=== PATIENT | male | born 1965 | race Caucasian/White ===

== ENCOUNTER 2020-06-29 12:19 | Outpatient (REF) | payer BC, SELFPAY ==
[2020-06-29 13:32] LABS: Alanine Aminotransferase 40 U/L (0-40); Albumin Level 4.5 g/dL (3.5-5.0); Alkaline Phosphatase 49 U/L (39-117); Aspartate Amino Transferase 23 U/L (5-37); Bilirubin Direct 0.2 mg/dL (0.0-0.5); Bilirubin Total 0.5 mg/dL (0.0-1.0); Cholesterol 148 mg/dL; Glucose Fasting 160 mg/dL (60-99); HDL Cholesterol 35 mg/dL; LDL Cholesterol Calculated 84 mg/dl; Total Protein 6.9 g/dL (6.5-8.0); Triglycerides 145 mg/dL
[2020-06-29 13:51] LABS: Estimated Average Glucose 180 mg/dL; Hemoglobin A1c % 7.9 %
== END 2020-06-29 12:20 | disposition home or self-care (01) ==
LOC: HO.LNP 12:19
PROVIDERS: PCP Internal Medicine; Visit Provider Internal Medicine
DX: E11.9 Type 2 diabetes mellitus without complications (principal); E78.00 Pure hypercholesterolemia, unspecified
CPT/HCPCS: 80061; 80076; 82947; 83036

== ENCOUNTER 2020-12-26 10:17 | Outpatient (REF) | payer BC, SELFPAY ==
[2020-12-26 10:20] LABS: MANUAL DIFF FLAG NO
[2020-12-26 11:13] LABS: Basophils Percent Auto 0.5 % (0-2); Eosinophils Absolute Auto 0.2 X10*3/uL (0.0-0.4); Hematocrit 42.3 % (42-52); Hemoglobin 14.1 g/dl (14.0-18.0); Imm Gran Abs Auto 0.03 X10*3/uL (0.00-0.03); Imm Gran Pct Auto 0.4 % (0.0-0.4); Lymphocytes Percent Auto 26.8 % (20-40); Mean Corpuscular HGB Conc 33.3 g/dl (31.0-36.0); Mean Corpuscular Hemoglobin 29.8 pg (27.0-33.0); Mean Corpuscular Volume 89.4 fL (80-98); Mean Platelet Volume 10.8 fL (9.4-12.4); Monocytes Absolute Auto 0.7 X10*3/uL (0.1-1.2); Monocytes Percent Auto 9.1 % (2-11); Neutrophils Absolute Auto 4.6 X10*3/uL (2.0-8.3); Neutrophils Percent Auto 61.2 % (45-73); Platelet Count 268 X10*3/uL (160-400); Red Blood Count 4.73 X10*6/uL (4.60-5.80); Red Cell Distribution Width 12.1 % (11.0-16.0); White Blood Count 7.6 X10*3/uL (4.8-10.8)
[2020-12-26 11:22] LABS: Estimated Average Glucose 160 mg/dL; Hemoglobin A1c % 7.2 %
[2020-12-26 11:26] LABS: Alanine Aminotransferase 35 U/L (0-40); Albumin Level 4.2 g/dL (3.5-5.0); Alkaline Phosphatase 44 U/L (39-117); Anion Gap 11 (12-20); Aspartate Amino Transferase 20 U/L (5-37); Bilirubin Total 0.6 mg/dL (0.0-1.0); Blood Urea Nitrogen 12 mg/dL (9-16); Calcium 9.4 mg/dL (8.4-10.2); Carbon Dioxide 27 mmol/L (22-29); Chloride 103 mmol/L (96-108); Cholesterol 135 mg/dL; Estimated Glomerular Filt Rate > 60; Glucose Fasting 184 mg/dL (60-99); HDL Cholesterol 34 mg/dL; LDL Cholesterol Calculated 75 mg/dl; Potassium 4.4 mmol/L (3.3-5.1); Sodium 137 mmol/L (135-145); Total Protein 6.8 g/dL (6.5-8.0); Triglycerides 130 mg/dL; Uric Acid 6.2 mg/dL (3.4-7.0)
[2020-12-26 11:48] LABS: Reflex LDLD? No
[2020-12-26 11:50] LABS: Creatinine Urine 274.17 mg/dL; Microalbum/Creatinine Ratio Ur 6.2 ug/mg cr; PSA,Total (Free>4and<10) 0.55 ng/mL (0.00-4.00)
[2020-12-26 11:51] LABS: Glucose Urine UA NEG (NEG); Leukocyte Esterase Urine NEG (NEG); Nitrite Urine NEG (NEG); Specific Gravity - Urine >= 1.030 (1.005-1.025); Urine Blood NEG (NEG); Urine Ketones NEG (NEG); Urine Protein NEG (NEG-TRACE)
[2020-12-26 11:55] LABS: Appearance Urine CLEAR; Color Urine YELLOW
== END 2020-12-26 10:18 | disposition home or self-care (01) ==
LOC: HO.LNP 10:17
PROVIDERS: Visit Provider Internal Medicine
DX: Z00.00 Encounter for general adult medical examination without abnormal findings (principal); M10.9 Gout, unspecified; E11.9 Type 2 diabetes mellitus without complications; E78.00 Pure hypercholesterolemia, unspecified; I10 Essential (primary) hypertension; Z12.5 Encounter for screening for malignant neoplasm of prostate
CPT/HCPCS: 80053; 80061; 81003; 82043; 83036; 84153; 84550; 85025

== ENCOUNTER 2021-06-28 07:00 | Outpatient (REF) | payer OTHER, SELFPAY ==
[2021-06-28 11:36] LABS: Estimated Average Glucose 197 mg/dL; Hemoglobin A1c % 8.5 %
[2021-06-28 11:38] LABS: Alanine Aminotransferase 57 U/L (0-40); Albumin Level 4.3 g/dL (3.5-5.0); Alkaline Phosphatase 52 U/L (39-117); Aspartate Amino Transferase 29 U/L (5-37); Bilirubin Direct 0.2 mg/dL (0.0-0.5); Bilirubin Total 0.5 mg/dL (0.0-1.0); Cholesterol 141 mg/dL; Glucose Fasting 192 mg/dL (60-99); HDL Cholesterol 35 mg/dL; LDL Cholesterol Calculated 69 mg/dl; Triglycerides 187 mg/dL
[2021-06-28 13:44] LABS: Reflex LDLD? No
== END 2021-06-28 07:01 | disposition home or self-care (01) ==
LOC: HO.LNP 07:00
PROVIDERS: Visit Provider Internal Medicine
DX: E11.9 Type 2 diabetes mellitus without complications (principal); E78.00 Pure hypercholesterolemia, unspecified
CPT/HCPCS: 80061; 80076; 82947; 83036

== ENCOUNTER 2021-10-11 09:38 | Emergency (ER) | payer BC, SELFPAY ==
--- NOTE | ~2021-10-11 | CT_ITS ---
EXAMINATION: CT ABDOMEN AND PELVIS WITHOUT CONTRAST CLINICAL INFORMATION: Left flank pain COMPARISON: None TECHNIQUE: Multidetector volumetric imaging was performed from the superior aspect of the liver through the pubic symphysis. Sagittal and coronal reformatted images were obtained on the technologist's workstation. This CT examination was performed using dose optimization techniques as appropriate, variously including the following: *Automated exposure control *Adjustment of mA and/or kV according to patient size (this includes techniques or standardized protocols for targeted exams where dose is matched to indication/reason for exam; i.e. extremities or head) *Use of iterative reconstruction technique DLP: 712 mGy-cm FINDINGS: LUNG BASES: The visualized lung bases are unremarkable. LIVER, GALLBLADDER, AND BILIARY TREE: The liver is normal in size, shape, and attenuation. No focal hepatic lesion or biliary ductal dilatation is present. The gallbladder is unremarkable with no evidence of radiopaque gallstones, gallbladder wall thickening, or obvious pericholecystic inflammatory changes. PANCREAS: Unremarkable. SPLEEN: Unremarkable. ADRENAL GLANDS: Unremarkable. KIDNEYS AND URETERS: The kidneys are normal in size, shape, and attenuation. There is no hydronephrosis. Left lower pole 0.4 cm calculus is 10 cm from the posterior axillary line. There are 2 calcifications seen along the course of the left ureter, seen on series 3 image 79 and image 81. It is difficult to determine if these are within the ureter or represent phleboliths. There are no additional phleboliths, these are suspicious for nonobstructing calculi measuring up to 0.3 cm. BLADDER: Unremarkable. GASTROINTESTINAL TRACT: The stomach is unremarkable. Normal caliber small bowel. No obstruction. Normal appendix. Scattered colonic diverticulosis without diverticulitis. No colonic wall thickening. No free air or free fluid. ABDOMINAL WALL: No significant hernia is appreciated. LYMPH NODES: Normal. VASCULAR: Normal caliber aorta with mild atherosclerotic calcification. PELVIC VISCERA: The prostate and seminal vesicles are unremarkable. OSSEOUS STRUCTURES: No acute or suspicious osseous abnormality. Degenerative changes throughout the spine. Moderate degenerative change of both hips with narrowing, subchondral cyst formation, and osteophyte formation. CT/CT abdomen pelvis wo con IMPRESSION: No hydronephrosis. Nonobstructing left lower pole renal calculus. Additional calcifications along the course of the distal left ureter suspicious for nonobstructing distal ureteral calculi. Fleischner guidelines were followed.
[2021-10-11 09:43] VITALS: BP 149/87; PULSE 98; RESP 18; TEMP 36.8; O2SAT 100; BMI 29.5
[2021-10-11 10:06] LABS: Hematocrit 40.6 % (42.0-52.0); Hemoglobin 13.7 g/dl (14.0-18.0); Mean Corpuscular HGB Conc 33.7 g/dl (31.0-36.0); Mean Corpuscular Hemoglobin 29.7 pg (27.0-33.0); Mean Corpuscular Volume 88.1 fL (80.0-98.0); Mean Platelet Volume 9.5 fL (9.4-12.4); Platelet Count 343 X10*3/uL (160-400); Red Blood Count 4.61 X10*6/uL (4.60-5.80); Red Cell Distribution Width 11.9 % (11.0-16.0); White Blood Count 8.4 X10*3/uL (4.8-10.8)
[2021-10-11 10:21] LABS: Anion Gap 18 (12-20); Blood Urea Nitrogen 9 mg/dL (9-16); Calcium 9.8 mg/dL (8.4-10.2); Carbon Dioxide 25 mmol/L (22-29); Chloride 101 mmol/L (96-108); Creatinine Clr Calc Pharmacy 87.4; Estimated Glomerular Filt Rate > 60; Glucose Random 275 mg/dL (60-115); Lipase 20 U/L (8-78); Potassium 4.8 mmol/L (3.3-5.1); Sodium 139 mmol/L (135-145)
--- NOTE | 2021-10-11 10:46 | ED_ITS ---
HPI - Abdominal Pain General Chief Complaint: Abdominal Pain Stated Complaint: quest kidney stone back pain Time Seen by Provider: 10/11/21 10:28 Source: patient Mode of arrival: ambulatory Limitations: no limitations History of Present Illness MD elicited complaint: flank pain Pertinent past history: none Onset (ago): day(s) (around 9am) Pain Consistency: constant Location: L flank Severity: severe Quality: stabbing Radiation: none Migration to: no migration Exacerbating factors: nothing Relieving factors: nothing Context: other (did notice a bout of hematuria yesterday ) Associated symptoms: nausea and hematuria Related Data Previous Rx's Medication Instructions Recorded ondansetron 4 mg disintegrating 4 mg PO Q8H PRN #20 tab 10/11/21 tablet oxycodone 10 mg tablet 10 mg PO Q6H PRN #18 tab 10/11/21 tamsulosin 0.4 mg capsule 0.4 mg PO DAILY 7 Days #7 cap 10/11/21 Allergies Allergy/AdvReac Type Severity Reaction Status Date / Time No Known Allergies Allergy Unverified 01/27/20 15:12 Review of Systems Review of Systems Constitutional : No Fever, No Chills ENT/Mouth : No sore throat Eyes: No Eye Pain, No Swelling, No Redness Cardiovascular : No Chest Pain, No SOB Respiratory : No Cough, No Sputum, No Wheezing Gastrointestinal : positive Nausea, no Vomiting, No Diarrhea, positive abdominal pain Genitourinary : no Dysuria, positive urinary frequency, positive Hematuria, positive Flank Pain, positive hesitancy Musculoskeletal : No joint pain, No Myalgias Skin : No Skin Lesions, No rash Neuro : No Weakness, No Numbness, No Headache Psych : No Anxiety/Panic, No Depression Heme/Lymph: No Bruising, No Lymphadenopathy Endocrine : No Polyuria, No Polydipsia All other systems reviewed and are negative PMFSH Past Medical History Attestation statement: The following information was validated with the patient. Medical History Diabetes HTN (hypertension) Social History Social History (Updated 10/11/21 @ 11:14 by Alisha Todd DO) Patient Tobacco Use Status: Never used Tobacco Advance Directives: No Advance Directives Information Provided: No Physical Exam ED Vital Signs: Vital Signs - 24 hr 10/11/21 09:43 10/11/21 11:14 Temperature 98.3 F 98.0 F Pulse Rate 98 92 Respiratory Rate 18 18 Blood Pressure 149/87 H 139/90 H Pulse Oximetry 100 97 BMI result Body Mass Index 29.5 Appearance: Alert. Oriented X3. Mild acute distress. Anxious in pain Eyes: Pupils equal, round and reactive to light. ENT: Pharynx normal. Neck: Normal inspection. Neck supple. CVS: Normal heart rate and rhythm. Pulses normal. Respiratory: No respiratory distress. Breath sounds normal. Abdomen: Soft and nontender. L sided flank ttp Skin: Skin warm and dry. Normal skin color. Normal skin turgor. Extremities: No lower extremity edema. No calf ttp Neuro: Oriented X 3. No motor deficit. No sensory deficit. Course Course Course Narrative: pain well controlled, Cr stable, no vomiting, likely 3mm stones UA no UTI MDM - Abdominal Pain MDM Narrative Medical decision making narrative: 56 yo male with hx of HTN, DM, dx with COVID 09/26 comes in with abrupt onset L sided flank pain hematuria - at this time labs, UA, CT scan for renal colic, IV morphine and IV toradol for pain ordered. Lab Data Result diagrams: 10/11/21 09:54 10/11/21 09:54 Labs: Lab Results 10/11/21 10/11/21 10/11/21 Range/Units 09:54 09:54 10:55 WBC 8.4 (4.8-10.8) X10*3/uL RBC 4.61 (4.60-5.80) X10*6/uL Hgb 13.7 L (14.0-18.0) g/dl Hct 40.6 L (42.0-52.0) % MCV 88.1 (80.0-98.0) fL MCH 29.7 (27.0-33.0) pg MCHC 33.7 (31.0-36.0) g/dl RDW 11.9 (11.0-16.0) % Plt Count 343 (160-400) X10*3/uL MPV 9.5 (9.4-12.4) fL Absolute Nucleated RBC 0.000 (0.0-0.012) X10*3/uL Nucleated RBC % (auto) 0.0 (0.0-0.2) /100WBC Sodium 139 (135-145) mmol/L Potassium 4.8 (3.3-5.1) mmol/L Chloride 101 (96-108) mmol/L Carbon Dioxide 25 (22-29) mmol/L Anion Gap 18 (12-20) BUN 9 (9-16) mg/dL Creatinine 1.05 (0.5-1.4) mg/dL Estim Creat Clear Calc 87.4 Estimated GFR > 60 Random Glucose 275 H (60-115) mg/dL Calcium 9.8 (8.4-10.2) mg/dL Lipase 20 (8-78) U/L Urine Color YELLOW Urine Appearance CLEAR Urine pH 5.0 (5.0-8.0) Ur Specific [place] >= 1.030 H (1.005-1.025) Urine Protein NEG (NEG-TRACE) MG/DL Urine Glucose (UA) 250 H (NEG) MG/DL Urine Ketones NEG (NEG) MG/DL Urine Blood 3+ H (NEG) Urine Nitrite NEG (NEG) Ur Leukocyte Esterase NEG (NEG) Urine RBC 5-9 H (0) /HPF Urine WBC 0-2 (0-4) /HPF Ur Squamous Epith Cells NONE /LPF Calcium Oxalate Crystal TRACE /LPF Urine Bacteria NONE /LPF Urine Mucus 1+ /LPF Discharge Plan Discharge Clinical Impression: Ureterolithiasis Patient Disposition: Home, Self-Care Instructions: Ureteral Stones (ED) Additional Instructions: return to ED for any worsening symptoms or concerns if no improvement in symptoms over the weekend call the Urologist drink 60 ounces of water a day The kidneys are normal in size, shape, and attenuation. There is no hydronephrosis. Left lower pole 0.4 cm calculus is 10 cm from the posterior axillary line. There are 2 calcifications seen along the course of the left ureter, seen on series 3 image 79 and image 81. It is difficult to determine if these are within the ureter or represent phleboliths. There are no additional phleboliths, these are suspicious for nonobstructing calculi measuring up to 0.3 cm.? Prescriptions: New tamsulosin 0.4 mg capsule 0.4 mg PO DAILY 7 Days Qty: 7 0RF ondansetron 4 mg tablet,disintegrating 4 mg PO Q8H PRN (Reason: nausea and vomiting) Qty: 20 0RF oxycodone 10 mg tablet 10 mg PO Q6H PRN (Reason: pain, moderate) Qty: 18 0RF Rx Instructions: partial fill okay Referrals: Christopher Garrett MD [Physician] - 5 days Stand Alone Forms: Work/School Release
[2021-10-11] MEDS: 0.9 % Sodium Chloride 1,000 ML 999 ML IV (10:56)
[2021-10-11] MEDS: Morphine Sulfate 4 MG/ML CARTRIDGE IVPUSH (10:56)
[2021-10-11] MEDS: ondansetron HCL 4 MG/2 ML VIAL IVPUSH (10:56)
[2021-10-11] MEDS: Ketorolac Tromethamine 15 MG/ML VIAL 30 MG IVPUSH (10:56)
[2021-10-11 11:14] VITALS: BP 139/90; PULSE 92; RESP 18; TEMP 36.7; O2SAT 97
[2021-10-11 11:18] LABS: Appearance Urine CLEAR; Color Urine YELLOW; Glucose Urine UA 250 MG/DL (NEG); Leukocyte Esterase Urine NEG (NEG); Nitrite Urine NEG (NEG); Specific Gravity - Urine >= 1.030 (1.005-1.025); UACC Culture Trigger NO; Urine Blood 3+ (NEG); Urine Ketones NEG (NEG); Urine Protein NEG (NEG-TRACE)
[2021-10-11 12:14] LABS: Mucus Urine 1+ /LPF; WBC Urine 0-2 /HPF (0-4)
[2021-10-11 12:15] LABS: Calcium Oxalate Crystals Urine TRACE /LPF
[2021-10-11] MEDS: Tamsulosin HCL 0.4 MG CAPSULE PO (12:33)
== END 2021-10-11 12:52 | disposition home or self-care (01) ==
PROVIDERS: Emergency Provider Emergency Medicine; PCP Internal Medicine
DX: N20.1 Calculus of ureter (principal); E11.9 Type 2 diabetes mellitus without complications; I10 Essential (primary) hypertension
CPT/HCPCS: 36415; 74176; 80048; 81001; 83690; 85027; 96361; 96374; 96375; 99284; J1885; J2270; J2405

== ENCOUNTER 2021-11-13 10:34 | Outpatient (REF) | payer BC, SELFPAY ==
[2021-11-13 11:31] LABS: Appearance Urine CLEAR; Color Urine YELLOW; Glucose Urine UA NEG (NEG); Leukocyte Esterase Urine NEG (NEG); Nitrite Urine NEG (NEG); PH 5.5 (5.0-8.0); Specific Gravity - Urine >= 1.030 (1.005-1.025); Urine Blood NEG (NEG); Urine Ketones NEG (NEG); Urine Protein TRACE MG/DL (NEG-TRACE)
[2021-11-13 12:23] LABS: Mucus Urine TRACE /LPF; RBC Urine 0-2 /HPF (0); Squamous Epithelial Cell Urine TRACE /LPF; WBC Urine 0 /HPF (0-4)
== END 2021-11-13 10:35 | disposition home or self-care (01) ==
LOC: HO.LNP 10:34
PROVIDERS: PCP Internal Medicine; Visit Provider Internal Medicine
DX: N20.0 Calculus of kidney (principal)
CPT/HCPCS: 81001

== ENCOUNTER 2021-12-28 10:43 | Outpatient (REF) | payer BC, SELFPAY ==
[2021-12-28 10:49] LABS: MANUAL DIFF FLAG NO
[2021-12-28 11:20] LABS: Appearance Urine Hazy; Color Urine Yellow; Glucose Urine UA Negative (Negative); Leukocyte Esterase Urine Negative (Negative); Nitrite Urine Negative (Negative); PH 5.5 (5.0-8.0); Specific Gravity - Urine >= 1.030 (1.005-1.025); Urine Blood Negative (Negative); Urine Ketones Negative (Negative); Urine Protein Trace mg/dL (Neg-Trace)
[2021-12-28 11:21] LABS: Basophils Percent Auto 0.5 % (0-2); Eosinophils Absolute Auto 0.1 X10*3/uL (0.0-0.4); Eosinophils Percent Auto 1.4 % (0-4); Hematocrit 41.9 % (42.0-52.0); Hemoglobin 14.3 g/dl (14.0-18.0); Imm Gran Abs Auto 0.03 X10*3/uL (0.00-0.03); Imm Gran Pct Auto 0.4 % (0.0-0.4); Lymphocytes Absolute Auto 2.3 X10*3/uL (1.2-4.9); Lymphocytes Percent Auto 32.1 % (20-40); Mean Corpuscular HGB Conc 34.1 g/dl (31.0-36.0); Mean Corpuscular Hemoglobin 30.3 pg (27.0-33.0); Mean Corpuscular Volume 88.8 fL (80.0-98.0); Mean Platelet Volume 10.6 fL (9.4-12.4); Monocytes Absolute Auto 0.6 X10*3/uL (0.1-1.2); Monocytes Percent Auto 8.6 % (2-11); Neutrophils Absolute Auto 4.2 x10*3/uL (2.0-8.3); Platelet Count 260 X10*3/uL (160-400); Red Blood Count 4.72 X10*6/uL (4.60-5.80); Red Cell Distribution Width 12.7 % (11.0-16.0); White Blood Count 7.3 X10*3/uL (4.8-10.8)
[2021-12-28 11:32] LABS: Estimated Average Glucose 180 mg/dL; Hemoglobin A1c % 7.9 %
[2021-12-28 11:35] LABS: Alanine Aminotransferase 47 U/L (0-40); Albumin Level 4.2 g/dL (3.5-5.0); Alkaline Phosphatase 49 U/L (39-117); Anion Gap 16 (12-20); Aspartate Amino Transferase 31 U/L (5-37); Bilirubin Total 0.9 mg/dL (0.0-1.0); Blood Urea Nitrogen 12 mg/dL (9-16); Calcium 9.4 mg/dL (8.4-10.2); Carbon Dioxide 27 mmol/L (22-29); Chloride 100 mmol/L (96-108); Cholesterol 133 mg/dL; Estimated Glomerular Filt Rate > 60; Glucose Fasting 190 mg/dL (60-99); HDL Cholesterol 37 mg/dL; LDL Cholesterol Calculated 60 mg/dl; Potassium 4.3 mmol/L (3.3-5.1); Sodium 139 mmol/L (135-145); Total Protein 6.7 g/dL (6.5-8.0); Triglycerides 183 mg/dL
[2021-12-28 11:39] LABS: WBC Urine 0-5 /HPF (0-5)
[2021-12-28 11:40] LABS: Squamous Epithelial Cell Urine 0-2 /HPF (0-2)
[2021-12-28 11:41] LABS: Bacteria Urine Trace (None Seen); Hyaline Casts Urine 0-2 /LPF (0-2); RBC Urine 0-2 /HPF (0-2)
[2021-12-28 11:47] LABS: Other Crystals Urine Present
[2021-12-28 11:50] LABS: Creatinine Urine 355.71 mg/dL; Microalbum/Creatinine Ratio Ur 11.5 ug/mg cr
[2021-12-28 11:57] LABS: PSA,Total (Free>4and<10) 0.41 ng/mL (0.00-4.00)
== END 2021-12-28 10:44 | disposition home or self-care (01) ==
LOC: HO.LNP 10:43
PROVIDERS: Visit Provider Internal Medicine
DX: Z00.00 Encounter for general adult medical examination without abnormal findings (principal); Z12.5 Encounter for screening for malignant neoplasm of prostate; E78.00 Pure hypercholesterolemia, unspecified; E11.9 Type 2 diabetes mellitus without complications; I10 Essential (primary) hypertension
CPT/HCPCS: 80053; 80061; 81001; 82043; 83036; 84153; 85025

== ENCOUNTER 2022-01-15 07:57 | Outpatient (REF) | payer BC, SELFPAY ==
--- NOTE | ~2022-01-15 | US_ITS ---
EXAMINATION: US RETROPERITONEAL LIMITED (RENAL ONLY) CLINICAL INFORMATION: Calculus of kidney. COMPARISON: CT abdomen and pelvis 10/11/2021. TECHNIQUE: Real-time imaging of the kidneys. FINDINGS: RIGHT KIDNEY: 12.5 x 5.1 x 6.9 cm (SAG x AP x TRV). The kidney is normal in size, contour, and echogenicity. Renal cortical thickness is normal. No calculi or focal parenchymal lesions. No hydronephrosis. LEFT KIDNEY: 12.0 x 5.7 x 5.1 cm (SAG x AP x TRV). The kidney is normal in size, contour, and echogenicity. Renal cortical thickness is normal. There is a 3 x 4 mm stone in the lower pole. There is a 2.6 x 2.8 cm cyst in the midpole. Findings are similar to previous CT. No hydronephrosis. US/US renal BI IMPRESSION: Small left renal stone and left renal cyst. Normal right kidney.
== END 2022-01-15 07:58 | disposition home or self-care (01) ==
LOC: HO.US 07:57
DX: N20.0 Calculus of kidney (principal)
CPT/HCPCS: 76775

== ENCOUNTER 2022-02-01 20:06 | Emergency (ER) | payer BC, SELFPAY ==
--- NOTE | ~2022-02-01 | XR_ITS ---
EXAMINATION: XR CHEST CLINICAL INFORMATION: Chest pain COMPARISON: 06/13/2019 TECHNIQUE: 2 views of the chest were obtained. FINDINGS: The lungs are well expanded. There is no focal consolidation, edema, or effusion. No pneumothorax. The cardiomediastinal silhouette is within normal limits. No acute osseous abnormality. Cervical fusion hardware noted. XR/XR chest 2V IMPRESSION: Clear lungs.
[2022-02-01 20:13] VITALS: BP 145/78; PULSE 97; O2SAT 100
[2022-02-01 20:35] VITALS: BP 138/75; PULSE 87; RESP 18; TEMP 37.2; O2SAT 99; BMI 30.5
[2022-02-01 21:07] LABS: MANUAL DIFF FLAG NO
[2022-02-01 21:08] LABS: Basophils Percent Auto 0.3 % (0-2); Eosinophils Absolute Auto 0.1 X10*3/uL (0.0-0.4); Hemoglobin 14.2 g/dl (14.0-18.0); Imm Gran Abs Auto 0.03 X10*3/uL (0.00-0.03); Imm Gran Pct Auto 0.3 % (0.0-0.4); Lymphocytes Absolute Auto 1.6 X10*3/uL (1.2-4.9); Lymphocytes Percent Auto 13.5 % (20-40); Mean Corpuscular HGB Conc 34.6 g/dl (31.0-36.0); Mean Corpuscular Hemoglobin 30.3 pg (27.0-33.0); Mean Corpuscular Volume 87.6 fL (80.0-98.0); Mean Platelet Volume 9.8 fL (9.4-12.4); Monocytes Absolute Auto 1.1 X10*3/uL (0.1-1.2); Monocytes Percent Auto 9.4 % (2-11); Neutrophils Absolute Auto 8.7 x10*3/uL (2.0-8.3); Neutrophils Percent Auto 75.5 % (45-73); Platelet Count 241 X10*3/uL (160-400); Red Blood Count 4.68 X10*6/uL (4.60-5.80); Red Cell Distribution Width 12.4 % (11.0-16.0); White Blood Count 11.6 X10*3/uL (4.8-10.8)
[2022-02-01 21:25] LABS: Alanine Aminotransferase 51 U/L (0-40); Albumin Level 4.6 g/dL (3.5-5.0); Alkaline Phosphatase 53 U/L (39-117); Anion Gap 16 (12-20); Aspartate Amino Transferase 28 U/L (5-37); Bilirubin Direct 0.2 mg/dL (0.0-0.5); Bilirubin Total 0.5 mg/dL (0.0-1.0); Blood Urea Nitrogen 9 mg/dL (9-16); Calcium 9.7 mg/dL (8.4-10.2); Carbon Dioxide 28 mmol/L (22-29); Chloride 100 mmol/L (96-108); Creatinine Clr Calc Pharmacy 101.4; Estimated Glomerular Filt Rate > 60; Glucose Random 174 mg/dL (60-115); Lipase 15 U/L (8-78); Potassium 4.9 mmol/L (3.3-5.1); Sodium 139 mmol/L (135-145); Total Protein 7.3 g/dL (6.5-8.0)
[2022-02-01 21:28] LABS: Troponin-I High Sensitivity < 3.5 ng/L (<3.5-35.0)
[2022-02-02 01:48] VITALS: BP 142/73; PULSE 85; RESP 16; TEMP 36.4; O2SAT 99
[2022-02-02 02:19] LABS: Troponin-I High Sensitivity < 3.5 ng/L (<3.5-35.0)
--- NOTE | 2022-02-02 04:27 | ED_ITS ---
HPI - Chest Pain General Chief Complaint: Chest Pain Stated Complaint: chest pain Time Seen by Provider: 02/02/22 01:09 Source: patient Mode of arrival: ambulatory Limitations: no limitations History of Present Illness HPI narrative: Patient comes to the emergency room complaining of lung burning sensation with deep inhalations that started approximately 20 hours ago. Patient denies any chest pain, no shortness of breath. Patient states it is a little bit told, burning substernal discomfort. The patient denies the symptoms being related to exertion, only to deep inhalation. Patient denies any recent URI symptoms. At this time, patient states that he has no symptoms, only if he takes a deep breath, he can feel the discomfort. Related Data Home Medications Medication Instructions Recorded Confirmed atorvastatin 40 mg tablet 40 mg PO DAILY 11/09/21 codeine 10 mg-guaifenesin 100 mg/5 ml PO Q6H PRN 11/09/21 mL oral liquid lisinopril 10 1 tab PO DAILY 11/09/21 mg-hydrochlorothiazide 12.5 mg tablet metformin 500 mg tablet,extended 1,000 mg PO BID 11/09/21 release 24 hr sitagliptin 100 mg tablet (Januvia) 100 mg PO DAILY 11/09/21 Previous Rx's Medication Instructions Recorded ondansetron 4 mg disintegrating 4 mg PO Q8H PRN nausea and 10/11/21 tablet vomiting #20 tabs oxycodone 10 mg tablet 10 mg PO Q6H PRN pain, moderate 10/11/21 #18 tabs prednisone 20 mg tablet 20 mg PO DAILY 5 days #5 tabs 10/11/21 tamsulosin 0.4 mg capsule 0.4 mg PO DAILY 14 days #14 caps 10/11/21 pyridoxine (vitamin B6) 50 mg 50 mg PO DAILY #30 caps 11/09/21 capsule Allergies Allergy/AdvReac Type Severity Reaction Status Date / Time No Known Allergies Allergy Verified 11/09/21 09:14 Review of Systems Review of Systems: Constitutional : No Weight loss, No Fever, No Chills, No Night Sweats, No Fatigue, No Malaise ENT/Mouth : No Hearing loss, No Ear Pain, No Nasal Congestion, No Sinus Pain, No Hoarseness, No sore throat, No Rhinorrhea, No Swallowing Difficulty Eyes: No Eye Pain, No Swelling, No Redness, No Foreign Body, No Discharge, No Vision Changes Cardiovascular : No Chest Pain, No SOB, No Dyspnea on Exertion, No Orthopnea, No Edema, No Palpitations Respiratory : Complaining of burning sensation with deep inhalation, No Cough, No Sputum, No Wheezing, No Smoke Exposure, No Dyspnea Gastrointestinal : No Nausea, No Vomiting, No Diarrhea, No Constipation, No abdominal Pain, No Hematochezia, No Melena Genitourinary : no irregular bleeding, No Dysuria, No Urinary Frequency, No Hematuria, No Urinary Incontinence, No Urgency, No Flank Pain, No Urinary Flow Changes, No Hesitancy Musculoskeletal : No joint pain, No Myalgias, No Joint Swelling Skin : No Skin Lesions, No rash Neuro : No Weakness, No Numbness, No Paresthesias, No Loss of Consciousness, No Dizziness, No Headache Psych : No Anxiety/Panic, No Depression, No SI/HI/AH/VH, No Social Issues, Heme/Lymph: No Bruising, No Bleeding,No Lymphadenopathy Endocrine : No Polyuria, No Polydipsia, No Temperature Intolerance [facility] Past Medical History Medical History Diabetes HTN (hypertension) Renal calculi Social History Social History Patient Tobacco Use Status: Never used Tobacco Advance Directives: No Physical Exam Vital Signs: Vital Signs: Last Vital Signs Temp 97.5 F 02/02/22 01:48 Pulse 85 02/02/22 01:48 Resp 16 02/02/22 01:48 BP 142/73 H 02/02/22 01:48 Pulse Ox 99 02/02/22 01:48 O2 Del Method 02/02/22 01:48 BMI result Body Mass Index 30.5 Const: Other: Appearance: Alert. Oriented X3. No acute distress. Eyes: Pupils equal, round and reactive to light. ENT: Pharynx normal. Neck: Normal inspection. Neck supple. No lymph nodes noted. No crepitus CVS: Normal heart rate and rhythm. Pulses normal. Normal S1 and S2 Respiratory: No respiratory distress. Breath sounds normal. No Wheezing. No rales Abdomen: Soft and nontender. No rigidity. No distention. Skin: Skin warm and dry. Normal skin color. Normal skin turgor. Extremities: No lower extremity edema. No Lacerations. No Rash Neuro: Oriented X 3. No motor deficit. No sensory deficit. Moving all extremities. No slurred speech. CN 2 through 12 grossly intact Psych: calm, cooperative, normal affect Course Course Course Narrative: EKG was normal, troponin x2 was negative. Patient is diabetic and has hypertension. Patient states he had a stress test approximately 10 years ago which was normal. Discussed with the patient that he would benefit from talking to his primary care physician regarding a new stress test. Given the patient's history, troponins, EKG, it is unlikely that the patient's symptoms are from cardiac etiology. Chest x-ray negative EKG shows sinus rhythm, heart rate 92, no ST segment depressions or elevation, no T-wave inversions, QTC 425. Unclear why patient's EKG did not cross over to the 911 Pets system Wells criteria score for PE 0 COVID test negative MDM - Chest Pain Lab Data Result diagrams: 02/01/22 21:02 02/01/22 21:02 Labs: Lab Results 02/01/22 02/01/22 02/01/22 Range/Units 21:02 21:02 21:02 WBC 11.6 H (4.8-10.8) X10*3/uL RBC 4.68 (4.60-5.80) X10*6/uL Hgb 14.2 (14.0-18.0) g/dl Hct 41.0 L (42.0-52.0) % MCV 87.6 (80.0-98.0) fL MCH 30.3 (27.0-33.0) pg MCHC 34.6 (31.0-36.0) g/dl RDW 12.4 (11.0-16.0) % Plt Count 241 (160-400) X10*3/uL MPV 9.8 (9.4-12.4) fL Immature Gran % (Auto) 0.3 (0.0-0.4) % Neut % (Auto) 75.5 H (45-73) % Lymph % (Auto) 13.5 L (20-40) % [place] % (Auto) 9.4 (2-11) % Eos % (Auto) 1.0 (0-4) % Baso % (Auto) 0.3 (0-2) % Lymph # (Auto) 1.6 (1.2-4.9) X10*3/uL [place] # (Auto) 1.1 (0.1-1.2) X10*3/uL Eos # (Auto) 0.1 (0.0-0.4) X10*3/uL Baso # (Auto) 0.0 (0.0-0.2) X10*3/uL Abs Immat Gran (auto) 0.03 (0.00-0.03) X10*3/uL Absolute Neuts (auto) 8.7 H (2.0-8.3) x10*3/uL Absolute Nucleated RBC 0.000 (0.0-0.012) X10*3/uL Nucleated RBC % (auto) 0.0 (0.0-0.2) /100WBC Sodium 139 (135-145) mmol/L Potassium 4.9 (3.3-5.1) mmol/L Chloride 100 (96-108) mmol/L Carbon Dioxide 28 (22-29) mmol/L Anion Gap 16 (12-20) BUN 9 (9-16) mg/dL Creatinine 0.92 (0.5-1.4) mg/dL Estim Creat Clear Calc 101.4 Estimated GFR > 60 Random Glucose 174 H D (60-115) mg/dL Calcium 9.7 (8.4-10.2) mg/dL Total Bilirubin 0.5 (0.0-1.0) mg/dL Direct Bilirubin 0.2 (0.0-0.5) mg/dL AST 28 (5-37) U/L ALT 51 H (0-40) U/L Alkaline Phosphatase 53 (39-117) U/L Troponin I High Sens < 3.5 (<3.5-35.0) ng/L Total Protein 7.3 (6.5-8.0) g/dL Albumin 4.6 (3.5-5.0) g/dL Lipase 15 (8-78) U/L COVID-19 ([place]) (Negative) COVID-19 Clin Com 02/02/22 02/02/22 Range/Units 01:53 04:29 WBC (4.8-10.8) X10*3/uL RBC (4.60-5.80) X10*6/uL Hgb (14.0-18.0) g/dl Hct (42.0-52.0) % MCV (80.0-98.0) fL MCH (27.0-33.0) pg MCHC (31.0-36.0) g/dl RDW (11.0-16.0) % Plt Count (160-400) X10*3/uL MPV (9.4-12.4) fL Immature Gran % (Auto) (0.0-0.4) % Neut % (Auto) (45-73) % Lymph % (Auto) (20-40) % [place] % (Auto) (2-11) % Eos % (Auto) (0-4) % Baso % (Auto) (0-2) % Lymph # (Auto) (1.2-4.9) X10*3/uL [place] # (Auto) (0.1-1.2) X10*3/uL Eos # (Auto) (0.0-0.4) X10*3/uL Baso # (Auto) (0.0-0.2) X10*3/uL Abs Immat Gran (auto) (0.00-0.03) X10*3/uL Absolute Neuts (auto) (2.0-8.3) x10*3/uL Absolute Nucleated RBC (0.0-0.012) X10*3/uL Nucleated RBC % (auto) (0.0-0.2) /100WBC Sodium (135-145) mmol/L Potassium (3.3-5.1) mmol/L Chloride (96-108) mmol/L Carbon Dioxide (22-29) mmol/L Anion Gap (12-20) BUN (9-16) mg/dL Creatinine (0.5-1.4) mg/dL Estim Creat Clear Calc Estimated GFR Random Glucose (60-115) mg/dL Calcium (8.4-10.2) mg/dL Total Bilirubin (0.0-1.0) mg/dL Direct Bilirubin (0.0-0.5) mg/dL AST (5-37) U/L ALT (0-40) U/L Alkaline Phosphatase (39-117) U/L Troponin I High Sens < 3.5 (<3.5-35.0) ng/L Total Protein (6.5-8.0) g/dL Albumin (3.5-5.0) g/dL Lipase (8-78) U/L COVID-19 ([place]) Negative (Negative) COVID-19 Clin Com See Note Imaging Data Chest x-ray: Radiologist's impression: FINDINGS: The lungs are well expanded. There is no focal consolidation, edema, or effusion. No pneumothorax. The cardiomediastinal silhouette is within normal limits. No acute osseous abnormality. Cervical fusion hardware noted. XR/XR chest 2V IMPRESSION: Clear lungs. Scores Heart Score History: -0- slightly suspicious ECG: -0- normal Age: -1- >45 - <65 Risk factory: -2- 3 or more risk factors or treated atherosclerosis Troponin: -0- < or = normal limit Score: 3 Risk: 1.7% Discharge Plan Discharge Clinical Impression: Atypical chest pain Patient Disposition: Home, Self-Care Instructions: Chest Pain (ED) Additional Instructions: Please follow-up with your primary care physician tomorrow. If you have any worsening or new symptoms, please return to the emergency room or call 911 Prescriptions: No Action prednisone 20 mg tablet 20 mg PO DAILY 5 Days Qty: 5 0RF tamsulosin 0.4 mg capsule 0.4 mg PO DAILY 14 Days Qty: 14 0RF ondansetron 4 mg tablet,disintegrating 4 mg PO Q8H PRN (Reason: nausea and vomiting) Qty: 20 0RF oxycodone 10 mg tablet 10 mg PO Q6H PRN (Reason: pain, moderate) Qty: 18 0RF Rx Instructions: partial fill okay lisinopril-hydrochlorothiazide 10-12.5 mg tablet 1 tab PO DAILY metformin 500 mg tablet extended release 24 hr 1,000 mg PO BID Januvia 100 mg tablet 100 mg PO DAILY atorvastatin 40 mg tablet 40 mg PO DAILY codeine-guaifenesin 10-100 mg/5 mL liquid PO Q6H PRN pyridoxine (vitamin B6) 50 mg capsule 50 mg PO DAILY Qty: 30 3RF
[2022-02-02 04:55] LABS: COVID-19 Test Negative (Negative)
[2022-02-02 05:11] VITALS: BP 140/80; PULSE 86; RESP 20; O2SAT 100
== END 2022-02-02 05:14 | disposition home or self-care (01) ==
PROVIDERS: Student in an Organized Health Care Education/Training Program; Emergency Provider Emergency Medicine
DX: R07.89 Other chest pain (principal); E11.9 Type 2 diabetes mellitus without complications; I10 Essential (primary) hypertension; Z20.822 Contact with and (suspected) exposure to COVID-19; Z79.84 Long term (current) use of oral hypoglycemic drugs; Z79.899 Other long term (current) drug therapy
CPT/HCPCS: 36415; 71046; 80053; 82248; 83690; 84484; 85025; 87635; 99283; 99284

== ENCOUNTER 2022-06-28 10:35 | Outpatient (REF) | payer BC, SELFPAY ==
[2022-06-28 11:12] LABS: Estimated Average Glucose 212 mg/dL
[2022-06-28 11:29] LABS: Alanine Aminotransferase 54 U/L (0-40); Albumin Level 4.3 g/dL (3.5-5.0); Alkaline Phosphatase 54 U/L (39-117); Aspartate Amino Transferase 31 U/L (5-37); Bilirubin Direct 0.3 mg/dL (0.0-0.5); Bilirubin Total 0.9 mg/dL (0.0-1.0); Cholesterol 138 mg/dL; Glucose Fasting 214 mg/dL (60-99); HDL Cholesterol 38 mg/dL; LDL Cholesterol Calculated 66 mg/dl; Total Protein 6.9 g/dL (6.5-8.0); Triglycerides 170 mg/dL
[2022-06-28 13:51] LABS: Reflex LDLD? No
== END 2022-06-28 10:36 | disposition home or self-care (01) ==
LOC: HO.LNP 10:35
PROVIDERS: Visit Provider Internal Medicine
DX: E11.9 Type 2 diabetes mellitus without complications (principal); E78.00 Pure hypercholesterolemia, unspecified
CPT/HCPCS: 80061; 80076; 82947; 83036

== ENCOUNTER 2022-08-06 07:49 | Outpatient (REF) | payer BC, SELFPAY ==
--- NOTE | ~2022-08-06 | US_ITS ---
EXAMINATION: US RETROPERITONEAL LIMITED (RENAL ONLY) CLINICAL INFORMATION: Calculus of kidney. COMPARISON: Ultrasound retroperitoneal limited (renal only) 01/15/2022. CT abdomen and pelvis without contrast 10/11/2021. TECHNIQUE: Real-time imaging of the kidneys. FINDINGS: RIGHT KIDNEY: 12.3 x 5.0 x 6.0 cm (SAG x AP x TRV). The kidney is normal in size, contour, and echogenicity. Renal cortical thickness is normal. No calculi or focal parenchymal lesions. No hydronephrosis. LEFT KIDNEY: 12.1 x 6.0 x 5.5 cm (SAG x AP x TRV). The kidney is normal in size, contour, and echogenicity. Renal cortical thickness is normal. No renal calculi or hydronephrosis. 2.9 cm simple cyst in the mid kidney. No imaging follow-up is recommended. US/US renal BI IMPRESSION: No visible nephrolithiasis. No hydronephrosis.
== END 2022-08-06 07:50 | disposition home or self-care (01) ==
LOC: HO.US 07:49
PROVIDERS: Visit Provider Urology
DX: N20.0 Calculus of kidney (principal)
CPT/HCPCS: 76775

== ENCOUNTER → 2022-09-26 13:57 | Outpatient (BNVA) | payer BC, SELFPAY | PROVIDERS: PCP Internal Medicine; Visit Provider Dietitian, Registered | DX: E11.9 Type 2 diabetes mellitus without complications (principal); Z68.30 Body mass index [BMI] 30.0-30.9, adult; Z71.3 Dietary counseling and surveillance | CPT/HCPCS: 97802 ==

== ENCOUNTER → 2022-10-08 13:55 | Outpatient (BNVA) | payer BC, SELFPAY | PROVIDERS: PCP Internal Medicine; Visit Provider Urology ==

== ENCOUNTER 2022-11-26 13:59 | Outpatient (AMB) | payer BC, SELFPAY ==
--- NOTE | 2022-11-26 14:04 | A.OFFVIS_ITS ---
Intake VS Expanded 11/26/22 14:05 Height 5 ft 9 in Weight 203 lb 7.787 oz BMI 30.0 Intake Visit Reasons: DM2 Allergies No Known Allergies Allergy (Verified 11/09/21 09:14) HPI Nutrition Presentation Details Pt presents for MNT follow up for T2DM Pt reports doing better, having better understanding of relationship of food to BG. Pt reports he is unitizing stormy glucose sensor. Challenges: tends to skip meals/increased snacks Most Recent Diabetes Results: Microalb/Creat Ratio 11.5 ug/mg cr 12/28/21 Cholesterol 138 mg/dL 06/28/22 HDL Cholesterol 38 mg/dL 06/28/22 Triglycerides 170 mg/dL 06/28/22 Creatinine 0.92 mg/dL (0.5-1.4) 02/01/22 Blood Urea Nitrogen 9 mg/dL (9-16) 02/01/22 Sodium 139 mmol/L (135-145) 02/01/22 Potassium 4.9 mmol/L (3.3-5.1) 02/01/22 Chloride 100 mmol/L (96-108) 02/01/22 Carbon Dioxide 28 mmol/L (22-29) 02/01/22 Calcium 9.7 mg/dL (8.4-10.2) 02/01/22 AST 31 U/L (5-37) 06/28/22 ALT 54 U/L (0-40) H 06/28/22 Total Protein 6.9 g/dL (6.5-8.0) 06/28/22 Albumin 4.3 g/dL (3.5-5.0) 06/28/22 [facility] Medical History Diabetes HTN (hypertension) Renal calculi Social History Patient Tobacco Use Status: Never used Tobacco Assessment & Plan Assessment & Plan (1) Type 2 diabetes mellitus: Code(s): E11.9 - Type 2 diabetes mellitus without complications Plan: Est kcal needs as per MSJ: 2410 (40% carb, 30% protein/fat) Est fluid needs as per 25-30 ml/d: 0164-1246 Est prot per day as per 1 g/kg bw: 94 Recommend fiber intake : 8-10 g per day and gradually increase to 25-28 g per day for women Recommend sodium intake per day : less than 2000 mg Educated patient on: ( R = reviewed V = verbalizes understanding N/R = needs review N/A = not applicable * Food sources of carbohydrate, adequate serving sizes and its role in various health conditions: R ,V * Differences between complex carbohydrates a simple carbohydrates, role of fib er in diet: R ,V * Differences between types of fats and role in diet (mono on saturated fat fatty acids, saturated fatty acids, trans fats): R * Food sources of sodium in salt and healthy modifications for heart health in kidney health: R * Vitamins and minerals: R * Healthy plate method concept: R * Physical activity: Benefits a precaution: R V * Hypoglycemia protocol (rule of 15): R * Dietary prevention of Hyperglycemia: R Plan 60-75 g Patient Instructions: Work on having 3 balanced meals per day following healthy plate method, choose high fiber source of foods Keep hydrated by having water with meals/snacks Keep physically active consider taking a MVI Coding Level of Care Code Nutr Indiv Subseq (12330) Diagnoses Type 2 diabetes mellitus E11.9 Time Spent (min) 20
== END 2022-11-26 14:47 | disposition home or self-care (01) ==
PROVIDERS: PCP Internal Medicine; Visit Provider Dietitian, Registered
DX: E11.9 Type 2 diabetes mellitus without complications (principal)

== ENCOUNTER → 2022-11-26 13:59 | Outpatient (BNVA) | payer BC, SELFPAY | PROVIDERS: Visit Provider Dietitian, Registered | DX: E11.9 Type 2 diabetes mellitus without complications (principal); Z71.3 Dietary counseling and surveillance | CPT/HCPCS: 97803 ==

== ENCOUNTER 2023-01-03 12:10 | Outpatient (REF) | payer BC, SELFPAY ==
[2023-01-03 12:14] LABS: MANUAL DIFF FLAG NO
[2023-01-03 12:20] LABS: Basophils Percent Auto 0.4 % (0-2); Eosinophils Absolute Auto 0.1 X10*3/uL (0.0-0.4); Eosinophils Percent Auto 1.1 % (0-4); Hematocrit 41.8 % (42.0-52.0); Hemoglobin 13.9 g/dl (14.0-18.0); Imm Gran Abs Auto 0.02 X10*3/uL (0.00-0.03); Imm Gran Pct Auto 0.2 % (0.0-0.4); Lymphocytes Absolute Auto 2.3 X10*3/uL (1.2-4.9); Lymphocytes Percent Auto 27.6 % (20-40); Mean Corpuscular HGB Conc 33.3 g/dl (31.0-36.0); Mean Corpuscular Hemoglobin 30.3 pg (27.0-33.0); Mean Corpuscular Volume 91.1 fL (80.0-98.0); Mean Platelet Volume 11.3 fL (9.4-12.4); Monocytes Absolute Auto 0.6 X10*3/uL (0.1-1.2); Monocytes Percent Auto 7.4 % (2-11); Neutrophils Absolute Auto 5.2 x10*3/uL (2.0-8.3); Neutrophils Percent Auto 63.3 % (45-73); Platelet Count 267 X10*3/uL (160-400); Red Blood Count 4.59 X10*6/uL (4.60-5.80); Red Cell Distribution Width 12.3 % (11.0-16.0); White Blood Count 8.2 X10*3/uL (4.8-10.8)
[2023-01-03 12:27] LABS: Appearance Urine Cloudy; Color Urine Yellow; Glucose Urine UA Negative (Negative); Leukocyte Esterase Urine Negative (Negative); Nitrite Urine Negative (Negative); PH 5.5 (5.0-9.0); Specific Gravity - Urine 1.025 (1.005-1.025); Urine Blood Negative (Negative); Urine Ketones Trace mg/dL (Negative); Urine Protein Trace mg/dL (Neg-Trace)
[2023-01-03 12:38] LABS: Bacteria Urine None Seen (None Seen); Squamous Epithelial Cell Urine 0-2 /HPF (0-2); WBC Urine 0-5 /HPF (0-5)
[2023-01-03 12:46] LABS: Estimated Average Glucose 163 mg/dL; Hemoglobin A1c % 7.3 % (<6.0)
[2023-01-03 13:11] LABS: Microalbum/Creatinine Ratio Ur 5.9 ug/mg cr (<30)
[2023-01-03 13:27] LABS: Alanine Aminotransferase 25 U/L (0-40); Albumin Level 4.1 g/dL (3.5-5.0); Alkaline Phosphatase 44 U/L (39-117); Anion Gap 16 (12-20); Aspartate Amino Transferase 20 U/L (5-37); Bilirubin Total 0.5 mg/dL (0.0-1.0); Blood Urea Nitrogen 13 mg/dL (9-16); Calcium 9.5 mg/dL (8.4-10.2); Carbon Dioxide 25 mmol/L (22-29); Chloride 103 mmol/L (96-108); Cholesterol 115 mg/dL (<200); Estimated Glomerular Filt Rate > 60; Glucose Fasting 178 mg/dL (60-99); HDL Cholesterol 35 mg/dL (>40); LDL Cholesterol Calculated 54 mg/dL (<100); Potassium 4.2 mmol/L (3.3-5.1); Sodium 140 mmol/L (135-145); Total Protein 6.8 g/dL (6.5-8.0); Triglycerides 134 mg/dL (<150)
[2023-01-03 13:36] LABS: Prostate Specific Antigen 0.69 ng/mL (<0.05-4.0)
== END 2023-01-03 12:11 | disposition home or self-care (01) ==
LOC: HO.LNP 12:10
PROVIDERS: Visit Provider Internal Medicine
DX: E11.9 Type 2 diabetes mellitus without complications (principal); E78.00 Pure hypercholesterolemia, unspecified; I10 Essential (primary) hypertension; Z12.5 Encounter for screening for malignant neoplasm of prostate; Z00.00 Encounter for general adult medical examination without abnormal findings
CPT/HCPCS: 80053; 80061; 81001; 82043; 83036; 84153; 85025

== ENCOUNTER 2023-02-27 12:26 | Outpatient (AMB) | payer BC, SELFPAY ==
[2023-02-27 12:34] VITALS: BMI 29.9
--- NOTE | 2023-02-27 12:34 | A.OFFVIS_ITS ---
Intake VS Expanded 02/27/23 12:34 Height 5 ft 9 in Weight 202 lb 6.15 oz BMI 29.9 Intake Visit Reasons: T2DM Allergies No Known Allergies Allergy (Verified 11/09/21 09:14) HPI Nutrition Presentation Details Pt presents for MNT for T2DM Pt reports doing ok. Pt reports working on dietary modifications, choosing high fiber , lower carb food options and blood sugars are improving, except noticing elevated post breakfast bg > 180, regardless if consuming 30 g carb with protein and fiber as breakfast meals Pt on metformin ER 1000 mg twice/day, Januvia 100 mg/d A1c 7.3% on 12/2022 Pt reports taking a daily MVI Pt reports keeping hydrated > 64 oz fluids per day (water, low sugar beverages) Fish at least twice/wk fruits 2-3 /d non starchy ve serving/d dairy : 2-3 serving/d Pt reports wt at home is 197 lbs Most Recent Diabetes Results: Microalb/Creat Ratio 5.9 ug/mg cr (<30) 01/03/23 Cholesterol 115 mg/dL (<200) 01/03/23 HDL Cholesterol 35 mg/dL (>40) L 01/03/23 Triglycerides 134 mg/dL (<150) 01/03/23 Creatinine 0.95 mg/dL (0.5-1.4) 01/03/23 Blood Urea Nitrogen 13 mg/dL (9-16) 01/03/23 Sodium 140 mmol/L (135-145) 01/03/23 Potassium 4.2 mmol/L (3.3-5.1) 01/03/23 Chloride 103 mmol/L (96-108) 01/03/23 Carbon Dioxide 25 mmol/L (22-29) 01/03/23 Calcium 9.5 mg/dL (8.4-10.2) 01/03/23 AST 20 U/L (5-37) 01/03/23 ALT 25 U/L (0-40) 01/03/23 Total Protein 6.8 g/dL (6.5-8.0) 01/03/23 Albumin 4.1 g/dL (3.5-5.0) 01/03/23 [facility] Medical History Diabetes HTN (hypertension) Renal calculi Social History Patient Tobacco Use Status: Never used Tobacco Assessment & Plan Assessment & Plan (1) Type 2 diabetes mellitus: Code(s): E11.9 - Type 2 diabetes mellitus without complications Plan: REview DM meal planning. Pt is concerned about elevated post breakfast glucose level regardless of carb consumption , 30 g carb with prot/fiber can lead to bg > 180 Recommend monitoriing blood sugar at night time to assess whether brekfast blood sugars are related to somogyi effect May need to consider adding a hypoglycemia agent (repaglinide prior to breakfast ) if not having nocturnal hypoglycemia Est kcal needs as per MSJ: 2410 (40% carb, 30% protein/fat) Est fluid needs as per 25-30 ml/d: 5026-8630 Est prot per day as per 1 g/kg bw: 94 Recommend fiber intake : 8-10 g per day and gradually increase to 25-28 g per day for women Recommend sodium intake per day : less than 2000 mg Educated patient on: ( R = reviewed V = verbalizes understanding N/R = needs review N/A = not applicable * Food sources of carbohydrate, adequate serving sizes and its role in various health conditions: R ,V * Differences between complex carbohydrates a simple carbohydrates, role of fiber in diet: R ,V * Differences between types of fats and role in diet (mono on saturated fat fatty acids, saturated fatty acids, trans fats): R * Food sources of sodium in salt and healthy modifications for heart health in kidney health: R * Vitamins and minerals: R * Healthy plate method concept: R * Physical activity: Benefits a precaution: R V * Hypoglycemia protocol (rule of 15): R * Dietary prevention of Hyperglycemia: R Patient Instructions: Continue working on balancing meals following healthy plate method goal 45-60 g carb per meal including fiber rich foods and lean protein foods Keep hydrated , goal 10-11 cup of low sugar fluids per day Monitor blood sugar at night to assess low blood sugar level at night time which may lead to elevated blood sugar in the morning, treat low blood sugar (less than 70 ) following rule of 15 (15 g of carb = 1/2 cup of juice or 3-4 glucose tablets, rechec blood sugar 15 minutes later, repeat treatment if blood sugar continue below 70). Notify your doctor of any low blood sugar level, including low blood sugar overnight. Coding Level of Care Code Nutr Indiv Subseq (05807) Diagnoses Type 2 diabetes mellitus E11.9 Time Spent (min) 30
== END 2023-02-27 13:04 | disposition home or self-care (01) ==
PROVIDERS: PCP Internal Medicine; Visit Provider Dietitian, Registered
DX: E11.9 Type 2 diabetes mellitus without complications (principal)

== ENCOUNTER → 2023-02-27 12:26 | Outpatient (BNVA) | payer BC, SELFPAY | PROVIDERS: PCP Internal Medicine; Visit Provider Dietitian, Registered | DX: E11.9 Type 2 diabetes mellitus without complications (principal); Z71.3 Dietary counseling and surveillance | CPT/HCPCS: 97803 ==

== ENCOUNTER 2023-07-08 10:20 | Outpatient (REF) | payer BC, SELFPAY ==
[2023-07-08 12:20] LABS: Alanine Aminotransferase 23 U/L (0-40); Albumin Level 4.4 g/dL (3.5-5.0); Alkaline Phosphatase 48 U/L (39-117); Aspartate Amino Transferase 23 U/L (5-37); Bilirubin Direct 0.3 mg/dL (0.0-0.5); Bilirubin Total 0.7 mg/dL (0.0-1.0); Cholesterol 137 mg/dL (<200); Glucose Fasting 184 mg/dL (60-99); HDL Cholesterol 37 mg/dL (>40); LDL Cholesterol Calculated 67 mg/dL (<100); Total Protein 7.3 g/dL (6.5-8.0); Triglycerides 165 mg/dL (<150)
[2023-07-08 13:11] LABS: Reflex LDLD? No
[2023-07-08 16:19] LABS: Estimated Average Glucose 166 mg/dL; Hemoglobin A1c % 7.4 % (<6.0)
== END 2023-07-08 10:21 | disposition home or self-care (01) ==
LOC: HO.LNP 10:20
PROVIDERS: Visit Provider Internal Medicine
DX: E11.9 Type 2 diabetes mellitus without complications (principal); E78.00 Pure hypercholesterolemia, unspecified
CPT/HCPCS: 80061; 80076; 82947; 83036

== ENCOUNTER 2023-09-17 12:24 | Outpatient (AMB) | payer BC, SELFPAY ==
--- NOTE | 2023-09-17 12:33 | A.OFFVIS_ITS ---
VS Expanded 09/17/23 12:33 Height 5 ft 9 in Weight 203 lb 4.259 oz BMI 30.0 Intake Visit Reasons: T2DM/CONFIRMED Allergies No Known Allergies Allergy (Verified 11/09/21 09:14) Nutrition Presentation Details: Pt presents for MNT f/u for T2DM Pt reports doing well. Reports choosing low sugar foods, reading food label. is very involved in meal planning and variety of foods high in fiber/and monitoring portions of starches. Today will review physical activity and omega 3 fatty acicds in diet. BS Monitoring Most Recent Diabetes Results: Microalb/Creat Ratio 5.9 ug/mg cr (<30) 01/03/23 Cholesterol 137 mg/dL (<200) 07/08/23 HDL Cholesterol 37 mg/dL (>40) L 07/08/23 Triglycerides 165 mg/dL (<150) H 07/08/23 Creatinine 0.95 mg/dL (0.5-1.4) 01/03/23 Blood Urea Nitrogen 13 mg/dL (9-16) 01/03/23 Sodium 140 mmol/L (135-145) 01/03/23 Potassium 4.2 mmol/L (3.3-5.1) 01/03/23 Chloride 103 mmol/L (96-108) 01/03/23 Carbon Dioxide 25 mmol/L (22-29) 01/03/23 Calcium 9.5 mg/dL (8.4-10.2) 01/03/23 AST 23 U/L (5-37) 07/08/23 ALT 23 U/L (0-40) 07/08/23 Total Protein 7.3 g/dL (6.5-8.0) 07/08/23 Albumin 4.4 g/dL (3.5-5.0) 07/08/23 [facility] Medical History Diabetes HTN (hypertension) Renal calculi Social History Patient Tobacco Use Status: Never used Tobacco Assessment & Plan Assessment & Plan (1) Type 2 diabetes mellitus: Code(s): E11.9 - Type 2 diabetes mellitus without complications Category: Medical Plan: 92 kg Est kcal needs as per MSJ: 2410 (40% carb, 30% protein/fat) Est fluid needs as per 25-30 ml/d: 0797-5149 Est prot per day as per 1 g/kg bw: 94 Recommend fiber intake : 8-10 g per day and gradually increase to 25-28 g per day for women Recommend sodium intake per day : less than 2000 mg Educated patient on: ( R = reviewed V = verbalizes understanding N/R = needs review N/A = not applicable * Food sources of carbohydrate, adequate serving sizes and its role in various health conditions: R ,V * Differences between complex carbohydrates a simple carbohydrates, role of fiber in diet: R ,V * Differences between types of fats and role in diet (mono on saturated fat fatty acids, saturated fatty acids, trans fats): R * Food sources of sodium in salt and healthy modifications for heart health in kidney health: R * Vitamins and minerals: R * Healthy plate method concept: R * Physical activity: Benefits a precaution: R V * Hypoglycemia protocol (rule of 15): R * Dietary prevention of Hyperglycemia: R Patient Instructions: -Include fish at least twice a week and vary omega 3 food sources (nuts/seeds/algae) - start a 30 minutes walking routine even if it is 3 times a week Coding Level of Care Code Nutr Indiv Subseq (62391) Diagnoses Type 2 diabetes mellitus E11.9 Time Spent (min) 30
== END 2023-09-17 13:06 | disposition home or self-care (01) ==
PROVIDERS: PCP Internal Medicine; Visit Provider Dietitian, Registered
DX: E11.9 Type 2 diabetes mellitus without complications (principal)

== ENCOUNTER → 2023-09-17 12:24 | Outpatient (BNVA) | payer BC, SELFPAY | PROVIDERS: PCP Internal Medicine; Visit Provider Dietitian, Registered | DX: E11.9 Type 2 diabetes mellitus without complications (principal); Z71.3 Dietary counseling and surveillance | CPT/HCPCS: 97803 ==

== ENCOUNTER 2023-09-19 12:28 | Outpatient (REF) | payer BC, SELFPAY ==
--- NOTE | ~2023-09-19 | US_ITS ---
EXAMINATION: US RETROPERITONEAL LIMITED (RENAL ONLY) CLINICAL INFORMATION: Calculus of kidney. COMPARISON: Ultrasound renal 10/06/2022 and 01/15/2022. TECHNIQUE: Real-time imaging of the kidneys. FINDINGS: RIGHT KIDNEY: 11.7 x 5.1 x 5.9 cm (SAG x AP x TRV). The kidney is normal in size, contour, and echogenicity. Renal cortical thickness is normal. A few small nonobstructing calculi are noted, largest measuring 3 mm. No hydronephrosis. LEFT KIDNEY: 11.2 x 6.0 x 4.7 cm (SAG x AP x TRV). The kidney is normal in size, contour, and echogenicity. Renal cortical thickness is normal. No renal calculi or hydronephrosis. 3.1 cm simple appearing left renal cyst for which no follow-up imaging is usually warranted. US/US renal BI IMPRESSION: Tiny nonobstructing right renal calculi. No left-sided renal calculi. No hydronephrosis of either kidney.
== END 2023-09-19 12:29 | disposition home or self-care (01) ==
LOC: HO.US 12:28
PROVIDERS: Visit Provider Urology
DX: N20.0 Calculus of kidney (principal)
CPT/HCPCS: 76775

== ENCOUNTER 2023-10-09 12:14 | Outpatient (AMB) | payer BC, SELFPAY ==
--- NOTE | 2023-10-09 12:23 | MHC.OFFVIS ---
Intake Visit Reasons: 1y/US(set) Intake Note: Patient is present for Follow Up Kidney Stones Urology Med:Vitamin B6 Antibiotic Allergy:None Blood Thinner: None Basin Finish Operator Tig Welder Required: No Accompanied by: Self / Same As Patient Allergies No Known Allergies Allergy (Verified 10/09/23 18:32) Medication List - Last Reconciled 10/09/23 by LITO Naqvi apple cider vinegar mg PO atorvastatin 40 mg PO DAILY lisinopril-hydrochlorothiazide 10-12.5 mg 1 tab PO DAILY metformin ER 1,000 mg PO BID multivitamin 1 tab PO DAILY pyridoxine (vitamin B6) 50 mg PO DAILY 90 days HPI Comments Details: Jakob is a pleasant 58 year old male patient of Dr. Avila. He has a PMH of diabetes, hypertension, and nephrolithiasis. He presents to the office today for a follow up of his nephrolithasis. Recent renal ultrasound results reviewed with the patient. Right kidney with a few nonobstructing calculi, largest measuring 3 mm. No hydronephrosis. Left kidney with 3.1 cm simple appearing left renal cyst for which no imaging follow-up is warranted per radiology report. No left-sided hydronephrosis or renal calculi noted. In discussion with the patient today reports to be doing and feeling well. He reports compliance with vitamin B6 as prescribed. He discusses continuing to manage his diabetes for overall and well-being. In office urinalysis results reviewed with the patient today. PH 5.5. Discussed at length the importance of drinking plenty of water daily in relation to nephrolithiasis. He currently denies any bothersome urinary issues or concerns. He denies urinary urgency, urinary frequency, incontinence, nocturia, hematuria, dysuria, foul smelling urine, changes to urinary stream, flank pain, fever, and or chills. He is happy with his current voiding parameters. Nephrolithiasis Initial presentation 2021 with abdominal pain Imaging - 10/31 CT scan 4 mm left lower pole stone - 10/01 renal ultrasound normal No family history of stones Spontaneous passage PFSH Medical History Renal calculi Diabetes HTN (hypertension) Social History Patient Tobacco Use Status: Never used Tobacco Review of Systems Const All systems reviewed & are unremarkable except as noted in HPI and below Physical Exam Const General: cooperative, healthy appearing, comfortable, no acute distress, well developed, alert and awake Orientation/consciousness: patient oriented x3 Limitations: no limitations HEENT Head: Yes normal to inspection, Yes normocephalic and Yes atraumatic Ears: hearing grossly normal bilaterally Eyes General: appearance normal, both eyes and all related structures Neck Neck: Yes normal visual inspection and Yes trachea midline Chest Chest palpation & inspection: normal inspection of the chest Resp Effort & Inspection: normal respiratory effort and able to speak in complete sentences Cardio Rate: regular rate GI Inspection: Yes normal to inspection General: Yes no CVA tenderness Back/Spine/Pelvis Back: no CVA tenderness Skin General skin exam: no rashes or lesions noted Neuro General: patient oriented x3 Extrem General: Yes normal to inspection Psych Appearance: grossly normal and well kempt Mental Status: mental status grossly normal Speech and movement: Normal speech and movement present and Clear speech present Affect: normal affect Attitude: cooperative Thought process: Normal thought process present Thought content: Normal thought content present Insight: Fair insight present (Psych) Judgement: Fair judgement present (Psych) Results AMB Urinalysis, Automated UA Leukoctes 0 Steven/uL Last Edit by Constant Contact on 10/09/23 12:38 UA Nitrite Negative Last Edit by Constant Contact on 10/09/23 12:38 UA Urobilinogen 0.2 mg/dL Last Edit by Constant Contact on 10/09/23 12:38 UA Protein 0 mg/dL Last Edit by Constant Contact on 10/09/23 12:38 UA pH 5.5 Last Edit by Constant Contact on 10/09/23 12:38 UA Blood 0 Antione/uL Last Edit by Constant Contact on 10/09/23 12:38 UA Specific [place] 1.025 Last Edit by Constant Contact on 10/09/23 12:38 UA Ketone Negative Last Edit by Constant Contact on 10/09/23 12:38 UA Bilirubin 0 mg/dL Last Edit by Constant Contact on 10/09/23 12:38 UA Glucose 0 mg/dL Last Edit by Constant Contact on 10/09/23 12:38 Results Reviewed Results Reviewed: Laboratory Last Values Urine pH (Auto) 5.5 10/09/23 12:37 Specific [place] (Auto) 1.025 10/09/23 12:37 Urine Protein (Auto) 0 mg/dL 10/09/23 12:37 Glucose (UA)(Auto) 0 mg/dL 10/09/23 12:37 Urine Ketones (Auto) Negative 10/09/23 12:37 Urine Blood (Auto) 0 Antione/uL 10/09/23 12:37 Urine Nitrite (Auto) Negative 10/09/23 12:37 Urine Bilirubin (Auto) 0 mg/dL 10/09/23 12:37 Urine Urobilinogen (Auto) 0.2 mg/dL 10/09/23 12:37 Leukocyte Esterase (Auto) 0 Steven/uL 10/09/23 12:37 Ordering Physician: Christopher Garrett MD Date of Service: 09/19/23 EXAMINATION: US RETROPERITONEAL LIMITED (RENAL ONLY) FINDINGS: RIGHT KIDNEY: 11.7 x 5.1 x 5.9 cm (SAG x AP x TRV). The kidney is normal in size, contour, and echogenicity. Renal cortical thickness is normal. A few small nonobstructing calculi are noted, largest measuring 3 mm. No hydronephrosis. LEFT KIDNEY: 11.2 x 6.0 x 4.7 cm (SAG x AP x TRV). The kidney is normal in size, contour, and echogenicity. Renal cortical thickness is normal. No renal calculi or hydronephrosis. 3.1 cm simple appearing left renal cyst for which no follow-up imaging is usually warranted. IMPRESSION: Tiny nonobstructing right renal calculi. No left-sided renal calculi. No hydronephrosis of either kidney. Assessment & Plan Assessment & Plan (1) Renal calculi: Code(s): N20.0 - Calculus of kidney Category: Medical (2) Renal cyst: Code(s): N28.1 - Cyst of kidney, acquired Category: Medical Plan In office urinalysis results reviewed with the patient today; as noted above. Recent renal imaging results reviewed with the patient today; as noted above. Continue vitamin B6. Discussed, educated, and stressed the importance of drinking water in relation to nephrolithiasis as well as overall health and well-being. Patient currently denies any bothersome urinary issues or concerns. He reports be happy with current voiding parameters. Discussed, educated, and stressed the importance of managing diabetes for overall health and well-being. Continue adding 1 oz of lemon juice to water daily. Discussed further metabolic workup with 24 hour urine collection and labs Will obtain renal ultrasound in 6 months. Follow-up in 6 months with imaging to be completed prior; or sooner with any issues, concerns, and or questions. Orders: Orders US renal BI 6 Months N20.0 - Calculus of kidney AMB Urinalysis Automated Today Z13.9 - Encounter for screening, unspecified Patient Instructions: The patient had an opportunity to ask questions regarding the treatment plan. All questions were answered. Physical exam, labs, and imaging were discussed and reviewed in detail. As well as risks, benefits, and discussion of treatment choices. No major barriers to understanding were identified. The patient expressed understanding and agreement with the above treatment plan. The patient was made aware they should contact our office by phone for worsening of their current condition, the appearance of new symptoms, or with any questions or concerns. Compliance is encouraged with any medications and follow up testing that is ordered. It is a privilege to be allowed the opportunity to participate in? your urological care.? Again, if you have any questions or concerns If you have any questions or concerns please do not hesitate to contact me. The office is [phone]. This note is constructed using voice recognition software. While every effort has been made to ensure accuracy certified breastfeeding educator errors may have been included. Yours sincerely, LITO Naqvi Coding Level of Care Code Est Pt Level 3 (41187) Diagnoses Renal calculi N20.0 Renal cyst N28.1
== END 2023-10-09 12:55 | disposition home or self-care (01) ==
PROVIDERS: PCP Internal Medicine; Visit Provider Nurse Practitioner Family
DX: N20.0 Calculus of kidney (principal); N28.1 Cyst of kidney, acquired; Z13.9 Encounter for screening, unspecified
CPT/HCPCS: 99213

== ENCOUNTER → 2023-10-09 12:14 | Outpatient (BNVA) | payer BC, SELFPAY | PROVIDERS: Visit Provider Nurse Practitioner Family | DX: N20.0 Calculus of kidney (principal); N28.1 Cyst of kidney, acquired | CPT/HCPCS: 81003 ==

== ENCOUNTER 2024-01-01 10:33 | Outpatient (REF) | payer BC, SELFPAY ==
[2024-01-01 10:36] LABS: MANUAL DIFF FLAG NO
[2024-01-01 11:10] LABS: Appearance Urine Clear; Color Urine Yellow; Glucose Urine UA Negative (Negative); Leukocyte Esterase Urine Negative (Negative); Nitrite Urine Negative (Negative); PH 5.5 (5.0-9.0); Urine Blood Negative (Negative); Urine Ketones Trace mg/dL (Negative); Urine Protein Negative (Neg-Trace)
[2024-01-01 11:11] LABS: Basophils Absolute Auto 0.1 X10*3/uL (0.0-0.2); Basophils Percent Auto 0.8 % (0-2); Eosinophils Absolute Auto 0.1 X10*3/uL (0.0-0.4); Eosinophils Percent Auto 1.8 % (0-4); Hematocrit 42.6 % (42.0-52.0); Hemoglobin 14.9 g/dl (14.0-18.0); Imm Gran Abs Auto 0.02 X10*3/uL (0.00-0.03); Imm Gran Pct Auto 0.3 % (0.0-0.4); Lymphocytes Percent Auto 32.1 % (20-40); Mean Corpuscular Hemoglobin 31.2 pg (27.0-33.0); Mean Corpuscular Volume 89.1 fL (80.0-98.0); Mean Platelet Volume 10.4 fL (9.4-12.4); Monocytes Absolute Auto 0.5 X10*3/uL (0.1-1.2); Monocytes Percent Auto 7.5 % (2-11); Neutrophils Absolute Auto 3.6 x10*3/uL (2.0-8.3); Neutrophils Percent Auto 57.5 % (45-73); Platelet Count 255 X10*3/uL (160-400); Red Blood Count 4.78 X10*6/uL (4.60-5.80); Red Cell Distribution Width 12.5 % (11.0-16.0); White Blood Count 6.2 X10*3/uL (4.8-10.8)
[2024-01-01 11:15] LABS: Bacteria Urine None Seen (None Seen); Hyaline Casts Urine 0-2 /LPF (0-2); RBC Urine 0-2 /HPF (0-2); Squamous Epithelial Cell Urine 0-2 /HPF (0-2); WBC Urine 0-5 /HPF (0-5)
[2024-01-01 11:29] LABS: Alanine Aminotransferase 31 U/L (0-40); Albumin Level 4.5 g/dL (3.5-5.0); Alkaline Phosphatase 51 U/L (39-117); Anion Gap 13 (12-20); Aspartate Amino Transferase 24 U/L (5-37); Bilirubin Total 0.6 mg/dL (0.0-1.0); Blood Urea Nitrogen 11 mg/dL (9-16); Calcium 10.1 mg/dL (8.4-10.2); Carbon Dioxide 29 mmol/L (22-29); Chloride 102 mmol/L (96-108); Cholesterol 134 mg/dL (<200); Estimated Glomerular Filt Rate > 60; Glucose Fasting 177 mg/dL (60-99); HDL Cholesterol 38 mg/dL (>40); LDL Cholesterol Calculated 59 mg/dL (<100); Potassium 4.3 mmol/L (3.3-5.1); Sodium 140 mmol/L (135-145); Total Protein 7.3 g/dL (6.5-8.0); Triglycerides 186 mg/dL (<150)
[2024-01-01 11:37] LABS: Estimated Average Glucose 169 mg/dL; Hemoglobin A1c % 7.5 % (<6.0)
[2024-01-01 12:49] LABS: Creatinine Urine 262.68 mg/dL
== END 2024-01-01 10:34 | disposition home or self-care (01) ==
LOC: HO.LNP 10:33
PROVIDERS: Visit Provider Internal Medicine
DX: Z00.00 Encounter for general adult medical examination without abnormal findings (principal); E11.9 Type 2 diabetes mellitus without complications; E78.00 Pure hypercholesterolemia, unspecified; Z12.5 Encounter for screening for malignant neoplasm of prostate
CPT/HCPCS: 80053; 80061; 81001; 82043; 82570; 83036; 84153; 85025

== ENCOUNTER 2024-03-01 12:57 | Outpatient (REF) | payer BC, SELFPAY ==
--- NOTE | ~2024-03-01 | US_ITS ---
EXAMINATION: US RETROPERITONEAL LIMITED (RENAL ONLY) CLINICAL INFORMATION: Calculus of kidney. COMPARISON: Ultrasound renal 09/19/2023 and 08/06/2022. Correlated to CT abdomen and pelvis 10/11/2021. TECHNIQUE: Real-time imaging of the kidneys using grayscale and color Doppler interrogation. FINDINGS: RIGHT KIDNEY: 12 x 6 x 6 cm (SAG x AP x TRV). Volume is 196 cc. The kidney is normal in size, contour, and echogenicity. Renal cortical thickness is normal. No calculi or focal parenchymal lesions. No hydronephrosis. LEFT KIDNEY: 12 x 6 x 5 cm (SAG x AP x TRV). Volume is 195 cc. The kidney is normal in size, contour, and echogenicity. Renal cortical thickness is normal. No renal calculi or hydronephrosis. 3.5 cm anechoic lesion at the corticomedullary junction in the midportion. US/US renal BI IMPRESSION: No hydronephrosis. 3.5 cm cystic lesion, left kidney.. Electronically signed by: Luis Starr MD 03/18/2024 01:53 PM EST
== END 2024-03-01 12:58 | disposition home or self-care (01) ==
LOC: HO.US 12:57
PROVIDERS: PCP Internal Medicine; Visit Provider Nurse Practitioner Family
DX: N20.0 Calculus of kidney (principal)
CPT/HCPCS: 76775

== ENCOUNTER → 2024-03-01 12:59 | Outpatient (BNV) | payer BC, SELFPAY | PROVIDERS: PCP Internal Medicine; Visit Provider Radiology Diagnostic Radiology | DX: N20.0 Calculus of kidney (principal) | CPT/HCPCS: 76775 ==

== ENCOUNTER 2024-03-15 14:28 | Outpatient (AMB) | payer BC, SELFPAY ==
--- NOTE | 2024-03-15 14:41 | A.OFFVIS_ITS ---
Intake Visit Reasons: 6m/US(set) Intake Note: Patient presents today for follow up on: kidney stone, renal stone, and ultrasound results Imaging Completed: 03/01/24 Urology Med:Vitamin B6 Antibiotic Allergy:None Blood Thinner: None Facilities Operations Technician Required: No Accompanied by: Self / Same As Patient Allergies No Known Allergies Allergy (Verified 03/15/24 16:09) Medication List - Last Reconciled 03/15/24 by CHELSEY Naqvi-BRIEN apple cider vinegar mg PO atorvastatin 40 mg PO DAILY lisinopril-hydrochlorothiazide 10-12.5 mg 1 tab PO DAILY metformin ER 1,000 mg PO BID multivitamin 1 tab PO DAILY pyridoxine (vitamin B6) 50 mg PO DAILY 90 days HPI Comments Details: Jakob is a pleasant 58 year old male patient of Dr. Avila. He has a PMH of diabetes, hypertension, and nephrolithiasis. He presents to the office today for a follow up of his nephrolithasis. In discussion with the patient today reports to be doing and feeling well. He denies any bothersome urinary issues or concerns since his last office visit here approximately 6 months ago. Recent renal ultrasound results reviewed with the patient. Bilateral kidneys are normal in size, contour, and echogenicity. No renal calculi noted bilaterally. Left kidney with 3.5 cm anechoic cystic lesion. He reports compliance with vitamin B6 as prescribed. He discusses continuing to manage his diabetes for overall and well-being. In office urinalysis results reviewed with the patient today. PH 5.5. Discussed at length the importance of drinking plenty of water daily in relation to nephrolithiasis. He currently denies any bothersome urinary issues or concerns. He denies urinary urgency, urinary frequency, incontinence, nocturia, hematuria, dysuria, foul smelling urine, changes to urinary stream, flank pain, fever, and or chills. He is happy with his current voiding parameters. Nephrolithiasis Initial presentation 2021 with abdominal pain Imaging - 10/31 CT scan 4 mm left lower pole stone - 10/01 renal ultrasound normal No family history of stones Spontaneous passage PFSH Medical History Renal calculi Diabetes HTN (hypertension) Social History Patient Tobacco Use Status: Never used Tobacco Review of Systems Const All systems reviewed & are unremarkable except as noted in HPI and below Physical Exam Const General: cooperative, healthy appearing, comfortable, no acute distress, well developed, alert and awake Orientation/consciousness: patient oriented x3 Limitations: no limitations HEENT Head: Yes normal to inspection, Yes normocephalic and Yes atraumatic Ears: hearing grossly normal bilaterally Eyes General: appearance normal, both eyes and all related structures Neck Neck: Yes normal visual inspection and Yes trachea midline Chest Chest palpation & inspection: normal inspection of the chest Resp Effort & Inspection: normal respiratory effort and able to speak in complete sentences Cardio Rate: regular rate GI Inspection: Yes normal to inspection General: Yes no CVA tenderness Back/Spine/Pelvis Back: no CVA tenderness Skin General skin exam: no rashes or lesions noted Neuro General: patient oriented x3 Extrem General: Yes normal to inspection Psych Appearance: grossly normal and well kempt Mental Status: mental status grossly normal Speech and movement: Normal speech and movement present and Clear speech present Affect: normal affect Attitude: cooperative Thought process: Normal thought process present Thought content: Normal thought content present Insight: Fair insight present (Psych) Judgement: Fair judgement present (Psych) Results AMB Urinalysis, Automated UA Leukoctes 0 Steven/uL Last Edit by Mihir Angela on 03/15/24 16:10 UA Nitrite Last Edit by Mihir Angela on 03/15/24 16:10 UA Urobilinogen 0.2 mg/dL Last Edit by RedColibri IObrandan Angela on 03/15/24 16:10 UA Protein 0 mg/dL Last Edit by Mihir Angela on 03/15/24 16:10 UA pH 5.5 Last Edit by Mihir Angela on 03/15/24 16:10 UA Blood 0 Antione/uL Last Edit by Mihir Angela on 03/15/24 16:10 UA Specific [place] 1.025 Last Edit by Mihir Rodrigueznalini on 03/15/24 16:10 UA Ketone Last Edit by Mihir Jennifernalini on 03/15/24 16:10 UA Bilirubin 0 mg/dL Last Edit by Mihir Jennifernalini on 03/15/24 16:10 UA Glucose 0 mg/dL Last Edit by Mihir Jennifernalini on 03/15/24 16:10 Results Reviewed Results Reviewed: Laboratory Last Values Urine pH (Auto) 5.5 03/15/24 16:09 Specific [place] (Auto) 1.025 03/15/24 16:09 Urine Protein (Auto) 0 mg/dL 03/15/24 16:09 Glucose (UA)(Auto) 0 mg/dL 03/15/24 16:09 Urine Blood (Auto) 0 Antione/uL 03/15/24 16:09 Urine Bilirubin (Auto) 0 mg/dL 03/15/24 16:09 Urine Urobilinogen (Auto) 0.2 mg/dL 03/15/24 16:09 Leukocyte Esterase (Auto) 0 Steven/uL 03/15/24 16:09 Date of Service: 03/01/24 EXAMINATION: US RETROPERITONEAL LIMITED (RENAL ONLY) FINDINGS: RIGHT KIDNEY: 12 x 6 x 6 cm (SAG x AP x TRV). Volume is 196 cc. The kidney is normal in size, contour, and echogenicity. Renal cortical thickness is normal. No calculi or focal parenchymal lesions. No hydronephrosis. LEFT KIDNEY: 12 x 6 x 5 cm (SAG x AP x TRV). Volume is 195 cc. The kidney is normal in size, contour, and echogenicity. Renal cortical thickness is normal. No renal calculi or hydronephrosis. 3.5 cm anechoic lesion at the corticomedullary junction in the midportion. IMPRESSION: No hydronephrosis. 3.5 cm cystic lesion, left kidney. Assessment & Plan Assessment & Plan (1) Renal cyst: Code(s): N28.1 - Cyst of kidney, acquired Category: Medical (2) Renal calculi: Code(s): N20.0 - Calculus of kidney Category: Medical Plan In office urinalysis results reviewed with the patient today; as noted above. Recent renal imaging results reviewed with the patient today; as noted above. Patient currently denies any bothersome urinary issues or concerns. He reports be happy with current voiding parameters. Discussed, educated, and stressed the importance of adequate hydration relation to nephrolithiasis as well as overall health and well-being. Continue adding 1 oz of lemon juice to water daily. Continue vitamin B6 as discussed and prescribed. Will obtain renal ultrasound in 6 months Follow-up in 6 months with renal ultrasound; or sooner with any issues, concerns, and or questions. Orders: Orders US renal BI 6 Months N20.0 - Calculus of kidney AMB Urinalysis Automated 03/15/24 Z13.9 - Encounter for screening, unspecified Patient Instructions: The patient had an opportunity to ask questions regarding the treatment plan. All questions were answered. Physical exam, labs, and imaging were discussed and reviewed in detail. As well as risks, benefits, and discussion of treatment choices. No major barriers to understanding were identified. The patient expressed understanding and agreement with the above treatment plan. The patient was made aware they should contact our office by phone for worsening of their current condition, the appearance of new symptoms, or with any questions or concerns. Compliance is encouraged with any medications and follow up testing that is ordered. It is a privilege to be allowed the opportunity to participate in? your urological care.? Again, if you have any questions or concerns If you have any questions or concerns please do not hesitate to contact me. The office is [phone]. This note is constructed using voice recognition software. While every effort has been made to ensure accuracy social services director errors may have been included. Yours sincerely, LITO Naqvi Coding Level of Care Code Est Pt Level 3 (03560) Diagnoses Renal cyst N28.1 Renal calculi N20.0
== END 2024-03-15 15:18 | disposition home or self-care (01) ==
LOC: HO.HUSH 14:28
PROVIDERS: PCP Internal Medicine; Visit Provider Nurse Practitioner Family
DX: N28.1 Cyst of kidney, acquired (principal); N20.0 Calculus of kidney
CPT/HCPCS: 99213

== ENCOUNTER → 2024-03-15 14:28 | Outpatient (BNVA) | payer BC, SELFPAY | PROVIDERS: PCP Internal Medicine; Visit Provider Nurse Practitioner Family | DX: N20.0 Calculus of kidney (principal); N28.1 Cyst of kidney, acquired | CPT/HCPCS: 81003 ==

== ENCOUNTER 2024-03-18 12:25 | Outpatient (AMB) | payer BC, SELFPAY ==
--- NOTE | 2024-03-18 12:33 | A.OFFVIS_ITS ---
VS Expanded 03/18/24 13:07 Height 5 ft 9 in Weight 209 lb BMI 30.9 Intake Visit Reasons: T2DM/LVM Allergies No Known Allergies Allergy (Verified 03/15/24 16:09) Nutrition Presentation Details: Pt presents for MNT f/u fof T2DM Pt reports continuing to work on dietary modification as best as possible. Has days in which appetite is greater and thus higher blood glucose level. BS Monitoring Most Recent Diabetes Results: Microalb/Creat Ratio 6.0 ug/mg cr (<30) 01/01/24 Cholesterol 134 mg/dL (<200) 01/01/24 HDL Cholesterol 38 mg/dL (>40) L 01/01/24 Triglycerides 186 mg/dL (<150) H 01/01/24 Creatinine 0.89 mg/dL (0.5-1.4) 01/01/24 Blood Urea Nitrogen 11 mg/dL (9-16) 01/01/24 Sodium 140 mmol/L (135-145) 01/01/24 Potassium 4.3 mmol/L (3.3-5.1) 01/01/24 Chloride 102 mmol/L (96-108) 01/01/24 Carbon Dioxide 29 mmol/L (22-29) 01/01/24 Calcium 10.1 mg/dL (8.4-10.2) 01/01/24 AST 24 U/L (5-37) 01/01/24 ALT 31 U/L (0-40) 01/01/24 Total Protein 7.3 g/dL (6.5-8.0) 01/01/24 Albumin 4.5 g/dL (3.5-5.0) 01/01/24 [facility] Medical History Renal calculi Diabetes HTN (hypertension) Social History Patient Tobacco Use Status: Never used Tobacco Assessment & Plan Assessment & Plan (1) Type 2 diabetes mellitus: Code(s): E11.9 - Type 2 diabetes mellitus without complications Category: Medical Plan: 92 kg , 95 kg (04/04) Est kcal needs as per MSJ: 2410 (40% carb, 30% protein/fat) Est fluid needs as per 25-30 ml/d: 2125-1632 Est prot per day as per 1 g/kg bw: 94 Recommend fiber intake : 8-10 g per day and gradually increase to 25-28 g per day for women Recommend sodium intake per day : less than 2000 mg Educated patient on: ( R = reviewed V = verbalizes understanding N/R = needs review N/A = not applicable * Food sources of carbohydrate, adequate serving sizes and its role in various health conditions: R ,V * Differences between complex carbohydrates a simple carbohydrates, role of fiber in diet: R ,V * Differences between types of fats and role in diet (mono on saturated fat fatty acids, saturated fatty acids, trans fats): R * Food sources of sodium in salt and healthy modifications for heart health in kidney health: R * Vitamins and minerals: R * Healthy plate method concept: R * Physical activity: Benefits a precaution: R V * Hypoglycemia protocol (rule of 15): R * Dietary prevention of Hyperglycemia: R Patient Instructions: Continue working on following healthy plate method Keep hydrated by choosing (low sugar beverages Engage in physical activity (stationary bike, bike pedlar, ) aim at 30 minutes daily Coding Level of Care Code Nutr Indiv Subseq (04295) Diagnoses Type 2 diabetes mellitus E11.9 Time Spent (min) 25
[2024-03-18 13:07] VITALS: BMI 30.9
== END 2024-03-18 14:39 | disposition home or self-care (01) ==
LOC: HO.ENCR 12:25
PROVIDERS: PCP Internal Medicine; Visit Provider Dietitian, Registered
DX: E11.9 Type 2 diabetes mellitus without complications (principal)

== ENCOUNTER → 2024-03-18 12:25 | Outpatient (BNVA) | payer BC, SELFPAY | PROVIDERS: PCP Internal Medicine; Visit Provider Dietitian, Registered | DX: E11.9 Type 2 diabetes mellitus without complications (principal); Z71.3 Dietary counseling and surveillance | CPT/HCPCS: 97803 ==

== ENCOUNTER 2024-06-17 09:18 | Outpatient (REF) | payer BC, SELFPAY ==
--- NOTE | ~2024-06-17 | XR_ITS ---
EXAMINATION: XR CHEST 2 VIEWS HISTORY: ACUTE PNEUMONIA COMPARISON: Comparison is made with the prior examination dated 02/02/2022. FINDINGS: PA and lateral views of the chest are submitted. The lungs are expanded and clear. There is no pleural effusion, pneumothorax, or pulmonary vascular congestion. The heart is normal in size. There is mild degenerative disc disease of the spine. XR/XR chest 2V IMPRESSION: No acute cardiopulmonary abnormality. Electronically signed by: Checo Segal MD 06/17/2024 10:09 AM [facility]
[2024-06-17 10:34] LABS: Influenza A PCR POSITIVE (Negative); Influenza B PCR NEGATIVE (Negative); Resp Syncy Virus RNA Qual PCR NEGATIVE (Negative); SARS COV2 PCR INHOUSE NEGATIVE (Negative)
== END 2024-06-17 09:19 | disposition home or self-care (01) ==
LOC: HO.XRAY 09:18
PROVIDERS: PCP Internal Medicine; Visit Provider Internal Medicine
DX: J18.9 Pneumonia, unspecified organism (principal); Z13.83 Encounter for screening for respiratory disorder NEC
CPT/HCPCS: 0241U; 71046

== ENCOUNTER → 2024-06-17 09:36 | Outpatient (BNV) | payer BC, SELFPAY | PROVIDERS: PCP Internal Medicine; Visit Provider Radiology Diagnostic Radiology | DX: J18.9 Pneumonia, unspecified organism (principal) | CPT/HCPCS: 71046 ==

== ENCOUNTER 2024-06-21 09:38 | Emergency (ER) | payer BC, SELFPAY ==
--- NOTE | ~2024-06-21 | XR_ITS ---
CLINICAL HISTORY: cough, SOB 2 view chest x-ray Comparison: 06/17/2024, CR/SR - XR CHEST 2V - 02/02/22 01:14 EDT Findings: The lungs are clear. Normal size heart. No acute fracture. IMPRESSION: 1. No acute findings. This document has been electronically signed by: Adali Cheng MD on 06/21/2024 20:15:01
[2024-06-21 10:54] VITALS: BP 151/85; PULSE 100; RESP 20; TEMP 36.9; O2SAT 97; BMI 27.9
--- NOTE | 2024-06-21 10:55 | ED_ITS ---
HPI - General Adult General Chief complaint: General Medical Stated complaint: pneumonia cough headache sinus Time Seen by Provider: 06/21/24 18:13 Source: patient Limitations: no limitations History of Present Illness ED Provider: Kaylynn Blackwood PA-C HPI narrative: 59-year-old male with a history of diabetes, kidney stones, with ongoing cough and cold symptoms for 9 days, presents with refractory symptoms. Patient states he developed the flu last Friday. Associated headache, cough, fever, body aches. Patient was initially assessed, had a negative chest x-ray at the time he was diagnosed with influenza. Patient was again seen at urgent Care, was placed on antibiotics for suspect development of bacterial pneumonia, they did not repeat a chest x-ray. Patient is here due to persisting symptoms in the setting of being on antibiotics. No new symptoms. Related Data Home Medications ?Medication ?Instructions ?Recorded ?Confirmed atorvastatin 40 mg tablet 40 mg PO DAILY 11/09/21 03/15/24 lisinopril 10 1 tab PO DAILY 11/09/21 03/15/24 mg-hydrochlorothiazide 12.5 mg tablet metformin 500 mg tablet,extended 1,000 mg PO BID 11/09/21 03/15/24 release 24 hr apple cider vinegar 500 mg tablet mg PO 10/09/23 03/15/24 multivitamin 1 tab PO DAILY 10/09/23 03/15/24 Previous Rx's ?Medication ?Instructions ?Recorded pyridoxine (vitamin B6) 50 mg 50 mg PO DAILY 90 days #90 caps 01/06/24 capsule codeine 10 mg-guaifenesin 200 mg/5 10 ml PO .qhs PRN cough #473 mL 06/21/24 mL oral liquid (Coditussin AC) Allergies Allergy/AdvReac Type Severity Reaction Status Date / Time No Known Allergies Allergy Verified 06/21/24 10:58 Review of Systems 2 Review of Systems: Yes all other systems are reviewed and are negative Constitutional: Constitutional: Reports fatigue, Reports fever(s), Reports headache(s) and Reports malaise ENT: Reports headache(s) Cardiovascular: Cardiovascular: Denies chest pain Respiratory: Respiratory: Reports chest congestion, Reports cough and Denies wheezing Gastrointestinal: Gastrointestinal: Denies abdominal pain, Denies diarrhea, Denies nausea and Denies vomiting Neurologic: Reports headache(s) Endocrine: Endocrine: Reports fatigue Allergic/Immunologic: Allergic/Immunologic: Denies wheezing [facility] Past Medical History Attestation statement: The following information was validated with the patient. Medical History Renal calculi Diabetes HTN (hypertension) Social History Social History Patient Tobacco Use Status: Never used Tobacco Advance Directives: No Advance Directives Information Provided: No Do you have a plan to hurt others: No Plan Physical Exam ED Vital Signs: Vital Signs - 24 hr 06/21/24 10:54 Temperature 98.4 F Pulse Rate 100 Respiratory Rate 20 Blood Pressure 151/85 H Pulse Oximetry 97 Oxygen Delivery Method Room Air BMI result Body Mass Index 27.9 Const Other: Alert Orientation/consciousness: patient oriented x3 Resp Other: Nonlabored respirations, active cough, faint basilar crackles left base, no wheezing Cardio Other: Normal peripheral perfusion Skin Other: Warm dry no rash Neuro General: patient oriented x3, gait normal, no focal motor deficits and CN's II- XI intact bilaterally Psych Other: Cooperative Course Course Course Narrative: RME performed by Jaclyn Daily PA-C. Patient is a 59 year old assigned male at presenting to the emergency department with a recent diagnosis of influenza and pneumonia. Patient was prescribed an antibiotic. Patient continues to feel unwell, told to come to the ER. Detailed physical exam and review of systems are deferred to the crisis clinician. EKG, labs, imaging, and swabs ordered. Patient placed back in the waiting room pending room availability and results. Medical Decision Making Medical Decision Making [facility] Narrative: 59-year-old male with a history of diabetes, kidney stones, with ongoing cough and cold symptoms for 9 days, presents with refractory symptoms. Patient states he developed the flu last Friday. Associated headache, cough, fever, body aches. Patient was initially assessed, had a negative chest x-ray at the time he was diagnosed with influenza. Patient was again seen at urgent Care, was placed on antibiotics for suspect development of bacterial pneumonia, they did not repeat a chest x-ray. Patient is here due to persisting symptoms in the setting of being on antibiotics. No new symptoms. Problem: Known influenza a and diabetes History: Per patient I have considered the following differential diagnoses: Persisting viral syndrome, bronchitis, bacterial pneumonia, viral pneumonia Plan: Screening labs are in process, I am waiting on the chest x-ray. The patient was already influenza A positive, his symptoms are following the typical pattern that we have been observing in the community. It is likely that the antibiotics were not helpful given he has viral illness. We will wait for the chest x-ray to see if he has developed a bacterial pneumonia, I do hear unilateral crackles at the left base. The patient does not smoke, he will be treated for community-acquired with azithromycin and amoxicillin, if there was evidence on his chest x-ray. I have independently reviewed the following tests: Labs: No leukocytosis, not anemic, no electrolyte abnormality noted, still positive for influenza A., troponin less than 2.7 EKG: Normal sinus rhythm, rate of 93, no ischemic changes no ectopy Chest x-ray:Findings: The lungs are clear. Normal size heart. No acute fracture. IMPRESSION: 1. No acute findings. This document has been electronically signed by: Adali Cheng MD on 06/21/2024 20:15:01 Lab Data 06/21/24 16:52 06/21/24 16:52 Labs: Lab Results 06/21/24 Range/Units 16:52 WBC 9.7 (4.8-10.8) X10*3/uL RBC 4.70 (4.60-5.80) X10*6/uL Hgb 14.2 (14.0-18.0) g/dl Hct 40.4 L (42.0-52.0) % MCV 86.0 (80.0-98.0) fL MCH 30.2 (27.0-33.0) pg MCHC 35.1 (31.0-36.0) g/dl RDW 12.0 (11.0-16.0) % Plt Count 426 H D (160-400) X10*3/uL MPV 9.1 L (9.4-12.4) fL Immature Gran % (Auto) 0.9 H (0.0-0.4) % Neut % (Auto) 69.2 (45-73) % Lymph % (Auto) 20.8 (20-40) % [place] % (Auto) 8.5 (2-11) % Eos % (Auto) 0.4 (0-4) % Baso % (Auto) 0.2 (0-2) % Lymph # (Auto) 2.0 (1.2-4.9) X10*3/uL [place] # (Auto) 0.8 (0.1-1.2) X10*3/uL Eos # (Auto) 0.0 (0.0-0.4) X10*3/uL Baso # (Auto) 0.0 (0.0-0.2) X10*3/uL Abs Immat Gran (auto) 0.09 H (0.00-0.03) X10*3/uL Absolute Neuts (auto) 6.7 (2.0-8.3) x10*3/uL Absolute Nucleated RBC 0.000 (0.0-0.012) X10*3/uL Nucleated RBC % (auto) 0.0 (0.0-0.2) /100WBC Sodium 138 (135-145) mmol/L Potassium 4.1 (3.3-5.1) mmol/L Chloride 102 (96-108) mmol/L Carbon Dioxide 23 (22-29) mmol/L Anion Gap 17 (12-20) BUN 8 L (9-16) mg/dL Creatinine 0.77 (0.5-1.4) mg/dL Estim Creat Clear Calc 112.1 Estimated GFR > 60 Random Glucose 168 H (60-115) mg/dL Calcium 9.6 (8.4-10.2) mg/dL Magnesium 1.9 (1.6-2.6) mg/dL Total Bilirubin 0.4 (0.0-1.0) mg/dL AST 22 (5-37) U/L ALT 30 (0-40) U/L Alkaline Phosphatase 48 (39-117) U/L Troponin I High Sens < 2.7 (<3.5-35.0) ng/L Total Protein 8.2 H (6.5-8.0) g/dL Albumin 4.2 (3.5-5.0) g/dL Influenza Type A (PCR) POSITIVE A (Negative) Influenza Type B (PCR) NEGATIVE (Negative) RSV RNA Qual (PCR) NEGATIVE (Negative) SARS-CoV-2 RNA (RT-PCR) NEGATIVE (Negative) Discharge Plan Discharge Clinical Impression: Influenza A Patient Disposition: Home, Self-Care Instructions: Influenza (ED) Additional Instructions: You were still screening positive for influenza A. See home care instructions. The chest x-ray is clear, there was no evidence of a bacterial pneumonia or a viral pneumonia. This season, patients have had prolonged viral syndrome associated with influenza A. For headaches, body aches and fever, you can alternate between czcm-vja-bgfbdch Tylenol 1000 mg taken every 8 hours, with xpkd-zsj-uykgenu ibuprofen 600 mg taken every 6 hours with food. For your congestion, bmfx-ktp-zggrami Mucinex is beneficial; do not use it concurrently with the cough syrup with codeine, it is also coupled with mucinex. You can also use pmsr-bpl-waokzjw Claritin or Zyrtec, for upper airway congestion. I would avoid the use of multipurpose products as they can elevate your blood pressure. During the day, you can use pdgf-lrz-vrzctqj Delsym, this is a simple cough suppressant, as needed for your cough. For sleep, I am giving you a prescription for a cough suppressant with codeine, use it as needed. It can be sedating. Do not drive or operate machinery while taking this medication. Follow up with your primary care provider as needed. Prescriptions: New Coditussin AC 10-200 mg/5 mL liquid 10 ml PO .qhs PRN (Reason: cough) Qty: 473 0RF No Action pyridoxine (vitamin B6) 50 mg capsule 50 mg PO DAILY 90 Days Qty: 90 1RF lisinopril-hydrochlorothiazide 10-12.5 mg tablet 1 tab PO DAILY metformin 500 mg tablet extended release 24 hr 1,000 mg PO BID atorvastatin 40 mg tablet 40 mg PO DAILY multivitamin Tablet 1 tab PO DAILY apple cider vinegar 500 mg tablet PO Stand Alone Forms: Work/School Release Print Language: Malay
--- NOTE | 2024-06-21 10:56 | ECG_ITS ---
Test Reason : DIZZINESS Blood Pressure : */* mmHG Vent. Rate : 93 BPM Atrial Rate : 93 BPM P-R Int : 168 ms QRS Dur : 88 ms QT Int : 348 ms P-R-T Axes : 38 -23 40 degrees QTcB Int : 432 ms Normal sinus rhythm Minimal voltage criteria for LVH, may be normal variant ( R in aVL ) Borderline ECG When compared with ECG of 17-Jul-2011 11:49, MANUAL COMPARISON REQUIRED PREVIOUS ECG IS INCOMPATIBLE Referred By: Jaclyn Daily Electronically Signed By: OREN JACOBO MD
[2024-06-21 16:57] LABS: MANUAL DIFF FLAG NO
[2024-06-21 16:59] LABS: Basophils Percent Auto 0.2 % (0-2); Eosinophils Percent Auto 0.4 % (0-4); Hematocrit 40.4 % (42.0-52.0); Hemoglobin 14.2 g/dl (14.0-18.0); Imm Gran Abs Auto 0.09 X10*3/uL (0.00-0.03); Imm Gran Pct Auto 0.9 % (0.0-0.4); Lymphocytes Percent Auto 20.8 % (20-40); Mean Corpuscular HGB Conc 35.1 g/dl (31.0-36.0); Mean Corpuscular Hemoglobin 30.2 pg (27.0-33.0); Mean Platelet Volume 9.1 fL (9.4-12.4); Monocytes Absolute Auto 0.8 X10*3/uL (0.1-1.2); Monocytes Percent Auto 8.5 % (2-11); Neutrophils Absolute Auto 6.7 x10*3/uL (2.0-8.3); Neutrophils Percent Auto 69.2 % (45-73); Platelet Count 426 X10*3/uL (160-400); White Blood Count 9.7 X10*3/uL (4.8-10.8)
[2024-06-21 17:12] LABS: Alanine Aminotransferase 30 U/L (0-40); Albumin Level 4.2 g/dL (3.5-5.0); Alkaline Phosphatase 48 U/L (39-117); Anion Gap 17 (12-20); Aspartate Amino Transferase 22 U/L (5-37); Bilirubin Total 0.4 mg/dL (0.0-1.0); Blood Urea Nitrogen 8 mg/dL (9-16); Calcium 9.6 mg/dL (8.4-10.2); Carbon Dioxide 23 mmol/L (22-29); Chloride 102 mmol/L (96-108); Creatinine Clr Calc Pharmacy 112.1; Estimated Glomerular Filt Rate > 60; Glucose Random 168 mg/dL (60-115); Magnesium 1.9 mg/dL (1.6-2.6); Potassium 4.1 mmol/L (3.3-5.1); Sodium 138 mmol/L (135-145); Total Protein 8.2 g/dL (6.5-8.0)
[2024-06-21 17:21] LABS: Troponin-I High Sensitivity < 2.7 ng/L (<3.5-35.0)
[2024-06-21 17:43] LABS: Influenza A PCR POSITIVE (Negative); Influenza B PCR NEGATIVE (Negative); Resp Syncy Virus RNA Qual PCR NEGATIVE (Negative); SARS COV2 PCR INHOUSE NEGATIVE (Negative)
[2024-06-21 21:00] VITALS: BP 138/105; PULSE 86; RESP 16; TEMP 36.8; O2SAT 97
== END 2024-06-21 21:01 | disposition home or self-care (01) ==
PROVIDERS: Physician Assistant Medical; Emergency Provider Emergency Medicine; PCP Internal Medicine
DX: J10.1 Influenza due to other identified influenza virus with other respiratory manifestations (principal); R06.02 Shortness of breath; R05.9 Cough, unspecified; R42 Dizziness and giddiness; R51.9 Headache, unspecified; R50.9 Fever, unspecified; E11.9 Type 2 diabetes mellitus without complications
CPT/HCPCS: 0241U; 36415; 71046; 80053; 83735; 84484; 85025; 93005; 99283

== ENCOUNTER → 2024-06-21 10:56 | Outpatient (BNV) | payer BC, SELFPAY | PROVIDERS: Emergency Provider Emergency Medicine; PCP Internal Medicine; Visit Provider Internal Medicine Cardiovascular Disease | DX: R42 Dizziness and giddiness (principal) | CPT/HCPCS: 93010 ==

== ENCOUNTER → 2024-06-21 18:14 | Outpatient (BNV) | payer BC, SELFPAY | PROVIDERS: Emergency Provider Emergency Medicine; PCP Internal Medicine; Visit Provider Student in an Organized Health Care Education/Training Program | DX: R06.02 Shortness of breath (principal); R05.9 Cough, unspecified | CPT/HCPCS: 71046 ==

== ENCOUNTER 2024-07-06 11:11 | Outpatient (REF) | payer BC, SELFPAY ==
[2024-07-06 11:16] LABS: MANUAL DIFF FLAG NO
[2024-07-06 11:45] LABS: Basophils Percent Auto 0.4 % (0-2); Eosinophils Absolute Auto 0.1 X10*3/uL (0.0-0.4); Eosinophils Percent Auto 1.2 % (0-4); Hematocrit 42.6 % (42.0-52.0); Hemoglobin 14.5 g/dl (14.0-18.0); Imm Gran Abs Auto 0.02 X10*3/uL (0.00-0.03); Imm Gran Pct Auto 0.3 % (0.0-0.4); Lymphocytes Absolute Auto 2.4 X10*3/uL (1.2-4.9); Lymphocytes Percent Auto 32.1 % (20-40); Mean Corpuscular Hemoglobin 30.6 pg (27.0-33.0); Mean Corpuscular Volume 89.9 fL (80.0-98.0); Mean Platelet Volume 10.8 fL (9.4-12.4); Monocytes Absolute Auto 0.6 X10*3/uL (0.1-1.2); Monocytes Percent Auto 8.3 % (2-11); Neutrophils Absolute Auto 4.3 x10*3/uL (2.0-8.3); Neutrophils Percent Auto 57.7 % (45-73); Platelet Count 318 X10*3/uL (160-400); Red Blood Count 4.74 X10*6/uL (4.60-5.80); Red Cell Distribution Width 12.9 % (11.0-16.0); White Blood Count 7.5 X10*3/uL (4.8-10.8)
[2024-07-06 11:46] LABS: Appearance Urine Turbid; Color Urine Dark Yellow; Glucose Urine UA Negative (Negative); Leukocyte Esterase Urine Negative (Negative); Nitrite Urine Negative (Negative); Specific Gravity - Urine >= 1.030 (1.005-1.025); UMIC TRIGGER UACC YES; Urine Blood Negative (Negative); Urine Ketones Trace mg/dL (Negative); Urine Protein 30 (1+) mg/dL (Neg-Trace)
[2024-07-06 11:56] LABS: Bacteria Urine None Seen (None Seen); Calcium Oxalate Crystals Urine Present; Other Crystals Urine Present; RBC Urine 0-2 /HPF (0-2); Squamous Epithelial Cell Urine 0-2 /HPF (0-2); WBC Urine 0-5 /HPF (0-5)
[2024-07-06 12:21] LABS: Alanine Aminotransferase 46 U/L (0-40); Albumin Level 4.1 g/dL (3.5-5.0); Anion Gap 14 (12-20); Aspartate Amino Transferase 30 U/L (5-37); Bilirubin Total 0.4 mg/dL (0.0-1.0); Blood Urea Nitrogen 9 mg/dL (9-16); Calcium 9.4 mg/dL (8.4-10.2); Carbon Dioxide 25 mmol/L (22-29); Chloride 105 mmol/L (96-108); Cholesterol 137 mg/dL (<200); Estimated Glomerular Filt Rate > 60; Glucose Fasting 202 mg/dL (60-99); HDL Cholesterol 41 mg/dL (>40); LDL Cholesterol Calculated 57 mg/dL (<100); Potassium 4.2 mmol/L (3.3-5.1); Sodium 140 mmol/L (135-145); Total Protein 7.3 g/dL (6.5-8.0); Triglycerides 199 mg/dL (<150)
[2024-07-06 12:26] LABS: Microalbum/Creatinine Ratio Ur 8.8 ug/mg cr (<30)
[2024-07-06 12:29] LABS: PSA,Total (Free>4and<10) 0.94 ng/mL (0.00-4.00)
[2024-07-06 12:32] LABS: Alkaline Phosphatase 48 U/L (39-117)
--- OUTSIDE RECORDS SUMMARY | 2024-07-06 13:42 | XMS_ITS ---
Author Organization Ramon Avila MD Address [address] [place] [phone] Care Team Providers Care Quality Eng Name Role Phone Austin Ramon Primary Care Provider [phone] Results Component Value Reference Range Notes Complete Blood Count Auto Di ff (Not yet reviewed by provider) Interpretation: Performing Lab:[facility], [address] [place] [phone] Notes/Report: White Blood Count 7.5 4.8-10.8 X10*3/uL [...] NRBC Abs Auto 0.000 0.0-0.012 X10*3/uL Comprehensive [place]. Panel Fa st (Not yet reviewed by provider) Interpretation: Performing Lab:[facility], [address] [place] [phone] Notes/Report: Sodium 140 135-145 mmol/L Potassium 4.2 [...] Panel Reviewed date:07/06/2024 12:36:17 PM Interpretation: Performing Lab:[address] [phone] Notes/Report: Triglycerides 199 <150 mg/dL Desirable Triglyceride: [...] (Free>4and<10) Reviewed date:07/06/2024 12:30:36 PM Interpretation: Performing Lab:[address] [phone] Notes/Report: PSA,Total (Free>4and<10) 0.94 0.00-4.00 ng/mL A [...] Random Reviewed date:07/06/2024 12:30:28 PM Interpretation: Performing Lab:[address] [place] [phone] Notes/Report: Creatinine Urine 483.43 Microalbumin Urine 43.0 Microalbum/Creatinine Ratio Ur 8.8 <30 ug/mg cr Albumin/Creatinine Ratio Reference Ranges: Normal: < 30 ug/mg creatinine Microalbuminuria: 30 - 300 ug/mg creatinine Clinical Albuminuria: > 300 ug/mg creatinine UA ClnCatch+Micro w/rflx Cul t Reviewed date:07/06/2024 12:29:35 PM Interpretation: Performing Lab:[facility], [address] [place] [phone] Notes/Report: Urine, Clean Catch Color Urine Dark Yellow Appearance Urine Turbid PH 5.0 5.0-9.0 Glucose Urine UA Negative Negative mg/dL Urine Blood Negative Negative Specific [place] - Urine >= 1.030 1.005-1.025 Urine Protein [...] Location Date Provider Diagnosis Ramon Avila MD [address] [place] [address] [address] [place], [place] [phone] 07/06/2024 Ramon Avila Blood tests for rout [...] Treatment Pending Test Test Name Order Date Complete Blood Count Auto Diff Comprehensive [place]. Panel Fast Hemoglobin A1c 07/06/2024 Next Appt Details Provider Name:Ramon Pink ier, 07/09/2024 01:30:00 PM, [address], [address], [place], [place], [phone], Provider Name:Ramon leer, 01/04/2025 07:30:00 AM, [address] [facility], [address], [place], [phone], Provider Name:Ramon Pink ier, 01/11/2025 01:00:00 PM, [address], [address], [place], [phone], Progress Notes * EVELINJakob DUPONT RDOB:1965 (59 yo M)Acc No.[id number]:07/06/2024 Progress Note Patient:?Jakob AYALA Provider:?Ramon Avila MD :1965???Age:59 Y???Sex:Male Yazan e:07/06/2024 Address:[address] [place], [place] [phone] Subjective: * Chief Complaints: * ???1. FASTING LIPIDS. * Medical History:? Objective: * Vitals:? Assessment: * Assessment: 1.?Blood tests for routine g eneral physical examination - Z00.00 (Primary)???2.?Type 2 diabetes mellitus without complication - E11.9???3.?Pure hypercholesterolemia - E78.00???4.?Essential hypertension - I10??? Plan: * Treatment: 2.?Type 2 diabetes mellitus without complication?LAB: Complete Blood Count Auto Diff (Collection Date & Time - 07/06/2024 10:02 AM) ?LAB: Comprehensive [place]. Panel Fast (Collection Date & Time - 07/06/2024 10:02 AM) ?LAB: Hemoglobin A1c ?LAB: Lipid Panel (Collection Date & Time - 07/06/2024 10:02 AM) ?LAB: PSA,Total (Free>4and<10) (Collection Date & Time - 07/06/2024 10:02 AM) ?LAB: Microalbumin, Random (Collection Date & Time - 07/06/2024 10:02 AM) ?LAB: UA ClnCatch+Micro w/rflx Cult (Collection Date & Time - 07/06/2024 10:02 AM) 3.?Pure hypercholesterolemia ?LAB: Complete Blood Count Auto Diff (Collection Date & Time - 07/06/2024 10:02 AM) ?LAB: Comprehensive [place]. Panel Fast (Collection Date & Time - 07/06/2024 10:02 AM) ?LAB: Hemoglobin A1c ?LAB: Lipid Panel (Collection Date & Time - 07/06/2024 10:02 AM) ?LAB: PSA,Total (Free>4and<10) (Collection Date & Time - 07/06/2024 10:02 AM) ?LAB: Microalbumin, Random (Collection Date & Time - 07/06/2024 10:02 AM) ?LAB: UA ClnCatch+Micro w/rflx Cult (Collection Date & Time - 07/06/2024 10:02 AM) 4.?Essential hypertension?LAB: Complete Blood Count Auto Diff (Collection Date & Time - 07/06/2024 10:02 AM) ?LAB: Comprehensive [place]. Panel Fast (Collection Date & Time - 07/06/2024 10:02 AM) ?LAB: Hemoglobin A1c ?LAB: Lipid Panel (Collection Date & Time - 07/06/2024 10:02 AM) ?LAB: PSA,Total (Free>4and<10) (Collection Date & Time - 07/06/2024 10:02 AM) ?LAB: Microalbumin, Random (Collection Date & Time - 07/06/2024 10:02 AM) ?LAB: UA ClnCatch+Micro w/rflx Cult (Collection Date & Time - 07/06/2024 10:02 AM) * Procedure Codes:?20984 VENIP UNCT, ROUTINE* * * The named appointment provid er may or may not be the originator of this progress note, and it is not deemed complete until electronically signed by the appointment provider. Sign off status: Pending * Provider:?Ramon Avila MD Date:?0 07/06/2024 Generated for Wm grey/Karen/Shad on:?07/06/2024 01:42 PM EST
--- OUTSIDE RECORDS SUMMARY | 2024-07-06 13:43 | XMS_ITS ---
Author Organization Ramon Avila MD Address [address] [place] [phone] Care Team Providers Care Transit Vehicle Inspector Name Role Phone Ramon Avila Primary Care Provider [phone] REASON FOR VISIT ER Visit Encounters Encounter Location Date Provider Diagnosis Ramon Avila MD [address] [place] [address] [place] [phone] 06/24/2024 Ramon Avila Plan Of Treatment Next Appt Details Provider Name:Ramon Pink iemeek, 07/09/2024 01:30:00 PM, [address] [place] [address], [address], [phone], Provider Name:Ramon van, 01/04/2025 07:30:00 AM, [address] [place] [address], [address], [phone], Provider Name:Ramon van, 01/11/2025 01:00:00 PM, [address], [address], [place], [place], [phone], Progress Notes * Jakob AYALA RDOB:1965 (59 yo M)Acc No.[id number]:06/24/2024 Patient:?Jakob AYALA :1965???Age:59 Y???Sex:Male Address:[address] [place] [phone] * true * Date:? Generated for Wm grey/Karen/eTransmitting on:?07/06/2024 01:42 PM EST
--- OUTSIDE RECORDS SUMMARY | 2024-07-06 13:43 | XMS_ITS ---
Author Organization Ramon Avila MD Address [address] [place] [phone] Care Team Providers Care Cement Side Laster Name Role Phone Ramon Avila Primary Care Provider Allergies No Known Allergies REASON FOR VISIT POST ER VISIT, Video [phone] Medications Medication SIG (Take, Route, Frequency, Duration) [...] every 6 hrs Not-Taking FreeStyle Amrita 2 [place] - as directed 07/05/2022 Active FreeStyle Amrita [...] 12 hrs Not-Taking FreeStyle Amrita 14 Day [place] - as directed 07/05/2022 Active OneTouch Delica Plus [id number] - USE TO TEST BLOOD SUGAR ONCE DAILY Active Vital Signs Height 69 in 06/29/2024 weight is 190 at home BP not taken no temp Encounters Encounter Location Date Provider Diagnosis Ramon Avila MD [address] [place] [phone] 06/29/2024 Ramon Avila Influenza A J10.1 Assessments [...] anything. Next Appt Details Provider Name:Ramon van, 07/09/2024 01:30:00 PM, [address] [place] [address], [address], [phone], Provider Name:Ramon van, 01/04/2025 07:30:00 AM, [address] [place] [address], [address], [phone], Provider Name:Ramon van, 01/11/2025 01:00:00 PM, [address] [place] [address], [address], [phone], Progress Notes * Jakob AYALA RDOB:1965 (59 yo M)Acc No.[id number]:06/29/2024 Patient:?Jakob AYALA Provider:?Ramon Avila MD :1965???Age:59 Y???Sex:Male Yazan e:06/29/2024 Address:[address] [place], [place] [phone] Subjective: * Chief Complaints: * ???POST ER VISITVideo * HPI: ???Symptom(s):?Telehealth?Location of provider rendering services:?[address], [address],?Location of patient:?at address listed in demographics for today's visit,?Patient identification confirmed using:?Name, ,?Telehealth method:?Video conference where patient is visible to the provider of care,?Consent:?Patient verbally consented to treatment, Patient verbally consented to billing insurance company, Patient informed of any privacy concerns related to method of visit,?Total time spend talking with patient (minutes)?16.?patient is a 59 yo male video telehealth visit, here for follow up from the er. had the flu. stopped taking augmentin 06/21? and 06/25 got fever and vomiting. started the augmentin again and got better. * ROS:?General/Constitutional:?Denies?Chills.?Denies?Fatigue.?Denies?Fever.?Denies?Headache.?ENT:?Patient denies?decreased sense of smell, any loss of taste, sore throat.?Denies?Sore throat.?Respiratory:?Denies?Cough.?Denies?Shortness of breath at rest.?Denies?Shortness of breath with exertion.?Denies?Sputum production.?Gastrointestinal:?Denies?Diarrhea.?Denies?Nausea.?Denies?Vomiting.?Musculoskeletal:?Patient denies?muscle aches.?Peripheral Vascular:?Patient denies?red and blue toes.?had initially been treated for pneumonia. was 12 hours in waiting room. but no pneumonia. * Medical History:? * Surgical History:? * Hospitalization/Major Diagno stic Procedure:? * Medications:?TakingIbuprofen 200 MG Tablet 1 tablet with food or milk as needed Orally Three times a day OneTouch Delica Plus [id number] - Miscellaneous USE TO TEST BLOOD SUGAR ONCE DAILY FreeStyle Amrita 14 Day [place] - Device as directed FreeStyle Amrita 2 [place] - Device as directed FreeStyle Amrita 2 [...] times a day Taking OneTouch Delica Plus [id number] - Miscellaneous USE TO TEST BLOOD SUGAR ONCE DAILY Taking FreeStyle Amrita 14 Day [place] - Device as directed Taking FreeStyle Amrita 2 [place] - Device as directed Taking FreeStyle Amrita 2 Sensor - Miscellaneous as directed Taking FreeStyle Amrita 14 Day Sensor - Miscellaneous as directed Taking Atorvastatin Calcium 40 mg Tablet TAKE 1 TABLET DAILY Orally Once a day Taking Lisinopril-hydroCHLOROthiazide 10-12.5 MG Tablet TAKE 1 TABLET [...] reviewed and reconciled with the patient * Allergies:?N.K.D.A.yes[Aller gies Verified] Objective: * Vitals:?Ht: 69. weight is 190? at home? BP? not taken? no temp. * Examination: ???General Examination: ?GENERAL APPEARANCE:?alert, well hydrated, in no distress.? Assessment: * Assessment: 1.?Influenza A - J10.1 (Prim satnam)??? Plan: * Treatment: * Procedure Codes:? * * Sign off status: Completed true * Provider:?Ramon Avila MD Date:?0 06/29/2024 Generated for Wm grey/Karen/eTransmitting on:?07/06/2024 01:42 PM EST History and Physical Notes * HPI (History of Present Illness) Category Sub-Category Detail Notes Category Not es Symptom(s) Telehealth Location of [facility] rendering services:: [address], [address] patient is a [...]
== END 2024-07-06 11:12 | disposition home or self-care (01) ==
LOC: HO.LNP 11:11
PROVIDERS: Visit Provider Internal Medicine
DX: Z00.00 Encounter for general adult medical examination without abnormal findings (principal); E78.00 Pure hypercholesterolemia, unspecified; E11.9 Type 2 diabetes mellitus without complications; I10 Essential (primary) hypertension; Z12.5 Encounter for screening for malignant neoplasm of prostate
CPT/HCPCS: 80053; 80061; 81001; 82043; 82570; 84153; 85025

== ENCOUNTER → 2024-07-22 13:07 | Outpatient (REF) | payer BC, SELFPAY ==
--- NOTE | 2024-07-22 13:11 | CA_ITS ---
Transthoracic Echocardiogram Amended Patient (Last, First, Middle): Jakob Fontaine R Gender: Male Date of : 1965 Age: 59 Procedure Date: 07/22/2024 Procedure Type: Transthoracic Echocardiogram Location: OP Height: 175.26 cm Weight: 86.18 kg BSA: 2.02 m2 Heart Rate: 85 bpm BP: 128 / 76 mmHg Clinical Biochemist: TO Referring MD: Ramon Avila MD Symptoms: R01 MURMUR Study Quality: Adequate ECG Rhythm: Sinus Conclusions: - The left ventricular systolic function is normal. The calculated ejection fraction is 55% by biplane method. - There is mild calcification of the aortic valve. - No obvious valvular pathology seen on this study. Findings Procedure Information Contrast agent, definity, is being given per protocol without apparent complications. Left Ventricle Normal left ventricular cavity size. The left ventricular systolic function is normal. The calculated ejection fraction is 55% by biplane method. There is no evidence of regional wall motion abnormalities. Diastolic function is normal for age. There is mild septal asymmetric hypertrophy. Right Ventricle Normal right ventricular cavity size and systolic function. Atria Both atria are normal in size. Aortic Valve There is a normal trileaflet aortic valve. There is mild calcification of the aortic valve. There is no aortic valve stenosis. There is no aortic valve regurgitation. Mitral Valve The mitral valve appears normal. There is no mitral valve regurgitation. There is no mitral valve stenosis. Pulmonic Valve The pulmonic valve is likely normal. Tricuspid Valve There is trace tricuspid valve regurgitation. There is no evidence of pulmonary hypertension. Great Vessels The asc aorta is normal in size. Venous The inferior vena cava is normal in size and collapses greater than 50% with inspiration. Pericardium/Pleural There is no evidence of pericardial effusion. Prior Study Comparison No prior study available for comparison. Recommendations, Care & Conclusions No obvious valvular pathology seen on this study. Measurements 2D Linear Measurements IVSd: 1.12 0.6-0.9/0.6-1.0 cm LVIDd: 4.19 3.9-5.3/4.2-5.9 cm LVIDd Index: 2.07 2.4-3.2/2.2-3.1 cm/m2 LVIDs: 2.31 2.0-3.6 cm LVPWd: 0.76 0.7-1.1 cm LA Diam: 3.20 2.7-3.8/3.0-4.0 cm LAIDs Index: 1.58 1.5-2.3 cm/m2 LV Mass: 156.44 67-162/88-224 g LV Mass Index: 77.44 43-95/49-115 g/m2 LVOT Diam: 2.20 3.0+(-)1.3 cm 2D Volumes LA Vol: 25.00 2D Systolic Function EF 4C: 55.40 >55% EF 2C: 55.70 >55% EF BiP: 55.40 >55% Mitral Valve MV VTI: 0.22 MV Pk Daniel: 0.99 MV Mn Daniel: 0.67 MV Pk Grad: 4.00 MV Mn Grad: 2.00 MV Pk E: 0.57 MV PK A: 0.71 MV Decel Time: 161.00 E/A: 0.80 E'Lateral: 6.85 E'Medial: 5.22 E/E' Med: 11.00 E/E' Lat: 8.40 PHT: 47.00 MVA PHT: 4.68 MVA Continuity: 3.49 Decel Juab: 3.57 Aortic Valve AoV Pk Daniel: 1.79 AoV Mn Daniel: 1.29 AoV VTI: 0.33 AoV Pk Grad: 13.00 Aov Mn Grad: 7.00 TRAV Cont.VTI: 2.39 LVOT LVOT Pk Daniel: 1.16 LVOT Mn Daniel: 0.79 LVOT VTI: 0.21 LVOT Pk Grad: 5.00 LVOT Mn Grad: 3.00 LVOT Diam: 2.20 LVOT Area: 3.80 Diastolic Function MV Pk E: 0.57 MV Pk A: 0.71 E/A: 0.80 E'Medial: 5.22 E/E' Med: 11.00 E' Laterial: 6.85 E/E' Lat: 8.40 Right Ventricle TAPSE (mm): 24.30 TVS' Daniel: 14.40 Tricuspid Valve TR Pk Daniel: 1.83 TR Pk Grad: 13.00 RA Press: 3.00 RVSP: 16.00 Great Vessels Aorta Sinus of Valsalva: 3.34 2.0-3.5 cm Ao Asc: 3.20 2.1-3.4 cm Updated in Other Vendor System with Status of Final Luis E Bravo MD electronically signed on 07/23/2024 4:35:10 PM with status of Final
--- OUTSIDE RECORDS SUMMARY | 2024-07-22 16:40 | XMS_ITS ---
Author Organization Ramon Avila MD Address [address] [place] [phone] Care Team Providers Care Baker Pie Name Role Phone Ramon Avila Primary Care Provider [phone] Allergies No Known Allergies Results Component Value Reference Range Notes Hemoglobin A1c Reviewed date:07/09/2024 01:36:04 PM Interpretation: Performing Lab: Notes/Report: Hemoglobin A1c 8.0 Glucose, finger stick Reviewed date:07/09/2024 01:35:47 PM Interpretation: Performing Lab: Notes/Report: Value 130 REASON FOR VISIT 6 MO F/U Medications Medication SIG (Take, Route, Frequency, Duration) Notes Start Date End Date Status OneTouch Delica Plus [id number] - USE TO TEST BLOOD SUGAR ONCE DAILY Active FreeStyle Amrita 14 Day [place] - as directed 07/05/2022 Active metFORMIN HCl ER 500 MG TAKE 2 TABLETS B Y MOUTH TWICE A DAY Active Atorvastatin Calcium 40 mg TAKE 1 TABLET DAILY Orally Once a day Active FreeStyle Amrita 2 [place] - as directed 07/05/2022 Active guaiFENesin-Codeine 100-10 [...] Date Provider Diagnosis Ramon Avila MD [address] [place] [phone] 07/09/2024 Ramon Avila Type 2 diabetes peggy [...] Months, Reason: dm Provider Name:Ramon Pink ier, 10/08/2024 09:00:00 AM, [address] [facility], Suite [facility], [place], [place], [phone], Provider Name:Ramon Pink ier, 01/04/2025 07:30:00 AM, [address] [facility], Suite [facility], [place], [phone], Provider Name:Ramon Pink ier, 01/11/2025 01:00:00 PM, [address] [facility], Suite [facility], [place], [place], [phone], Progress Notes * Jakob AYALA RDOB:1965 (59 yo M)Acc No.[id number]:07/09/2024 Progress Notes Patient:?Jakob AYALA Provider:?Ramon Avila MD :1965???Age:59 Y???Sex:Male Yazan e:07/09/2024 Address:[address] [place] [id number] Subjective: * Chief Complaints: * ???6 MO F/U * HPI: ???Symptom(s):?Patient is a 59 yo male here for 6 month? follow up visit,? feeling well. had influenza type a. * ROS:?General/Constitutional:?Denies?Chills.?Denies?Fatigue.?Denies?Fever.?Denies?Headache.?ENT:?Patient denies?decreased sense of smell, any loss of taste, sore throat.?Denies?Sore throat.?Respiratory:?Denies?Cough.?Denies?Shortness of breath at rest.?Denies?Shortness of breath with exertion.?Gastrointestinal:?Denies?Diarrhea.?Denies?Nausea.?Musculoskeletal:?Patient denies?muscle aches.?Peripheral Vascular:?Patient denies?red and blue toes.? * Medical History:? * Surgical History:? * Hospitalization/Major Diagno stic Procedure:? * Medications:?TakingOneTouch Delica Plus Uzvleu16Y - Miscellaneous USE TO TEST BLOOD SUGAR ONCE DAILY FreeStyle Amrita 14 Day [place] - Device as directed FreeStyle Amrita 2 [place] - Device as directed FreeStyle Amrita 2 Sensor - Miscellaneous as directed FreeStyle Amrita 14 Day Sensor - Miscellaneous as directed Atorvastatin Calcium 40 mg Tablet TAKE 1 TABLET DAILY Orally Once a day Lisinopril-hydroCHLOROthiazide 10- 12.5 MG Tablet TAKE 1 TABLET BY MOUTH EVERY DAY Orally Once a day metFORMIN HCl ER 500 MG Tablet Extended Release 24 Hour TAKE 2 TABLETS BY MOUTH TWICE A DAY Taking OneTouch Delica Plus Bnohns51U - Miscellaneous USE TO TEST BLOOD SUGAR ONCE DAILY Taking FreeStyle Amrita 14 Day [place] - Device as directed Taking FreeStyle Amrita 2 [place] - Device as directed Taking FreeStyle Amrita [...] * Allergies:?N.K.D.A.yes[Aller gies Verified] Objective: * Vitals:?Ht: 69, Wt: 195, BMI :28.79, BP:102/60, Wt-k.45. * ???Past Orders: ???Lab:Microalbumin, Random (Order Date - 07/06/2024) (Collection Date & Time - 07/06/2024 10:02 AM) ? Value Reference Range ?Creatinine Urine 483.43 - m g/dL ?Microalbumin Urine 43.0 - mg/L ?Microalbum Creatinine Ratio Ur 8.8 <30 - ug/mg cr ???Lab:UA ClnCatch+Micro w/r flx Cult (Order Date - 07/06/2024) (Collection Date & Time - 07/06/2024 10:02 AM) ? Value Reference Range ?Color Urine Dark Yellow - ?Appearance Urine Turbid - ?PH 5.0 5.0-9.0 - ?Glucose Urine UA Negative Neg ative - mg/dL ?Urine Blood Negative Negative - ?Specific [place] - Urine >= 1.030 H 1.005-1.025 - ?Urine Protein 30 (1+) A Neg-Tr rhianna - mg/dL ?Urine Ketones Trace Negati ve - mg/dL ?Nitrite Urine Negative Negati ve - ?Leukocyte Esterase Urine Negative Negative - ?RBC Urine 0-2 0-2 - /HPF ?WBC Urine 0-5 0-5 - /HPF ?Squamous Epithelial Cell Urine 0-2 0-2 - /HPF ?Bacteria Urine None Seen None Seen - ?Hyaline Casts Urine 3-5 0-2 - /LPF ?Other Crystals Urine Present - ?Calcium Oxalate Crystals Urine Present - Lab:Complete Blood [...] g/dl) Hematocrit 42.6 (Ref Range: 42.0-52.0 %) 40.4?L (Ref Range: 42.0-52.0 %) Mean Corpuscular Volume [...] Platelet Count 318 (Ref Range: 160-400 X10*3/uL) 426?H (Ref Range: 160-400 X10*3/uL) Mean Platelet Volume 10.8 (Ref Range: 9.4-12.4 fL) 9.1?L (Ref Range: 9.4-12.4 fL) Neutrophils Percent Auto 57.7 (Ref Range: 45-73 %) 69.2 (Ref Range: 45-73 %) Imm Gran Pct Auto 0.3 (Ref Range: 0.0-0.4 %) 0.9?H (Ref Range: 0.0-0.4 %) Lymphocytes Percent Auto [...] Abs Auto 0.02 (Ref Range: 0.00-0.03 X10*3/uL) 0.09?H (Ref Range: 0.00-0.03 X10*3/uL) Lymphocytes Absolute Auto [...] X10*3/uL) 0.000 (Ref Range: 0.0-0.012 X10*3/uL) ???Lab:Comprehensive [place]. Panel Fast (Order Date - 07/06/2024) (Collection Date & Time - 07/06/2024 10:02 AM)?ValueReference Range?Ptpuwy623972- 145 - mmol/L?Bilirubin Total0.40.0-1.0 - mg/dL?Aspartate Amino Imrowfmderj263-56 - U/L?Alanine Wjbodjimtkqqwkxl09V2-39 - U/L ?Total Protein7.36.5-8.0 - g/dL?Albumin Level4.13.5-5.0 - g/dL ?Alkaline Ttbcxkekmko5885-360 - U/L?Potassium4.23.3-5.1 - mmol/L ?Bdqonedq32654-869 - mmol/L?Carbon Dhgutxf9807-58 - mmol/L ?Anion Rcy1180-14 -?Blood Urea Gvqavvvt82-36 - mg/dL ?Creatinine0.850.5-1.4 - mg/dL?Estimated Glomerular Filt Rate> 60- ?Glucose Failukz351J19-94 - mg/dL?Calcium9.48.4-10.2 - mg/dL ???Lab:Lipid Panel (Order Date - 07/06/2024) (Collection Date & Time - 07/06/2024 10:02 AM)?ValueReference Range?Eiwrhzohznjer948T<150 - mg/dL?Fodpreflufx949<200 - mg/dL?LDL Cholesterol Bhsmomohxc43<100 - mg/dL?HDL Ijjvjdfkowk92>40 - mg/dL ???Lab:PSA,Total (Free>4and<10) (Order Date - 07/06/2024) (Collection Date & Time - 07/06/2024 10:02 AM)?ValueReference Range?PSA,Total (Free>4and<10)0.940.00-4.00 - ng/mL * Examination: ???General Examination: ?GENERAL APPEARANCE:?alert, well hydrated, in no distress.?HEAD:?normocephalic.?SKIN:?good turgor.?HEART:?grade 1/6 systolic murmur at left sternal border.?LUNGS:?no wheezes, rales, rhonchi, good air movement, clear to auscultation bilaterally.? Assessment: * Assessment: 1.?Type 2 diabetes mellitus without complication - E11.9 (Primary)???2.?Heart murmur - R01.1???3.?Pure hypercholesterolemia - E78.00??? Plan: * Treatment: ? Value Reference Range ?Hemoglobin A1c 8.0 ?LAB: Glucose, finger stick (Collection Date & Time - 07/09/2024)* ? Value Reference Range ?Value 130 Notes: running a little high will recheck in 3 months, will continue current regiment until recheck ?2.?Heart murmur?Imaging: ECHO* Priscila Crooks 2024 01:56:47 PM EST > ORDER FAXED TO [facility] [place] [facility] 3.?Pure hypercholesterolemia? Continue Atorvastatin Calcium Tablet, 40 mg, TAKE 1 TABLET DAILY, Orally, Once a day.?? Notes: stable, will contoinue current regiment?? * Procedure Codes:?64413 ASSAY , GLUCOSE, BLOOD QUANT, Modifiers: QW 96425 GLYCATED HEMOGLOBIN TEST, Modifiers: QW * Follow Up:?3 Months (Reason: dm) * * Sign off status: Completed true * Provider:?Ramon Avila MD Date:?0 07/09/2024 Generated for Wm grey/Karen/eTsnowsmitting on:?07/22/2024 04:39 PM EDT History and Physical Notes * [...]
--- OUTSIDE RECORDS SUMMARY | 2024-07-22 16:40 | XMS_ITS ---
Author Organization Ramon Avila MD Address [address] [place] [phone] Care Team Providers Care Elementary Esl Teacher Name Role Phone Ramon Avila Primary Care Provider Allergies No Known Allergies REASON FOR VISIT POST ER VISIT, Video [phone] Medications Medication SIG (Take, Route, Frequency, Duration) [...] every 6 hrs Not-Taking FreeStyle Amrita 2 [place] - as directed 07/05/2022 Active FreeStyle Amrita [...] 12 hrs Not-Taking FreeStyle Amrita 14 Day [place] - as directed 07/05/2022 Active OneTouch Delica Plus Rwjjmm54D - USE TO TEST BLOOD SUGAR ONCE DAILY Active Vital Signs Height 69 in 06/29/2024 weight is 190 at home BP not taken no temp Encounters Encounter Location Date Provider Diagnosis Ramon Avila MD [address] [place] [phone] 06/29/2024 Ramon Avila Influenza A J10.1 Assessments [...] anything. Next Appt Details Provider Name:Ramon van, 10/08/2024 09:00:00 AM, [address] [place] [address], [address], [phone], Provider Name:Ramon van, 01/04/2025 07:30:00 AM, [address] [place] [address], [address], [phone], Provider Name:Ramon van, 01/11/2025 01:00:00 PM, [address] [place] [address], [address], [phone], Progress Notes * Jakob AYALA RDOB:1965 (59 yo M)Acc No.[id number]:06/29/2024 Patient:?Jakob AYALA Provider:?Ramon Avila MD :1965???Age:59 Y???Sex:Male Yazan e:06/29/2024 Address:[address] [place], [place] [phone] Subjective: * Chief Complaints: * ???POST ER [...] Three times a day OneTouch Delica Plus Cihlkj97J - Miscellaneous USE TO TEST BLOOD SUGAR ONCE DAILY FreeStyle Amrita 14 Day [place] - Device as directed FreeStyle Amrita 2 [place] - Device as directed FreeStyle Amrita 2 [...] times a day Taking OneTouch Delica Plus Jepexy14A - Miscellaneous USE TO TEST BLOOD SUGAR ONCE DAILY Taking FreeStyle Amrita 14 Day [place] - Device as directed Taking FreeStyle Amrita 2 [place] - Device as directed Taking FreeStyle Amrita [...] MD Date:?0 06/29/2024 Generated for Wm grey/Karen/eTransmitting on:?07/22/2024 04:39 PM EDT History and Physical Notes * HPI (History of Present Illness) Category Sub-Category Detail Notes Category Not es Symptom(s) Telehealth Location of [facility] rendering services:: [address], [address] patient is a [...]
--- OUTSIDE RECORDS SUMMARY | 2024-07-22 16:40 | XMS_ITS ---
Author Organization Ramon Avila MD Address [address] [place] [phone] Care Team Providers Care Automatic Corn Grinder Operator Name Role Phone Austin Ramon Primary Care Provider Results Component Value Reference Range Notes Complete Blood Count Auto Di ff Reviewed date:07/06/2024 04:47:32 PM Interpretation: Performing Lab:[facility], [address] [place] [phone] Notes/Report: White Blood Count 7.5 4.8-10.8 X10*3/uL [...] NRBC Abs Auto 0.000 0.0-0.012 X10*3/uL Comprehensive [place]. Panel Fa st Reviewed date:07/06/2024 04:46:58 PM Interpretation: Performing Lab:[facility], [address] [place] [phone] Notes/Report: Sodium 140 135-145 mmol/L Potassium 4.2 [...] Panel Reviewed date:07/06/2024 12:36:17 PM Interpretation: Performing Lab:[facility], [address] [place] [phone] Notes/Report: Triglycerides 199 <150 mg/dL Desirable Triglyceride: [...] (Free>4and<10) Reviewed date:07/06/2024 12:30:36 PM Interpretation: Performing Lab:[facility], [address] [place] [phone] Notes/Report: PSA,Total (Free>4and<10) 0.94 0.00-4.00 ng/mL A [...] Random Reviewed date:07/06/2024 12:30:28 PM Interpretation: Performing Lab:[facility], [address] [place] [phone] Notes/Report: Creatinine Urine 483.43 Microalbumin Urine 43.0 Microalbum/Creatinine Ratio Ur 8.8 <30 ug/mg cr Albumin/Creatinine Ratio Reference Ranges: Normal: < 30 ug/mg creatinine Microalbuminuria: 30 - 300 ug/mg creatinine Clinical Albuminuria: > 300 ug/mg creatinine UA ClnCatch+Micro w/rflx Cul t Reviewed date:07/06/2024 12:29:35 PM Interpretation: Performing Lab:[facility], [address] [place] [phone] Notes/Report: Urine, Clean Catch Color Urine Dark Yellow Appearance Urine Turbid PH 5.0 5.0-9.0 Glucose Urine UA Negative Negative mg/dL Urine Blood Negative Negative Specific [place] - Urine >= 1.030 1.005-1.025 Urine Protein [...] Location Date Provider Diagnosis Ramon Avila MD [address] [place] [address] [address] [place], [place] [phone] 07/06/2024 Ramon Avila Blood tests for rout [...] A1c 07/06/2024 Next Appt Details Provider Name:Ramon van, 10/08/2024 09:00:00 AM, [address], [address], [place], [place], [phone], Provider Name:Ramon Pink iemeek, 01/04/2025 07:30:00 AM, [address] [facility], [address], [place], [phone], Provider Name:Ramon Pink ier, 01/11/2025 01:00:00 PM, [address], [address], [place], [phone], Progress Notes * EVELINJakob DUPONT RDOB:1965 (59 yo M)Acc No.[id number]:07/06/2024 Progress Note Patient:?Jakob AYALA Provider:?Ramon Avila MD :1965???Age:59 Y???Sex:Male Yazan e:07/06/2024 Address:[address] [place] [phone] Subjective: * Chief Complaints: * ???1. FASTING LIPIDS. * Medical History:? Objective: * Vitals:? Assessment: * Assessment: 1.?Blood tests for routine g eneral physical examination - Z00.00 (Primary)???2.?Type 2 diabetes mellitus without complication - E11.9???3.?Pure hypercholesterolemia - E78.00???4.?Essential hypertension - I10??? Plan: * Treatment: 2.?Type 2 diabetes mellitus without complication?LAB: Hemoglobin A1c ?LAB: Complete Blood Count Auto Diff (Collection Date & Time - 07/06/2024 10:02 AM) ?LAB: Comprehensive [place]. Panel Fast (Collection Date & Time - 07/06/2024 10:02 AM) ?LAB: Lipid Panel (Collection Date & Time - 07/06/2024 10:02 AM) ?LAB: PSA,Total (Free>4and<10) (Collection Date & Time - 07/06/2024 10:02 AM) ?LAB: Microalbumin, Random (Collection Date & Time - 07/06/2024 10:02 AM) ?LAB: UA ClnCatch+Micro w/rflx Cult (Collection Date & Time - 07/06/2024 10:02 AM) 3.?Pure hypercholesterolemia ?LAB: Hemoglobin A1c ?LAB: Complete Blood Count Auto Diff (Collection Date & Time - 07/06/2024 10:02 AM) ?LAB: [facility] [place]. Panel Fast (Collection Date & Time - 07/06/2024 10:02 AM) ?LAB: Lipid Panel (Collection Date & Time - 07/06/2024 10:02 AM) ?LAB: PSA,Total (Free>4and<10) (Collection Date & Time - 07/06/2024 10:02 AM) ?LAB: Microalbumin, Random (Collection Date & Time - 07/06/2024 10:02 AM) ?LAB: UA ClnCatch+Micro w/rflx Cult (Collection Date & Time - 07/06/2024 10:02 AM) 4.?Essential hypertension?LAB: Hemoglobin A1c ?LAB: Complete Blood Count Auto Diff (Collection Date & Time - 07/06/2024 10:02 AM) ?LAB: [facility] [place]. Panel Fast (Collection Date & Time - 07/06/2024 10:02 AM) ?LAB: Lipid Panel (Collection Date & Time - 07/06/2024 10:02 AM) ?LAB: PSA,Total (Free>4and<10) (Collection Date & Time - 07/06/2024 10:02 AM) ?LAB: Microalbumin, Random (Collection Date & Time - 07/06/2024 10:02 AM) ?LAB: UA ClnCatch+Micro w/rflx Cult (Collection Date & Time - 07/06/2024 10:02 AM) * Procedure Codes:?12735 VENIP UNCT, ROUTINE* * * The named appointment provid er may or may not be the originator of this progress note, and it is not deemed complete until electronically signed by the appointment provider. Sign off status: Pending * Provider:?Ramon Avila MD Date:?0 07/06/2024 Generated for Wm grey/Karen/Shad on:?07/22/2024 04:39 PM EDT
== END ==
LOC: HO.CARD 13:07
PROVIDERS: PCP Internal Medicine; Visit Provider Internal Medicine
DX: R01.1 Cardiac murmur, unspecified (principal)
CPT/HCPCS: 93306; Q9957

== ENCOUNTER → 2024-07-22 13:11 | Outpatient (BNV) | payer BC, SELFPAY | PROVIDERS: PCP Internal Medicine; Visit Provider Internal Medicine | DX: I42.2 Other hypertrophic cardiomyopathy (principal); I35.8 Other nonrheumatic aortic valve disorders | CPT/HCPCS: 93306 ==

== ENCOUNTER 2024-08-20 09:10 | Emergency (ER) | payer BC, SELFPAY ==
--- NOTE | ~2024-08-20 | CT_ITS ---
EXAMINATION: CT ABDOMEN PELVIS WITHOUT IV CONTRAST HISTORY: RLQ pain COMPARISON: Comparison is made with the prior examination dated 10/11/2021. TECHNIQUE: CT scan of the abdomen and pelvis was performed without contrast using standard departmental protocol. Coronal and sagittal reformatted images were generated and reviewed. Oral contrast material was not administered at the request of the referring physician. This CT exam was performed with one or more of the following dose reduction techniques: automated exposure control, adjustment of the mA and/or kV according to patient size, use of iterative reconstruction technique. DLP: 562 mGy-cm FINDINGS: LOWER CHEST: The visualized lung bases are clear. There is no pleural effusion. CARDIOVASCULATURE: The heart is normal in size. There is no pericardial effusion. LIVER: The liver is normal in size and contour. The liver demonstrates diffusely decreased attenuation, consistent with ptosis. There is focal fatty sparing adjacent to the gallbladder. GALLBLADDER / BILE DUCTS: The gallbladder is unremarkable. There is no intra or extrahepatic biliary ductal dilatation. SPLEEN: The spleen is normal in size and has an unremarkable unenhanced appearance. PANCREAS: The pancreas has an unremarkable unenhanced appearance. ADRENAL GLANDS: Unremarkable. KIDNEYS/RETROPERITONEUM: There are multiple punctate nonobstructing calculi at the lower pole of the right kidney. The left kidney demonstrates 2 adjacent nonobstructing 3 mm calculi at the lower pole. There is a 3.2 cm cyst in the interpolar region of the left kidney. There is mild prominence of the right intrarenal collecting system and ureter to the level of the bladder. However, no obstructing calculus is identified. There is no left hydronephrosis or hydroureter. LYMPH NODES: No retroperitoneal lymphadenopathy is identified in the abdomen or pelvis. VASCULATURE: The abdominal aorta is normal in caliber. MESENTERY/PERITONEUM: No free fluid. No masses. There is no free intraperitoneal gas. STOMACH: The stomach is collapsed, limiting evaluation. SMALL BOWEL: The small bowel is normal in caliber. COLON: There is a moderate amount of stool throughout the colon. APPENDIX: Normal. URINARY BLADDER/PELVIC ORGANS: The urinary bladder is unremarkable. The prostate is normal in size. BONES / SOFT TISSUES: No suspicious bony or soft tissue abnormalities. CT/CT abdomen pelvis wo IV con IMPRESSION: 1. A normal appendix is visualized. 2. Bilateral nephrolithiasis as described. Mild prominence of the right intrarenal collecting system and ureter compared to the prior study, without evidence of an obstructing calculus. Findings may be secondary to a recently passed calculus. Clinical correlation is recommended. Electronically signed by: Checo Segal MD 08/20/2024 01:53 PM EDT RP
[2024-08-20 09:35] VITALS: BP 144/72; PULSE 89; RESP 18; TEMP 37; O2SAT 98; BMI 26.4
[2024-08-20 09:52] LABS: MANUAL DIFF FLAG NO
[2024-08-20 09:53] LABS: Basophils Percent Auto 0.3 % (0-2); Eosinophils Percent Auto 0.4 % (0-4); Hematocrit 39.6 % (42.0-52.0); Hemoglobin 13.9 g/dl (14.0-18.0); Imm Gran Abs Auto 0.03 X10*3/uL (0.00-0.03); Imm Gran Pct Auto 0.3 % (0.0-0.4); Lymphocytes Percent Auto 10.8 % (20-40); Mean Corpuscular HGB Conc 35.1 g/dl (31.0-36.0); Mean Corpuscular Hemoglobin 30.5 pg (27.0-33.0); Mean Platelet Volume 10.3 fL (9.4-12.4); Monocytes Absolute Auto 0.6 X10*3/uL (0.1-1.2); Neutrophils Absolute Auto 7.9 x10*3/uL (2.0-8.3); Neutrophils Percent Auto 82.2 % (45-73); Platelet Count 220 X10*3/uL (160-400); Red Blood Count 4.55 X10*6/uL (4.60-5.80); Red Cell Distribution Width 12.8 % (11.0-16.0); White Blood Count 9.7 X10*3/uL (4.8-10.8)
[2024-08-20 10:02] LABS: Appearance Urine Clear; Color Urine Yellow; Glucose Urine UA >=1000 mg/dL (Negative); Leukocyte Esterase Urine Negative (Negative); Nitrite Urine Negative (Negative); PH 5.5 (5.0-9.0); Specific Gravity - Urine 1.025 (1.005-1.025); UMIC TRIGGER UACC YES; Urine Blood Moderate (2+) (Negative); Urine Ketones 40 mg/dL (Negative); Urine Protein Negative (Neg-Trace)
[2024-08-20 10:05] LABS: Bacteria Urine None Seen (None Seen); RBC Urine >20 /HPF (0-2); Squamous Epithelial Cell Urine 0-2 /HPF (0-2); WBC Urine 0-5 /HPF (0-5)
[2024-08-20 10:10] LABS: Anion Gap 16 (12-20); Blood Urea Nitrogen 17 mg/dL (9-16); Calcium 9.5 mg/dL (8.4-10.2); Carbon Dioxide 23 mmol/L (22-29); Chloride 106 mmol/L (96-108); Creatinine Clr Calc Pharmacy 88.1; Estimated Glomerular Filt Rate > 60; Glucose Random 295 mg/dL (60-115); Sodium 140 mmol/L (135-145)
[2024-08-20 11:54] VITALS: BP 138/81; PULSE 84; RESP 18; TEMP 36.5; O2SAT 99
--- OUTSIDE RECORDS SUMMARY | 2024-08-20 12:53 | XMS_ITS ---
Author Organization Ramon Avila MD Address [address] [place] [phone] Care Team Providers Care Gis Developer Name Role Phone Ramon Avila Primary Care [...] Date End Date Status OneTouch Delica Plus Scelqm06L - USE TO TEST BLOOD SUGAR ONCE DAILY Active FreeStyle Amrita 14 Day [place] - as directed 07/05/2022 Active metFORMIN HCl ER 500 MG TAKE 2 TABLETS B Y MOUTH TWICE A DAY Active Atorvastatin Calcium 40 mg TAKE 1 TABLET DAILY Orally Once a day Active FreeStyle Amrita 2 [place] - as directed 07/05/2022 Active guaiFENesin-Codeine 100-10 [...] Date Provider Diagnosis Ramon Avila MD [address] [facility] [address] [place] [phone] 07/09/2024 Ramon Avila Type 2 diabetes peggy [...] Name:Ramon Pink ier, 10/08/2024 09:00:00 AM, [address] [facility], Suite [facility], [place], [place], [phone], Provider Name:Ramon Pink ier, 01/04/2025 07:30:00 AM, [address] [facility], Suite [facility], [place], [phone], Provider Name:Ramon Pink ier, 01/11/2025 01:00:00 PM, [address] [facility], Suite [facility], [place], [place], [phone], Progress Notes * Jakob AYALA RDOB:1965 (59 yo M)Acc No.[id number]:07/09/2024 Progress Notes Patient:?Jakob AYALA Provider:?Ramon Avila MD :1965???Age:59 Y???Sex:Male Yazan e:07/09/2024 Address:[address] [place] [phone] Subjective: * Chief Complaints: * ???6 MO [...] Diagno stic Procedure:? * Medications:?TakingOneTouch Delica Plus Mphojj67J - Miscellaneous USE TO TEST BLOOD SUGAR ONCE DAILY FreeStyle Amrita 14 Day [place] - Device as directed FreeStyle Amrita 2 [place] - Device as directed FreeStyle Amrita 2 [...] TWICE A DAY Taking OneTouch Delica Plus Mudodv31C - Miscellaneous USE TO TEST BLOOD SUGAR ONCE DAILY Taking FreeStyle Amrita 14 Day [place] - Device as directed Taking FreeStyle Amrita 2 [place] - Device as directed Taking FreeStyle Amrita [...] mg/dL ?Urine Blood Negative Negative - ?Specific [place] - Urine >= 1.030 H 1.005-1.025 - [...] X10*3/uL) 0.000 (Ref Range: 0.0-0.012 X10*3/uL) ???Lab:Comprehensive [place]. Panel Fast (Order Date - 07/06/2024) (Collection Date & Time - 07/06/2024 10:02 AM)?ValueReference Range?Qdqwuw495593- 145 - mmol/L?Bilirubin Total0.40.0-1.0 - mg/dL?Aspartate Amino Nszbfpqkasi069-59 - U/L?Alanine Akhryfjnkcgnxqfa90O9-55 - U/L ?Total Protein7.36.5-8.0 - g/dL?Albumin Level4.13.5-5.0 - g/dL ?Alkaline Oedfceftgrp6327-470 - U/L?Potassium4.23.3-5.1 - mmol/L ?Waohtmjh51594-170 - mmol/L?Carbon Aezebiw2892-97 - mmol/L ?Anion Ofe6376-69 -?Blood Urea Earsdfpl64-17 - mg/dL ?Creatinine0.850.5-1.4 - mg/dL?Estimated Glomerular Filt Rate> 60- ?Glucose Hxobjfx570R50-91 - mg/dL?Calcium9.48.4-10.2 - mg/dL ???Lab:Lipid Panel (Order Date - 07/06/2024) (Collection Date & Time - 07/06/2024 10:02 AM)?ValueReference Range?Pvektcpyzdzma986M<150 - mg/dL?Uxiisxmzjzb371<200 - mg/dL?LDL Cholesterol Urwpjjbsca37<100 - mg/dL?HDL Husjqajsxbk97>40 - mg/dL ???Lab:PSA,Total (Free>4and<10) (Order Date - [...] 01:56:47 PM EST > ORDER FAXED TO [facility] 3.?Pure hypercholesterolemia? Continue Atorvastatin Calcium Tablet, 40 mg, TAKE 1 TABLET DAILY, Orally, Once a day.?? Notes: stable, will contoinue current regiment?? * Procedure Codes:?28725 ASSAY , GLUCOSE, BLOOD QUANT, Modifiers: QW 09395 GLYCATED HEMOGLOBIN TEST, Modifiers: QW * Follow Up:?3 Months (Reason: dm) * * Sign off status: Completed true * Provider:?Ramon Avila MD Date:?0 07/09/2024 Generated for Wm grey/Karen/eTsnowsmitting on:?08/20/2024 12:53 PM EDT History and Physical Notes * [...]
--- OUTSIDE RECORDS SUMMARY | 2024-08-20 12:53 | XMS_ITS | Patient Health Record ---
Author Organization Ramon Avila MD Address [address] [place] [phone] Care Team Providers Care Continuity Director Name Role Phone Ramon Avila Primary Care Provider Allergies No Known Allergies Results Component Value Reference Range Notes Hemoglobin A1c Reviewed date:07/09/2024 01:36:04 PM Interpretation: Performing Lab: Notes/Report: Hemoglobin A1c 8.0 Complete Blood Count Auto Di ff Reviewed date:01/01/2024 04:08:35 PM Interpretation: Performing Lab:[facility], [address] [place] [phone] Notes/Report: White Blood Count 6.2 4.8-10.8 X10*3/uL Red Blood Count 4.78 4.60-5.80 X10*6/uL Hemoglobin 14.9 14.0-18.0 g/dl Hematocrit 42.6 42.0-52.0 % Mean Corpuscular Volume 89.1 80.0-98.0 fL Mean Corpuscular Hemoglobin 31.2 27.0-33.0 pg Mean Corpuscular HGB Conc 35.0 31.0-36.0 g/dl Red Cell Distribution Width 12.5 11.0-16.0 % Platelet Count 255 160-400 X10*3/uL Mean Platelet Volume 10.4 9.4-12.4 fL Neutrophils Percent Auto 57.5 45-73 % Imm Gran Pct Auto 0.3 0.0-0.4 % Lymphocytes Percent Auto 32.1 20-40 % Monocytes Percent Auto 7.5 2-11 % Eosinophils Percent Auto 1.8 0-4 % Basophils Percent Auto 0.8 0-2 % NRBC Pct Auto 0.0 0.0-0.2 /100WBC Neutrophils Absolute Auto 3.6 2.0-8.3 x10*3/uL Imm Gran Abs Auto 0.02 0.00-0.03 X10*3/uL Lymphocytes Absolute Auto 2.0 1.2-4.9 X10*3/uL Monocytes Absolute Auto 0.5 0.1-1.2 X10*3/uL Eosinophils Absolute Auto 0.1 0.0-0.4 X10*3/uL Basophils Absolute Auto 0.1 0.0-0.2 X10*3/uL NRBC Abs Auto 0.000 0.0-0.012 X10*3/uL Comprehensive Hi Hat. Panel Fa st Reviewed date:01/01/2024 04:08:12 PM Interpretation: Performing Lab:[facility], [address] [place] [phone] Notes/Report: Sodium 140 135-145 mmol/L Potassium 4.3 3.3-5.1 mmol/L Chloride 102 96-108 mmol/L Carbon Dioxide 29 22-29 mmol/L Anion Gap 13 12-20 Blood Urea Nitrogen 11 9-16 mg/dL Creatinine 0.89 0.5-1.4 mg/dL Estimated Glomerular Filt Rate > 60 NOTE: For -Maced[place] individuals, multiply the result by 1.210. Chronic Kidney Disease: Estimated GFR < 60 mL/min/1.73m2 Severe Kidney Disease: Estimated GFR < 15 mL/min/1.73m2 Glucose Fasting 177 60-99 mg/dL A fasting glucose of 126 mg/dl or greater on more than one occasion is considered diagnostic of diabetes. Calcium 10.1 8.4-10.2 mg/dL Bilirubin Total 0.6 0.0-1.0 mg/dL Aspartate Amino Transferase 24 5-37 U/L Alanine Aminotransferase 31 0-40 U/L Total Protein 7.3 6.5-8.0 g/dL Albumin Level 4.5 3.5-5.0 g/dL Alkaline Phosphatase 51 39-117 U/L Lipid Panel Reviewed date:01/01/2024 12:30:29 PM Interpretation: Performing Lab:[address] [phone] Notes/Report: Triglycerides 186 <150 mg/dL Desirable Triglyceride: less than 150 mg/dL Borderline High Triglyceride 150-199 mg/dL High Triglyceride: 200-499 mg/dL Very High Triglyceride: greater than or equal to 5OO mg/dL Cholesterol 134 <200 mg/dL Desirable Cholesterol: less than 200 mg/dL Borderline High Cholesterol: 200-239 mg/dL High Cholesterol: greater than 239 mg/dL LDL Cholesterol Calculated 59 <100 mg/dL Desirable LDL: less than 100 mg/dL Near Optimal/Above Optimal LDL: 110-129 mg/dL Borderline High LDL: 130-159 mg/dL High LDL: 160-189 mg/dL Very High LDL: greater than or equal to 190 mg/dL HDL Cholesterol 38 >40 mg/dL Desirable HDL: greater than 40 mg/dL Note: This HDL assay may give artificially low results in patients with liver disease. PSA,Total (Free>4and<10) Reviewed date:01/01/2024 12:32:49 PM Interpretation: Performing Lab:[address] [address] Notes/Report: PSA,Total (Free>4and<10) 0.60 0.00-4.00 ng/mL A Free PSA was not [...] Chemiluminescent Microparticle Immunoassay (CMIA) Microalbumin, Random Reviewed date:01/01/2024 04:04:57 PM Interpretation: Performing Lab:[address] [address] Notes/Report: Creatinine Urine 262.68 Microalbumin Urine 16.0 Microalbum/Creatinine Ratio Ur 6.0 <30 ug/mg cr Albumin/Creatinine Ratio Reference Ranges: Normal: < 30 ug/mg creatinine Microalbuminuria: 30 - 300 ug/mg creatinine Clinical Albuminuria: > 300 ug/mg creatinine Hemoglobin A1c Reviewed date:01/01/2024 12:32:32 PM Interpretation: Performing Lab:[address] [address] Notes/Report: Hemoglobin A1c % 7.5 <6.0 % Hemoglobin A1C Reference Range Adults: 4.8 - 6.0 % Non diabetic: < 6.0 % Goal: < 7.0 % Additional Action Suggested: > 8.0 % Note: Hemoglobin A1c results are invalid for patients with abnormal amounts of HbF. Blood transfusions may impact the HbA1c concentration in the patient sample. Estimated Average Glucose 169 eAG = Estimated average glucose which is %A1C expressed as average glucose, using the formula of the [id number] Average Glucose study (ADAG), Diabetes Care, Vol.31,#8, Aug. 2007 UA ClnCatch+Micro w/rflx Cul t Reviewed date:01/01/2024 04:13:26 PM Interpretation: Performing Lab:[address] [address] Notes/Report: Urine, Clean Catch Color Urine Yellow Appearance Urine Clear PH 5.5 5.0-9.0 Glucose Urine UA Negative Negative mg/dL Urine Blood Negative Negative Specific [place] - Urine 1.020 1.005-1.025 Urine Protein Negative Neg-Trace mg/dL Urine Ketones Trace Negative mg/dL Nitrite Urine Negative Negative Leukocyte Esterase Urine Negative Negative RBC Urine 0-2 0-2 /HPF WBC Urine 0-5 0-5 /HPF Squamous Epithelial Cell Urine 0-2 0-2 /HPF Bacteria Urine None Seen None Seen Hyaline Casts Urine 0-2 0-2 /LPF Complete Blood Count Auto Di ff Reviewed date:07/06/2024 04:47:32 PM Interpretation: Performing Lab:[facility], [address] [place] [phone] Notes/Report: White Blood Count 7.5 4.8-10.8 X10*3/uL [...] 0.0-0.2 /100WBC Neutrophils Absolute Auto 4.3 2.0-8.3 x10*3/uL Imm Gran Abs Auto 0.02 0.00-0.03 X10*3/uL Lymphocytes Absolute Auto 2.4 1.2-4.9 X10*3/uL Monocytes Absolute Auto 0.6 0.1-1.2 X10*3/uL Eosinophils Absolute Auto 0.1 0.0-0.4 X10*3/uL Basophils Absolute Auto 0.0 0.0-0.2 X10*3/uL NRBC Abs Auto 0.000 0.0-0.012 X10*3/uL Comprehensive Hi Hat. Panel Fa st Reviewed date:07/06/2024 04:46:58 PM Interpretation: Performing Lab:[facility], [address] [place] [address] Notes/Report: Sodium 140 135-145 mmol/L Potassium 4.2 [...] Panel Reviewed date:07/06/2024 12:36:17 PM Interpretation: Performing Lab:[address] [address] Notes/Report: Triglycerides 199 <150 mg/dL Desirable Triglyceride: [...] (Free>4and<10) Reviewed date:07/06/2024 12:30:36 PM Interpretation: Performing Lab:[address] [address] Notes/Report: PSA,Total (Free>4and<10) 0.94 0.00-4.00 ng/mL A [...] Random Reviewed date:07/06/2024 12:30:28 PM Interpretation: Performing Lab:[facility], [address] [place] [phone] Notes/Report: Creatinine Urine 483.43 Microalbumin Urine 43.0 Microalbum/Creatinine Ratio Ur 8.8 <30 ug/mg cr Albumin/Creatinine Ratio Reference Ranges: Normal: < 30 ug/mg creatinine Microalbuminuria: 30 - 300 ug/mg creatinine Clinical Albuminuria: > 300 ug/mg creatinine UA ClnCatch+Micro w/rflx Cul t Reviewed date:07/06/2024 12:29:35 PM Interpretation: Performing Lab:[facility], [address] [place] [phone] Notes/Report: Urine, Clean Catch Color Urine Dark Yellow Appearance Urine Turbid PH 5.0 5.0-9.0 Glucose Urine UA Negative Negative mg/dL Urine Blood Negative Negative Specific [place] - Urine >= 1.030 1.005-1.025 Urine Protein 30 (1+) Neg-Trace mg/dL Urine Ketones Trace Negative mg/dL Nitrite Urine Negative Negative Leukocyte Esterase Urine Negative Negative RBC Urine 0-2 0-2 /HPF WBC Urine 0-5 0-5 /HPF Squamous Epithelial Cell Urine 0-2 0-2 /HPF Calcium Oxalate Crystals Urine Present Other Crystals Urine Present Bacteria Urine None Seen None Seen Hyaline Casts Urine 3-5 0-2 /LPF Occult Blood, Stool, Guaiac Reviewed date:01/08/2024 02:57:09 PM Interpretation:Negative Performing Lab: Notes/Report: Negative Occult Blood, Stool, Guaiac Neg SARS-CoV2/FLU/RSV Reviewed date:06/17/2024 12:56:49 PM Interpretation: Performing Lab:[facility], [address] [place] [phone] Notes/Report: Influenza A PCR POSITIVE Negative Influenza B PCR NEGATIVE Negative Resp Syncy Virus RNA Qual PCR NEGATIVE Negative SARS COV2 PCR INHOUSE NEGATIVE Negative All test results must be correlated with clinical findings. Negative results do not preclude SARS-CoV2, influenza A virus, influenza B virus and/or RSV infection and should not be used as the sole basis for treatment or other patient management decisions. Negative results must be combined with clinical observations, patient history, and epidemiological information. This test has not been evaluated for monitoring treatment of infection. This test has been authorized by the FDA under an Emergency Use Authorization (EUA) for use by authorized laboratories. Testing performed on the [employer] GeneXpert utilizing real-time RT-PCR. All SARS CoV2 and positive influenza A/B results are reported to [facility]. Glucose, finger stick Reviewed date:07/09/2024 01:35:47 PM Interpretation: Performing Lab: Notes/Report: Value 130 US renal BI Reviewed date:03/18/2024 04:40:33 PM Interpretation: Performing Lab: Notes/Report: [address] [address] Ultrasound Report Signed Patient: Jakob Fontaine MR#: [id number] 6 : 1965 Acct:[id number] Age/Sex: 58 / M ADM Date: 03/01/24 Loc: HO.US Attending Dr: Jackelyn MORSE Ordering Physician: Jackelyn Luna Date of Service: 03/01/24 Procedure(s): US renal BI Accession Number(s): [id number] cc: Ramon Avila MD; Jackelyn Luna EXAMINATION: US RETROPERITONEAL LIMITED (RENAL ONLY) CLINICAL INFORMATION: Calculus of kidney. COMPARISON: Ultrasound renal 09/19/2023 and 08/06/2022. Correlated to CT abdomen and pelvis 10/11/2021. TECHNIQUE: Real-time imaging of the kidneys using grayscale and color Doppler interrogation. FINDINGS: RIGHT KIDNEY: 12 x 6 x 6 cm (SAG x AP x TRV). Volume is 196 cc. The kidney is normal in size, contour, and echogenicity. Renal cortical thickness is normal. No calculi or focal parenchymal lesions. No hydronephrosis. LEFT KIDNEY: 12 x 6 x 5 cm (SAG x AP x TRV). Volume is 195 cc. The kidney is normal in size, contour, and echogenicity. Renal cortical thickness is normal. No renal calculi or hydronephrosis. 3.5 cm anechoic lesion at the corticomedullary junction in the midportion. US/US renal BI IMPRESSION: No hydronephrosis. 3.5 cm cystic lesion, left kidney.. Electronically signed by: Luis Starr MD 03/18/2024 01:53 PM EST Dictated By: Luis Blanton MD Signed By: <Electronically signed by Luis Brian MD in OV> 03/18/24 1353 DD/ 1305 TD/TT: 03/01/24 1312 Sanitation Manager: [place] [address] Ultrasound Report Signed Patient: Jakob Fontaine MR#: [id number] 6 : 1965 Acct:[id number] Age/Sex: 58 / M ADM Date: 03/01/24 Loc: . Attending Dr: Jackelyn MORSE Ordering Physician: Jackelyn Luna Date of Service: 03/01/24 Procedure(s): US femi al BI Accession Number(s): [id number] cc: Ramon Avila MD; Jackelyn Luna EXAMINATION: US RETROPERITONEAL LIMITED (RENAL ONLY) CLINICAL INFORMATION: Calculus of kidney. COMPARISON: Ultrasound renal 09/19/2023 and 08/06/2022. Correlated to CT abd omen and pelvis 10/11/2021. TECHNIQUE: Real-time imaging of the kidneys using grayscale and color Doppler interrogation. FINDINGS: RIGHT KIDNEY: 12 x 6 x 6 cm (SAG x AP x TRV). Volume is 196 cc. The kidney is normal in size, contour, and echogenicity. Renal cortical thickness is normal. No calculi or focal parenchymal lesions. No hydronephrosis. LEFT KIDNEY: 12 x 6 x 5 cm (SAG x AP x TRV). Volume is 195 cc. The kidney is normal in size, contour, and echogenicity. Renal cortical thickness is normal. No renal calculi or hydronephrosis. 3.5 cm anechoic lesion at t he corticomedullary junction in the midportion. U S/US renal BI IMPRESSION: No hydronephrosis. 3.5 cm cystic lesion , left kidney.. Electronically vijaya d by: Luis Starr MD 03/18/2024 01:53 PM EST RP Dictated By: Luis Stover MD Signed By: <Electronically signed by Luis Brian MD in OV> 03/18/24 1353 DD/ 1305 TD/TT: 03/01/24 1312 Sanitation Manager: XR chest 2V Reviewed date:06/17/2024 12:57:14 PM Interpretation: Performing Lab: Notes/Report: [address] [address] XRay Report Signed Patient: Jakob Fontaine MR#: [id number] 6 : 1965 Acct:[id number] Age/Sex: 59 / M ADM Date: 06/17/24 Loc: HO.XRAY Attending Dr: Ramon Avila MD Ordering Physician: Ramon Avlia MD Date of Service: 06/17/24 Procedure(s): XR chest 2V Accession Number(s): [id number] cc: Ramon Avila MD EXAMINATION: XR CHEST 2 VIEWS HISTORY: ACUTE PNEUMONIA COMPARISON: Comparison is made with the prior examination dated 02/02/2022. FINDINGS: PA and lateral views of the chest are submitted. The lungs are expanded and clear. There is no pleural effusion, pneumothorax, or pulmonary vascular congestion. The heart is normal in size. There is mild degenerative disc disease of the spine. XR/XR chest 2V IMPRESSION: No acute cardiopulmonary abnormality. Electronically signed by: Checo Segal MD 06/17/2024 10:09 AM EST RP Dictated By: Checo Segal MD Signed By: <Electronically signed by Checo Segal MD in OV> 06/17/24 1009 DD/ 5 TD/TT: 06/17/241004 Sanitation Manager: [address] [address] XRay Report Signed Patient: Jakob Fontaine MR#: [id number] 6 : 1965 Acct:[id number] Age/Sex: 59 / M ADM Date: 06/17/24 Loc: HO.XRAY Attending Dr: Ramon Avila MD Ordering Physician: Ramon Avila MD Date of Service: 06/17/24 Procedure(s): XR craig st 2V Accession Number(s): [id number] cc: Ramon Avila MD EXAMINATION: XR CHES T 2 VIEWS HISTORY: ACUTE PNEUMONIA COMPARISON: Comparis on is made with the prior examination dated 02/02/2022. FINDINGS: PA and lat eral views of the chest are submitted. The lungs are expanded and shauna ar. There is no pleural effusion, pneumothorax, or pulmonary vascular congestion. The heart is normal in size. There is mild degenerative di sc disease of the spine. X R/XR chest 2V IMPRESSION: No acute cardiopulmo nary abnormality. Electronically vijaya d by: Checo Segal MD 06/17/2024 10:09 AM [facility] Dictated By: Checo Segal MD Signed By: <Electronically signed by Checo Segal MD in OV> 06/17/24 1009 DD/ TD/TT: 06/17/24 100 Sanitation Manager: Complete Blood Count Auto Di ff Reviewed date:06/21/2024 05:10:22 PM Interpretation: Performing Lab:[facility], [address] [place] [phone] Notes/Report: White Blood Count 9.7 4.8-10.8 X10*3/uL Red Blood Count 4.70 4.60-5.80 X10*6/uL Hemoglobin 14.2 14.0-18.0 g/dl Hematocrit 40.4 42.0-52.0 % Mean Corpuscular Volume 86.0 80.0-98.0 fL Mean Corpuscular Hemoglobin 30.2 27.0-33.0 pg Mean Corpuscular HGB Conc 35.1 31.0-36.0 g/dl Red Cell Distribution Width 12.0 11.0-16.0 % Platelet Count 426 160-400 X10*3/uL Mean Platelet Volume 9.1 9.4-12.4 fL Neutrophils Percent Auto 69.2 45-73 % Imm Gran Pct Auto 0.9 0.0-0.4 % Lymphocytes Percent Auto 20.8 20-40 % Monocytes Percent Auto 8.5 2-11 % Eosinophils Percent Auto 0.4 0-4 % Basophils Percent Auto 0.2 0-2 % NRBC Pct Auto 0.0 0.0-0.2 /100WBC Neutrophils Absolute Auto 6.7 2.0-8.3 x10*3/uL Imm Gran Abs Auto 0.09 0.00-0.03 X10*3/uL Lymphocytes Absolute Auto 2.0 1.2-4.9 X10*3/uL Monocytes Absolute Auto 0.8 0.1-1.2 X10*3/uL Eosinophils Absolute Auto 0.0 0.0-0.4 X10*3/uL Basophils Absolute Auto 0.0 0.0-0.2 X10*3/uL NRBC Abs Auto 0.000 0.0-0.012 X10*3/uL Comprehensive Met. Panel Reviewed date:06/21/2024 05:15:43 PM Interpretation: Performing Lab:[facility], [address] [place] [phone] Notes/Report: Sodium 138 135-145 mmol/L Potassium 4.1 3.3-5.1 mmol/L Chloride 102 96-108 mmol/L Carbon Dioxide 23 22-29 mmol/L Anion Gap 17 12-20 Blood Urea Nitrogen 8 9-16 mg/dL Creatinine 0.77 0.5-1.4 mg/dL Creatinine Clr Calc Pharmacy 112.1 eGFR (calculated from the MDRD study equation) and eCrCl (calculated from the Cockcroft-Gault equation) are based on different parameters and may not yield comparable results. If eCrCl result is absurd, please check patient's height/weight. Estimated Glomerular Filt Rate > 60 Chronic Kidney Disease: Estimated GFR < 60 mL/min/1.73m2 Severe Kidney Disease: Estimated GFR < 15 mL/min/1.73m2 Glucose Random 168 60-115 mg/dL Calcium 9.6 8.4-10.2 mg/dL Bilirubin Total 0.4 0.0-1.0 mg/dL Aspartate Amino Transferase 22 5-37 U/L Alanine Aminotransferase 30 0-40 U/L Total Protein 8.2 6.5-8.0 g/dL Albumin Level 4.2 3.5-5.0 g/dL Alkaline Phosphatase 48 39-117 U/L Magnesium Reviewed date:06/21/2024 05:15:14 PM Interpretation: Performing Lab:[address] [address] Notes/Report: Magnesium 1.9 1.6-2.6 mg/dL Troponin-I High Sensitivity Reviewed date:06/22/2024 12:39:34 PM Interpretation: Performing Lab:[address] [address] Notes/Report: Troponin-I High Sensitivity < 2.7 <3.5-35.0 ng/L The Franks high sensitivity Troponin-I results should be used in conjunction with other diagnostic information such as ECG, clinical observations and information, and patient symptoms to aid in the diagnosis of CA. SARS-CoV2/FLU/RSV Reviewed date:06/22/2024 09:33:45 AM Interpretation: Performing Lab:[address] [address] Notes/Report: Influenza A PCR POSITIVE Negative Influenza B PCR NEGATIVE Negative Resp Syncy Virus RNA Qual PCR NEGATIVE Negative SARS COV2 PCR INHOUSE NEGATIVE Negative All test results must be correlated with clinical findings. Negative results do not preclude SARS-CoV2, influenza A virus, influenza B virus and/or RSV infection and should not be used as the sole basis for treatment or other patient management decisions. Negative results must be combined with clinical observations, patient history, and epidemiological information. This test has not been evaluated for monitoring treatment of infection. This test has been authorized by the FDA under an Emergency Use Authorization (EUA) for use by authorized laboratories. Testing performed on the [employer] GeneXpert utilizing real-time RT-PCR. All SARS CoV2 and positive influenza A/B results are reported to [facility]. XR chest 2V Reviewed date:06/22/2024 09:34:03 AM Interpretation: Performing Lab: Notes/Report: [address] [address] XRay Report Signed Patient: Jakob Fontaine MR#: [id number] 6 : 1965 Acct:[id number] Age/Sex: 59 / M ADM Date: 06/21/24 Loc: .ED Attending Dr: Ordering Physician: Jaclyn Daily Date of Service: 06/21/24 Procedure(s): XR chest 2V Accession Number(s): [id number] cc: Ramon Avila MD; Jaclyn Daily CLINICAL HISTORY: cough, SOB 2 view chest x-ray Comparison: 06/17/2024, CR/SR - XR CHEST 2V - 02/02/22 01:14 EDT Findings: The lungs are clear. Normal size heart. No acute fracture. IMPRESSION: 1. No acute findings. This document has been electronically signed by: Adali Cheng MD on 06/21/2024 20:15:01 Dictated By: Adali Cheng MD Signed By: <Electronically signed by Adali Cheng MD in OV> 06/21/242015 DD/ 14 TD/TT: 06/21/242014 Sanitation Manager: [address] [address] XRay Report Signed Patient: Jakob Fontaine MR#: [id number] 6 : 1965 Acct:[id number] Age/Sex: 59 / M ADM Date: 06/21/24 Loc: .ED Attending Dr: Ordering Physician: Jaclyn Daily Date of Service: 06/21/24 Procedure(s): XR craig st 2V Accession Number(s): [id number] cc: Ramon Avila MD; Jaclyn Daily CLINICAL HISTORY: co ugh, SOB 2 view chest x-ray Comparison: 06/17/19 25, CR/SR - XR CHEST 2V - 02/02/22 01:14 EDT Findings: The lungs are clear. Normal size heart. No acute fracture. IMPRESSION: 1. No acute findings. This document has be en electronically signed by: Adali Cheng MD on 06/21/2024 20:15:01 Dictated By: Adali Cheng MD Signed By: <Electronically signed by Adali Cheng MD in OV> 06/21/242015 DD/ 14 TD/TT: 06/21/242014 Sanitation Manager: Complete Blood Count Auto Di ff (Not yet reviewed by provider) Interpretation: Performing Lab:[facility], [address] [place] [phone] Notes/Report: White Blood Count 9.7 4.8-10.8 X10*3/uL Red Blood Count 4.55 4.60-5.80 X10*6/uL Hemoglobin 13.9 14.0-18.0 g/dl Hematocrit 39.6 42.0-52.0 % Mean Corpuscular Volume 87.0 80.0-98.0 fL Mean Corpuscular Hemoglobin 30.5 27.0-33.0 pg Mean Corpuscular HGB Conc 35.1 31.0-36.0 g/dl Red Cell Distribution Width 12.8 11.0-16.0 % Platelet Count 220 160-400 X10*3/uL Mean Platelet Volume 10.3 9.4-12.4 fL Neutrophils Percent Auto 82.2 45-73 % Imm Gran Pct Auto 0.3 0.0-0.4 % Lymphocytes Percent Auto 10.8 20-40 % Monocytes Percent Auto 6.0 2-11 % Eosinophils Percent Auto 0.4 0-4 % Basophils Percent Auto 0.3 0-2 % NRBC Pct Auto 0.0 0.0-0.2 /100WBC Neutrophils Absolute Auto 7.9 2.0-8.3 x10*3/uL Imm Gran Abs Auto 0.03 0.00-0.03 X10*3/uL Lymphocytes Absolute Auto 1.0 1.2-4.9 X10*3/uL Monocytes Absolute Auto 0.6 0.1-1.2 X10*3/uL Eosinophils Absolute Auto 0.0 0.0-0.4 X10*3/uL Basophils Absolute Auto 0.0 0.0-0.2 X10*3/uL NRBC Abs Auto 0.000 0.0-0.012 X10*3/uL Basic Metabolic Panel (Not y et reviewed by provider) Interpretation: Performing Lab:[facility], [address] [place] [phone] Notes/Report: Sodium 140 135-145 mmol/L Potassium 5.0 3.3-5.1 mmol/L Chloride 106 96-108 mmol/L Carbon Dioxide 23 22-29 mmol/L Anion Gap 16 12-20 Blood Urea Nitrogen 17 9-16 mg/dL Creatinine 1.02 0.5-1.4 mg/dL Creatinine Clr Calc Pharmacy 88.1 eGFR (calculated from the MDRD study equation) and eCrCl (calculated from the Cockcroft-Gault equation) are based on different parameters and may not yield comparable results. If eCrCl result is absurd, please check patient's height/weight. Estimated Glomerular Filt Rate > 60 Chronic Kidney Disease: Estimated GFR < 60 mL/min/1.73m2 Severe Kidney Disease: Estimated GFR < 15 mL/min/1.73m2 Glucose Random 295 60-115 mg/dL Calcium 9.5 8.4-10.2 mg/dL UA ClnCatch+Micro w/rflx Cul t (Not yet reviewed by provider) Interpretation: Performing Lab:[facility], [address] [place] [phone] Notes/Report: [id number] Urine, Clean Catch Color Urine Yellow Appearance Urine Clear PH 5.5 5.0-9.0 Glucose Urine UA >=1000 Negative mg/dL Urine Blood Moderate (2+) Negative Specific [place] - Urine 1.025 1.005-1.025 Urine Protein Negative Neg-Trace mg/dL Urine Ketones 40 Negative mg/dL Nitrite Urine Negative Negative Leukocyte Esterase Urine Negative Negative RBC Urine >20 0-2 /HPF WBC Urine 0-5 0-5 /HPF Squamous Epithelial Cell Urine 0-2 0-2 /HPF Bacteria Urine None Seen None Seen Hyaline Casts Urine 3-5 0-2 /LPF Reason For Referral Reason TYPE 2 DIABETES Diagnosis 1 Type 2 diabetes peggy itus without complication (E11.9) Referral Organization Ramon vAila MD Referring Provider First Name Ramon Referring Provider Last Name [place] Referring Provider Speciality Internal M edicine Referred Provider Bertha Booth Referred Provider Specialty Nutrition General Notes Priscila Crooks 09/12/2023 12:12:06 PM EDT > REFERRAL FAXED TO [facility] NELSON/ABBY APPROVAL FOR 12 VISITS, Priscila Crooks 09/25/2023 12:25:29 PM EDT > OFFICE NOTES REQUESTED AND RECEIVED Referral Priority Routine Referral Appointment Date 09/17/2023 Medications Medication SIG (Take, Route, Frequency, Duration) Notes Start Date End Date Status metFORMIN HCl ER 500 MG TAKE 2 TABLETS B Y MOUTH TWICE A DAY Active Atorvastatin Calcium 40 mg TAKE 1 TABLET DAILY Orally Once a day Active Lisinopril-hydroCHLOROthi azide 10-12.5 MG TAKE 1 TABLET BY MOUTH EVERY DAY Orally Once a day for 90 days Active OneTouch Delica Plus [id number] - USE TO TEST BLOOD SUGAR ONCE DAILY Active guaiFENesin-Codeine 100-10 MG/5ML 10 mL as needed Orally every 4 hrs as needed for 10 days 05/09/2022 Not-Taking FreeStyle Amrita 14 Day [place] - as directed 07/05/2022 Active Augmentin 500-125 MG 1 tablet Orally melinda ry 12 hrs Not-Taking Ibuprofen 200 MG 1 tablet with food o r milk as needed Orally Three times a day Not-Taking Januvia 100 mg TAKE 1 TABLET DAILY Orally Once a day for 90 days Not-Taking FreeStyle Amrita 2 Sensor - as directed for 90 days 07/05/2022 Acti ve FreeStyle Amrita 14 Day Sensor - as directed 07/05/2022 Active Tylenol Extra Strength 500 MG 1 tablet as needed Orally every 6 hrs Not-Taking FreeStyle Amrita 2 [place] - as directed 07/05/2022 Active Immunizations Vaccine Route Administration Date Status Comme nts Flu Vaccine IM Intramuscular 04/02/2011 Administered Flu Vaccine IM Intramuscular 03/30/2012 Administered Flu Vaccine IM Intramuscular 04/06/2013 Administered Fluarix Quadrivalent IM Intramuscular 01/24/2014 Administe red zFluzone Quadrivalent IM Intramuscular 04/03/2015 Administ ered Fluarix Quadrivalent IM Intramuscular 04/09/2016 Administe red Fluarix Quadrivalent IM Intramuscular 01/20/2017 Administe red Fluarix Quadrivalent IM Intramuscular 02/19/2018 Administe red TDaP Unknown 05/05/2018 Administered Had at [facility] Fluarix Quadrivalent IM Intramuscular 06/22/2019 Administe red Tetanus Unknown 05/05/2018 Administered Fluarix Quadrivalent IM Intramuscular 01/26/2020 Administe red PPSV23 (Pnemovax) IM Intramuscular 06/29/2020 Administered Covid Vaccine Unknown 07/25/2020 Administered Moderna SARS-COV-2 Moderna Unknown 08/25/2020 Administered Fluarix Quadrivalent IM Intramuscular 01/30/2021 Administe red SARS-COV-2 Moderna Unknown 04/17/2021 Administered Fluarix Quadrivalent IM Intramuscular 03/26/2022 Administe red Fluarix Quadrivalent IM Intramuscular 01/17/2023 Administbrandan red SARS-COV-2 Moderna Unknown 05/06/2023 [address] [facility] Fluarix Quadrivalent - 150 IM Intramuscular 01/22/2024 Administered Social History Tobacco Use: Social History Observation Description Date Details (start date - stop date) Never Smoker NA - NA Tobacco Use/Smoking Question Answer Notes Patient is a nonsmoker Additional Findings: Tobacco Non-User Cu rrent non-smoker, currently using no form of tobacco Alcohol Screen Question Answer Notes Did you have a drink contain ing alcohol in the past year? Yes How often did you have a dri nk containing alcohol in the past year? Monthly or less (1 point) How many drinks did you have on a typical day when you were drinking in the past year? 1 or 2 drinks (0 point) How often did you have 6 or more drinks on one occasion in the past year? Never (0 point) Points 1 Interpretation Negative Problems Problem Type SNOMED Code ICD Code Onset Dates Problem Status W/U Status Risk Notes Problem Hypertension (03707789) Hypertension (401.9) Active confirmed Problem Gout (56720264) Gout (M10.9) Active confirmed Problem 717076220 Hypertrophy of b reast (N62) Active confirmed Problem Kidney stone (98088888) Kidney stone (N20.0) Active confirmed Problem 08306817 Essential hypert ension (I10) Active confirmed Problem 99435419 Type 2 diabetes mellitus without complication (E11.9) Active confirmed Problem 957313138 Low HDL (under 4 0) (E78.6) Active confirmed Problem 00968031 Memory loss (R41.3) Active confirmed Problem 186752984 Cervical disc di sease (M50.90) Active confirmed Problem 549708692 Pure hypercholesterolemia (E78.00) Active confirmed Problem 06006777 Pharyngoesophage al dysphagia (R13.14) Active confirmed Problem 532935359 Benign neoplasm breast, 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 Problem 362212580 Benign neoplasm breast, 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 Problem 557036730 Enlarged tonsils (J35.1) Active confirmed Problem 151911068 Anterolisthesis (M43.10) Active confirmed Vital Signs Temperature 102 degrees Fahrenheit 06/17/2024 weigh t is 187 BP not taken temp 102 Blood pressure diastolic 60 mm Hg 07/09/2024 Height 69 in 07/09/2024 Blood pressure systolic 102 mm Hg 07/09/2024 Weight 195 lbs 07/09/2024 BMI 28.79 kg/m2 07/09/2024 Encounters Encounter Location Date Provider Diagnosis Ramon Avila MD [address] [place] [address] [id number] 01/01/2024 Ramon Avila Blood tests for rout ine general physical examination Z00.00 ; Type 2 diabetes mellitus without complication E11.9 ; Pure hypercholesterolemia E78.00 and Essential hypertension I10 Ramon Avila MD [address] [place] [address] [id number] 01/22/2024 Ramon Avila Encounter for immuni zation Z23 Ramon Avila MD [address] [place] [address] [id number] 07/06/2024 Ramon Avila Blood tests for rout ine general physical examination Z00.00 ; Type 2 diabetes mellitus without complication E11.9 ; Pure hypercholesterolemia E78.00 and Essential hypertension I10 aRmon Avila MD [address] [place] [address] [id number] 01/08/2024 Ramon Avila Type 2 diabetes peggy itus without complication E11.9 ; Annual physical exam Z00.00 ; Pure hypercholesterolemia E78.00 ; Hypertrophy of breast N62 ; Essential hypertension I10 ; Colon cancer screening Z12.11 and Depression screening Z13.31 Ramon Avila MD [address] [place] [address] [id number] 06/17/2024 Ramon Avila Acute pneumonia J18. 9 and Influenza A J10.1 Ramon Avila MD [address] [place] [address] [id number] 06/29/2024 Ramon Avila Influenza A J10.1 Ramon Avila MD [address] [place] [address] [id number] 07/09/2024 Ramon Avila Type 2 diabetes peggy itus without complication E11.9 ; Heart murmur R01.1 and Pure hypercholesterolemia E78.00 Ramon Avila MD [address] [place] [address] [id number] 12/30/2023 Ramon Avila MD [address] [place] [address] [id number] 04/15/2024 Ramon Avila Pure hypercholestero lemia E78.00 Ramon Avila MD [address] [place] [address] [id number] 06/24/2024 Ramon Avila MD [address] [place] [address] [id number] 08/20/2024 Ramon Avila MD [address] [place] [address] [id number] 02/29/2024 Ramon Avila Pure hypercholestero lemia E78.00 Assessments Encounter Date Diagnosis (ICD Code) Assessment Notes Treatment Notes Treatment Clinical Notes Section Notes 01/01/2024 Blood tests for rout ine general physical examination (ICD-10 - Z00.00) 01/01/2024 Type 2 diabetes mellitus without complication (ICD-10 - E11.9) 01/22/2024 Encounter for immunization (ICD-10 - Z23) 07/06/2024 Blood tests for rout ine general physical examination (ICD-10 - Z00.00) 01/08/2024 Type 2 diabetes mellitus without complication (ICD-10 - E11.9) not at goal, needs to be on insulin but still refusing 01/08/2024 Annual physical exam (ICD-10 - Z00.00) labs reviewed and discussed with patient 06/17/2024 Acute pneumonia (ICD -10 - J18.9) order for [facility] x-ray marked STAT. Both orders faxed to [facility] Patient Reg.PATIENT AWARE THAT HIS ORDERS ARE AT PATIENT REG [facility] 06/17/2024 Influenza A (ICD-10 - J10.1) 06/29/2024 Influenza A (ICD-10 - J10.1) started to take the amoxicilin and felt better. will stop amoxicillin since it is not treating anything. 07/09/2024 Type 2 diabetes mellitus without complication (ICD-10 - E11.9) running a little high will recheck in 3 months, will continue current regiment until recheck 07/09/2024 Heart murmur (ICD-10 - R01.1) 04/15/2024 Pure hypercholesterolemia (ICD-10 - E78.00) 02/29/2024 Pure hypercholesterolemia (ICD-10 - E78.00) 01/01/2024 Pure hypercholesterolemia (ICD-10 - E78.00) 07/06/2024 Type 2 diabetes mellitus without complication (ICD-10 - E11.9) 01/08/2024 Pure hypercholesterolemia (ICD-10 - E78.00) well controlled on meds, will continue current regiment 07/09/2024 Pure hypercholesterolemia (ICD-10 - E78.00) stable, will contoinue current regiment 01/01/2024 Essential hypertensi on (ICD-10 - I10) 07/06/2024 Pure hypercholesterolemia (ICD-10 - E78.00) 01/08/2024 Hypertrophy of breas t (ICD-10 - N62) no evidence of any masses, will continue to monitor 07/06/2024 Essential hypertensi on (ICD-10 - I10) 01/08/2024 Essential hypertensi on (ICD-10 - I10) well controlled, will continue current regiment 01/08/2024 Colon cancer screeni ng (ICD-10 - Z12.11) guaiac negative 01/08/2024 Depression screening (ICD-10 - Z13.31) negative screen Plan Of Treatment Pending Test Test Name Order Date Electrocardiogram (EKG) 11/13/2017 Electrocardiogram (EKG) 06/26/2012 Electrocardiogram (EKG) 10/26/2015 XR CHEST 2 VIEW PA & LAT 06/17/2024 ECHO 07/09/2024 Complete Blood Count Auto Diff Basic Metabolic Panel 08/20/2024 Hemoglobin A1c 07/06/2024 UA ClnCatch+Micro w/rflx Cult 08/20/2024 Next Appt Details Provider Name:Ramon Pink ier, 10/08/2024 09:00:00 AM, [address] [place] [address], Suite [facility], [place], [place], [phone], Provider Name:Ramon Pink ier, 01/04/2025 07:30:00 AM, [address] [place] [address], Suite [facility], [place], [place], [phone], Provider Name:Ramon Pink ier, 01/11/2025 01:00:00 PM, [address] [place] [address], Suite [facility], [place], [place], [phone], Insurance Providers Payer Name Payer Address Payer Phone Subscriber Number Group Number Insured Name Patient Relationship to Insured Coverage Start Date Coverage End Date [facility] [address] [place], [place] [id number] [phone] [id number] Jakob Fontaine Self - patient is the insured Medical (General) History Medical History History ICD Code Colonoscopy done 05/24/[address] Chanel/rony perplastic polyp due in 10
--- OUTSIDE RECORDS SUMMARY | 2024-08-20 12:53 | XMS_ITS ---
Author Organization Ramon Avila MD Address [address] [place] [phone] Care Team Providers Care Senior Accounting Analyst Name Role Phone Austin Ramon Primary Care Provider [phone] Results Component Value Reference Range Notes Complete Blood Count Auto Di ff Reviewed date:07/06/2024 04:47:32 PM Interpretation: Performing Lab:[facility], [address] [place] [phone] Notes/Report: White Blood Count 7.5 4.8-10.8 X10*3/uL [...] NRBC Abs Auto 0.000 0.0-0.012 X10*3/uL Comprehensive [facility]. Panel Fa st Reviewed date:07/06/2024 04:46:58 PM Interpretation: Performing Lab:[facility], [address] [place] [phone] Notes/Report: Sodium 140 135-145 mmol/L Potassium 4.2 [...] Panel Reviewed date:07/06/2024 12:36:17 PM Interpretation: Performing Lab:[facility], [address] [place] [phone] Notes/Report: Triglycerides 199 <150 mg/dL Desirable Triglyceride: [...] (Free>4and<10) Reviewed date:07/06/2024 12:30:36 PM Interpretation: Performing Lab:[facility], [address] [place] [phone] Notes/Report: PSA,Total (Free>4and<10) 0.94 0.00-4.00 ng/mL A [...] Random Reviewed date:07/06/2024 12:30:28 PM Interpretation: Performing Lab:[facility], [address] [place] [phone] Notes/Report: Creatinine Urine 483.43 Microalbumin Urine 43.0 Microalbum/Creatinine Ratio Ur 8.8 <30 ug/mg cr Albumin/Creatinine Ratio Reference Ranges: Normal: < 30 ug/mg creatinine Microalbuminuria: 30 - 300 ug/mg creatinine Clinical Albuminuria: > 300 ug/mg creatinine UA ClnCatch+Micro w/rflx Cul t Reviewed date:07/06/2024 12:29:35 PM Interpretation: Performing Lab:[facility], [address] [place] [phone] Notes/Report: Urine, Clean Catch Color Urine Dark Yellow Appearance Urine Turbid PH 5.0 5.0-9.0 Glucose Urine UA Negative Negative mg/dL Urine Blood Negative Negative Specific [place] - Urine >= 1.030 1.005-1.025 Urine Protein [...] Date Provider Diagnosis Ramon Avila MD [address] [place] [address] [address] [place], [place] [phone] 07/06/2024 Ramon Avila Blood tests for rout [...] Hemoglobin A1c 07/06/2024 Next Appt Details Provider Name:Ramno van, 10/08/2024 09:00:00 AM, [address], [address], [place], [place], [phone], Provider Name:Ramon Pink iemeek, 01/04/2025 07:30:00 AM, [address] [facility], [address], [place], [phone], Provider Name:Ramon Pink ier, 01/11/2025 01:00:00 PM, [address], [address], [place], [phone], Progress Notes * EVELINJakob DUPONT RDOB:1965 (59 yo M)Acc No.[id number]:07/06/2024 Progress Note Patient:?Jakob AYALA Provider:?Ramon Avila MD :1965???Age:59 Y???Sex:Male Yazan e:07/06/2024 Address:[address] [place] [id number] Subjective: * Chief Complaints: * ???1. FASTING [...] Time - 07/06/2024 10:02 AM) ?LAB: Comprehensive [facility]. Panel Fast (Collection Date & Time - [...] Time - 07/06/2024 10:02 AM) ?LAB: Comprehensive [facility]. Panel Fast (Collection Date & Time - [...] Time - 07/06/2024 10:02 AM) ?LAB: Comprehensive [facility]. Panel Fast (Collection Date & Time - 07/06/2024 10:02 AM) ?LAB: Lipid Panel (Collection Date & Time - 07/06/2024 10:02 AM) ?LAB: PSA,Total (Free>4and<10) (Collection Date & Time - 07/06/2024 10:02 AM) ?LAB: Microalbumin, Random (Collection Date & Time - 07/06/2024 10:02 AM) ?LAB: UA ClnCatch+Micro w/rflx Cult (Collection Date & Time - 07/06/2024 10:02 AM) * Procedure Codes:?83685 VENIP UNCT, ROUTINE* * * The named appointment provid er may or may not be the originator of this progress note, and it is not deemed complete until electronically signed by the appointment provider. Sign off status: Pending * Provider:?Ramon Avila MD Date:?0 07/06/2024 Generated for Wm grey/Karen/Shad on:?08/20/2024 12:53 PM EDT
--- OUTSIDE RECORDS SUMMARY | 2024-08-20 12:53 | XMS_ITS ---
Author Organization Ramon Avila MD Address [address] [place] [phone] Care Team Providers Care Member Services Representative Name Role Phone Ramon Avila Primary Care Provider [phone] REASON FOR VISIT taking him to Urgent care Encounters Encounter Location Date Provider Diagnosis Ramon Avila MD [address] [place] [address] [place] [phone] 08/20/2024 Ramon Avila Plan Of Treatment Next Appt Details Provider Name:Ramon Pink ier, 10/08/2024 09:00:00 AM, [address] [place] [address], [address], [phone], Provider Name:Ramon van, 01/04/2025 07:30:00 AM, [address] [place] [address], [address], [phone], Provider Name:Ramon van, 01/11/2025 01:00:00 PM, [address] [facility], [address], [place], [place], [phone], Progress Notes * Jakob AYALA RDOB:1965 (59 yo M)Acc No.[id number]:08/20/2024 Patient:?Jakob AYALA Roberto :1965???Age:59 Y???Sex:Male Address:[address] [place] [phone] * true * Date:? Generated for Wm grey/Karen/eTransmitting on:?08/20/2024 12:53 PM EDT
--- NOTE | 2024-08-20 13:06 | ED.ABDPAIN ---
HPI - Abdominal Pain General Chief Complaint: Abdominal Pain Stated Complaint: kidney stone abd lower back pain Time Seen by Provider: 08/20/24 11:49 History of Present Illness HPI narrative: Patient is a 59-year-old male presents today with having abdominal pain. The pain is over the right flank area radiating down to the right lower quadrant history of kidney stone. The pain is sharp. Had an ultrasound done 2 weeks ago. There is no fever no chills. There is no chest pain or shortness of breath. The pain was 10/10 initially. Upon arrival in the ED question passed a kidney stone. The symptom has subsided. No pain since. History of diabetes. Related Data Home Medications ?Medication ?Instructions ?Recorded ?Confirmed atorvastatin 40 mg tablet 40 mg PO DAILY 11/09/21 03/15/24 lisinopril 10 1 tab PO DAILY 11/09/21 03/15/24 mg-hydrochlorothiazide 12.5 mg tablet metformin 500 mg tablet,extended 1,000 mg PO BID 11/09/21 03/15/24 release 24 hr apple cider vinegar 500 mg tablet mg PO 10/09/23 03/15/24 multivitamin 1 tab PO DAILY 10/09/23 03/15/24 Previous Rx's ?Medication ?Instructions ?Recorded codeine 10 mg-guaifenesin 200 mg/5 10 ml PO .qhs PRN cough #473 mL 06/21/24 mL oral liquid (Coditussin AC) pyridoxine (vitamin B6) 50 mg 50 mg PO DAILY 90 days #90 caps 07/09/24 capsule Allergies Allergy/AdvReac Type Severity Reaction Status Date / Time No Known Allergies Allergy Verified 08/20/24 09:38 Review of Systems Review of Systems Positive right-sided abdominal pain Yes all other systems are reviewed and are negative [facility] Past Medical History Attestation statement: The following information was validated with the patient. Medical History Renal calculi Diabetes HTN (hypertension) Social History Social History Alcohol intake: current Alcohol intake frequency: holidays/special occasions only Patient Tobacco Use Status: Never used Tobacco Smoked in Last 30 Days: No Use of substances other than those prescribed or required for medical reasons: No Advance Directives: No Advance Directives Information Provided: Yes Physical Exam ED Vital Signs: Vital Signs - 24 hr 08/20/24 09:35 08/20/24 11:54 Temperature 98.6 F 97.7 F Pulse Rate 89 84 Respiratory Rate 18 18 Blood Pressure 144/72 H 138/81 Pulse Oximetry 98 99 Oxygen Delivery Method Room Air Room Air BMI result Body Mass Index 26.4 Appearance: Alert. Oriented X3. No acute distress. Eyes: Pupils equal, round and reactive to light. ENT: Pharynx normal. Neck: Normal inspection. Neck supple. No lymph nodes noted. No crepitus CVS: Normal heart rate and rhythm. Pulses normal. Normal S1 and S2 Respiratory: No respiratory distress. Breath sounds normal. No Wheezing. No rales Abdomen: Soft and nontender. No rigidity. No distention. good BS x4 Skin: Skin warm and dry. Normal skin color. Normal skin turgor. Extremities: No lower extremity edema. Neurovascular intact to all extremities. No Lacerations. No Rash Neuro: Oriented X 3. No motor deficit. No sensory deficit. Moving all extermities. No slurred speech Medical Decision Making Medical Decision Making MDM Narrative: Patient presented with acute abdominal pain on the right side extreme 10. On arrival the pain suddenly subsided he found a question kidney stone when he was urinating. His urine had positive blood but no signs of infection. Patient has been resting comfortably kidney functions normal urine showed no signs of infection CT scan showed mild hydro on the right but no stone. Likely a passed stone will discharge patient home follow-up with urology on an outpatient basis in stable condition Differential Diagnosis Differential Diagnoses: The differential diagnosis associated with the presentation includes Kidney stone Admission/Observation Consideration of admission/observation: Escalation of care including admission/observation considered Lab Data [facility] Lab Attestation statement: I reviewed the patient's lab results. 08/20/24 09:48 08/20/24 09:48 Labs: Lab Results 08/20/24 08/20/24 Range/Units 09:48 09:57 WBC 9.7 (4.8-10.8) X10*3/uL RBC 4.55 L (4.60-5.80) X10*6/uL Hgb 13.9 L (14.0-18.0) g/dl Hct 39.6 L (42.0-52.0) % MCV 87.0 (80.0-98.0) fL MCH 30.5 (27.0-33.0) pg MCHC 35.1 (31.0-36.0) g/dl RDW 12.8 (11.0-16.0) % Plt Count 220 D (160-400) X10*3/uL MPV 10.3 (9.4-12.4) fL Immature Gran % (Auto) 0.3 (0.0-0.4) % Neut % (Auto) 82.2 H (45-73) % Lymph % (Auto) 10.8 L (20-40) % Morgan % (Auto) 6.0 (2-11) % Eos % (Auto) 0.4 (0-4) % Baso % (Auto) 0.3 (0-2) % Lymph # (Auto) 1.0 L (1.2-4.9) X10*3/uL Morgan # (Auto) 0.6 (0.1-1.2) X10*3/uL Eos # (Auto) 0.0 (0.0-0.4) X10*3/uL Baso # (Auto) 0.0 (0.0-0.2) X10*3/uL Abs Immat Gran (auto) 0.03 (0.00-0.03) X10*3/uL Absolute Neuts (auto) 7.9 (2.0-8.3) x10*3/uL Absolute Nucleated RBC 0.000 (0.0-0.012) X10*3/uL Nucleated RBC % (auto) 0.0 (0.0-0.2) /100WBC Sodium 140 (135-145) mmol/L Potassium 5.0 (3.3-5.1) mmol/L Chloride 106 (96-108) mmol/L Carbon Dioxide 23 (22-29) mmol/L Anion Gap 16 (12-20) BUN 17 H (9-16) mg/dL Creatinine 1.02 (0.5-1.4) mg/dL Estim Creat Clear Calc 88.1 Estimated GFR > 60 Random Glucose 295 H (60-115) mg/dL Calcium 9.5 (8.4-10.2) mg/dL Urine Color Yellow Urine Appearance Clear Urine pH 5.5 (5.0-9.0) Ur Specific [place] 1.025 (1.005-1.025) Urine Protein Negative (Neg-Trace) mg/dL Urine Glucose (UA) >=1000 H (Negative) mg/dL Urine Ketones 40 (Negative) mg/dL Urine Blood Moderate (2+) H (Negative) Urine Nitrite Negative (Negative) Ur Leukocyte Esterase Negative (Negative) Urine RBC >20 H (0-2) /HPF Urine WBC 0-5 (0-5) /HPF Ur Squamous Epith Cells 0-2 (0-2) /HPF Urine Bacteria None Seen (None Seen) Hyaline Casts 3-5 (0-2) /LPF Independent Interpretation I performed an independent interpretation of an: CT Scan Radiology Impression Discussion of test interpretation with radiology: I have reviewed the radiologist's reading. Discharge Plan Discharge Clinical Impression: Kidney calculus Patient Disposition: Home, Self-Care Instructions: Renal Colic (ED) Prescriptions: No Action pyridoxine (vitamin B6) 50 mg capsule 50 mg PO DAILY 90 Days Qty: 90 1RF Coditussin AC 10-200 mg/5 mL liquid 10 ml PO .qhs PRN (Reason: cough) Qty: 473 0RF lisinopril-hydrochlorothiazide 10-12.5 mg tablet 1 tab PO DAILY metformin 500 mg tablet extended release 24 hr 1,000 mg PO BID atorvastatin 40 mg tablet 40 mg PO DAILY multivitamin Tablet 1 tab PO DAILY apple cider vinegar 500 mg tablet PO Referrals: Christopher Garrett MD [Physician] - 08/23/24 Print Language: Danish
[2024-08-20 14:57] VITALS: BP 138/81; PULSE 84; RESP 18; TEMP 36.5; O2SAT 99
== END 2024-08-20 14:57 | disposition home or self-care (01) ==
PROVIDERS: Emergency Provider Emergency Medicine Emergency Medical Services; PCP Internal Medicine
DX: N20.0 Calculus of kidney (principal); R10.2 Pelvic and perineal pain; M54.50 Low back pain, unspecified; Z79.899 Other long term (current) drug therapy
CPT/HCPCS: 36415; 74176; 80048; 81001; 85025; 99284

== ENCOUNTER → 2024-08-20 13:06 | Outpatient (BNV) | payer BC, SELFPAY | PROVIDERS: Emergency Provider Emergency Medicine Emergency Medical Services; PCP Internal Medicine; Visit Provider Radiology Diagnostic Radiology | DX: N20.0 Calculus of kidney (principal) | CPT/HCPCS: 74176 ==

== ENCOUNTER 2024-09-13 12:46 | Outpatient (AMB) | payer BC, SELFPAY ==
--- NOTE | 2024-09-13 12:52 | A.OFFVIS_ITS ---
Intake Visit Reasons: 6m/US Intake Note: Patient presents today for a 6 month follow up/US Urology Med:Vitamin B6 Antibiotic Allergy:None Blood Thinner: None Overhead Crane Operator Required: No Accompanied by: Self / Same As Patient Allergies No Known Allergies Allergy (Verified 09/13/24 14:54) Medication List - Last Reconciled 09/13/24 by CHELSEY Naqvi- apple cider vinegar mg PO atorvastatin 40 mg PO DAILY lisinopril-hydrochlorothiazide 10-12.5 mg 1 tab PO DAILY metformin ER 1,000 mg PO BID multivitamin 1 tab PO DAILY pyridoxine (vitamin B6) 50 mg PO DAILY 90 days HPI Comments Details: Jakob is a pleasant 59 year old male patient of Dr. Avila. He has a PMH of diabetes, hypertension, and nephrolithiasis. He presents to the office today for a follow up of his nephrolithasis. In discussion with the patient today he reports seeking emergency room care approximately 1 month ago for right-sided flank pain and lower urinary tract symptoms he had been experiencing at which time a CT of the abdomen was ordered and performed. These results were reviewed and communicated with the patient today. 09/03 there are multiple punctate nonobstructing calculi at the lower pole of the right kidney. The left kidney demonstrates to adjacent nonobstructing 3 mm calculi at the lower pole. 3.2 cm cyst in the interpolar region of the left kidney. There is mild prominence of the right intrarenal collecting system and ureter to the level of the bladder however no obstructing calculus is identified. There is no left hydronephrosis or hydroureter. Findings may be secondary to a recently passed calculus per radiology report. In discussion with the patient today he reports shortly after arriving to the ER the pain he had been experiencing had subsided. He reports compliance with vitamin B6 as prescribed. In office urinalysis results reviewed with the patient today pH of 5.0. We discussed and stressed the importance of adequate hydration relation to nephrolithiasis as well as overall health and well-being. He does endorse to not be drinking plenty of of water daily. He otherwise denies any bothersome urinary issues. He reports episodes of urinary urgency and frequency had been experiencing subsided shortly after the pain he had been experiencing had subsided as well. He denies urinary urgency, urinary frequency, incontinence, nocturia, hematuria, dysuria, foul smelling urine, changes to urinary stream, flank pain, fever, and or chills. He is happy with his current voiding parameters. PSAs are as follows: 03/31 0.5, 12/30 0.6, 12/31 0.4, 01/02 0.6, 07/06 0.9 Nephrolithiasis Initial presentation 2021 with abdominal pain Imaging - 10/31 CT scan 4 mm left lower pole stone - 10/01 renal ultrasound normal No family history of stones Spontaneous passage PFSH Medical History Renal calculi Diabetes HTN (hypertension) Social History Alcohol intake: current Alcohol intake frequency: holidays/special occasions only Patient Tobacco Use Status: Never used Tobacco Review of Systems Const All systems reviewed & are unremarkable except as noted in HPI and below Physical Exam Const General: cooperative, healthy appearing, comfortable, no acute distress, well developed, alert and awake Orientation/consciousness: patient oriented x3 Limitations: no limitations HEENT Head: Yes normal to inspection, Yes normocephalic and Yes atraumatic Ears: hearing grossly normal bilaterally Eyes General: appearance normal, both eyes and all related structures Neck Neck: Yes normal visual inspection and Yes trachea midline Chest Chest palpation & inspection: normal inspection of the chest Resp Effort & Inspection: normal respiratory effort and able to speak in complete sentences Cardio Rate: regular rate GI Inspection: Yes normal to inspection General: Yes no CVA tenderness Back/Spine/Pelvis Back: no CVA tenderness Skin General skin exam: no rashes or lesions noted Neuro General: patient oriented x3 Extrem General: Yes normal to inspection Psych Appearance: grossly normal and well kempt Mental Status: mental status grossly normal Speech and movement: Normal speech and movement present and Clear speech present Affect: normal affect Attitude: cooperative Thought process: Normal thought process present Thought content: Normal thought content present Insight: Fair insight present (Psych) Judgement: Fair judgement present (Psych) Results AMB Urinalysis, Automated UA Leukoctes 0 Steven/uL Last Edit by Susu Montana on 09/13/24 13:35 UA Nitrite Negative Last Edit by Susu Montana on 09/13/24 13:35 UA Urobilinogen 0.2 mg/dL Last Edit by Susu Montana on 09/13/24 13:35 UA Protein 0 mg/dL Last Edit by Susu Montana on 09/13/24 13:35 UA pH 5.0 Last Edit by Susu Montana on 09/13/24 13:35 UA Blood 0 Antione/uL Last Edit by Susu Rubén on 09/13/24 13:35 UA Specific Crimora 1.025 Last Edit by Susu Montana on 09/13/24 13:35 UA Ketone Negative Last Edit by Susu Montana on 09/13/24 13:35 UA Bilirubin 0 mg/dL Last Edit by Susu Montana on 09/13/24 13:35 UA Glucose 0 mg/dL Last Edit by Susu Montana on 09/13/24 13:35 Results Reviewed Results Reviewed: Laboratory Last Values Urine pH (Auto) 5.0 09/13/24 08:13 Specific Crimora (Auto) 1.025 09/13/24 08:13 Urine Protein (Auto) 0 mg/dL 09/13/24 08:13 Glucose (UA)(Auto) 0 mg/dL 09/13/24 08:13 Urine Ketones (Auto) Negative 09/13/24 08:13 Urine Blood (Auto) 0 Antione/uL 09/13/24 08:13 Urine Nitrite (Auto) Negative 09/13/24 08:13 Urine Bilirubin (Auto) 0 mg/dL 09/13/24 08:13 Urine Urobilinogen (Auto) 0.2 mg/dL 09/13/24 08:13 Leukocyte Esterase (Auto) 0 Steven/uL 09/13/24 08:13 Date of Service: 08/20/24 Procedure(s): CT abdomen pelvis wo IV con FINDINGS: LOWER CHEST: The visualized lung bases are clear. There is no pleural effusion. CARDIOVASCULATURE: The heart is normal in size. There is no pericardial effusion. LIVER: The liver is normal in size and contour. The liver demonstrates diffusely decreased attenuation, consistent with ptosis. There is focal fatty sparing adjacent to the gallbladder. GALLBLADDER / BILE DUCTS: The gallbladder is unremarkable. There is no intra or extrahepatic biliary ductal dilatation. SPLEEN: The spleen is normal in size and has an unremarkable unenhanced appearance. PANCREAS: The pancreas has an unremarkable unenhanced appearance. ADRENAL GLANDS: Unremarkable. KIDNEYS/RETROPERITONEUM: There are multiple punctate nonobstructing calculi at the lower pole of the right kidney. The left kidney demonstrates 2 adjacent nonobstructing 3 mm calculi at the lower pole. There is a 3.2 cm cyst in the interpolar region of the left kidney. There is mild prominence of the right intrarenal collecting system and ureter to the level of the bladder. However, no obstructing calculus is identified. There is no left hydronephrosis or hydroureter. LYMPH NODES: No retroperitoneal lymphadenopathy is identified in the abdomen or pelvis. VASCULATURE: The abdominal aorta is normal in caliber. MESENTERY/PERITONEUM: No free fluid. No masses. There is no free intraperitoneal gas. STOMACH: The stomach is collapsed, limiting evaluation. SMALL BOWEL: The small bowel is normal in caliber. COLON: There is a moderate amount of stool throughout the colon. APPENDIX: Normal. URINARY BLADDER/PELVIC ORGANS: The urinary bladder is unremarkable. The prostate is normal in size. BONES / SOFT TISSUES: No suspicious bony or soft tissue abnormalities. IMPRESSION: 1. A normal appendix is visualized. 2. Bilateral nephrolithiasis as described. Mild prominence of the right intrarenal collecting system and ureter compared to the prior study, without evidence of an obstructing calculus. Findings may be secondary to a recently passed calculus. Clinical correlation is recommended. Assessment & Plan Assessment & Plan (1) Renal cyst: Code(s): N28.1 - Cyst of kidney, acquired Category: Medical (2) Renal calculi: Code(s): N20.0 - Calculus of kidney Category: Medical Plan In office urinalysis results reviewed with the patient today; as noted above. Recent CT results reviewed with the patient today; as noted above. We discussed at length the importance of adequate hydration relation to nephrolithiasis as well as overall health and well-being. Continue vitamin B6 as discussed and prescribed. We discussed adding 1 oz of lemon juice to water daily We discussed potential near future metabolic workup to include [facility] and labs. He currently denies any bothersome urinary issues. He reports be happy with current voiding parameters. Will obtain renal ultrasound for further assessment evaluation. We also discussed importance of management and diabetes for overall health and well-being. Follow-up in 1-3 months with imaging to be completed prior; or sooner with any issues, concerns, and or questions. Orders: Orders AMB Urinalysis Automated Today Z13.9 - Encounter for screening, unspecified US renal BI Today N20.0 - Calculus of kidney Patient Instructions: The patient had an opportunity to ask questions regarding the treatment plan. All questions were answered. Physical exam, labs, and imaging were discussed and reviewed in detail. As well as risks, benefits, and discussion of treatment choices. No major barriers to understanding were identified. The patient expressed understanding and agreement with the above treatment plan. The patient was made aware they should contact our office by phone for worsening of their current condition, the appearance of new symptoms, or with any questions or concerns. Compliance is encouraged with any medications and follow up testing that is ordered. It is a privilege to be allowed the opportunity to participate in? your urological care.? Again, if you have any questions or concerns If you have any questions or concerns please do not hesitate to contact me. The office is [phone]. This note is constructed using voice recognition software. While every effort has been made to ensure accuracy sprinkler inspector errors may have been included. Yours sincerely, LITO Naqvi Coding Level of Care Code Est Pt Level 3 (96459) Complex EM visit Add On G2211 Diagnoses Renal cyst N28.1 Renal calculi N20.0
--- OUTSIDE RECORDS SUMMARY | 2024-09-13 14:11 | XMS_ITS ---
Author Organization Ramon Avila MD Address [address] [place] [phone] Care Team Providers Care Used Car Lot Porter Name Role Phone Ramon Avila Primary Care Provider REASON FOR VISIT ER Encounters Encounter Location Date Provider Diagnosis Ramon Avila MD [address] [place] [address] [place] [phone] 08/23/2024 Ramon Avila Plan Of Treatment Next Appt Details Provider Name:Ramon Pink ier, 10/08/2024 09:00:00 AM, [address] [place] [address], [address], [phone], Provider Name:Ramon van, 01/04/2025 07:30:00 AM, [address] [place] [address], [address], [phone], Provider Name:Ramon van, 01/11/2025 01:00:00 PM, [address] [facility] [address], [address], [place], [place], [phone], Progress Notes * Jakob AYALA RDOB:1965 (59 yo M)Acc No.[id number]:08/23/2024 Patient:?Jakob AYALA :1965???Age:59 Y???Sex:Male Address:[address] [place] [phone] * true * Date:? Generated for Wm grey/Karen/eTransmitting on:?09/13/2024 02:10 PM EDT
--- OUTSIDE RECORDS SUMMARY | 2024-09-13 14:11 | XMS_ITS | Patient Health Record ---
Author Organization Ramon Avila MD Address [address] [place] [phone] Care Team Providers Care Senior Ui Web Developer Name Role Phone Ramon Avila Primary Care Provider Allergies No Known Allergies Results Component Value Reference Range Notes Hemoglobin A1c Reviewed date:07/09/2024 01:36:04 PM Interpretation: Performing Lab: Notes/Report: Hemoglobin A1c 8.0 Complete Blood Count Auto Di ff Reviewed date:01/01/2024 04:08:35 PM Interpretation: Performing Lab:[facility], [address] [place] [phone] Notes/Report: White Blood Count 6.2 4.8-10.8 X10*3/uL [...] NRBC Abs Auto 0.000 0.0-0.012 X10*3/uL Comprehensive [place]. Panel Fa st Reviewed date:01/01/2024 04:08:12 PM Interpretation: Performing Lab:[facility], [address] [place] [phone] Notes/Report: Sodium 140 135-145 mmol/L Potassium 4.3 3.3-5.1 mmol/L Chloride 102 96-108 mmol/L Carbon Dioxide 29 22-29 mmol/L Anion Gap 13 12-20 Blood Urea Nitrogen 11 9-16 mg/dL Creatinine 0.89 0.5-1.4 mg/dL Estimated Glomerular Filt Rate > 60 NOTE: For -[place] individuals, multiply the result by 1.210. Chronic [...] Panel Reviewed date:01/01/2024 12:30:29 PM Interpretation: Performing Lab:[address] [address] Notes/Report: Triglycerides 186 <150 mg/dL Desirable Triglyceride: [...] (Free>4and<10) Reviewed date:01/01/2024 12:32:49 PM Interpretation: Performing Lab:[address] [address] Notes/Report: PSA,Total (Free>4and<10) 0.60 0.00-4.00 ng/mL A [...] Random Reviewed date:01/01/2024 04:04:57 PM Interpretation: Performing Lab:[address] [address] Notes/Report: Creatinine Urine 262.68 Microalbumin Urine 16.0 Microalbum/Creatinine Ratio Ur 6.0 <30 ug/mg cr Albumin/Creatinine Ratio Reference Ranges: Normal: < 30 ug/mg creatinine Microalbuminuria: 30 - 300 ug/mg creatinine Clinical Albuminuria: > 300 ug/mg creatinine Hemoglobin A1c Reviewed date:01/01/2024 12:32:32 PM Interpretation: Performing Lab:[address] [address] Notes/Report: Hemoglobin A1c % 7.5 <6.0 % [...] average glucose, using the formula of the P3L-Xxulavk Average Glucose study (ADAG), Diabetes Care, Vol.31,#8, Aug. 2007 UA ClnCatch+Micro w/rflx Cul t Reviewed date:01/01/2024 04:13:26 PM Interpretation: Performing Lab:[address] [address] Notes/Report: Urine, Clean Catch Color Urine Yellow Appearance Urine Clear PH 5.5 5.0-9.0 Glucose Urine UA Negative Negative mg/dL Urine Blood Negative Negative Specific [place] - Urine 1.020 1.005-1.025 Urine Protein Negative [...] ff Reviewed date:07/06/2024 04:47:32 PM Interpretation: Performing Lab:[facility], [address] [place] [phone] Notes/Report: White Blood Count 7.5 4.8-10.8 X10*3/uL [...] NRBC Abs Auto 0.000 0.0-0.012 X10*3/uL Comprehensive [place]. Panel Fa st Reviewed date:07/06/2024 04:46:58 PM Interpretation: Performing Lab:[facility], [address] [place] [address] Notes/Report: Sodium 140 135-145 mmol/L Potassium 4.2 [...] Panel Reviewed date:07/06/2024 12:36:17 PM Interpretation: Performing Lab:[address] [address] Notes/Report: Triglycerides 199 <150 mg/dL Desirable Triglyceride: [...] (Free>4and<10) Reviewed date:07/06/2024 12:30:36 PM Interpretation: Performing Lab:[address] [address] Notes/Report: PSA,Total (Free>4and<10) 0.94 0.00-4.00 ng/mL A [...] Random Reviewed date:07/06/2024 12:30:28 PM Interpretation: Performing Lab:[facility], [address] [place] [phone] Notes/Report: Creatinine Urine 483.43 Microalbumin Urine 43.0 Microalbum/Creatinine Ratio Ur 8.8 <30 ug/mg cr Albumin/Creatinine Ratio Reference Ranges: Normal: < 30 ug/mg creatinine Microalbuminuria: 30 - 300 ug/mg creatinine Clinical Albuminuria: > 300 ug/mg creatinine UA ClnCatch+Micro w/rflx Cul t Reviewed date:07/06/2024 12:29:35 PM Interpretation: Performing Lab:[facility], [address] [place] [phone] Notes/Report: Urine, Clean Catch Color Urine Dark Yellow Appearance Urine Turbid PH 5.0 5.0-9.0 Glucose Urine UA Negative Negative mg/dL Urine Blood Negative Negative Specific [place] - Urine >= 1.030 1.005-1.025 Urine Protein [...] SARS-CoV2/FLU/RSV Reviewed date:06/17/2024 12:56:49 PM Interpretation: Performing Lab:[facility], [address] [place] [phone] Notes/Report: Influenza A PCR POSITIVE Negative Influenza [...] by authorized laboratories. Testing performed on the [employer] GeneXpert utilizing real-time RT-PCR. All SARS CoV2 and positive influenza A/B results are reported to [facility]. Glucose, finger stick Reviewed date:07/09/2024 01:35:47 PM Interpretation: Performing Lab: Notes/Report: Value 130 US renal BI Reviewed date:03/18/2024 04:40:33 PM Interpretation: Performing Lab: Notes/Report: [address] [address] Ultrasound Report Signed Patient: Jakob Fontaine MR#: [id number] 6 : 1965 Acct:[id number] Age/Sex: 58 / M ADM Date: 03/01/24 Loc: HO.US Attending Dr: Jackelyn MORSE Ordering Physician: Jackelyn Luna Date of Service: 03/01/24 Procedure(s): US renal BI Accession Number(s): [id number] cc: Ramon Avila MD; Jackelyn Luna EXAMINATION: [...] 03/18/24 1353 DD/ 1305 TD/TT: 03/01/24 1312 Supervisor P[employer] Plant: [place] [address] Ultrasound Report Signed Patient: Jakob Fontaine MR#: [id number] 6 : 1965 Acct:[id number] Age/Sex: 58 / M ADM Date: 03/01/24 Loc: . Attending Dr: Jackelyn MORSE Ordering Physician: Jackelyn Luna Date of Service: 03/01/24 Procedure(s): US femi al BI Accession Number(s): [id number] cc: Ramon Avila MD; Jackelyn Luna EXAMINATION: [...] 03/18/24 1353 DD/ 1305 TD/TT: 03/01/24 1312 Supervisor P[employer] Plant: XR chest 2V Reviewed date:06/17/2024 12:57:14 PM Interpretation: Performing Lab: Notes/Report: [address] [address] XRay Report Signed Patient: Jakob Fontaine MR#: [id number] 6 : 1965 Acct:[id number] Age/Sex: 59 / M ADM Date: 06/17/24 Loc: HO.XRAY Attending Dr: Ramon Avila MD Ordering Physician: Ramon Avila MD Date of Service: 06/17/24 Procedure(s): XR chest 2V Accession Number(s): [id number] cc: Ramon Avila MD EXAMINATION: XR CHEST [...] OV> 06/17/24 1009 DD/ 5 TD/TT: 06/17/241004 Super[employer] Plant: [address] [address] XRay Report Signed Patient: Jakob Fontaine MR#: [id number] 6 : 1965 Acct:[id number] Age/Sex: 59 / M ADM Date: 06/17/24 Loc: HO.XRAY Attending Dr: Ramon Avila MD Ordering Physician: Ramon Avila MD Date of Service: 06/17/24 Procedure(s): XR craig st 2V Accession Number(s): [id number] cc: Ramon Avila MD EXAMINATION: XR CHES [...] by: Checo Segal MD 06/17/2024 10:09 AM [facility] Dictated By: Checo Segal MD Signed By: <Electronically signed by Checo Segal MD in OV> 06/17/24 1009 DD/ TD/TT: 06/17/24 100 Supervisor [employer] Plant: Complete Blood Count Auto Di ff Reviewed date:06/21/2024 05:10:22 PM Interpretation: Performing Lab:[facility], [address] [place] [phone] Notes/Report: White Blood Count 9.7 4.8-10.8 X10*3/uL [...] Panel Reviewed date:06/21/2024 05:15:43 PM Interpretation: Performing Lab:[facility], [address] [place] [phone] Notes/Report: Sodium 138 135-145 mmol/L Potassium 4.1 [...] Magnesium Reviewed date:06/21/2024 05:15:14 PM Interpretation: Performing Lab:[address] [address] Notes/Report: Magnesium 1.9 1.6-2.6 mg/dL Troponin-I High Sensitivity Reviewed date:06/22/2024 12:39:34 PM Interpretation: Performing Lab:[address] [address] Notes/Report: Troponin-I High Sensitivity < 2.7 <3.5-35.0 ng/L The Franks high sensitivity Troponin-I results should be used in conjunction with other diagnostic information such as ECG, clinical observations and information, and patient symptoms to aid in the diagnosis of [place]. SARS-CoV2/FLU/RSV Reviewed date:06/22/2024 09:33:45 AM Interpretation: Performing Lab:[address] [address] Notes/Report: Influenza A PCR POSITIVE Negative Influenza [...] by authorized laboratories. Testing performed on the [employer] GeneXpert utilizing real-time RT-PCR. All SARS CoV2 and positive influenza A/B results are reported to [facility]. XR chest 2V Reviewed date:06/22/2024 09:34:03 AM Interpretation: Performing Lab: Notes/Report: [address] [address] XRay Report Signed Patient: Jakob Fontaine MR#: [id number] 6 : 1965 Acct:[id number] Age/Sex: 59 / M ADM Date: 06/21/24 Loc: .ED Attending Dr: Ordering Physician: Jaclyn Daily Date of Service: 06/21/24 Procedure(s): XR chest 2V Accession Number(s): [id number] cc: Ramon Avila MD; Jaclyn Daily CLINICAL [...] in OV> 06/21/242015 DD/ 14 TD/TT: 06/21/242014 Supervisor P[employer] Plant: [address] [address] XRay Report Signed Patient: Jakob Fontaine MR#: [id number] 6 : 1965 Acct:[id number] Age/Sex: 59 / M ADM Date: 06/21/24 Loc: .ED Attending Dr: Ordering Physician: Jaclyn Daily Date of Service: 06/21/24 Procedure(s): XR craig st 2V Accession Number(s): [id number] cc: Ramon Avila MD; Jaclyn Daily CLINICAL [...] in OV> 06/21/242015 DD/ 14 TD/TT: 06/21/242014 Supervisor P[employer] Plant: Complete Blood Count Auto Di ff Reviewed date:08/20/2024 05:08:10 PM Interpretation: Performing Lab:[facility], [address] [place] [phone] Notes/Report: White Blood Count 9.7 4.8-10.8 X10*3/uL [...] Auto 0.000 0.0-0.012 X10*3/uL Basic Metabolic Panel Reviewed date:08/20/2024 05:03:10 PM Interpretation: Performing Lab:[facility], [address] [place] [phone] Notes/Report: Sodium 140 135-145 mmol/L Potassium 5.0 [...] 8.4-10.2 mg/dL UA ClnCatch+Micro w/rflx Cul t Reviewed date:08/20/2024 05:14:40 PM Interpretation: Performing Lab:[facility], [address] [place] [phone] Notes/Report: [id number] Urine, Clean Catch Color Urine Yellow Appearance Urine Clear PH 5.5 5.0-9.0 Glucose Urine UA >=1000 Negative mg/dL Urine Blood Moderate (2+) Negative Specific [place] - Urine 1.025 1.005-1.025 Urine Protein Negative Neg-Trace mg/dL Urine Ketones 40 Negative mg/dL Nitrite Urine Negative Negative Leukocyte Esterase Urine Negative Negative RBC Urine >20 0-2 /HPF WBC Urine 0-5 0-5 /HPF Squamous Epithelial Cell Urine 0-2 0-2 /HPF Bacteria Urine None Seen None Seen Hyaline Casts Urine 3-5 0-2 /LPF CT abdomen pelvis wo con Reviewed date:08/20/2024 05:00:29 PM Interpretation: Performing Lab: Notes/Report: [address] [address] [address] Scan Report Signed Patient: Jakob Fontaine MR#: [id number] 6 : 1965 Acct:[id number] Age/Sex: 59 / M ADM Date: 08/20/24 Loc: HO.ED Attending Dr: Ordering Physician: Madhavi Crowley MD Date of Service: 08/20/24 Procedure(s): CT abdomen pelvis wo IV con Accession Number(s): [id number] cc: Ramon Avila MD; Madhavi Crowley MD Report Number: [id number]: Total DLP = 562.00 mGy-cm EXAMINATION: CT ABDOMEN PELVIS WITHOUT IV CONTRAST HISTORY: RLQ pain COMPARISON: Comparison is made with the prior examination dated 10/11/2021. TECHNIQUE: CT scan of the abdomen and pelvis was performed without contrast using standard departmental protocol. Coronal and sagittal reformatted images were generated and reviewed. Oral contrast material was not administered at the request of the referring physician. This CT exam was performed with one or more of the following dose reduction techniques: automated exposure control, adjustment of the mA and/or kV according to patient size, use of iterative reconstruction technique. DLP: 562 mGy-cm FINDINGS: LOWER CHEST: The visualized lung bases are clear. There is no pleural effusion. CARDIOVASCULATURE: The heart is normal in size. There is no pericardial effusion. LIVER: The liver is normal in size and contour. The liver demonstrates diffusely decreased attenuation, consistent with ptosis. There is focal fatty sparing adjacent to the gallbladder. GALLBLADDER / BILE DUCTS: The gallbladder is unremarkable. There is no intra or extrahepatic biliary ductal dilatation. SPLEEN: The spleen is normal in size and has an unremarkable unenhanced appearance. PANCREAS: The pancreas has an unremarkable unenhanced appearance. ADRENAL GLANDS: Unremarkable. KIDNEYS/RETROPERITONEUM: There are multiple punctate nonobstructing calculi at the lower pole of the right kidney. The left kidney demonstrates 2 adjacent nonobstructing 3 mm calculi at the lower pole. There is a 3.2 cm cyst in the interpolar region of the left kidney. There is mild prominence of the right intrarenal collecting system and ureter to the level of the bladder. However, no obstructing calculus is identified. There is no left hydronephrosis or hydroureter. LYMPH NODES: No retroperitoneal lymphadenopathy is identified in the abdomen or pelvis. VASCULATURE: The abdominal aorta is normal in caliber. MESENTERY/PERITONEUM: No free fluid. No masses. There is no free intraperitoneal gas. STOMACH: The stomach is collapsed, limiting evaluation. SMALL BOWEL: The small bowel is normal in caliber. COLON: There is a moderate amount of stool throughout the colon. APPENDIX: Normal. URINARY BLADDER/PELVIC ORGANS: The urinary bladder is unremarkable. The prostate is normal in size. BONES / SOFT TISSUES: No suspicious bony or soft tissue abnormalities. CT/CT abdomen pelvis wo IV con IMPRESSION: 1. A normal appendix is visualized. 2. Bilateral nephrolithiasis as described. Mild prominence of the right intrarenal collecting system and ureter compared to the prior study, without evidence of an obstructing calculus. Findings may be secondary to a recently passed calculus. Clinical correlation is recommended. Electronically signed by: Checo Segal MD 08/20/2024 01:53 PM EDT RP Dictated By: Checo Segal MD Signed By: <Electronically signed by Checo Segal MD in OV> 08/20/24 1353 DD/ 1312 TD/TT: 08/20/24 1323 Supervisor Paste Plant: [place] [address] CT Scan Report Signed Patient: Jakob Fontaine MR#: [id number] 6 : 1965 Acct:[id number] Age/Sex: 59 / M ADM Date: 08/20/24 Loc: HO.ED Attending Dr: Ordering Physician: Madhavi Crowley MD Date of Service: 08/20/24 Procedure(s): CT abd omen pelvis wo IV con Accession Number(s): [id number] cc: Ramon Avila MD; Madhavi Crowley MD Report Number: [id number]: Total DLP = 562.00 mGy-cm EXAMINATION: CT ABDO MEN PELVIS WITHOUT IV CONTRAST HISTORY: RLQ pain COMPARISON: Comparis on is made with the prior examination dated 10/11/2021. TECHNIQUE: CT scan o f the abdomen and pelvis was performed without contrast using stand lena departmental protocol. Coronal and sagittal reformatted images w ere generated and reviewed. Oral contrast material was not administered at the request of the referring physician. This CT exam was performed with one or more of the following dose reduction techniques : automated exposure control, adjustment of the mA and/or kV according to patient size, use of iterative reconstruction technique. DLP: 562 mGy-cm FINDINGS: LOWER CHEST: The visualized lung bases are clear. There is no pleural effusion. CARDIOVASCULATURE: T he heart is normal in size. There is no pericardial effusion. LIVER: The liver is normal in size and contour. The liver demonstrates diffuse ly decreased attenuation, consistent with ptosis. There is focal fatty sparing adjacent to the gallbladder. GALLBLADDER / BILE DUCTS: The gallbladder is unremarkable. There is no intra or extrahepati c biliary ductal dilatation. SPLEEN: The spleen i s normal in size and has an unremarkable unenhanced appearance. PANCREAS: The pancre as has an unremarkable unenhanced appearance. ADRENAL GLANDS: Unremarkable. KIDNEYS/RETROPERITON EUM: There are multiple punctate nonobstructing calculi at the lower pole of the right kidney. The left kidney demonstrates 2 adjac ent nonobstructing 3 mm calculi at the lower pole. There is a 3.[address] in the interpolar region of the left kidney. There is mild promin ence of the right intrarenal collecting system and ureter to the level of the bladder. However, no obstructing calculus is identified. There is no left hydronephrosis or hydroureter. LYMPH NODES: No retroperitoneal lymphadenopathy is identified in the abdomen or pelvis. VASCULATURE: The abdominal aorta is normal in caliber. MESENTERY/PERITONEUM : No free fluid. No masses. There is no free intraperitoneal gas. STOMACH: The stomach is collapsed, limiting evaluation. SMALL BOWEL: The sma ll bowel is normal in caliber. COLON: There is a moderate amount of stool throughout the colon. APPENDIX: Normal. URINARY BLADDER/PELV IC ORGANS: The urinary bladder is unremarkable. The prostate is norm al in size. BONES / SOFT TISSUES : No suspicious bony or soft tissue abnormalities. ____ ___ C T/CT abdomen pelvis wo IV con IMPRESSION: 1. A normal appendix is visualized. 2. Bilateral nephrolithiasis as described. Mild prominence of the right intrarenal collectin g system and ureter compared to the prior study, without evidence of an obstructing calculus. Findings may be secondary to a recently passed calculus. Clinical correlation is recommended. Electronically vijaya d by: Checo Segal MD 08/20/2024 01:53 PM EDT RP Dictated By: Checo Segal MD Signed By: <Electronically signed by Checo Segal MD in OV> 08/20/24 1353 DD/ 1312 TD/TT: 08/20/24 1323 Supervisor Paste Plant: Reason For Referral No Information Medications Medication SIG (Take, Route, Frequency, Duration) Notes Start Date End Date Status metFORMIN HCl ER 500 MG TAKE 2 TABLETS B Y MOUTH TWICE A DAY Active Atorvastatin Calcium 40 mg TAKE 1 TABLET DAILY Orally Once a day Active Lisinopril-hydroCHLOROthi azide 10-12.5 MG TAKE 1 TABLET BY MOUTH EVERY DAY Orally Once a day for 90 days Active OneTouch Delica Plus [id number] - USE TO TEST BLOOD SUGAR ONCE DAILY Active guaiFENesin-Codeine 100-10 MG/5ML 10 mL as needed Orally every 4 hrs as needed for 10 days 05/09/2022 Not-Taking FreeStyle Amrita 14 Day [place] - as directed 07/05/2022 Active Augmentin 500-125 [...] every 6 hrs Not-Taking FreeStyle [place] 2 [place] - as directed 07/05/2022 Active Immunizations Vaccine [...] Administe red Fluarix Quadrivalent IM Intramuscular 01/17/2023 Administe red SARS-COV-2 Moderna Unknown 05/06/2023 Administered [facility] [...] Status W/U Status Risk Notes Problem Hypertension (25572199) Hypertension (401.9) Active confirmed Problem Gout (13144651) Gout (M10.9) Active confirmed Problem 985683463 Hypertrophy of b reast (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) Active confirmed Problem Kidney stone (N20.0) Active confirmed Problem 28049472 Essential hypert ension (I10) Active confirmed Problem 35023062 Type 2 diabetes mellitus without complication (E11.9) Active confirmed Problem 547296290 Low HDL (under 4 0) (E78.6) Active confirmed Problem 83756875 Memory loss (R41.3) Active confirmed Problem 464280512 Cervical disc di sease (M50.90) Active confirmed Problem 103642055 Pure hypercholesterolemia (E78.00) Active confirmed Problem 32035167 Pharyngoesophage al dysphagia (R13.14) Active confirmed Problem 230650528 Benign neoplasm breast, 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 Problem 879074600 Benign neoplasm breast, 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 Problem 362864582 Enlarged tonsils (J35.1) Active confirmed Problem 046049273 Anterolisthesis (M43.10) Active confirmed Vital Signs Temperature 102 degrees Fahrenheit 06/17/2024 weigh t is 187 BP not taken temp 102 Blood pressure diastolic 60 mm Hg 07/09/2024 Height 69 in 07/09/2024 Blood pressure systolic 102 mm Hg 07/09/2024 Weight 195 lbs 07/09/2024 BMI 28.79 kg/m2 07/09/2024 Encounters Encounter Location Date Provider Diagnosis Ramon Avila MD [address] [place] [id number] 01/01/2024 Ramon Avila Blood tests for rout ine general physical examination Z00.00 ; Type 2 diabetes mellitus without complication E11.9 ; Pure hypercholesterolemia E78.00 and Essential hypertension I10 Ramon Avila MD [address] [place] [id number] 01/22/2024 Ramon Avila Encounter for immuni zation Z23 Ramon Avila MD [address] [place] [id number] 07/06/2024 Ramon Avila Blood tests for rout ine general physical examination Z00.00 ; Type 2 diabetes mellitus without complication E11.9 ; Pure hypercholesterolemia E78.00 and Essential hypertension I10 Ramon Avila MD [address] [place] [address] [id number] 01/08/2024 Ramon Avila Type 2 diabetes peggy itus without complication E11.9 ; Annual physical exam Z00.00 ; Pure hypercholesterolemia E78.00 ; Hypertrophy of breast N62 ; Essential hypertension I10 ; Colon cancer screening Z12.11 and Depression screening Z13.31 Ramon Avila MD [address] [place] [address] [id number] 06/17/2024 Ramon Avila Acute pneumonia J18. 9 and Influenza A J10.1 Ramon Avila MD [address] [place] [address] [id number] 06/29/2024 Ramon Avila Influenza A J10.1 Ramon Avila MD [address] [place] [address] [id number] 07/09/2024 Ramon Avila Type 2 diabetes peggy itus without complication E11.9 ; Heart murmur R01.1 and Pure hypercholesterolemia E78.00 Ramon Avila MD [address] [place] [address] [id number] 12/30/2023 Ramon Avila MD [address] [place] [address] [id number] 04/15/2024 Ramon Avila Pure hypercholestero lemia E78.00 Ramon Avila MD [address] [place] [address] [id number] 06/24/2024 Ramon Avila MD [address] [place] [id number] 08/20/2024 Ramon Avila MD [address] [place] [address] [id number] 08/23/2024 Ramon Avila MD [address] [place] [address] [id number] 02/29/2024 Ramon Avila Pure hypercholestero lemia E78.00 [...] x-ray marked STAT. Both orders faxed to [facility] Patient Reg.PATIENT AWARE THAT HIS ORDERS ARE AT PATIENT REG [facility] 06/17/2024 Influenza A (ICD-10 - J10.1) 06/29/2024 [...] VIEW PA & LAT 06/17/2024 ECHO 07/09/2024 Hemoglobin A1c 07/06/2024 Next Appt Details Provider Name:Ramon Pink ier, 10/08/2024 09:00:00 AM, [address] [place] [address], [place] [address], [place], [place], [phone], Provider Name:Ramon Pink ier, 01/04/2025 07:30:00 AM, [address] [place] [address], [place] [address], [place], [place], [phone], Provider Name:Ramon Pink ier, 01/11/2025 01:00:00 PM, [address] [place] [address], [address], [phone], Insurance Providers Payer Name Payer Address Payer Phone Subscriber Number Group Number Insured Name Patient Relationship to Insured Coverage Start Date Coverage End Date [employer] [address] [place], [place] [phone] [phone] [id number] Jakob Fontaine Self - patient is the insured Medical (General) History Medical History History ICD Code Colonoscopy done 05/24/[address] Chanel/rony perplastic polyp due in 10
== END 2024-09-13 14:01 | disposition home or self-care (01) ==
LOC: HO.HUSH 12:47
PROVIDERS: PCP Internal Medicine; Visit Provider Nurse Practitioner Family
DX: N28.1 Cyst of kidney, acquired (principal); N20.0 Calculus of kidney; Z13.9 Encounter for screening, unspecified
CPT/HCPCS: 99213

== ENCOUNTER → 2024-09-13 12:46 | Outpatient (BNVA) | payer BC, SELFPAY | PROVIDERS: PCP Internal Medicine; Visit Provider Nurse Practitioner Family | DX: E11.9 Type 2 diabetes mellitus without complications (principal); I10 Essential (primary) hypertension; N28.1 Cyst of kidney, acquired; N20.0 Calculus of kidney | CPT/HCPCS: 81003 ==

== ENCOUNTER 2024-11-30 12:56 | Outpatient (REF) | payer BC, SELFPAY ==
--- OUTSIDE RECORDS SUMMARY | 2024-08-20 04:39 | XMS_ITS ---
Author Organization Ramon Avila MD Address [address] [place] [phone] Care Team Providers Care Core Maker Name Role Phone Ramon Avila Primary Care Provider REASON FOR VISIT taking him to Urgent care Encounters Encounter Location Date Provider Diagnosis Ramon Avila MD [address] [place] [address] [place] [phone] 08/20/2024 Ramon Avila Plan Of Treatment Next Appt Details Provider Name:Ramon Pink ier, 01/04/2025 07:30:00 AM, [address] [place] [address], [address], [phone], Provider Name:Ramon Pink iemeek, 01/25/2025 01:00:00 PM, [address] [place] [address], [address], [phone], Progress Notes * Jakob AYALA RDOB:1965 (59 yo M)Acc No.[id number]:08/20/2024 Patient: Monster BRIELLE Jakob Mejia :1965 A ge:59 Y S ex:Male Address:[address] [place] [phone] * true * Date: Generated for Wm grey/Karen/eTransmitting on: 0 11/30/2024 01:58 PM EDT
--- NOTE | ~2024-11-30 | US_ITS ---
EXAMINATION: US KIDNEY BILATERAL HISTORY: N20.0 - Calculus of kidney TECHNIQUE: Real-time grayscale ultrasound imaging of the kidneys was performed and images were reviewed. COMPARISON: Comparison is made with the prior examination dated 03/01/2024. FINDINGS: Right kidney: The right kidney measures 11.5 x 5.7 x 6.5 cm. Renal parenchymal echotexture and thickness are normal. There are no masses. There are nonobstructing calculi at the lower pole measuring 2 and 3 mm, and in the interpolar region measuring 3 mm. There is no hydronephrosis. Left Kidney: The left kidney measures 12.3 x 5.9 x 5.8 cm. Renal parenchymal echotexture and thickness are normal. There is a 3.3 x 3.5 x 3.2 cm simple cyst in the interpolar region. There is a 6 x 3 x 3 mm nonobstructing calculus at the lower pole. There is no hydronephrosis. US/US renal BI IMPRESSION: 1. Bilateral nephrolithiasis as described. No hydronephrosis. 2. 3.3 x 3.5 x 3.2 cm left renal cyst. Electronically signed by: Checo Segal MD 11/30/2024 01:42 PM EDT
--- OUTSIDE RECORDS SUMMARY | 2024-11-30 13:58 | XMS_ITS | Patient Health Record ---
Author Organization [facility] Address [address] [place] [address] Care Team Providers Care Engineering Specialist Technician Name Role Phone Ramon Avila MD Primary Care Provider Checo Davila Unavailable [phone] Reason For Referral No Information Medications Medication SIG (Take, Route, Frequency, Duration) Notes Start Date End Date Status Aspir-Low 81 MG 1 tablet Orally Once a day Active metFORMIN HCl ER 500 MG 2 tablet with ev ening meal Orally once a day Active Atorvastatin Calcium 40 MG 1/2 tablet Or ally Once a day Active Lisinopril-hydroCHLOROthiaz db 10-12.5 MG 1 tablet Orally Once a day Active Problems Problem Type SNOMED Code ICD Code Onset Dates Problem Status W/U Status Risk Notes Problem 126526155 Encounter for screening for malignant neoplasm of colon (Z12.11) Active confirmed Problem Encounter for screening for malignant neoplasm of rectum (Z12.12) Active confirmed Problem 84194398 Preprocedural examination (Z01.818) Active confirmed Problem 321110389 Long-term use of aspirin therapy (Z79.82) Active confirmed Plan Of Treatment Pending Test Test Name Order Date GI BIOPSY 05/24/2016 Future Test Test Name Order Date COLONOSCOPY 02/27/2016 Insurance Providers Payer Name Payer Address Payer Phone Subscriber Number Group Number Insured Name Patient Relationship to Insured Coverage Start Date Coverage End Date [facility] [address] [place] [address] [id number] LOUISE FONTAINE Self - patient is the insured Medical (General) History Medical History History ICD Code Hypercholesterolemia Hypertension Denies AR,CVA,Lung disease,renal disease NIDDM Surgical History Surgery Date(Month/Year) Left knee surgery
== END 2024-11-30 12:57 | disposition home or self-care (01) ==
LOC: HO.US 12:56
PROVIDERS: PCP Internal Medicine; Visit Provider Nurse Practitioner Family
DX: N20.0 Calculus of kidney (principal)
CPT/HCPCS: 76775

== ENCOUNTER → 2024-11-30 12:58 | Outpatient (BNV) | payer BC, SELFPAY | PROVIDERS: PCP Internal Medicine; Visit Provider Radiology Diagnostic Radiology | DX: N20.0 Calculus of kidney (principal) | CPT/HCPCS: 76775 ==

== ENCOUNTER 2024-12-20 12:48 | Outpatient (AMB) | payer BC, SELFPAY ==
--- OUTSIDE RECORDS SUMMARY | 2024-08-20 04:39 | XMS_ITS ---
Author Organization Ramon Avila MD Address [address] [place] [phone] Care Team Providers Care Computer Mechanic Name Role Phone Ramon Avila Primary Care Provider REASON FOR VISIT taking him to Urgent care Encounters Encounter Location Date Provider Diagnosis Ramon Avila MD [address] [place] [address] [place] [phone] 08/20/2024 Ramon Avila Plan Of Treatment Next Appt Details Provider Name:Ramon Pink ier, 01/04/2025 07:30:00 AM, [address] [place] [address], [address], [phone], Provider Name:Ramon Pink iemeek, 01/25/2025 01:00:00 PM, [address] [place] [address], [address], [phone], Progress Notes * Jakob AYALA RDOB:1965 (59 yo M)Acc No.[id number]:08/20/2024 Patient: Monster BRIELLE Jakob Mejia :1965 A ge:59 Y S ex:Male Address:[address] [place] [phone] * true * Date: Generated for Wm grey/Karen/eTransmitting on: 0 12/20/2024 12:52 PM EDT
--- OUTSIDE RECORDS SUMMARY | 2024-12-20 12:52 | XMS_ITS | Patient Health Record ---
Author Organization [facility] Address [address] [place] [address] Care Team Providers Care Commercial Truck Driver Name Role Phone Ramon Avila MD Primary Care Provider Checo Davila Unavailable [phone] Reason For Referral No Information Medications Medication [...] Problem Status W/U Status Risk Notes Problem 922878946 Encounter for screening for malignant neoplasm of colon (Z12.11) Active confirmed Problem Encounter for screening for malignant neoplasm of rectum (Z12.12) Active confirmed Problem 26542283 Preprocedural examination (Z01.818) Active confirmed Problem 063210024 Long-term use of aspirin therapy (Z79.82) Active confirmed Plan Of Treatment Pending Test Test Name Order Date GI BIOPSY 05/24/2016 Future Test Test Name Order Date COLONOSCOPY 02/27/2016 Insurance Providers Payer Name Payer Address Payer Phone Subscriber Number Group Number Insured Name Patient Relationship to Insured Coverage Start Date Coverage End Date [facility] [address] [place] [address] [id number] LOUISE FONTAINE Self - patient is the insured Medical (General) History Medical History History ICD Code Hypercholesterolemia Hypertension Denies AR,CVA,Lung disease,renal disease NIDDM Surgical History Surgery Date(Month/Year) Left knee surgery
--- NOTE | 2024-12-20 12:58 | MHC.OFFVIS ---
Intake Visit Reasons: 3m/ PSA/US Intake Note: Patient presents today for a 3 month follow up/US Imagin11/30/24 Urology Med:Vitamin B6 Antibiotic Allergy:None Blood Thinner: None Managing Partner [employer] [place] Required: No Accompanied by: Self / Same As Patient Allergies No Known Allergies Allergy (Verified 12/20/24 13:06) Medication List - Last Reconciled 12/20/24 by CHELSEY Naqvi-BRIEN atorvastatin 40 mg PO DAILY lisinopril-hydrochlorothiazide 10-12.5 mg 1 tab PO DAILY metformin ER 1,000 mg PO BID pyridoxine (vitamin B6) 50 mg PO DAILY 90 days HPI Comments Details: Jakob is a pleasant 59 year old male patient of Dr. Avila. He has a PMH of diabetes, hypertension, and nephrolithiasis. He presents to the office today for a follow up of his nephrolithasis. In discussion with the patient today reports to be doing and feeling well. He reports he has attempted to increase his hydration. He reports he has been attempting to drink 48-60 oz of water a day. Recent renal imaging results were reviewed 12/03 bilateral kidneys are normal in parenchymal echotexture and thickness. Right kidney with nonobstructing calculi measuring 2-3 mm with no hydronephrosis. Left kidney with 3.5 simple cyst in the interpolar region. There is a 6 mm nonobstructing calculus at the lower pole. There is no hydronephrosis. We did discussed at length further workup of nephrolithiasis to include Litholink. He would like to think about this. He reports compliance with vitamin B6 as prescribed. He otherwise denies any bothersome urinary issues. He discusses his previous history of nephrolithiasis however never requiring surgical intervention. We did discuss further treatment options to include surveillance monitoring versus surgical intervention. Risks and benefits of these interventions were discussed. All questions were answered. He denies urinary urgency, urinary frequency, incontinence, nocturia, hematuria, dysuria, foul smelling urine, changes to urinary stream, flank pain, fever, and or chills. He is happy with his current voiding parameters. In office urinalysis results reviewed with the patient today. He otherwise offers no other issues or concerns at this time. PSAs are as follows: 03/31 0.5, 12/30 0.6, 12/31 0.4, 01/02 0.6, 07/06 0.9 Nephrolithiasis Initial presentation 2021 with abdominal pain Imaging - 10/31 CT scan 4 mm left lower pole stone - 10/01 renal ultrasound normal No family history of stones Spontaneous passage PFSH Medical History Renal calculi Diabetes HTN (hypertension) Social History Alcohol intake: current Alcohol intake frequency: holidays/special occasions only Patient Tobacco Use Status: Never used Tobacco Review of Systems Const All systems reviewed & are unremarkable except as noted in HPI and below Physical Exam Const General: cooperative, healthy appearing, comfortable, no acute distress, well developed, alert and awake Orientation/consciousness: patient oriented x3 Limitations: no limitations HEENT Head: Yes normal to inspection, Yes normocephalic and Yes atraumatic Ears: hearing grossly normal bilaterally Eyes General: appearance normal, both eyes and all related structures Neck Neck: Yes normal visual inspection and Yes trachea midline Chest Chest palpation & inspection: normal inspection of the chest Resp Effort & Inspection: normal respiratory effort and able to speak in complete sentences Cardio Rate: regular rate GI Inspection: Yes normal to inspection General: Yes no CVA tenderness Back/Spine/Pelvis Back: no CVA tenderness Skin General skin exam: no rashes or lesions noted Neuro General: patient oriented x3 Extrem General: Yes normal to inspection Psych Appearance: grossly normal and well kempt Mental Status: mental status grossly normal Speech and movement: Normal speech and movement present and Clear speech present Affect: normal affect Attitude: cooperative Thought process: Normal thought process present Thought content: Normal thought content present Insight: Fair insight present (Psych) Judgement: Fair judgement present (Psych) Results Reviewed Results Reviewed: Date of Service: 11/30/24 Procedure(s): US renal BI FINDINGS: Right kidney: The right kidney measures 11.5 x 5.7 x 6.5 cm. Renal parenchymal echotexture and thickness are normal. There are no masses. There are nonobstructing calculi at the lower pole measuring 2 and 3 mm, and in the interpolar region measuring 3 mm. There is no hydronephrosis. Left Kidney: The left kidney measures 12.3 x 5.9 x 5.8 cm. Renal parenchymal echotexture and thickness are normal. There is a 3.3 x 3.5 x 3.2 cm simple cyst in the interpolar region. There is a 6 x 3 x 3 mm nonobstructing calculus at the lower pole. There is no hydronephrosis. IMPRESSION: 1. Bilateral nephrolithiasis as described. No hydronephrosis. 2. 3.3 x 3.5 x 3.2 cm left renal cyst. Assessment & Plan Assessment & Plan (1) Renal cyst: Code(s): N28.1 - Cyst of kidney, acquired Category: Medical (2) Renal calculi: Code(s): N20.0 - Calculus of kidney Category: Medical Plan In office urinalysis results reviewed with the patient today; as noted above. Recent renal imaging results reviewed with the patient today; as noted above We discussed at length the importance of adequate hydration relation to nephrolithiasis as well as overall health and well-being. Continue vitamin B6 as discussed and prescribed. We discussed adding 1 oz of lemon juice to water daily We discussed potential near future metabolic workup to include Litholink and labs; he will think about this He currently denies any bothersome urinary issues. He reports be happy with current voiding parameters. Will obtain renal ultrasound and KUB in 6 months for further assessment evaluation. We also discussed importance of management and diabetes for overall health and well-being. Follow-up in 6 months months with imaging and PSA to be completed prior; or sooner with any issues, concerns, and or questions. Orders: Orders US renal BI 6 Months N20.0 - Calculus of kidney XR KUB 6 Months N20.0 - Calculus of kidney Prostate Specific Antigen 6 Months N40.0 - Benign prostatic hyperplasia without lower urinary tract symptoms Patient Instructions: The patient had an opportunity to ask questions regarding the treatment plan. All questions were answered. Physical exam, labs, and imaging were discussed and reviewed in detail. As well as risks, benefits, and discussion of treatment choices. No major barriers to understanding were identified. The patient expressed understanding and agreement with the above treatment plan. The patient was made aware they should contact our office by phone for worsening of their current condition, the appearance of new symptoms, or with any questions or concerns. Compliance is encouraged with any medications and follow up testing that is ordered. It is a privilege to be allowed the opportunity to participate in? your urological care.? Again, if you have any questions or concerns If you have any questions or concerns please do not hesitate to contact me. The office is [phone]. This note is constructed using voice recognition software. While every effort has been made to ensure accuracy operations welder errors may have been included. Yours sincerely, LITO Naqvi Coding Level of Care Code Est Pt Level 3 (56767) Complex EM visit Add On G2211 Diagnoses Renal cyst N28.1 Renal calculi N20.0
== END 2024-12-20 13:27 | disposition home or self-care (01) ==
LOC: HO.HUSH 12:48
PROVIDERS: PCP Internal Medicine; Visit Provider Nurse Practitioner Family
DX: N28.1 Cyst of kidney, acquired (principal); N20.0 Calculus of kidney; Z13.9 Encounter for screening, unspecified
CPT/HCPCS: 99213

== ENCOUNTER → 2024-12-20 12:48 | Outpatient (BNVA) | payer BC, SELFPAY | PROVIDERS: PCP Internal Medicine; Visit Provider Nurse Practitioner Family | DX: N20.0 Calculus of kidney (principal) | CPT/HCPCS: 81003 ==

== ENCOUNTER 2025-01-04 10:53 | Outpatient (REF) | payer BC, SELFPAY ==
--- OUTSIDE RECORDS SUMMARY | 2024-08-23 06:00 | XMS_ITS ---
Author Organization Ramon Avila MD Address [address] [place] [phone] Care Team Providers Care Maintenance Welder Name Role Phone Austin Ramon Primary Care Provider [phone] REASON FOR VISIT ER Encounters Encounter Location Date Provider Diagnosis Ramon Avila MD 10 [facility] [address] [place] [phone] 08/23/2024 Ramon Avila Plan Of Treatment Next Appt Details Provider Name:Ramon Pink ier, 01/25/2025 01:00:00 PM, 10 [facility], [address] [place] [address], [phone], Progress Notes * Jakob AYALA RDOB:1965 (59 yo M)Acc No.[id number]:08/23/2024 Patient: Jakob BARAHONA :1965 A ge:59 Y S ex:Male Address:[address] [place] [phone] * true * Date: Generated for Wm grey/Karen/Shad on: 0 01/04/2025 11:46 AM EDT
--- OUTSIDE RECORDS SUMMARY | 2024-10-08 05:00 | XMS_ITS ---
Author Organization Ramon Avila MD Address [address] [place] [phone] Care Team Providers Care Program Management Manager Name Role Phone Ramon Avila Primary Care Provider [phone] Allergies No Known Allergies Results Component Value [...] days 07/05/2022 Acti ve OneTouch Delica Plus Bjbdzl33K - USE TO TEST BLOOD SUGAR ONCE DAILY Active FreeStyle Amrita 2 [place] - as directed 07/05/2022 Active FreeStyle Amrita 14 Day [place] - as directed 07/05/2022 Active Vital Signs Blood pressure systolic 118 mm Hg 10/09/19 25 Blood pressure diastolic 70 mm Hg 025 Height 69 in 10/08/2024 Weight 201 lbs 10/08/2024 BMI 29.68 kg/m2 10/08/2024 weight is up 6 pounds since 07-09-24 Encounters Encounter Location Date Provider Diagnosis Ramon Avila MD [address] [facility] [address] [place] [phone] 10/08/2024 Ramon Avila Type 2 diabetes mellitus without complication E11.9 [...] Up: 3 Months, Reason: Provider Name:Ramon van, 01/25/2025 01:00:00 PM, [address] [facility], [address], [place], [place], [phone], Progress Notes * Jakob AYALA RDOB:1965 (59 yo M)Acc No.[id number]:10/08/2024 Progress Notes Patient: Jakob BARAHONA Provider: Miko Avila MD :1965 A ge:59 Y S ex:Male Date:10/08/2024 Address:[address] [place] [phone] Subjective: * Chief Complaints: * 3 MO [...] exertion. G astrointestinal: Denies D iarrhea. D enies N ausea. * Medical History: * Surgical History: * Hospitalization/Major Diagno stic Procedure: * Medications: T akingOneTouch Delica Plus Skwweq56Q - Miscellaneous USE TO TEST BLOOD SUGAR ONCE DAILY FreeStyle Amrita 14 Day [place] - Device as directed FreeStyle Amrita 2 [place] - Device as directed FreeStyle Amrita 2 [...] 14 DAYS DIRECTED Taking OneTouch Delica Plus Hbdung70K - Miscellaneous USE TO TEST BLOOD SUGAR ONCE DAILY Taking FreeStyle Amrita 14 Day [place] - Device as directed Taking FreeStyle Amrita 2 [place] - Device as directed Taking FreeStyle Amrita [...] 2947 ASSAY, GLUCOSE, BLOOD QUANT, Modifiers: QW [id number] GLYCATED HEMOGLOBIN TEST, Modifiers: QW * Follow Up: 3 Months * * Sign off status: Completed true * Provider: Miko Avila MD Date: 0 10/08/2024 Generated for Nellyi ng/Melodyg/eTransmitting on: 0 01/04/2025 11:47 AM EDT History and Physical Notes * HPI [...]
--- OUTSIDE RECORDS SUMMARY | 2025-01-04 03:30 | XMS_ITS ---
Author Organization Ramon Avila MD Address [address] [place] [phone] Care Team Providers Care Chicken Tender Name Role Phone Austin Ramon Primary Care Provider Results Component Value Reference Range Notes Complete Blood Count Auto Di ff (Not yet reviewed by provider) Interpretation: Performing Lab:[facility], [address] [place] [phone] Notes/Report: White Blood Count 6.9 4.8-10.8 X10*3/uL [...] X10*3/uL NRBC Abs Auto 0.000 0.0-0.012 X10*3/uL UA ClnCatch+Micro w/rflx Cul t (Not yet reviewed by provider) Interpretation: Performing Lab:[facility], [address] [place] [phone] Notes/Report: Urine, Clean Catch Color Urine Yellow Appearance Urine Cloudy PH 5.0 5.0-9.0 Glucose Urine UA Negative Negative mg/dL Urine Blood Negative Negative Specific [place] - Urine 1.025 1.005-1.025 Urine Protein Negative [...] Provider Diagnosis Ramon Avila MD [address] [facility] [address] [place], [place] [phone] 01/04/2025 Ramon Avila Blood tests for rout ine general physical examination Z00.00 ; Type 2 diabetes mellitus without complication E11.9 ; Essential hypertension I10 and Pure hypercholesterolemia E78.00 Assessments Encounter Date Diagnosis (ICD Code) Assessment Notes Treatment Notes Treatment Clinical Notes Section Notes 01/04/2025 Blood tests for marcelino ine general physical examination (ICD-10 - Z00.00) 01/04/2025 Type 2 diabetes peggy itus without complication (ICD-10 - E11.9) 01/04/2025 Essential hypertensi on (ICD-10 - I10) 01/04/2025 Pure hypercholesterolemia (ICD-10 - E78.00) Plan Of Treatment Pending Test Test Name Order Date Complete Blood Count Auto Diff Comprehensive [place]. Panel Fast Lipid Panel 01/04/2025 PSA,Total (Free>4and<10) 01/04/2025 Microalbumin, Random 01/04/2025 Hemoglobin A1c 01/04/2025 UA ClnCatch+Micro w/rflx Cult 01/04/2025 Next Appt Details Provider Name:Ramon Pink ier, 01/25/2025 01:00:00 PM, [address] [place] [address], [address], [place], [phone], Progress Notes * EVELIN Jakob RDOB:1965 (59 yo M)Acc No.[id number]:01/04/2025 Progress Note Patient: Jakob BARAHONA Provider: Miko Avila MD :1965 A ge:59 Y S ex:Male Date:01/04/2025 Address:[address] [place] [id number] Subjective: * Chief Complaints: * 1 . [...] 2 diabetes mellitus without complication L AB: Complete Blood Count Auto Diff (Collection Date & Time - 01/04/2025 07:30 AM) L AB: Comprehensive [place]. Panel Fast L AB: Lipid Panel L AB: PSA,Total (Free>4and<10) L AB: Microalbumin, Random L AB: Hemoglobin A1c L AB: UA ClnCatch+Micro w/rflx Cult (Collection Date & Time - 01/04/2025 07:30 AM) 3. E ssential hypertension L AB: Complete Blood Count Auto Diff (Collection Date & Time - 01/04/2025 07:30 AM) L AB: Comprehensive [place]. Panel Fast L AB: Lipid Panel L AB: PSA,Total (Free>4and<10) L AB: Microalbumin, Random L AB: Hemoglobin A1c L AB: UA ClnCatch+Micro w/rflx Cult (Collection Date & Time - 01/04/2025 07:30 AM) 4. P ure hypercholesterolemia L AB: Complete Blood Count Auto Diff (Collection Date & Time - 01/04/2025 07:30 AM) L AB: Comprehensive [place]. Panel Fast L AB: Lipid Panel L AB: PSA,Total (Free>4and<10) L AB: Microalbumin, Random L AB: Hemoglobin A1c L AB: UA ClnCatch+Micro w/rflx Cult (Collection [...] MD Date: 0 01/04/2025 Generated for Wm grey/Karen/Shad on: 01/04/2025 11:47 AM EDT
[2025-01-04 11:01] LABS: MANUAL DIFF FLAG NO
[2025-01-04 11:35] LABS: Hematocrit 41.5 % (42.0-52.0); Hemoglobin 14.4 g/dl (14.0-18.0); Imm Gran Abs Auto 0.03 X10*3/uL (0.00-0.03); Imm Gran Pct Auto 0.4 % (0.0-0.4); Lymphocytes Absolute Auto 2.2 X10*3/uL (1.2-4.9); Mean Corpuscular HGB Conc 34.7 g/dl (31.0-36.0); Mean Corpuscular Hemoglobin 30.6 pg (27.0-33.0); Mean Corpuscular Volume 88.3 fL (80.0-98.0); NRBC Abs Auto 0.000 X10*3/uL (0.0-0.012); NRBC Pct Auto 0.0 /100WBC (0.0-0.2); Platelet Count 236 X10*3/uL (160-400); Red Blood Count 4.70 X10*6/uL (4.60-5.80); White Blood Count 6.9 X10*3/uL (4.8-10.8)
[2025-01-04 11:37] LABS: Appearance Urine Cloudy; Glucose Urine UA Negative (Negative); PH 5.0 (5.0-9.0); Specific Gravity - Urine 1.025 (1.005-1.025)
--- OUTSIDE RECORDS SUMMARY | 2025-01-04 11:48 | XMS_ITS | Patient Health Record ---
Author Organization [facility] Address [address] [place] [address] Care Team Providers Care Boot And Shoe Repairman Name Role Phone Ramon Avila MD Primary Care Provider Checo Davila Unavailable [phone] Reason For Referral No Information Medications Medication [...] Problem Status W/U Status Risk Notes Problem 509046276 Encounter for screening for malignant neoplasm of colon (Z12.11) Active confirmed Problem Screening for malignant neoplasm of rectum (408500780) Encounter for screening for malignant neoplasm of rectum (Z12.12) Active confirmed Problem 76988952 Preprocedural examination (Z01.818) Active confirmed Problem 908745126 Long-term use of aspirin therapy (Z79.82) Active confirmed Plan Of Treatment Pending Test Test Name Order Date GI BIOPSY 05/24/2016 Future Test Test Name Order Date COLONOSCOPY 02/27/2016 Insurance Providers Payer Name Payer Address Payer Phone Subscriber Number Group Number Insured Name Patient Relationship to Insured Coverage Start Date Coverage End Date [facility] [employer] [facility] [address] [place] [address] [id number] LOUISE FONTAINE Self - patient is the insured Medical (General) History Medical History History ICD Code Hypercholesterolemia Hypertension Denies MT,CVA,Lung disease,renal disease NIDDM Surgical History Surgery Date(Month/Year) Left knee surgery
--- OUTSIDE RECORDS SUMMARY | 2025-01-04 11:48 | XMS_ITS | Patient Health Record ---
Author Organization Ramon Avila MD Address [address] [place] [phone] Care Team Providers Care Hydrographic Surveyor Name Role Phone Ramon Avila Primary Care Provider Allergies No Known Allergies Results Component Value Reference Range Notes Hemoglobin A1c Reviewed date:07/09/2024 01:36:04 PM Interpretation: Performing Lab: Notes/Report: Hemoglobin A1c 8.0 Hemoglobin A1c Reviewed date:10/08/2024 09:19:43 AM Interpretation: Performing Lab: Notes/Report: Hemoglobin A1c 8.1 Complete Blood Count Auto Di ff Reviewed date:07/06/2024 04:47:32 PM Interpretation: Performing Lab:[facility], [address] [place] [phone] Notes/Report: White Blood Count 7.5 4.8-10.8 X10*3/uL [...] NRBC Abs Auto 0.000 0.0-0.012 X10*3/uL Comprehensive [place]. Panel Fa st Reviewed date:07/06/2024 04:46:58 PM Interpretation: Performing Lab:[facility], [address] [place] [phone] Notes/Report: Sodium 140 135-145 mmol/L Potassium 4.2 [...] Panel Reviewed date:07/06/2024 12:36:17 PM Interpretation: Performing Lab:[facility], [address] [place] [phone] Notes/Report: Triglycerides 199 <150 mg/dL Desirable Triglyceride: [...] (Free>4and<10) Reviewed date:07/06/2024 12:30:36 PM Interpretation: Performing Lab:[facility], [address] [place] [phone] Notes/Report: PSA,Total (Free>4and<10) 0.94 0.00-4.00 ng/mL A [...] Random Reviewed date:07/06/2024 12:30:28 PM Interpretation: Performing Lab:[address] [phone] Notes/Report: Creatinine Urine 483.43 Microalbumin Urine 43.0 Microalbum/Creatinine Ratio Ur 8.8 <30 ug/mg cr Albumin/Creatinine Ratio Reference Ranges: Normal: < 30 ug/mg creatinine Microalbuminuria: 30 - 300 ug/mg creatinine Clinical Albuminuria: > 300 ug/mg creatinine UA ClnCatch+Micro w/rflx Cul t Reviewed date:07/06/2024 12:29:35 PM Interpretation: Performing Lab:[address] [phone] Notes/Report: Urine, Clean Catch Color Urine Dark Yellow Appearance Urine Turbid PH 5.0 5.0-9.0 Glucose Urine UA Negative Negative mg/dL Urine Blood Negative Negative Specific [place] - Urine >= 1.030 1.005-1.025 Urine Protein 30 (1+) Neg-Trace mg/dL Urine Ketones Trace Negative mg/dL Nitrite Urine Negative Negative Leukocyte Esterase Urine Negative Negative RBC Urine 0-2 0-2 /HPF WBC Urine 0-5 0-5 /HPF Squamous Epithelial Cell Urine 0-2 0-2 /HPF Calcium Oxalate Crystals Urine Present Other Crystals Urine Present Bacteria Urine None Seen None Seen Hyaline Casts Urine 3-5 0-2 /LPF Complete Blood Count Auto Di ff (Not yet reviewed by provider) Interpretation: Performing Lab:[address] [phone] Notes/Report: White Blood Count 6.9 4.8-10.8 X10*3/uL [...] 0.0-0.2 /100WBC Neutrophils Absolute Auto 3.9 2.0-8.3 x10*3/uL Imm Gran Abs Auto 0.03 0.00-0.03 X10*3/uL Lymphocytes Absolute Auto 2.2 1.2-4.9 X10*3/uL Monocytes Absolute Auto 0.6 0.1-1.2 X10*3/uL Eosinophils Absolute Auto 0.2 0.0-0.4 X10*3/uL Basophils Absolute Auto 0.0 0.0-0.2 X10*3/uL NRBC Abs Auto 0.000 0.0-0.012 X10*3/uL UA ClnCatch+Micro w/rflx Cul t (Not yet reviewed by provider) Interpretation: Performing Lab:[facility], [address] [place] [phone] Notes/Report: Urine, Clean Catch Color Urine Yellow Appearance Urine Cloudy PH 5.0 5.0-9.0 Glucose Urine UA Negative Negative mg/dL Urine Blood Negative Negative Specific [place] - Urine 1.025 1.005-1.025 Urine Protein Negative Neg-Trace mg/dL Urine Ketones Negative Negative mg/dL Nitrite Urine Negative Negative Leukocyte Esterase Urine Negative Negative RBC Urine 0-2 0-2 /HPF WBC Urine 0-5 0-5 /HPF Squamous Epithelial Cell Urine 0-2 0-2 /HPF Bacteria Urine None Seen None Seen Hyaline Casts Urine 0-2 0-2 /LPF Occult Blood, Stool, Guaiac Reviewed date:01/08/2024 02:57:09 PM Interpretation:Negative Performing Lab: Notes/Report: Negative Occult Blood, Stool, Guaiac Neg SARS-CoV2/FLU/RSV Reviewed date:06/17/2024 12:56:49 PM Interpretation: Performing Lab:[facility], [address] [place] [phone] Notes/Report: Influenza A PCR POSITIVE Negative Influenza [...] by authorized laboratories. Testing performed on the [employer] GeneXpert utilizing real-time RT-PCR. All SARS CoV2 and positive influenza A/B results are reported to [facility]. Glucose, finger stick Reviewed date:07/09/2024 01:35:47 PM Interpretation: Performing Lab: Notes/Report: Value 130 Glucose, finger stick Reviewed date:10/08/2024 09:13:16 AM Interpretation: Performing Lab: Notes/Report: Value 187 US renal BI Reviewed date:03/18/2024 04:40:33 PM Interpretation: Performing Lab: Notes/Report: [address] [address] Ultrasound Report Signed Patient: Jakob Fontaine MR#: [id number] 6 : 1965 Acct:[id number] Age/Sex: 58 / M ADM Date: 03/01/24 Loc: HO.US Attending Dr: Jackelyn MORSE Ordering Physician: Jackelyn Luna Date of Service: 03/01/24 Procedure(s): US renal BI Accession Number(s): [id number] cc: Ramon Avila MD; Jackelyn Luna EXAMINATION: [...] 03/18/24 1353 DD/ 1305 TD/TT: 03/01/24 1312 Religious Healer: [place] [address] Ultrasound Report Signed Patient: Jakob Fontaine MR#: [id number] 6 : 1965 Acct:[id number] Age/Sex: 58 / M ADM Date: 03/01/24 Loc: .US Attending Dr: Jackelyn MORSE Ordering Physician: Jackelyn Luna Date of Service: 03/01/24 Procedure(s): US femi al BI Accession Number(s): [id number] cc: Ramon Avila MD; Jackelyn Luna EXAMINATION: [...] 03/18/2024 01:53 PM EST Dictated By: Luis Stover MD Signed By: <Electronically signed by Luis Brian MD in OV> 03/18/24 1353 DD/ 1305 TD/TT: 03/01/24 1312 Religious Healer: XR chest 2V Reviewed date:06/17/2024 12:57:14 PM Interpretation: Performing Lab: Notes/Report: [place] [address] XRay Report Signed Patient: Jakob Fontaine MR#: [id number] 6 : 1965 Acct:[id number] Age/Sex: 59 / M ADM Date: 06/17/24 Loc: HO.HUYENAY Attending Dr: Ramon Avila MD Ordering Physician: Ramon Avila MD Date of Service: 06/17/24 Procedure(s): XR chest 2V Accession Number(s): [id number] cc: Ramon Avila MD EXAMINATION: XR CHEST [...] OV> 06/17/24 1009 DD/ 5 TD/TT: 06/17/241004 Religious Healer: [address] [address] XRay Report Signed Patient: Jakob Fontaine MR#: [id number] 6 : 1965 Acct:[id number] Age/Sex: 59 / M ADM Date: 06/17/24 Loc: JOS Attending Dr: Ramon Avila MD Ordering Physician: Ramon Avila MD Date of Service: 06/17/24 Procedure(s): XR craig st 2V Accession Number(s): [id number] cc: Ramon Avila MD EXAMINATION: XR CHES [...] OV> 06/17/24 1009 DD/ 5 TD/TT: 06/17/241004 Religious Healer: Complete Blood Count Auto Di ff Reviewed date:06/21/2024 05:10:22 PM Interpretation: Performing Lab:[facility], [address] [place] [phone] Notes/Report: White Blood Count 9.7 4.8-10.8 X10*3/uL [...] Panel Reviewed date:06/21/2024 05:15:43 PM Interpretation: Performing Lab:[facility], [address] [place] [phone] Notes/Report: Sodium 138 135-145 mmol/L Potassium 4.1 [...] Magnesium Reviewed date:06/21/2024 05:15:14 PM Interpretation: Performing Lab:[facility], [address] [place] [phone] Notes/Report: Magnesium 1.9 1.6-2.6 mg/dL Troponin-I High Sensitivity Reviewed date:06/22/2024 12:39:34 PM Interpretation: Performing Lab:[facility], [address] [place] [phone] Notes/Report: Troponin-I High Sensitivity < 2.7 <3.5-35.0 ng/L The [place] high sensitivity Troponin-I results should be used in conjunction with other diagnostic information such as ECG, clinical observations and information, and patient symptoms to aid in the diagnosis of [place]. SARS-CoV2/FLU/RSV Reviewed date:06/22/2024 09:33:45 AM Interpretation: Performing Lab:[facility], [address] [place] [phone] Notes/Report: Influenza A PCR POSITIVE Negative Influenza [...] by authorized laboratories. Testing performed on the [employer] GeneXpert utilizing real-time RT-PCR. All SARS CoV2 and positive influenza A/B results are reported to [facility]. XR chest 2V Reviewed date:06/22/2024 09:34:03 AM Interpretation: Performing Lab: Notes/Report: [address] [address] XRay Report Signed Patient: Jakob Fontaine MR#: [id number] 6 : 1965 Acct:[id number] Age/Sex: 59 / M ADM Date: 06/21/24 Loc: .ED Attending Dr: Ordering Physician: Jaclyn Daily Date of Service: 06/21/24 Procedure(s): XR chest 2V Accession Number(s): [id number] cc: Ramon Avila MD; Jaclyn Daily CLINICAL [...] in OV> 06/21/242015 DD/ 14 TD/TT: 06/21/242014 Religious Healer: [address] [address] XRay Report Signed Patient: Jakob Fontaine MR#: [id number] 6 : 1965 Acct:[id number] Age/Sex: 59 / M ADM Date: 06/21/24 Loc: .ED Attending Dr: Ordering Physician: Jaclyn Daily Date of Service: 06/21/24 Procedure(s): XR craig st 2V Accession Number(s): [id number] cc: Ramon Avila MD; Jaclyn Daily CLINICAL [...] in OV> 06/21/242015 DD/ 14 TD/TT: 06/21/242014 Religious Healer: Complete Blood Count Auto Di ff Reviewed date:08/20/2024 05:08:10 PM Interpretation: Performing Lab:[facility], [address] [place] [phone] Notes/Report: White Blood Count 9.7 4.8-10.8 X10*3/uL [...] Panel Reviewed date:08/20/2024 05:03:10 PM Interpretation: Performing Lab:[address] [address] Notes/Report: Sodium 140 135-145 mmol/L Potassium 5.0 [...] t Reviewed date:08/20/2024 05:14:40 PM Interpretation: Performing Lab:[address] [phone] Notes/Report: [id number] Urine, Clean Catch Color Urine Yellow Appearance Urine Clear PH 5.5 5.0-9.0 Glucose Urine UA >=1000 Negative mg/dL Urine Blood Moderate (2+) Negative Specific [place] - Urine 1.025 1.005-1.025 Urine Protein Negative [...] date:08/20/2024 05:00:29 PM Interpretation: Performing Lab: Notes/Report: [address] [address] [address] Scan Report Signed Patient: Jakob Fontaine MR#: [id number] 6 : 1965 Acct:[id number] Age/Sex: 59 / M ADM Date: 08/20/24 Loc: HO.ED Attending Dr: Ordering Physician: Madhavi Crowley MD Date of Service: 08/20/24 Procedure(s): CT abdomen pelvis wo IV con Accession Number(s): [id number] cc: Ramon Avila MD; Madhavi Crowley MD Report Number: [id number]: Total DLP = 562.00 mGy-cm EXAMINATION: CT [...] Checo Segal MD 08/20/2024 01:53 PM EDT Dictated By: Checo Segal MD Signed By: <Electronically signed by Checo Segal MD in OV> 08/20/24 1353 DD/ 1312 TD/TT: 08/20/24 1323 Religious Healer: [address] [address] [address] Scan Report Signed Patient: Jakob Fontaine MR#: [id number] 6 : 1965 Acct:[id number] Age/Sex: 59 / M ADM Date: 08/20/24 Loc: HO.ED Attending Dr: Ordering Physician: Madhavi Crowley MD Date of Service: 08/20/24 Procedure(s): CT abd omen pelvis wo IV con Accession Number(s): [id number] cc: Ramon Avila MD; Madhavi Crowley MD Report Number: [id number]: Total DLP = 562.00 mGy-cm EXAMINATION: CT [...] 08/20/24 1353 DD/ 1312 TD/TT: 08/20/24 1323 Religious Healer: US renal BI Reviewed date:11/30/2024 02:45:54 PM Interpretation: Performing Lab: Notes/Report: [place] [address] Ultrasound Report Signed Patient: Jakob Fontaine MR#: [id number] 6 : 1965 Acct:[id number] Age/Sex: 59 / M ADM Date: 11/30/24 Loc: .US Attending Dr: Jackelyn MORSE Ordering Physician: Jackelyn Luna Date of Service: 11/30/24 Procedure(s): US renal BI Accession Number(s): [id number] cc: Ramon Avila MD; Jackelyn Luna EXAMINATION: US KIDNEY BILATERAL HISTORY: N20.0 - Calculus of kidney TECHNIQUE: Real-time grayscale ultrasound imaging of the kidneys was performed and images were reviewed. COMPARISON: Comparison is made with the prior examination dated 03/01/2024. FINDINGS: Right kidney: The right kidney measures 11.5 x 5.7 x 6.5 cm. Renal parenchymal echotexture and thickness are normal. There are no masses. There are nonobstructing calculi at the lower pole measuring 2 and 3 mm, and in the interpolar region measuring 3 mm. There is no hydronephrosis. Left Kidney: The left kidney measures 12.3 x 5.9 x 5.8 cm. Renal parenchymal echotexture and thickness are normal. There is a 3.3 x 3.5 x 3.2 cm simple cyst in the interpolar region. There is a 6 x 3 x 3 mm nonobstructing calculus at the lower pole. There is no hydronephrosis. US/US renal BI IMPRESSION: 1. Bilateral nephrolithiasis as described. No hydronephrosis. 2. 3.3 x 3.5 x 3.2 cm left renal cyst. Electronically signed by: Checo Segal MD 11/30/2024 01:42 PM EDT RP Dictated By: Checo Segal MD Signed By: <Electronically signed by Checo Segal MD in OV> 11/30/24 1342 DD/ 1308 TD/TT: 11/30/24 1318 Religious Healer: [place] [address] Ultrasound Report Signed Patient: Jakob Fontaine MR#: [id number] 6 : 1965 Acct:[id number] Age/Sex: 59 / M ADM Date: 11/30/24 Loc: . Attending Dr: Jackelyn metz [facility] Ordering Physician: Jackelyn Luna Date of Service: 11/30/24 Procedure(s): US femi Candelario Accession Number(s): [id number] cc: Ramon Avila MD; Jackelyn Luna [facility] EXAMINATION: US TAZ LUNDY BILATERAL HISTORY: N20.0 - Calculus of kidney TECHNIQUE: Real-time grayscale ultrasound imaging of the kidneys was performed and images were reviewed. COMPARISON: Comparis on is made with the prior examination dated 03/01/2024. FINDINGS: Right kidney: The ri ght kidney measures 11.5 x 5.7 x 6.5 cm. Renal parenchymal echotext ure and thickness are normal. There are no masses. There are nonobstruc ting calculi at the lower pole measuring 2 and 3 mm, and in the interpolar region measuring 3 mm. There is no hydronephrosis. Left Kidney: The lef t kidney measures 12.3 x 5.9 x 5.8 cm. Renal parenchymal echotext ure and thickness are normal. There is a 3.3 x 3.5 x 3.2 cm simple cyst in the interpolar region. There is a 6 x 3 x 3 mm nonobstructing calcu giovanni at the lower pole. There is no hydronephrosis. U S/US renal BI IMPRESSION: 1. Bilateral nephrolithiasis as described. No hydronephrosis. 2. 3.3 x 3.5 x 3.2 c m left renal cyst. Electronically vijaya d by: Checo Segal MD 11/30/2024 01:42 PM EDT RP Dictated By: Checo Segal MD Signed By: <Electronically signed by Checo Segal MD in OV> 11/30/24 1342 DD/ 1308 TD/TT: 11/30/24 1318 Religious Healer: Reason For Referral No Information Medications Medication SIG (Take, Route, Frequency, Duration) Notes Start Date End Date Status Augmentin 500-125 MG 1 tablet Orally melinda ry 12 hrs Not-Taking Ibuprofen 200 MG 1 tablet with food o r milk as needed Orally Three times a day Not-Taking OneTouch Delica Plus Pstwys94V - USE TO TEST BLOOD SUGAR ONCE DAILY Active guaiFENesin-Codeine 100-10 MG/5ML 10 mL as needed Orally every 4 hrs as needed for 10 days 05/09/2022 Not-Taking Januvia 100 mg TAKE 1 TABLET DAILY Orally Once a day for 90 days Not-Taking Atorvastatin Calcium 40 mg TAKE 1 [...] TWICE A DAY Active FreeStyle Amrita 2 [place] - as directed 07/05/2022 Active FreeStyle Amrita 14 Day [place] - as directed 07/05/2022 Active Tylenol Extra Strength 500 MG 1 tablet as needed Orally every 6 hrs Not-Taking FreeStyle Amrita 2 [place] - as directed for 90 days 07/05/2022 Acti ve Immunizations Vaccine Route Administration Date Status Comme [...] Status W/U Status Risk Notes Problem Hypertension (31748073) Hypertension (401.9) Active confirmed Problem Gout (95705655) Gout (M10.9) Active confirmed Problem 385220392 Hypertrophy of b reast (N62) Active confirmed Problem Kidney stone (70511217) Kidney stone (N20.0) Active confirmed Problem 88276352 Essential hypert ension (I10) Active confirmed Problem 20837325 Type 2 diabetes mellitus without complication (E11.9) Active confirmed Problem 369125619 Low HDL (under 4 0) (E78.6) Active confirmed Problem 63683320 Memory loss (R41.3) Active confirmed Problem 278863262 Cervical disc di sease (M50.90) Active confirmed Problem 951659833 Pure hypercholesterolemia (E78.00) Active confirmed Problem 40924256 Pharyngoesophage al dysphagia (R13.14) Active confirmed Problem 698623983 Benign neoplasm breast, 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 Problem 850926482 Benign neoplasm breast, 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 Problem 785426319 Enlarged tonsils (J35.1) Active confirmed Problem 594000624 Anterolisthesis (M43.10) Active confirmed Vital Signs Temperature 102 degrees Fahrenheit 06/17/2024 weigh t is 187 BP not taken temp 102 Blood pressure diastolic 70 mm Hg 10/08/2024 sho ght is up 6 pounds since 07-09-24 Height 69 in 10/08/2024 weight is up 6 pounds since 07-09-24 Blood pressure systolic 118 mm Hg 10/08/2024 weig ht is up 6 pounds since 07-09-24 Weight 201 lbs 10/08/2024 weight is up 6 pounds since 07-09-24 BMI 29.68 kg/m2 10/08/2024 weight is up 6 pounds since 07-09-24 Encounters Encounter Location Date Provider Diagnosis Ramon Avila MD [address] [place] [id number] 01/22/2024 Ramon Avila Encounter for immuni zation Z23 Ramon Avila MD [address] [place] [id number] 07/06/2024 Ramon Avila Blood tests for rout ine general physical examination Z00.00 ; Type 2 diabetes mellitus without complication E11.9 ; Pure hypercholesterolemia E78.00 and Essential hypertension I10 Ramon Avila MD [address] [place] [id number] 01/04/2025 Ramon Avila Blood tests for rout ine general physical examination Z00.00 ; Type 2 diabetes mellitus without complication E11.9 ; Essential hypertension I10 and Pure hypercholesterolemia E78.00 Ramon Avila MD [address] [place] [id number] 01/08/2024 Ramon Avila Type 2 diabetes peggy itus without complication E11.9 ; Annual physical exam Z00.00 ; Pure hypercholesterolemia E78.00 ; Hypertrophy of breast N62 ; Essential hypertension I10 ; Colon cancer screening Z12.11 and Depression screening Z13.31 Ramon Avila MD [address] [place] [id number] 06/17/2024 Ramon Avila Acute pneumonia J18. 9 and Influenza A J10.1 Ramon Avila MD [address] [place] [id number] 06/29/2024 Ramon Avila Influenza A J10.1 Ramon Avila MD [address] [place] [id number] 07/09/2024 Ramon Avila Type 2 diabetes peggy itus without complication E11.9 ; Heart murmur R01.1 and Pure hypercholesterolemia E78.00 Ramon Avila MD [address] [place] [id number] 10/08/2024 Ramon Avila Type 2 diabetes peggy itus without complication E11.9 Ramon Avila MD [address] [place] [id number] 04/15/2024 Ramon Avila Pure hypercholestero lemia E78.00 Ramon Avila MD [address] [place] [id number] 06/24/2024 Ramon Avila MD [address] [place] [id number] 08/20/2024 Ramon Avila MD [address] [place] [id number] 08/23/2024 Ramonkya Avila MD [address] [place], [place] [id number] 02/29/2024 Ramon Avila Pure hypercholestero lemia E78.00 Assessments Encounter Date Diagnosis (ICD Code) Assessment Notes Treatment Notes Treatment Clinical Notes Section Notes 01/22/2024 Encounter for immunization (ICD-10 - Z23) 07/06/20[address] ine general physical examination (ICD-10 - Z00.00) 01/04/2025 Blood tests for rout ine general physical examination (ICD-10 - Z00.00) 01/08/2024 Type 2 diabetes mellitus without complication (ICD-10 - E11.9) not at goal, needs to be on insulin but still refusing 01/08/2024 Annual physical exam (ICD-10 - Z00.00) labs reviewed and discussed with patient 06/17/2024 Acute pneumonia (ICD -10 - J18.9) order for [facility] x-ray marked STAT. Both orders faxed to [facility] Patient Reg.PATIENT AWARE THAT HIS ORDERS ARE AT PATIENT REG [facility] 06/17/2024 Influenza A (ICD-10 - J10.1) 06/29/2024 Influenza A (ICD-10 - J10.1) started to take the amoxicilin and felt better. will stop amoxicillin since it is not treating anything. 07/09/2024 Type 2 diabetes mellitus without complication (ICD-10 - E11.9) running a little high will recheck in 3 months, will continue current regiment until recheck 07/09/2024 Heart murmur (ICD-10 - R01.1) 10/08/2024 Type 2 diabetes mellitus without complication (ICD-10 - E11.9) have spoken to him about getting on insulin and he is going to think Total time spent on the date of the encounter is 35 minutes including both face to face time spent and time spent reviewing documentation, and counseling the patient. 04/15/2024 Pure hypercholesterolemia (ICD-10 - E78.00) 02/29/2024 Pure hypercholesterolemia (ICD-10 - E78.00) 07/06/2024 Type 2 diabetes mellitus without complication (ICD-10 - E11.9) 01/04/2025 Type 2 diabetes mellitus without complication (ICD-10 - E11.9) 01/08/2024 Pure hypercholesterolemia (ICD-10 - E78.00) well controlled on meds, will continue current regiment 07/09/2024 Pure hypercholesterolemia (ICD-10 - E78.00) stable, will contoinue current regiment 07/06/2024 Pure hypercholesterolemia (ICD-10 - E78.00) 01/04/2025 Essential hypertensi on (ICD-10 - I10) 01/08/2024 Hypertrophy of breas t (ICD-10 - N62) no evidence of any masses, will continue to monitor 07/06/2024 Essential hypertensi on (ICD-10 - I10) 01/04/2025 Pure hypercholesterolemia (ICD-10 - E78.00) 01/08/2024 Essential hypertensi on (ICD-10 - I10) well controlled, will continue current regiment 01/08/2024 Colon cancer screeni ng (ICD-10 - Z12.11) guaiac negative 01/08/2024 Depression screening (ICD-10 - Z13.31) negative screen Plan Of Treatment Pending Test Test Name Order Date Electrocardiogram (EKG) 06/26/2012 Electrocardiogram (EKG) 10/26/2015 Electrocardiogram (EKG) 11/13/2017 XR CHEST 2 VIEW PA & LAT 06/17/2024 ECHO 07/09/2024 Complete Blood Count Auto Diff 5 Comprehensive [place]. Panel Fast 5 Lipid Panel 01/04/2025 PSA,Total (Free>4and<10) 01/04/2025 Microalbumin, Random 01/04/2025 Hemoglobin A1c 07/06/2024 Hemoglobin A1c 01/04/2025 UA ClnCatch+Micro w/rflx Cult 01/04/2025 Next Appt Details Provider Name:Ramon van, 01/25/2025 01:00:00 PM, [address] [place] [address], [address], [place], [place], [phone], Insurance Providers Payer Name Payer Address Payer Phone Subscriber Number Group Number Insured Name Patient Relationship to Insured Coverage Start Date Coverage End Date [employer] [address] [place], [place] [phone] [id number] Jakob Fontaine Self - patient is the insured Medical (General) History Medical History History ICD Code Colonoscopy done 05/24/[address] Chanel/rony perplastic polyp due in 10
[2025-01-04 11:50] LABS: Hemoglobin A1C 250.0003 umol/L; Total Hemoglobin (HGBA1C) 3792.9842 umol/L
[2025-01-04 12:03] LABS: Alanine Aminotransferase 30 U/L (0-40); Albumin Level 4.5 g/dL (3.5-5.0); Alkaline Phosphatase 46 U/L (39-117); Anion Gap 14 (12-20); Aspartate Amino Transferase 24 U/L (5-37); Blood Urea Nitrogen 12 mg/dL (9-16); Calcium 9.2 mg/dL (8.4-10.2); Carbon Dioxide 26 mmol/L (22-29); Chloride 104 mmol/L (96-108); Cholesterol 150 mg/dL (<200); Estimated Glomerular Filt Rate > 60; HDL Cholesterol 37 mg/dL (>40); Potassium 4.5 mmol/L (3.3-5.1); Sodium 139 mmol/L (135-145); Total Protein 6.9 g/dL (6.5-8.0); Triglycerides 207 mg/dL (<150)
[2025-01-04 12:10] LABS: PSA,Total (Free>4and<10) 0.73 ng/mL (0.00-4.00)
[2025-01-04 13:04] LABS: Microalbum/Creatinine Ratio Ur 5.2 ug/mg cr (<30)
== END 2025-01-04 10:54 | disposition home or self-care (01) ==
LOC: HO.LNP 10:53
PROVIDERS: Visit Provider Internal Medicine
DX: Z00.00 Encounter for general adult medical examination without abnormal findings (principal); Z12.5 Encounter for screening for malignant neoplasm of prostate; I10 Essential (primary) hypertension; E11.9 Type 2 diabetes mellitus without complications; E78.00 Pure hypercholesterolemia, unspecified
CPT/HCPCS: 80053; 80061; 81001; 82043; 82570; 83036; 84153; 85025

== ENCOUNTER 2025-02-03 12:53 | Outpatient (AMB) | payer BC, SELFPAY ==
--- OUTSIDE RECORDS SUMMARY | 2024-08-20 04:39 | XMS_ITS ---
Author Organization Ramon Avila MD Address [address] [place] [phone] Care Team Providers Care Seo Team Lead Name Role Phone Ramon Avila Primary Care Provider REASON FOR VISIT taking him to Urgent care Encounters Encounter Location Date Provider Diagnosis Ramon Avila MD [address] [place] [address] [address] [place] [phone] 08/20/2024 Ramon Avila Plan Of Treatment Next Appt Details Provider Name:Ramon Pink ier, 02/25/2025 01:30:00 PM, [address] [place] [address], [address], [phone], Provider Name:Ramon van, 07/18/2025 07:15:00 AM, [address] [place] [address], [address], [phone], Provider Name:Ramon van, 07/25/2025 01:30:00 PM, [address] [facility], [address], [place], [place], [phone], Provider Name:Ramon Pink ier, 01/20/2026 07:30:00 AM, [address] [facility], Suite [facility], [place], [place], [phone], Provider Name:Ramon Pink ier, 01/27/2026 01:00:00 PM, [address] [place] [address], [address], [place], [place], [phone], Progress Notes * Jakob AYALA RDOB:1965 (59 yo M)Acc No.[id number]:08/20/2024 Patient: Monster Jakob HANNAH :1965 A ge:59 Y S ex:Male Address:[address] [place] [phone] * true * Date: Generated for Wm grey/Karne/eTransmitting on: 0 02/03/2025 05:38 PM EDT
--- OUTSIDE RECORDS SUMMARY | 2024-08-23 06:00 | XMS_ITS ---
Author Organization Ramon Avila MD Address [address] [place] [phone] Care Team Providers Care Regulatory Affairs Assistant Name Role Phone Ramon Avila Primary Care Provider [phone] REASON FOR VISIT ER Encounters Encounter Location Date Provider Diagnosis Ramon Avila MD [address] [place] [address] [address] [place] [phone] 08/23/2024 Ramon Avila Plan Of Treatment Next Appt Details Provider Name:Ramon Pink ier, 02/25/2025 01:30:00 PM, [address] [place] [address], [address], [phone], Provider Name:Ramon van, 07/18/2025 07:15:00 AM, [address] [place] [address], [address], [phone], Provider Name:Ramon van, 07/25/2025 01:30:00 PM, 10 [facility], [address], [place], [place], [phone], Provider Name:Ramon Pink carlota, 01/20/2026 07:30:00 AM, [address] [place] [address], Suite [facility], [place], [place], [phone], Provider Name:Ramon Pink jesusr, 01/27/2026 01:00:00 PM, [address] [place] [address], [address], [place], [place], [phone], Progress Notes * Jakob AYALA RDOB:1965 (59 yo M)Acc No.[id number]:08/23/2024 Patient: Jakob BARAHONA :1965 A ge:59 Y S ex:Male Address:[address] [place] [phone] * true * Date: Generated for Wm grey/Karen/Audreysmitting on: 0 02/03/2025 05:38 PM EDT
--- OUTSIDE RECORDS SUMMARY | 2024-10-08 05:00 | XMS_ITS ---
Author Organization Ramon Avila MD Address [address] [place] [phone] Care Team Providers Care Maintenance Plumber Name Role Phone Ramon Avila Primary Care Provider Allergies No Known Allergies Results Component Value Reference Range Notes Hemoglobin A1c Reviewed date:10/08/2024 09:19:43 AM Interpretation: Performing Lab: Notes/Report: Hemoglobin A1c 8.1 Glucose, finger stick Reviewed date:10/08/2024 09:13:16 AM Interpretation: Performing Lab: Notes/Report: Value 187 REASON FOR VISIT 3 MO F/U Medications Medication SIG (Take, Route, Frequency, Duration) Notes Start Date End Date Status Augmentin 500-125 MG 1 tablet Orally melinda ry 12 hrs Not-Taking Ibuprofen 200 MG 1 tablet with food o r milk as needed Orally Three times a day Not-Taking guaiFENesin-Codeine 100-10 MG/5ML 10 mL as needed Orally every 4 hrs as needed for 10 days 05/09/2022 Not-Taking Januvia 100 mg TAKE 1 TABLET DAILY Orally Once a day for 90 days Not-Taking Tylenol Extra Strength 500 MG 1 tablet as needed Orally every 6 hrs Not-Taking Atorvastatin Calcium 40 mg TAKE 1 TABLET DAILY Orally Once a day Active Lisinopril-hydroCHLOROthi azide 10-12.5 MG TAKE 1 TABLET BY MOUTH EVERY DAY Orally Once a day for 90 days Active FreeStyle Amrita 14 Day Sensor - CHANGE EVERY 14 DAYS DIRECTED for 84 Active metFORMIN HCl ER 500 MG TAKE 2 TABLETS B Y MOUTH TWICE A DAY Active FreeStyle Amrita 2 Sensor - as directed for 90 days 07/05/2022 Acti ve OneTouch Delica Plus Suiien87V - USE TO TEST BLOOD SUGAR ONCE DAILY Active FreeStyle Amrita 2 [place] - as directed 07/05/2022 Active FreeStyle Amrita 14 Day [place] - as directed 07/05/2022 Active Vital Signs Blood pressure systolic 118 mm Hg 10/09/19 25 Blood pressure diastolic 70 mm Hg 025 Height 69 in 10/08/2024 Weight 201 lbs 10/08/2024 BMI 29.68 kg/m2 10/08/2024 weight is up 6 pounds since 07-09-24 Encounters Encounter Location Date Provider Diagnosis Ramon Avila MD [address] [place] [address] [place] [phone] 10/08/2024 Ramon Aivla Type 2 diabetes mellitus without complication E11.9 Assessments Encounter Date Diagnosis (ICD Code) Assessment Notes Treatment Notes Treatment Clinical Notes Section Notes 10/08/2024 Type 2 diabetes mellitus without complication (ICD-10 - E11.9) have spoken to him about getting on insulin and he is going to think Total time spent on the date of the encounter is 35 minutes including both face to face time spent and time spent reviewing documentation, and counseling the patient. Plan Of Treatment Treatment Notes Assessment Notes Type 2 diabetes mellitus wit hout complication have spoken to him about getting on insulin and he is going to think Total time spent on the date of the encounter is 35 minutes including both face to face time spent and time spent reviewing documentation, and counseling the patient. Next Appt Details Follow Up: 3 Months, Reason: Provider Name:Ramon van, 02/25/2025 01:30:00 PM, [address] [place] [address], [address], [place], [place], [phone], Provider Name:Ramon Pink ier, 07/18/2025 07:15:00 AM, [address] [facility], [address], [place], [phone], Provider Name:Ramon Pink ier, 07/25/2025 01:30:00 PM, [address] [facility], Suite [facility], [place], [phone], Provider Name:Ramon Pink ier, 01/20/2026 07:30:00 AM, [address] [facility], Suite [facility], [place], [phone], Provider Name:Ramon Pink ier, 01/27/2026 01:00:00 PM, [address] [place] [address], Suite [facility], [place], [phone], Progress Notes * Jakob AYALA RDOB:1965 (59 yo M)Acc No.[id number]:10/08/2024 Progress Notes Patient: Monster HANNAH Jakob Roberto Provider: Miko Avila MD :1965 A ge:59 Y S ex:Male Date:10/08/2024 Address:[address] [place] [id number] Subjective: * Chief Complaints: * 3 MO F/U * HPI: S ymptom(s): patient is a 59 yo male here for 3 month follow up visit/ sugars are up and down / up after breakfast. * ROS: G eneral/Constitutional: Denies C hills. D enies F atigue. D enies F ever. D enies H eadache. E NT: Denies S ore throat. E ndocrine: Denies D ifficulty sleeping. D enies D izziness.?Denies E xcessive sweating. D enies E xcessive thirst. D enies F requent urination. R espiratory: Denies C ough. D enies S hortness of breath at rest. D enies S hortness of breath with exertion. G astrointestinal: Denies D iarrhea. D enjamie N ausea. * Medical History: * Surgical History: * Hospitalization/Major Diagno stic Procedure: * Medications: T akingOneTouch Delica Plus Acptzs89M - Miscellaneous USE TO TEST BLOOD SUGAR ONCE DAILY FreeStyle Amrita 14 Day [place] - Device as directed FreeStyle Amrita 2 [place] - Device as directed FreeStyle Amrita 2 Sensor - Miscellaneous as directed Lisinopril-hydroCHLOROthiazide 10-12.5 MG Tablet TAKE 1 TABLET BY MOUTH EVERY DAY Orally Once a day Atorvastatin Calcium 40 mg Tablet TAKE 1 TABLET DAILY Orally Once a day metFORMIN HCl ER 500 MG Tablet Extended Release 24 Hour TAKE 2 TABLETS BY MOUTH TWICE A DAY FreeStyle Amrita 14 Day Sensor - Miscellaneous CHANGE EVERY 14 DAYS DIRECTED Taking OneTouch Delica Plus Ttnnjz69J - Miscellaneous USE TO TEST BLOOD SUGAR ONCE DAILY Taking FreeStyle Amrita 14 Day [place] - Device as directed Taking FreeStyle Amrita 2 [place] - Device as directed Taking FreeStyle Amrita 2 Sensor - Miscellaneous as directed Taking Lisinopril-hydroCHLOROthiazide 10-12.5 MG Tablet TAKE 1 TABLET BY MOUTH EVERY DAY Orally Once a day Taking Atorvastatin Calcium 40 mg Tablet TAKE 1 TABLET DAILY Orally Once a day Taking metFORMIN HCl ER 500 MG Tablet Extended Release 24 Hour TAKE 2 TABLETS BY MOUTH TWICE A DAY Taking FreeStyle Amrita 14 Day Sensor - Miscellaneous CHANGE EVERY 14 DAYS DIRECTED Not-Taking/PRNIbuprofen 200 MG Tablet 1 tablet with [...] List reviewed and reconciled with the patientNot-Taking/PRN Ibuprofen 200 MG Tablet 1 tablet with [...] Objective: * Vitals: H t: 69, Wt: 201, BMI:29.68, BP:118/70, Wt-k.17. weight is up 6 pounds since 07-09-24. * Examination: G eneral Examination: GENERAL APPEARANCE: a lert, well hydrated, in no distress.? HEAD: n ormocephalic. SKIN: g ood turgor. HEART: n o murmurs, rubs, gallops, regular rate and rhythm.? LUNGS: n o wheezes, rales, rhonchi, good air movement, clear to auscultation bilaterally. Assessment: * Assessment: 1. T ype 2 diabetes mellitus without complication - E11.9 (Primary) Plan: * Treatment: Value Reference Range H emoglobin A1c 8.1 ?LAB: Glucose, finger stick (Collection Date & Time - 10/08/2024)* Value Reference Range V alue 187 Notes: have spoken to him about getting on insulin and he is going to think Total time spent on thedate of the encounter is 35 minutes including both face to face time spent and time spent reviewingdocumentation, and counseling the patient.?? * Procedure Codes: 8 2947 ASSAY, GLUCOSE, BLOOD QUANT, Modifiers: QW [id number] GLYCATED HEMOGLOBIN TEST, Modifiers: QW * Follow Up: 3 Months * * Sign off status: Completed true * Provider: Miko Avila MD Date: 0 10/08/2024 Generated for Nellyi ng/Karen/eTransmitting on: 0 02/03/2025 05:38 PM EDT History and Physical Notes * HPI (History of Present Illness) Category Sub-Category Detail Notes Category Not es Symptom(s) patient is a 59 yo male here for 3 month follow up visit/ sugars are up and down / up after breakfast Examination Category Sub-Category Detail Notes Category Not es General Examination GENERAL APPEARANCE: alert, w ell hydrated, in no distress HEAD: normocephalic HEART: no murmurs, rubs, ga llops, regular rate and rhythm LUNGS: no wheezes, rales, r honchi, good air movement, clear to auscultation bilaterally SKIN: good turgor
--- OUTSIDE RECORDS SUMMARY | 2025-01-04 03:30 | XMS_ITS ---
Author Organization Ramon Avila MD Address [address] [place] [phone] Care Team Providers Care Vegetable Scullion Name Role Phone Austin Ramon Primary Care Provider [phone] Results Component Value Reference Range Notes Complete Blood Count Auto Di ff Reviewed date:01/04/2025 04:48:14 PM Interpretation: Performing Lab:[facility], [address] [place] [phone] Notes/Report: White Blood Count 6.9 4.8-10.8 X10*3/uL [...] Panel Reviewed date:01/04/2025 02:49:44 PM Interpretation: Performing Lab:[facility], [address] [place] [phone] Notes/Report: Triglycerides 207 <150 mg/dL Desirable Triglyceride: [...] (Free>4and<10) Reviewed date:01/04/2025 04:40:23 PM Interpretation: Performing Lab:[address] [phone] Notes/Report: PSA,Total (Free>4and<10) 0.73 0.00-4.00 ng/mL A [...] Random Reviewed date:01/04/2025 04:40:45 PM Interpretation: Performing Lab:[address] [phone] Notes/Report: Creatinine Urine 169.99 Microalbumin Urine 9.0 Microalbum/Creatinine Ratio Ur 5.2 <30 ug/mg cr Albumin/Creatinine Ratio Reference Ranges: Normal: < 30 ug/mg creatinine Microalbuminuria: 30 - 300 ug/mg creatinine Clinical Albuminuria: > 300 ug/mg creatinine Hemoglobin A1c Reviewed date:01/04/2025 04:40:35 PM Interpretation: Performing Lab:[address] [phone] Notes/Report: Hemoglobin A1c % 8.2 <6.0 % [...] average glucose, using the formula of the B9L-Vewukhu Average Glucose study (ADAG), Diabetes Care, Vol.31,#8, Dec. 2007 UA ClnCatch+Micro w/rflx Cul t Reviewed date:01/04/2025 04:48:33 PM Interpretation: Performing Lab:[facility], [address] [facility], [place] [phone] Notes/Report: Urine, Clean Catch Color Urine Yellow Appearance Urine Cloudy PH 5.0 5.0-9.0 Glucose Urine UA Negative Negative mg/dL Urine Blood Negative Negative Specific [place] - Urine 1.025 1.005-1.025 Urine Protein Negative [...] Date Provider Diagnosis Ramon Avila MD [address] [place] [address] [place] [phone] 01/04/2025 Ramon Avila Blood tests for rout [...] Pending Test Test Name Order Date Comprehensive [place]. Panel Fast Next Appt Details Provider Name:Ramon van, 02/25/2025 01:30:00 PM, [address] [place] [address], Suite [facility], [place], [place], [phone], Provider Name:Ramon van, 07/18/2025 07:15:00 AM, [address] [place] [address], [address], [phone], Provider Name:Ramon van, 07/25/2025 01:30:00 PM, [address] [place] [address], [address], [place], [phone], Provider Name:Ramon Pink ier, 01/20/2026 07:30:00 AM, [address] [facility], [address], [place], [phone], Provider Name:Ramon Pink ier, 01/27/2026 01:00:00 PM, [address] [facility], [address], [place], [phone], Progress Notes * Jakob AYALA RDOB:1965 (59 yo M)Acc No.[id number]:01/04/2025 Progress Note Patient: Jakob BARAHONA Provider: Miko Avila MD :1965 A ge:59 Y S ex:Male Date:01/04/2025 Address:[address] [place], [place] [phone] Subjective: * Chief Complaints: * 1 . [...] diabetes mellitus without complication L AB: Comprehensive [place]. Panel Fast L AB: Complete Blood Count [...] 3. E ssential hypertension L AB: Comprehensive [place]. Panel Fast L AB: Complete Blood Count [...] 4. P ure hypercholesterolemia L AB: Comprehensive [place]. Panel Fast L AB: Complete Blood Count [...] 0 01/04/2025 Generated for Wm grey/Karen/Eloinaitting on: 0 02/03/2025 05:39 PM EDT
--- OUTSIDE RECORDS SUMMARY | 2025-01-25 09:00 | XMS_ITS ---
Author Organization Ramon Avila MD Address [address] [place] [phone] Care Team Providers Care Network Management Specialist Name Role Phone Austin Ramon Primary Care Provider [phone] Allergies No Known Allergies Reason For Referral [...] 30 days 01/25/2025 Active FreeStyle Amrita 2 [place] - as directed 07/05/2022 Active FreeStyle Amrita 14 Day [place] - as directed 07/05/2022 Active OneTouch Delica Plus [id number] - USE TO TEST BLOOD SUGAR ONCE [...] Status W/U Status Risk Notes Problem Dysthymia (82351056) Dysthymia (F34.1) Active confirmed Vital Signs Blood pressure systolic 122 mm Hg 01/26/20 25 Blood pressure diastolic 60 mm Hg 025 Height 69 in 01/25/2025 Weight 196 lbs 01/25/2025 BMI 28.94 kg/m2 01/25/2025 weight is down 5 pounds [facility] e 10-08-24 Encounters Encounter Location Date Provider Diagnosis Ramon Avila MD [address] [place] [address] [address] [place], [place] [phone] 01/25/2025 Ramon Avila Annual physical exam Z00.00 [...] 4 Weeks, Reason: Provider Name:Ramon Pink ier, 02/25/2025 01:30:00 PM, [address] [facility], Suite [facility], [place], [place], [phone], Provider Name:Ramon Pink ier, 07/18/2025 07:15:00 AM, [address] [place] [address], Suite [facility], [place], [phone], Provider Name:Ramon Pink ier, 07/25/2025 01:30:00 PM, [address] [place] [address], [place] [address], [place], [phone], Provider Name:Ramon Pink ier, 01/20/2026 07:30:00 AM, [address] [place] [address], [place] [address], [place], [place], [phone], Provider Name:Ramon Pink ier, 01/27/2026 01:00:00 PM, [address] [place] [address], [address], [phone], Progress Notes * Jakob AYALA RDOB:1965 (59 yo M)Acc No.[id number]:01/25/2025 Progress Notes Patient: Jakob BARAHONA Provider: Miko Avila MD :1965 A ge:59 Y S ex:Male Date:01/25/2025 Address:[address] [place] [id number] Subjective: * Chief Complaints: * A NNUAL [...] spouse. Marital status: . 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 Pets: none. * Medications: T akingOneTouch Delica Plus [id number] - Miscellaneous USE TO TEST BLOOD SUGAR ONCE DAILY FreeStyle Amrita 14 Day [place] - Device as directed FreeStyle Amrita 2 [place] - Device as directed FreeStyle Amrita 2 [...] 14 DAYS DIRECTED Taking OneTouch Delica Plus [id number] - Miscellaneous USE TO TEST BLOOD SUGAR ONCE DAILY Taking FreeStyle Amrita 14 Day [place] - Device as directed Taking FreeStyle Amrita 2 [place] - Device as directed Taking FreeStyle Amrita [...] mg/dL Urine Blood Negative Negative - Specific [place] - Urine 1.025 1.005-1.025 - Urine Protein [...] MD Date: 0 01/25/2025 Generated for Wm grey/Karen/Audreysmitting on: 0 02/03/2025 05:39 PM EDT History and Physical Notes * [...]
--- NOTE | 2025-02-03 12:57 | A.OFFVIS_ITS ---
Vital Signs 02/03/25 12:58 Height 6 ft 1 in Weight 198 lb 6.656 oz BMI 26.2 BP 128/80 Blood Pressure Location Rt brachial Position Sitting Pulse 74 Pulse Source Pulse Oximeter Pulse Oximetry (%) 99 Intake Visit Reasons: T2DM Intake Note: NEW Patient presents today to establish treatment for Type 2 Diabetes Mellitus: Last Diabetic eye exam was on: [facility] the year, [facility] Last Podiatry exam was on: Patient does not see a Table Saw Operator Most recent HbA1c: 8.2%, 01/04/2025 Random Glucose: 173 mg/dL [employer] Required: No Accompanied by: Self / Same As Patient Allergies No Known Allergies Allergy (Verified 02/03/25 12:58) HPI Comments Details: 59 year old male presenting for diabetic consultation Medical history of nephrolithiasis, htn, hld Diagnosed ~10 year ago Family history: maternal grandparents both diabetics Current medications Metformin ER 1000mg BID A1C 8.2% 01/04/2025- he was ordered mounjaro 2.5mg but he has not received it yet. Not sure if coverage issue or other He has CGM-amrita 2. Onetouch traditional glucometer Has had very infrequent hypoglycemia Generated: 02/03/2025 Time CGM Active: 56% Glucose Statistics and Targets Average Glucose: 185 mg/dL Glucose Management Indicator (GMI): 7.7% Time in Ranges Very High: >250 mg/dL --- 5% High: 181 - 250 mg/dL --- 47% Target Range: 70 - 180 mg/dL --- 48% Low: 54 - 69 mg/dL --- 0% Very Low: <54 mg/dL --- 0% Eye exam is up to date LDL 72-on statin therapy (-)alb/cr 12/2025 ROS CONSTITUTIONAL: Denies weight loss, fever and chills. HEENT: Denies changes in vision and hearing. RESPIRATORY: Denies SOB and cough. CV: Denies palpitations and CP GI: Denies abdominal pain, nausea, vomiting and diarrhea. : Denies dysuria and urinary frequency. MSK: Denies new myalgia and joint pain. SKIN: Denies rash and pruritus. NEUROLOGICAL: Denies headache PSYCHIATRIC: Denies recent changes in mood. PHYSICAL EXAM: GENERAL: Alert and oriented x 3. NAD EYES: EOMI. Anicteric. HENT: Moist mucous membranes. No scleral icterus. No cervical lymphadenopathy. LUNGS: Clear to auscultation bilaterally. CARDIOVASCULAR: Regular rate and rhythm. No murmur. No JVD. ABDOMEN: Soft, non-tender +bs EXTREMITIES: No edema. Non-tender. SKIN: No rashes or lesions. Warm. NEUROLOGIC: No focal neurological deficits. CN II-XII grossly intact PSYCHIATRIC: Cooperative. Appropriate mood and affect [facility] Medical History (Updated 02/03/25 @ 13:48 by Danitza Fisher MD) Renal calculi Diabetes HTN (hypertension) Surgical History (Updated 02/03/25 @ 13:15 by RUTHIE Winter) Hx of neck surgery Family History (Updated 02/03/25 @ 13:13 by RUTHIE Winter) Father No problems noted. Mother Family history of heart disease Family history of diabetes mellitus Social History Alcohol intake: current Alcohol intake frequency: holidays/special occasions only Patient Tobacco Use Status: Never used Tobacco Physical Exam Vital Signs: Last Vital Signs Pulse 74 02/03/25 12:58 BP 128/80 02/03/25 12:58 Pulse Ox 99 02/03/25 12:58 BMI result Body Mass Index 26.2 Office Procedures Glucose Monitoring Details Details: see [facility] [address] - Continuous Glucose Monitoring, patient provides equipment Procedure code (CPT) selection complete Results Reviewed Results Reviewed: Laboratory Last Values Glucose (Clinic) 173 mg/dL (60-115) H 02/03/25 13:05 Assessment & Plan Assessment & Plan (1) Type 2 diabetes mellitus: Code(s): E11.9 - Type 2 diabetes mellitus without complications Category: Medical Qualifiers: Diabetes mellitus complication status: with hyperglycemia Diabetes mellitus [facility] insulin use: without intermodal customer service use Qualified Code(s): E11.65 - Type 2 diabetes mellitus with hyperglycemia Plan Type 2 diabetes with hyperglycemia Resent rx with commercial coupon. He will start mounjaro 2.5mg weekly Continue current metformin dose Treat any hypoglycemia by rules of 15s Return in one month or sooner as needed Medications: New FreeStyle Amrita 2 Plus Sensor (blood-glucose sensor) every 15 days 6 ea 3RF NS E11.9 - Type 2 diabetes mellitus without complications FreeStyle Amrita 2 Sensor (flash glucose sensor) As directed 1 ea 0RF NS Mounjaro (tirzepatide) RXBIN: [id number] PCN: [id number] GRP: [id number] ID: [id number] Expiration Date: 05/11/2025 2.5 mg (0.5 mL) subcut QWEEK 6 mL 3RF NS E11.65 - Type 2 diabetes mellitus with hyperglycemia Coding Level of Care Code Est Pt Level 4 (00875) Diagnoses Type 2 diabetes mellitus with hyperglycemia, without long-term current use of insulin E11.65 Diabetes mellitus complication status: with hyperglycemia Diabetes mellitus [employer] customer service insulin use: without [facility] use CPT Codes Details - CPT: 81713 - Continuous Glucose Monitoring, patient provides equipment ([id number])
[2025-02-03 12:58] VITALS: BP 128/80; PULSE 74; O2SAT 99; BMI 26.2
[2025-02-03 13:11] LABS: Glucose, Whole Blood 173 mg/dL (60-115)
--- OUTSIDE RECORDS SUMMARY | 2025-02-03 17:39 | XMS_ITS | Patient Health Record ---
Author Organization [facility] Address [address] [place] [address] Care Team Providers Care Oxygen Equipment Preparer Name Role Phone Ramon Avila MD Primary Care Provider Checo Davila Unavailable [phone] Reason For Referral No Information Medications Medication [...] Problem Status W/U Status Risk Notes Problem [id number] Encounter for screening for malignant neoplasm of colon (Z12.11) Active confirmed Problem Screening for malignant neoplasm of rectum (443851614) Encounter for screening for malignant neoplasm of rectum (Z12.12) Active confirmed Problem [id number] Preprocedural examination (Z01.818) Active confirmed Problem [id number] Long-term use of aspirin therapy (Z79.82) Active confirmed Plan Of Treatment Pending Test Test Name Order Date GI BIOPSY 05/24/2016 Future Test Test Name Order Date COLONOSCOPY 02/27/2016 Insurance Providers Payer Name Payer Address Payer Phone Subscriber Number Group Number Insured Name Patient Relationship to Insured Coverage Start Date Coverage End Date [facility] [employer] [address] [place] [address] [phone] [id number]ISE FONTAINE Self - patient is the insured Medical (General) History Medical History History ICD Code Hypercholesterolemia Hypertension Denies DE,CVA,Lung disease,renal disease NIDDM Surgical History Surgery Date(Month/Year) Left knee surgery
--- OUTSIDE RECORDS SUMMARY | 2025-02-03 17:39 | XMS_ITS | Patient Health Record ---
Author Organization Ramon Avila MD Address [address] [place] [phone] Care Team Providers Care Auto Research Engineer Name Role Phone Ramon Avila Primary Care Provider Allergies No Known Allergies Results Component Value Reference Range Notes Hemoglobin A1c Reviewed date:07/09/2024 01:36:04 PM Interpretation: Performing Lab: Notes/Report: Hemoglobin A1c 8.0 Hemoglobin A1c Reviewed date:10/08/2024 09:19:43 AM Interpretation: Performing Lab: Notes/Report: Hemoglobin A1c 8.1 Complete Blood Count Auto Di ff Reviewed date:07/06/2024 04:47:32 PM Interpretation: Performing Lab:[facility], [address] [place] [phone] Notes/Report: White Blood Count 7.5 4.8-10.8 X10*3/uL [...] NRBC Abs Auto 0.000 0.0-0.012 X10*3/uL Comprehensive [place]. Panel Fa st Reviewed date:07/06/2024 04:46:58 PM Interpretation: Performing Lab:[facility], [address] [place] [phone] Notes/Report: Sodium 140 135-145 mmol/L Potassium 4.2 [...] Panel Reviewed date:07/06/2024 12:36:17 PM Interpretation: Performing Lab:[facility], [address] [place] [place] [phone] Notes/Report: Triglycerides 199 <150 mg/dL Desirable Triglyceride: [...] (Free>4and<10) Reviewed date:07/06/2024 12:30:36 PM Interpretation: Performing Lab:[facility], [address] [place] [place] [phone] Notes/Report: PSA,Total (Free>4and<10) 0.94 0.00-4.00 ng/mL A [...] Random Reviewed date:07/06/2024 12:30:28 PM Interpretation: Performing Lab:[address] [phone] Notes/Report: Creatinine Urine 483.43 Microalbumin Urine 43.0 Microalbum/Creatinine Ratio Ur 8.8 <30 ug/mg cr Albumin/Creatinine Ratio Reference Ranges: Normal: < 30 ug/mg creatinine Microalbuminuria: 30 - 300 ug/mg creatinine Clinical Albuminuria: > 300 ug/mg creatinine UA ClnCatch+Micro w/rflx Cul t Reviewed date:07/06/2024 12:29:35 PM Interpretation: Performing Lab:[address] [phone] Notes/Report: Urine, Clean Catch Color Urine Dark Yellow Appearance Urine Turbid PH 5.0 5.0-9.0 Glucose Urine UA Negative Negative mg/dL Urine Blood Negative Negative Specific [place] - Urine >= 1.030 1.005-1.025 Urine Protein [...] ff Reviewed date:01/04/2025 04:48:14 PM Interpretation: Performing Lab:[address] [phone] Notes/Report: White Blood Count 6.9 4.8-10.8 X10*3/uL [...] Panel Reviewed date:01/04/2025 02:49:44 PM Interpretation: Performing Lab:[facility], [address] [place] [place] [phone] Notes/Report: Triglycerides 207 <150 mg/dL Desirable Triglyceride: [...] (Free>4and<10) Reviewed date:01/04/2025 04:40:23 PM Interpretation: Performing Lab:[address] [address] Notes/Report: PSA,Total (Free>4and<10) 0.73 0.00-4.00 ng/mL A [...] Random Reviewed date:01/04/2025 04:40:45 PM Interpretation: Performing Lab:[address] [address] Notes/Report: Creatinine Urine 169.99 Microalbumin Urine 9.0 Microalbum/Creatinine Ratio Ur 5.2 <30 ug/mg cr Albumin/Creatinine Ratio Reference Ranges: Normal: < 30 ug/mg creatinine Microalbuminuria: 30 - 300 ug/mg creatinine Clinical Albuminuria: > 300 ug/mg creatinine Hemoglobin A1c Reviewed date:01/04/2025 04:40:35 PM Interpretation: Performing Lab:[address] [address] Notes/Report: Hemoglobin A1c % 8.2 <6.0 % [...] average glucose, using the formula of the U1S-L[place]ow[place] Average Glucose study (ADAG), Diabetes Care, Vol.31,#8, Dec. 2007 UA ClnCatch+Micro w/rflx Cul t Reviewed date:01/04/2025 04:48:33 PM Interpretation: Performing Lab:[facility], [address] [place] [place] [phone] Notes/Report: Urine, Clean Catch Color Urine Yellow Appearance Urine Cloudy PH 5.0 5.0-9.0 Glucose Urine UA Negative Negative mg/dL Urine Blood Negative Negative Specific [place] - Urine 1.025 1.005-1.025 Urine Protein Negative Neg-Trace mg/dL Urine Ketones Negative Negative mg/dL Nitrite Urine Negative Negative Leukocyte Esterase Urine Negative Negative RBC Urine 0-2 0-2 /HPF WBC Urine 0-5 0-5 /HPF Squamous Epithelial Cell Urine 0-2 0-2 /HPF Bacteria Urine None Seen None Seen Hyaline Casts Urine 0-2 0-2 /LPF SARS-CoV2/FLU/RSV Reviewed date:06/17/2024 12:56:49 PM Interpretation: Performing Lab:[facility], [address] [place] [phone] Notes/Report: Influenza A PCR POSITIVE Negative Influenza [...] by authorized laboratories. Testing performed on the Satmex GeneXpert utilizing real-time RT-PCR. All SARS CoV2 and positive influenza A/B results are reported to [facility]. Glucose, finger stick Reviewed date:07/09/2024 01:35:47 PM Interpretation: Performing Lab: Notes/Report: Value 130 Glucose, finger stick Reviewed date:10/08/2024 09:13:16 AM Interpretation: Performing Lab: Notes/Report: Value 187 US renal BI Reviewed date:03/18/2024 04:40:33 PM Interpretation: Performing Lab: Notes/Report: [address] [place] [address] Ultrasound Report Signed Patient: Jakob Fontaine MR#: [id number] 6 : 1965 Acct:[id number] Age/Sex: 58 / M ADM Date: 03/01/24 Loc: HO.US [facility]ician: Jackelyn Luna Date of Service: 03/01/24 Procedure(s): US renal BI Accession Number(s): [id number] cc: Ramon Avila MD; [facility]: US RETROPERITONEAL LIMITED (RENAL ONLY) CLINICAL [...] by: Luis Starr MD 03/18/2024 01:53 PM [facility] Dictated By: Luis Blanton MD Signed By: <Electronically signed by Luis Brian MD in OV> 03/18/24 1353 DD/ 1305 TD/TT: 03/01/24 1312 Oil Laboratory Analyst: [address] [address] Ultrasound Report Signed Patient: Jakob Fontaine MR#: [id number] 6 : 1965 Acct:[id number] Age/Sex: 58 / M ADM Date: 03/01/24 Loc: HO.US Attending Dr: Jackelyn MORSE Ordering Physician: Jackelyn Luna Date of Service: 03/01/24 Procedure(s): US femi sadler BI Accession Number(s): [id number] cc: Ramon Avila MD; Jackelyn Luna EXAMINATION: [...] by: Luis Starr MD 03/18/2024 01:53 PM [facility] Dictated By: Luis Stover MD Signed By: <Electronically signed by Luis Brian MD in OV> 03/18/24 1353 DD/ 1305 TD/TT: 03/01/24 1312 Oil Laboratory Analyst: HUYEN chest 2V Reviewed date:06/17/2024 12:57:14 PM Interpretation: Performing Lab: Notes/Report: [address] [address] XRay Report Signed Patient: Jakob Fontaine MR#: [id number] 6 : 1965 Acct:[id number] Age/Sex: 59 / M ADM Date: 06/17/24 Loc: JOS Attending Dr: Ramon Avila MD Ordering Physician: Ramon Avila MD Date of Service: 06/17/24 Procedure(s): XR chest 2V Accession Number(s): [id number] cc: Ramon Avila MD EXAMINATION: XR CHEST [...] by: Checo Segal MD 06/17/2024 10:09 AM [facility] Dictated By: Checo Segal MD Signed By: <Electronically signed by Checo Segal MD in OV> 06/17/24 1009 DD/ 0936 TD/TT: 06/17/24 1005 Oil Laboratory Analyst: [place] [address] XRay Report Signed Patient: Jakob Fontaine MR#: [id number] 6 : 1965 Acct:[id number] Age/Sex: 59 / M ADM Date: 06/17/24 Loc: JOS Attending Dr: Ramon Avila MD Ordering Physician: Ramon Avila MD Date of Service: 06/17/24 Procedure(s): XR craig st 2V Accession Number(s): [id number] cc: Ramon Avila MD EXAMINATION: XR CHES [...] by: Checo Segal MD 06/17/2024 10:09 AM [facility] Dictated By: Checo Segal MD Signed By: <Electronically signed by Checo Segal MD in OV> 06/17/24 1009 DD/ TD/TT: 06/17/24 1005 Oil Laboratory Analyst: Complete Blood Count Auto Di ff Reviewed date:06/21/2024 05:10:22 PM Interpretation: Performing Lab:[facility], [address] [place] [phone] Notes/Report: White Blood Count 9.7 4.8-10.8 X10*3/uL [...] Panel Reviewed date:06/21/2024 05:15:43 PM Interpretation: Performing Lab:[facility], [address] [place] [place] [phone] Notes/Report: Sodium 138 135-145 mmol/L Potassium 4.1 [...] Magnesium Reviewed date:06/21/2024 05:15:14 PM Interpretation: Performing Lab:[facility], [address] [place] [place] [phone] Notes/Report: Magnesium 1.9 1.6-2.6 mg/dL Troponin-I High Sensitivity Reviewed date:06/22/2024 12:39:34 PM Interpretation: Performing Lab:[facility], [address] [place] [place] [phone] Notes/Report: Troponin-I High Sensitivity < 2.7 <3.5-35.0 ng/L The [place] high sensitivity Troponin-I results should be used in conjunction with other diagnostic information such as ECG, clinical observations and information, and patient symptoms to aid in the diagnosis of [place]. SARS-CoV2/FLU/RSV Reviewed date:06/22/2024 09:33:45 AM Interpretation: Performing Lab:[facility], [address] [place] [place] [phone] Notes/Report: Influenza A PCR POSITIVE Negative Influenza [...] by authorized laboratories. Testing performed on the Satmex GeneXpert utilizing real-time RT-PCR. All SARS CoV2 and positive influenza A/B results are reported to [facility]. XR chest 2V Reviewed date:06/22/2024 09:34:03 AM Interpretation: Performing Lab: Notes/Report: [address] [address] XRay Report Signed Patient: Jakob Fontaine MR#: [id number] 6 : 1965 Acct:[id number] Age/Sex: 59 / M ADM Date: 06/21/24 Loc: .ED Attending Dr: Ordering Physician: Jaclyn Daily Date of Service: 06/21/24 Procedure(s): XR chest 2V Accession Number(s): [id number] cc: Ramon Avila MD; Jaclyn Daily CLINICAL [...] in OV> 06/21/242015 DD/ 14 TD/TT: 06/21/242014 Oil Laboratory Analyst: [address] [address] XRay Report Signed Patient: Jakob Fontaine MR#: [id number] 6 : 1965 Acct:[id number] Age/Sex: 59 / M ADM Date: 06/21/24 Loc: HO.ED Attending Dr: Ordering Physician: Jaclyn Daily Date of Service: 06/21/24 Procedure(s): XR craig st 2V Accession Number(s): [id number] cc: Ramon Avila MD; Jaclyn Daily CLINICAL [...] in OV> 06/21/242015 DD/ 14 TD/TT: 06/21/242014 Oil Laboratory Analyst: Complete Blood Count Auto Di ff Reviewed date:08/20/2024 05:08:10 PM Interpretation: Performing Lab:[facility], [address] [place] [phone] Notes/Report: White Blood Count 9.7 4.8-10.8 X10*3/uL [...] Panel Reviewed date:08/20/2024 05:03:10 PM Interpretation: Performing Lab:[facility], [address] [place] [phone] Notes/Report: Sodium 140 135-145 mmol/L Potassium 5.0 [...] t Reviewed date:08/20/2024 05:14:40 PM Interpretation: Performing Lab:[facility], [address] [place] [phone] Notes/Report: [id number] Urine, Clean Catch Color Urine Yellow Appearance Urine Clear PH 5.5 5.0-9.0 Glucose Urine UA >=1000 Negative mg/dL Urine Blood Moderate (2+) Negative Specific [place] - Urine 1.025 1.005-1.025 Urine Protein Negative [...] date:08/20/2024 05:00:29 PM Interpretation: Performing Lab: Notes/Report: [address] [address] [address] Scan Report Signed Patient: Jakob Fontaine MR#: [id number] 6 : 1965 Acct:[id number] Age/Sex: 59 / M ADM Date: 08/20/24 Loc: HO.ED Attending Dr: Ordering Physician: Madhavi Crowley MD Date of Service: 08/20/24 Procedure(s): CT abdomen pelvis wo IV con Accession Number(s): [id number] cc: Ramon Avila MD; Madhavi Crowley MD Report Number: [id number]: Total DLP = 562.00 mGy-cm EXAMINATION: CT [...] 08/20/24 1353 DD/ 1312 TD/TT: 08/20/24 1323 Oil Laboratory Analyst: [address] [address] [address] Scan Report Signed Patient: Jakob Fontaine MR#: [id number] 6 : 1965 Acct:[id number] Age/Sex: 59 / M ADM Date: 08/20/24 Loc: HO.ED Attending Dr: Ordering Physician: Madhavi Crowley MD Date of Service: 08/20/24 Procedure(s): CT abd omen pelvis wo IV con Accession Number(s): [id number] cc: Ramon Avila MD; Madhavi Crowley MD Report Number: [id number]: Total DLP = 562.00 mGy-cm EXAMINATION: CT [...] 08/20/24 1353 DD/ 1312 TD/TT: 08/20/24 1323 Oil Laboratory Analyst: US renal BI Reviewed date:11/30/2024 02:45:54 PM Interpretation: Performing Lab: Notes/Report: [address] [address] Ultrasound Report Signed Patient: Jakob Fontaine MR#: [id number] 6 : 1965 Acct:[id number] Age/Sex: 59 / M ADM Date: 11/30/24 Loc: HO.US Attending Dr: Jackelyn MORSE Ordering Physician: Jackelyn Luna Date of Service: 11/30/24 Procedure(s): US renal BI Accession Number(s): [id number] cc: Ramon Avila MD; Jackelyn Luna EXAMINATION: [...] Checo Segal MD 11/30/2024 01:42 PM EDT Dictated By: Checo Segal MD Signed By: <Electronically signed by Checo Segal MD in OV> 11/30/24 1342 DD/ 1308 TD/TT: 11/30/24 1318 Oil Laboratory Analyst: [address] [address] Ultrasound Report Signed Patient: Jakob Fontaine MR#: [id number] 6 : 1965 Acct:[id number] Age/Sex: 59 / M ADM Date: 11/30/24 Loc: HO.US Attending Dr: Jackelyn MORSE Ordering Physician: Jackelyn Luna [facility] Date of Service: 11/30/24 Procedure(s): US femi sadler BI Accession Number(s): [id number] cc: Ramon Avila MD; Jackelyn Luna [facility] EXAMINATION: US TAZ LUNDY BILATERAL HISTORY: N20.0 [...] Checo Segal MD 11/30/2024 01:42 PM EDT Dictated By: Checo Segal MD Signed By: <Electronically signed by Checo Segal MD in OV> 11/30/24 1342 DD/ 1308 TD/TT: 11/30/24 1318 Oil Laboratory Analyst: Maricarmen Fields. Panel Reviewed date:01/04/2025 04:47:16 PM Interpretation: Performing Lab:[facility], [address] [place] [phone] Notes/Report: Sodium 139 135-145 mmol/L Potassium 4.5 3.3-5.1 mmol/L Chloride 104 96-108 mmol/L Carbon Dioxide 26 22-29 mmol/L Anion Gap 14 12-20 Blood Urea Nitrogen 12 9-16 mg/dL Creatinine 0.95 0.5-1.4 mg/dL Estimated Glomerular Filt Rate > 60 Chronic Kidney Disease: Estimated GFR < 60 mL/min/1.73m2 Severe Kidney Disease: Estimated GFR < 15 mL/min/1.73m2 Glucose Random 161 60-115 mg/dL Calcium 9.2 8.4-10.2 mg/dL Bilirubin Total 0.7 0.0-1.0 mg/dL Aspartate Amino Transferase 24 5-37 U/L Alanine Aminotransferase 30 0-40 U/L Total Protein 6.9 6.5-8.0 g/dL Albumin Level 4.5 3.5-5.0 g/dL Alkaline Phosphatase 46 39-117 U/L Glucose, Whole Blood Reviewed date:02/03/2025 04:18:31 PM Interpretation: Performing Lab:[facility], [address] [place] [phone] Notes/Report: Glucose, Whole Blood 173 60-115 mg/dL METER #: [id number] Testing performed in the Endocrinology [facility] and [facility] , [address], [facility]. Reason For Referral Reason DM Diagnosis 1 [...] Referral Priority Routine Referral Appointment Date 02/03/2025 Medications Medication SIG (Take, Route, Frequency, Duration) Notes Start Date End Date Status FreeStyle Amrita 2 Sensor - as directed for 90 days 07/05/2022 Acti ve Lisinopril-hydroCHLOROth iazide 10-12.5 MG TAKE 1 TABLET BY MOUTH EVERY DAY Orally Once a day for 90 days Active FreeStyle Amrita 2 [place] - as directed 07/05/2022 Active FreeStyle Amrita [...] B Y MOUTH TWICE A DAY Active Mounjaro 2.5 MG/0.5ML as directed Subcut aneous weekly for 30 days 01/25/2025 Active OneTouch Delica Plus [id number] - USE TO TEST BLOOD SUGAR ONCE DAILY Active guaiFENesin-Codeine 100-10 MG/5ML 10 mL as needed Orally every 4 hrs as needed for 10 days 05/09/2022 Not-Taking FreeStyle Amrita 14 Day [place] - as directed 07/05/2022 Active Tylenol Extra Strength 500 MG 1 tablet as needed Orally every 6 hrs Not-Taking Augmentin 500-125 MG 1 tablet Orally melinda ry 12 hrs Not-Taking Januvia 100 mg TAKE 1 TABLET DAILY Orally Once a day for 90 days Not-Taking Immunizations Vaccine Route Administration Date Status Comme [...] red TDaP Unknown 05/05/2018 Administered Had at [facility] t Fluarix Quadrivalent IM Intramuscular 06/22/2019 Administe [...] Status W/U Status Risk Notes Problem Hypertension (09767176) Hypertension (401.9) Active confirmed Problem Gout (19911078) Gout (M10.9) Active confirmed Problem 408741008 Hypertrophy of b reast (N62) Active confirmed Problem Kidney stone (66900318) Kidney stone (N20.0) Active confirmed Problem 79730101 Essential hypert ension (I10) Active confirmed Problem 20626026 Type 2 diabetes mellitus without complication (E11.9) Active confirmed Problem 593504001 Low HDL (under 4 0) (E78.6) Active confirmed Problem 81846698 Memory loss (R41.3) Active confirmed Problem 090709586 Cervical disc di sease (M50.90) Active confirmed Problem Dysthymia (36691670) Dysthymia (F34.1) Active confirmed Problem 566599721 Pure hypercholesterolemia (E78.00) Active confirmed Problem 13820132 Pharyngoesophage al dysphagia (R13.14) Active confirmed Problem Type II diabetes mellitus without complication (787847416) Controlled type 2 diabetes mellitus without complication, without long-term current use of insulin (E11.9) Active confirmed Problem 449588234 Benign neoplasm breast, 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 Problem 336373316 Benign neoplasm breast, 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 Problem 780849759 Enlarged tonsils (J35.1) Active confirmed Problem 922870876 Anterolisthesis (M43.10) Active confirmed Vital Signs Temperature 102 degrees Fahrenheit 06/17/2024 weigh t is 187 BP not taken temp 102 Blood pressure diastolic 60 mm Hg 01/25/2025 sho ght is down 5 pounds since 10-08-24 Height 69 in 01/25/2025 weight is down 5 pounds since 10-08-24 Blood pressure systolic 122 mm Hg 01/25/2025 weig ht is down 5 pounds since 10-08-24 Weight 196 lbs 01/25/2025 weight is down 5 pounds since 10-08-24 BMI 28.94 kg/m2 01/25/2025 weight is down 5 pounds since 10-08-24 Encounters Encounter Location Date Provider Diagnosis Ramon Avila MD [address] [place] [id number] 07/06/2024 Ramon Avila Blood tests for rout ine general physical examination Z00.00 ; Type 2 diabetes mellitus without complication E11.9 ; Pure hypercholesterolemia E78.00 and Essential hypertension I10 Ramon Avila MD [address] [place] [id number] 01/04/2025 Ramon Avila Blood tests for rout ine general physical examination Z00.00 ; Type 2 diabetes mellitus without complication E11.9 ; Essential hypertension I10 and Pure hypercholesterolemia E78.00 Ramon Avila MD [address] [place] [id number] 06/17/2024 Ramon Avila Acute pneumonia J18. 9 and Influenza A J10.1 Ramon Avila MD [address] [place] [id number] 06/29/2024 Ramon Avila Influenza A J10.1 Ramon Avila MD [address] [place] [id number] 07/09/2024 Ramon Avila Type 2 diabetes peggy itus without complication E11.9 ; Heart murmur R01.1 and Pure hypercholesterolemia E78.00 Ramon Avila MD [address] [place] [id number] 10/08/2024 Ramon Avila Type 2 diabetes peggy itus without complication E11.9 Ramon Avila MD [address] [place] [id number] 01/25/2025 Ramon Avila Annual physical exam Z00.00 ; Type 2 diabetes mellitus without complication E11.9 ; Dysthymia F34.1 ; Pure hypercholesterolemia E78.00 ; Essential hypertension I10 and Depression screening Z13.31 Ramon Avila MD [address] [place] [id number] 04/15/2024 Ramon Avila Pure hypercholestero lemia E78.00 Ramon Avila MD [address] [place] [address] [id number] 06/24/2024 Ramon Avila MD [address] [place] [id number] 08/20/2024 Ramon Avila MD [address] [place] [address] [id number] 08/23/2024 Ramon Avila MD [address] [id number] 02/29/2024 Ramon Avila Pure hypercholestero lemia E78.00 Assessments Encounter Date Diagnosis (ICD Code) Assessment Notes Treatment Notes Treatment Clinical Notes Section Notes 07/06/2024 Blood tests for rout ine general physical examination (ICD-10 - Z00.00) 01/04/2025 Blood tests for rout ine general physical examination (ICD-10 - Z00.00) 06/17/2024 Acute pneumonia (ICD -10 - J18.9) order for ChesT x-ray marked STAT. [place] [facility] Patient Reg.PATIENT AWARE THAT HIS ORDERS ARE AT PATIENT REG [facility] 06/17/2024 Influenza A (ICD-10 - J10.1) 06/29/2024 [...] spent reviewing documentation, and counseling the patient. 01/25/2025 Annual physical exam (ICD-10 - Z00.00) labs reviewed na discussed with patient 01/25/2025 Type 2 diabetes mellitus without complication (ICD-10 - E11.9) referral to the endocinologist, patient verbalized understanding of medication and directions for use 04/15/2024 Pure hypercholesterolemia (ICD-10 - E78.00) 02/29/2024 Pure hypercholesterolemia (ICD-10 - E78.00) 07/06/2024 Type 2 diabetes mellitus without complication (ICD-10 - E11.9) 01/04/2025 Type 2 diabetes mellitus without complication (ICD-10 - E11.9) 07/09/2024 Pure hypercholesterolemia (ICD-10 - E78.00) stable, will contoinue current regiment 01/25/2025 Dysthymia (ICD-10 - F34.1) does not want meds. , will cntinue to monitor 07/06/2024 Pure hypercholesterolemia (ICD-10 - E78.00) 01/04/2025 Essential hypertensi on (ICD-10 - I10) 01/25/2025 Pure hypercholesterolemia (ICD-10 - E78.00) stable, will contiue current regiment 07/06/2024 Essential hypertensi on (ICD-10 - I10) 01/04/2025 Pure hypercholesterolemia (ICD-10 - E78.00) 01/25/2025 Essential hypertensi on (ICD-10 - I10) stable, will contnue current regiment 01/25/2025 Depression screening (ICD-10 - Z13.31) Plan Of Treatment Pending Test Test Name Order Date Electrocardiogram (EKG) 10/26/2015 Electrocardiogram (EKG) 11/13/2017 Electrocardiogram (EKG) 06/26/2012 XR CHEST 2 VIEW PA & LAT 06/17/2024 ECHO 07/09/2024 Comprehensive [place]. Panel Fast Hemoglobin A1c 07/06/2024 Next Appt Details Provider Name:Ramon van, 02/25/2025 01:30:00 PM, [address] [place] [address], [address], [place], [phone], Provider Name:Ramon Pink jesusr, 07/18/2025 07:15:00 AM, [address] [place] [address], Suite [facility], [place], [phone], Provider Name:Ramon Pink ier, 07/25/2025 01:30:00 PM, [address] [place] [address], [place] [address], [place], [phone], Provider Name:Ramon Amorlena ier, 01/20/2026 07:30:00 AM, [address] [place] [address], [place] [address], [place], [phone], Provider Name:Ramon Pink [place], 01/27/2026 01:00:00 PM, [address] [place] [address], [place] [address], [place], [id number], Insurance Providers Payer Name Payer Address Payer Phone Subscriber Number Group Number Insured Name Patient Relationship to Insured Coverage Start Date Coverage End Date [facility] [address] [place], [place] [phone] [phone] [id number] Jakob Fontaine Self - patient is the insured Medical (General) History Medical History History ICD Code Colonoscopy done 05/24/[address] Chanel/rony mehtalastic polyp due in 10
== END 2025-02-03 13:41 | disposition home or self-care (01) ==
LOC: HO.ENCR 12:54
PROVIDERS: PCP Internal Medicine; Visit Provider Internal Medicine
DX: E11.65 Type 2 diabetes mellitus with hyperglycemia (principal)

== ENCOUNTER → 2025-02-03 12:53 | Outpatient (BNVA) | payer BC, SELFPAY | PROVIDERS: PCP Internal Medicine; Visit Provider Internal Medicine | DX: E11.65 Type 2 diabetes mellitus with hyperglycemia (principal) | CPT/HCPCS: 82947; 95249 ==

== ENCOUNTER 2025-03-10 13:54 | Outpatient (AMB) | payer BC, SELFPAY ==
--- OUTSIDE RECORDS SUMMARY | 2024-06-29 05:00 | XMS_ITS ---
Author Organization Ramon Avila MD Address [address] [place] [phone] Care Team Providers Care Combatant Swimmer Name Role Phone Ramon Avila Primary Care Provider Allergies No Known Allergies REASON FOR VISIT POST ER VISIT, Video [phone] Medications Medication SIG (Take, Route, Frequency, Duration) Notes Start Date End Date Status Oseltamivir Phosphate 75 MG 1 capsule Orally Twice a day for 5 day(s) 06/17/2024 Active metFORMIN HCl ER 500 MG TAKE 2 TABLETS B Y MOUTH TWICE A DAY for 90 Active guaiFENesin-Codeine 100-10 MG/5ML 10 mL as needed Orally every 4 hrs as needed for 10 days 05/09/2022 Not-Taking Januvia 100 mg TAKE 1 TABLET DAILY Orally Once a day for 90 days Not-Taking Tylenol Extra Strength 500 MG 1 tablet as needed Orally every 6 hrs Not-Taking FreeStyle Amrita 2 Lafe - as directed 07/05/2022 Active FreeStyle Amrita 14 Day Sensor - as directed 07/05/2022 Active FreeStyle Amrita 2 Sensor - as directed for 90 days 07/05/2022 Acti ve Lisinopril-hydroCHLOROthi azide 10-12.5 MG TAKE 1 TABLET BY MOUTH EVERY DAY Orally Once a day for 90 days Active Atorvastatin Calcium 40 mg TAKE 1 TABLET DAILY Orally Once a day for 90 days Active Ibuprofen 200 MG 1 tablet with food o r milk as needed Orally Three times a day Active Augmentin 500-125 MG 1 tablet Orally melinda ry 12 hrs Not-Taking FreeStyle Amrita 14 Day Lafe - as directed 07/05/2022 Active OneTouch Delica Plus [id number] - USE TO TEST BLOOD SUGAR ONCE DAILY Active Vital Signs Height 69 in 06/29/2024 weight is 190 at home BP not taken no temp Encounters Encounter Location Date Provider Diagnosis Ramon Avila MD [address] [place] [phone] 06/29/2024 Ramon Avila Influenza A J10.1 Assessments Encounter Date Diagnosis (ICD Code) Assessment Notes Treatment Notes Treatment Clinical Notes Section Notes 06/29/2024 Influenza A (ICD-10 - J10.1) started to take the amoxicilin and felt better. will stop amoxicillin since it is not treating anything. Plan Of Treatment Treatment Notes Assessment Notes Influenza A started to take the amoxicilin and felt better. will stop amoxicillin since it is not treating anything. Next Appt Details Provider Name:Ramon van, 05/03/2025 11:00:00 AM, [address] [place] [address], [address], [phone], Provider Name:Ramon van, 07/18/2025 07:15:00 AM, [address] [place] [address], [phone], Provider Name:Ramon van, 07/25/2025 01:30:00 PM, [address] [place] [address], [phone], Provider Name:Ramon van, 01/20/2026 07:30:00 AM, [address] [place] [address], [phone], Provider Name:Raomn Pink ier, 01/27/2026 01:00:00 PM, [address], [address], [place], [place], [phone], Progress Notes * Jakob AYALA RDOB:1965 (59 yo M)Acc No.[id number]:06/29/2024 Patient: Jakob BARAHONA Provider: Miko Avila MD :1965 A ge:59 Y S ex:Male Date:06/29/2024 Address:[address] [place] [address], [phone] Subjective: * Chief Complaints: * P OST ER VISITVideo [phone] * HPI: S ymptom(s): Telehealth L ocation of provider rendering services: [address], [address], L ocation of patient: a t address listed in demographics for today's visit, P atient identification confirmed using: MOR Alvarado ame, T elehealth method: V ideo conference where patient is visible to the provider of care, C onsent: P atient verbally consented to treatment, Patient verbally consented to billing insurance company, Patient informed of any privacy concerns related to method of visit, T otal time spend talking with patient (minutes) 1 6. patient is a 59 yo male video telehealth visit, here for follow up from the er. had the flu. stopped taking augmentin 06/21 and 06/25 got fever and vomiting. started the augmentin again and got better. * ROS: G eneral/Constitutional: Denies C hills. D enies F atigue. D enies F ever. D enies H eadache. E NT: Patient denies d ecreased sense of smell, any loss of taste, sore throat. D enies S ore throat. R espiratory: Denies C ough. D enies S hortness of breath at rest. D enies S hortness of breath with exertion. D enies S putum production. G astrointestinal: Denies D iarrhea. D enies N ausea. D enies V omiting. M usculoskeletal: Patient denies m uscle aches. P eripheral Vascular: Patient denies r ed and blue toes. h ad initially been treated for pneumonia. was 12 hours in waiting room. but no pneumonia. * Medical History: * Surgical History: * Hospitalization/Major Diagno stic Procedure: * Medications: T akingIbuprofen 200 MG Tablet 1 tablet with food or milk as needed Orally Three times a day OneTouch Delica Plus [id number] - Miscellaneous USE TO TEST BLOOD SUGAR ONCE DAILY FreeStyle Amrita 14 Day Lafe - Device as directed FreeStyle Amrita 2 Lafe - Device as directed FreeStyle Amrita 2 Sensor - Miscellaneous as directed FreeStyle Amrita 14 Day Sensor - Miscellaneous as directed Atorvastatin Calcium 40 mg Tablet TAKE 1 TABLET DAILY Orally Once a day Lisinopril-hydroCHLOROthiazide 10-12.5 MG Tablet TAKE 1 TABLET BY MOUTH EVERY DAY Orally Once a day metFORMIN HCl ER 500 MG Tablet Extended Release 24 Hour TAKE 2 TABLETS BY MOUTH TWICE A DAY Oseltamivir Phosphate 75 MG Capsule 1 capsule Orally Twice a day Taking Ibuprofen 200 MG Tablet 1 tablet with food or milk as needed Orally Three times a day Taking OneTouch Delica Plus [id number] - Miscellaneous USE TO TEST BLOOD SUGAR ONCE DAILY Taking FreeStyle Amrita 14 Day Lafe - Device as directed Taking FreeStyle Amrita 2 Lafe - Device as directed Taking FreeStyle Amrita 2 Sensor - Miscellaneous as directed Taking FreeStyle Amrita 14 Day Sensor - Miscellaneous as directed Taking Atorvastatin Calcium 40 mg Tablet TAKE 1 TABLET DAILY Orally Once a day Taking Lisinopril- hydroCHLOROthiazide 10-12.5 MG Tablet TAKE 1 TABLET BY MOUTH EVERY DAY Orally Once a day Taking metFORMIN HCl ER 500 MG Tablet Extended Release 24 Hour TAKE 2 TABLETS BY MOUTH TWICE A DAY Taking Oseltamivir Phosphate 75 MG Capsule 1 capsule Orally Twice a day Not-Taking/PRNAugmentin 500-125 MG Tablet 1 tablet Orally every 12 hrs Januvia 100 mg Tablet TAKE 1 TABLET DAILY Orally Once a day guaiFENesin-Codeine 100-10 MG/5ML Solution 10 mL as needed Orally every 4 hrs as needed Tylenol Extra Strength 500 MG Tablet 1 tablet as needed Orally every 6 hrs Medication List reviewed and reconciled with the patientNot-Taking/PRN Augmentin 500-125 MG Tablet 1 tablet Orally every 12 hrs Not-Taking/PRN Januvia 100 mg Tablet TAKE 1 TABLET DAILY Orally Once a day Not-Taking/PRN guaiFENesin-Codeine 100-10 MG/5ML Solution 10 mL as needed Orally every 4 hrs as needed Not-Taking/PRN Tylenol Extra Strength 500 MG Tablet 1 tablet as needed Orally every 6 hrs Medication List reviewed and reconciled with the patient * Allergies: N .K.D.A.yes[Allergies Verified] Objective: * Vitals: H t: 69. weight is 190 at home BP not taken no temp. * Examination: G eneral Examination: GENERAL APPEARANCE: a lert, well hydrated, in no distress.? Assessment: * Assessment: 1. Peter Marshall J10.1 (Primary) Plan: * Treatment: * Procedure Codes: * * Sign off status: Completed true * Provider: Miko Avila MD Date: 0 06/29/2024 Generated for Wm grey/Karen/eTransmciara on: 1 04:53 PM EDT History and Physical Notes * HPI (History of Present Illness) Category Sub-Category Detail Notes Category Not es Symptom(s) Telehealth Location of [facility] services:: [address], [address] patient is a 59 yo male video telehealth visit, here for follow up from the er. had the flu. stopped taking augmentin 06/21 and 06/25 got fever and vomiting. started the augmentin again and got better. Location of patient:: at address listed in demographics for today's visit Patient identification confirmed using:: Name, Telehealth method:: Video co nference where patient is visible to the provider of care Consent:: Patient verbally c onsented to treatment, Patient verbally consented to billing insurance company, Patient informed of any privacy concerns related to method of visit Total time spend talking with patient (m inutes): 16 Examination Category Sub-Category Detail Notes Category Not es General Examination GENERAL APPEARANCE: alert, w ell hydrated, in no distress
--- OUTSIDE RECORDS SUMMARY | 2024-07-06 03:00 | XMS_ITS ---
Author Organization Ramon Avila MD Address [address] [place] [phone] Care Team Providers Care Cloth Picker Name Role Phone Austin Ramon Primary Care Provider Results Component Value Reference Range Notes Complete Blood Count Auto Di ff Reviewed date:07/06/2024 04:47:32 PM Interpretation: Performing Lab:[facility], [address] [place] [phone] Notes/Report: White Blood Count 7.5 4.8-10.8 X10*3/uL Red Blood Count 4.74 4.60-5.80 X10*6/uL Hemoglobin 14.5 14.0-18.0 g/dl Hematocrit 42.6 42.0-52.0 % Mean Corpuscular Volume 89.9 80.0-98.0 fL Mean Corpuscular Hemoglobin 30.6 27.0-33.0 pg Mean Corpuscular HGB Conc 34.0 31.0-36.0 g/dl Red Cell Distribution Width 12.9 11.0-16.0 % Platelet Count 318 160-400 X10*3/uL Mean Platelet Volume 10.8 9.4-12.4 fL Neutrophils Percent Auto 57.7 45-73 % Imm Gran Pct Auto 0.3 0.0-0.4 % Lymphocytes Percent Auto 32.1 20-40 % Monocytes Percent Auto 8.3 2-11 % Eosinophils Percent Auto 1.2 0-4 % Basophils Percent Auto 0.4 0-2 % NRBC Pct Auto 0.0 0.0-0.2 /100WBC Neutrophils Absolute Auto 4.3 2.0-8.3 x10*3/u L Imm Gran Abs Auto 0.02 0.00-0.03 X10*3/uL Lymphocytes Absolute Auto 2.4 1.2-4.9 X10*3/u L Monocytes Absolute Auto 0.6 0.1-1.2 X10*3/uL Eosinophils Absolute Auto 0.1 0.0-0.4 X10*3/u L Basophils Absolute Auto 0.0 0.0-0.2 X10*3/uL NRBC Abs Auto 0.000 0.0-0.012 X10*3/uL Comprehensive [place]. Panel Fa st Reviewed date:07/06/2024 04:46:58 PM Interpretation: Performing Lab:[facility], [address] [place] [phone] Notes/Report: Sodium 140 135-145 mmol/L Potassium 4.2 3.3-5.1 mmol/L Chloride 105 96-108 mmol/L Carbon Dioxide 25 22-29 mmol/L Anion Gap 14 12-20 Blood Urea Nitrogen 9 9-16 mg/dL Creatinine 0.85 0.5-1.4 mg/dL Estimated Glomerular Filt Rate > 60 Chronic Kidney Disease: Estimated GFR < 60 mL/min/1.73m2 Severe Kidney Disease: Estimated GFR < 15 mL/min/1.73m2 Glucose Fasting 202 60-99 mg/dL A fasting glucose of 126 mg/dl or greater on more than one occasion is considered diagnostic of diabetes. Calcium 9.4 8.4-10.2 mg/dL Bilirubin Total 0.4 0.0-1.0 mg/dL Aspartate Amino Transferase 30 5-37 U/L Alanine Aminotransferase 46 0-40 U/L Total Protein 7.3 6.5-8.0 g/dL Albumin Level 4.1 3.5-5.0 g/dL Alkaline Phosphatase 48 39-117 U/L Lipid Panel Reviewed date:07/06/2024 12:36:17 PM Interpretation: Performing Lab:[facility], [address] [place] [phone] Notes/Report: Triglycerides 199 <150 mg/dL Desirable Triglyceride: less than 150 mg/dL Borderline High Triglyceride 150-199 mg/dL High Triglyceride: 200-499 mg/dL Very High Triglyceride: greater than or equal to 5OO mg/dL Cholesterol 137 <200 mg/dL Desirable Cholesterol: less than 200 mg/dL Borderline High Cholesterol: 200-239 mg/dL High Cholesterol: greater than 239 mg/dL LDL Cholesterol Calculated 57 <100 mg/dL Desirable LDL: less than 100 mg/dL Near Optimal/Above Optimal LDL: 110-129 mg/dL Borderline High LDL: 130-159 mg/dL High LDL: 160-189 mg/dL Very High LDL: greater than or equal to 190 mg/dL HDL Cholesterol 41 >40 mg/dL Desirable HDL: greater than 40 mg/dL Note: This HDL assay may give artificially low results in patients with liver disease. PSA,Total (Free>4and<10) Reviewed date:07/06/2024 12:30:36 PM Interpretation: Performing Lab:[facility], [address] [place] [phone] Notes/Report: PSA,Total (Free>4and<10) 0.94 0.00-4.00 ng/mL A Free PSA was not performed: The percentage of Free PSA can be used to enhance the differentiation of prostate cancer from benign prostatic disease in subjects whose PSA levels are between 4.0 and 10.0 ng/mL. For subjects whose PSA levels are below 4.0 or above 10.0 ng/mL, the risk of prostate cancer is determined on the basis of the PSA alone. Therefore the % Free PSA is recommended only for those subjects whose PSA levels are between 4.0 and 10.0 ng/mL. PSA methodology: Franks Alinity i Chemiluminescent Microparticle Immunoassay (CMIA) Microalbumin, Random Reviewed date:07/06/2024 12:30:28 PM Interpretation: Performing Lab:[facility], [address] [place] [phone] Notes/Report: Creatinine Urine 483.43 Microalbumin Urine 43.0 Microalbum/Creatinine Ratio Ur 8.8 <30 ug/mg cr Albumin/Creatinine Ratio Reference Ranges: Normal: < 30 ug/mg creatinine Microalbuminuria: 30 - 300 ug/mg creatinine Clinical Albuminuria: > 300 ug/mg creatinine UA ClnCatch+Micro w/rflx Cul t Reviewed date:07/06/2024 12:29:35 PM Interpretation: Performing Lab:[facility], [address] [place] [phone] Notes/Report: Urine, Clean Catch Color Urine Dark Yellow Appearance Urine Turbid PH 5.0 5.0-9.0 Glucose Urine UA Negative Negative mg/dL Urine Blood Negative Negative Specific [place] - Urine >= 1.030 1.005-1.025 Urine Protein 30 (1+) Neg-Trace mg/dL Urine Ketones Trace Negative mg/dL Nitrite Urine Negative Negative Leukocyte Esterase Urine Negative Negative RBC Urine 0-2 0-2 /HPF WBC Urine 0-5 0-5 /HPF Squamous Epithelial Cell Urine 0-2 0-2 /HPF Calcium Oxalate Crystals Urine Present Other Crystals Urine Present Bacteria Urine None Seen None Seen Hyaline Casts Urine 3-5 0-2 /LPF REASON FOR VISIT FASTING LIPIDS Encounters Encounter Location Date Provider Diagnosis Ramon Avila MD [address] [place] [address] [address] [place], [place] [phone] 07/06/2024 Ramon Avila Blood tests for rout ine general physical examination Z00.00 ; Type 2 diabetes mellitus without complication E11.9 ; Pure hypercholesterolemia E78.00 and Essential hypertension I10 Assessments Encounter Date Diagnosis (ICD Code) Assessment Notes Treatment Notes Treatment Clinical Notes Section Notes 07/06/2024 Blood tests for rout ine general physical examination (ICD-10 - Z00.00) 07/06/2024 Type 2 diabetes peggy itus without complication (ICD-10 - E11.9) 07/06/2024 Pure hypercholesterolemia (ICD-10 - E78.00) 07/06/2024 Essential hypertensi on (ICD-10 - I10) Plan Of Treatment Pending Test Test Name Order Date Hemoglobin A1c 07/06/2024 Next Appt Details Provider Name:Ramon Pink ier, 05/03/2025 11:00:00 AM, [address], [address], [place], [place], [phone], Provider Name:Ramon Pink ier, 07/18/2025 07:15:00 AM, [address] [facility], [address], [place], [phone], Provider Name:Ramon Pink ier, 07/25/2025 01:30:00 PM, [address], Suite [facility], [place], [phone], Provider Name:Ramon Pink ier, 01/20/2026 07:30:00 AM, [address] [facility], Suite [facility], [place], [phone], Provider Name:Ramon Pink ier, 01/27/2026 01:00:00 PM, [address] [place] [address], Suite [facility], [place], [place], [phone], Progress Notes * Jakob AYALA RDOB:1965 (59 yo M)Acc No.[id number]:07/06/2024 Progress Note Patient: Jakob BARAHONA Provider: Miko Avila MD :1965 A ge:59 Y S ex:Male Date:07/06/2024 Address:[address] [place] [id number] Subjective: * Chief Complaints: * 1 . FASTING LIPIDS. * Medical History: Objective: * Vitals: Assessment: * Assessment: 1. B lood tests for routine general physical examination - Z00.00 (Primary) 2 .?Type 2 diabetes mellitus without complication - E11.9 3 . P ure hypercholesterolemia - E78.00 4 . E ssential hypertension - I10 Plan: * Treatment: 2. T ype 2 diabetes mellitus without complication L AB: Hemoglobin A1c L AB: Complete Blood Count Auto Diff (Collection Date & Time - 07/06/2024 10:02 AM) L AB: Comprehensive [place]. Panel Fast (Collection Date & Time - 07/06/2024 10:02 AM) L AB: Lipid Panel (Collection Date & Time - 07/06/2024 10:02 AM) L AB: PSA,Total (Free>4and<10) (Collection Date & Time - 07/06/2024 10:02 AM) L AB: Microalbumin, Random (Collection Date & Time - 07/06/2024 10:02 AM) L AB: UA ClnCatch+Micro w/rflx Cult (Collection Date & Time - 07/06/2024 10:02 AM) 3. P ure hypercholesterolemia L AB: Hemoglobin A1c L AB: Complete Blood Count Auto Diff (Collection Date & Time - 07/06/2024 10:02 AM) L AB: Comprehensive [place]. Panel Fast (Collection Date & Time - 07/06/2024 10:02 AM) L AB: Lipid Panel (Collection Date & Time - 07/06/2024 10:02 AM) L AB: PSA,Total (Free>4and<10) (Collection Date & Time - 07/06/2024 10:02 AM) L AB: Microalbumin, Random (Collection Date & Time - 07/06/2024 10:02 AM) L AB: UA ClnCatch+Micro w/rflx Cult (Collection Date & Time - 07/06/2024 10:02 AM) 4. E ssential hypertension L AB: Hemoglobin A1c L AB: Complete Blood Count Auto Diff (Collection Date & Time - 07/06/2024 10:02 AM) L AB: Comprehensive [place]. Panel Fast (Collection Date & Time - 07/06/2024 10:02 AM) L AB: Lipid Panel (Collection Date & Time - 07/06/2024 10:02 AM) L AB: PSA,Total (Free>4and<10) (Collection Date & Time - 07/06/2024 10:02 AM) L AB: Microalbumin, Random (Collection Date & Time - 07/06/2024 10:02 AM) L AB: UA ClnCatch+Micro w/rflx Cult (Collection Date & Time - 07/06/2024 10:02 AM) * Procedure Codes: 3 6415 VENIPUNCT, ROUTINE* * * The named appointment provid er may or may not be the originator of this progress note, and it is not deemed complete until electronically signed by the appointment provider. Sign off status: Pending * Provider: Miko Avila MD Date: 0 07/06/2024 Generated for Wm grey/Karen/Shad on: 1 04:54 PM EDT
--- OUTSIDE RECORDS SUMMARY | 2024-07-09 09:30 | XMS_ITS ---
Author Organization Ramon Avila MD Address [address] [place] [phone] Care Team Providers Care Rope Cutter Name Role Phone Ramon Avila Primary Care Provider Allergies No Known Allergies Results Component Value Reference Range Notes Hemoglobin A1c Reviewed date:07/09/2024 01:36:04 PM Interpretation: Performing Lab: Notes/Report: Hemoglobin A1c 8.0 Glucose, finger stick Reviewed date:07/09/2024 01:35:47 PM Interpretation: Performing Lab: Notes/Report: Value 130 REASON FOR VISIT 6 MO F/U Medications Medication SIG (Take, Route, Frequency, Duration) Notes Start Date End Date Status OneTouch Delica Plus [id number] - USE TO TEST BLOOD SUGAR ONCE DAILY Active FreeStyle Amrita 14 Day [place] - as directed 07/05/2022 Active metFORMIN HCl ER 500 MG TAKE 2 TABLETS B Y MOUTH TWICE A DAY Active Atorvastatin Calcium 40 mg TAKE 1 TABLET DAILY Orally Once a day Active FreeStyle Amrita 2 [place] - as directed 07/05/2022 Active guaiFENesin-Codeine 100-10 MG/5ML 10 mL as needed Orally every 4 hrs as needed for 10 days 05/09/2022 Not-Taking Augmentin 500-125 MG 1 tablet Orally melinda ry 12 hrs Not-Taking Ibuprofen 200 MG 1 tablet with food o r milk as needed Orally Three times a day Not-Taking Januvia 100 mg TAKE 1 TABLET DAILY Orally Once a day for 90 days Not-Taking Tylenol Extra Strength 500 MG 1 tablet as needed Orally every 6 hrs Not-Taking Lisinopril-hydroCHLOROthi azide 10-12.5 MG TAKE 1 TABLET BY MOUTH EVERY DAY Orally Once a day for 90 days Active FreeStyle Amrita 2 Sensor - as directed for 90 days 07/05/2022 Acti ve FreeStyle Amrita 14 Day Sensor - as directed 07/05/2022 Active Vital Signs Blood pressure systolic 102 mm Hg 07/09/19 25 Blood pressure diastolic 60 mm Hg 025 Height 69 in 07/09/2024 Weight 195 lbs 07/09/2024 BMI 28.79 kg/m2 07/09/2024 Encounters Encounter Location Date Provider Diagnosis Ramon Avila MD [address] [place] [phone] 07/09/2024 Ramon Avila Type 2 diabetes peggy itus without complication E11.9 ; Heart murmur R01.1 and Pure hypercholesterolemia E78.00 Assessments Encounter Date Diagnosis (ICD Code) Assessment Notes Treatment Notes Treatment Clinical Notes Section Notes 07/09/2024 Type 2 diabetes peggy itus without complication (ICD-10 - E11.9) running a little high will recheck in 3 months, will continue current regiment until recheck 07/09/2024 Heart murmur (ICD-10 - R01.1) 07/09/2024 Pure hypercholesterolemia (ICD-10 - E78.00) stable, will contoinue current regiment Plan Of Treatment Medication Medication Name Sig Start Date Stop Date Notes metFORMIN HCl ER 500 MG TAKE 2 TABLETS B Y MOUTH TWICE A DAY Atorvastatin Calcium 40 mg TAKE 1 TABLET DAILY Orally Once a day Treatment Notes Assessment Notes Type 2 diabetes mellitus without complic ation running a little high will recheck in 3 months, will continue current regiment until recheck Pure hypercholesterolemia stable, will c ontoinue current regiment Pending Test Test Name Order Date ECHO 07/09/2024 Next Appt Details Follow Up: 3 Months, Reason: dm Provider Name:Ramon Pink ier, 05/03/2025 11:00:00 AM, [address] [place] [address], Suite [facility], [place], [place], [phone], Provider Name:Ramon Pink ier, 07/18/2025 07:15:00 AM, [address] [place] [address], [place] [address], [place], [place], [phone], Provider Name:Ramon Pink ier, 07/25/2025 01:30:00 PM, [address] [place] [address], [address], [phone], Provider Name:Ramon Pink ier, 01/20/2026 07:30:00 AM, [address] [place] [address], [address], [phone], Provider Name:Ramon Pink ier, 01/27/2026 01:00:00 PM, [address] [place] [address], [address], [phone], Progress Notes * Jakob AYALA RDOB:1965 (59 yo M)Acc No.[id number]:07/09/2024 Progress Notes Patient: Jakob BARAHONA Provider: Miko Avila MD :1965 A ge:59 Y S ex:Male Date:07/09/2024 Address:[address] [place] [phone] Subjective: * Chief Complaints: * 6 MO F/U * HPI: S ymptom(s): Patient is a 59 yo male here for 6 month follow up visit, feeling well. had influenza type a. * ROS: G eneral/Constitutional: Denies C hills. D enies F atigue. D enies F ever. D enies H eadache. E NT: Patient denies d ecreased sense of smell, any loss of taste, sore throat. D enies S ore throat. R espiratory: Denies C ough. Daniel meier S hortness of breath at rest. D enjamie S hortness of breath with exertion. G astrointestinal: Jeff Sanchez iarrhea. Daniel enjamie N ausea. M usculoskeletal: Patient denies m uscle aches. P eripheral Vascular: Patient denies r ed and blue toes. * Medical History: * Surgical History: * Hospitalization/Major Diagno stic Procedure: * Medications: T akingOneTouch Delica Plus [id number] - Miscellaneous USE TO TEST BLOOD SUGAR ONCE DAILY FreeStyle Amrita 14 Day [place] - Device as directed FreeStyle Amrita 2 [place] - Device as directed FreeStyle Amrita 2 [...] TABLETS BY MOUTH TWICE A DAY Taking OneTouch Delica Plus Qzezce70I - Miscellaneous USE TO TEST BLOOD SUGAR ONCE DAILY Taking FreeStyle Amrita 14 Day [place] - Device as directed Taking FreeStyle Amrita 2 [place] - Device as directed Taking FreeStyle Amrita [...] 2 TABLETS BY MOUTH TWICE A DAY Not-Taking/PRNIbuprofen 200 MG Tablet 1 tablet with food or milk as needed Orally Three times a day Augmentin 500-125 MG Tablet 1 tablet Orally every 12 hrs Januvia 100 mg Tablet TAKE 1 TABLET DAILY Orally Once a day guaiFENesin-Codeine 100-10 MG/5ML Solution 10 mL as needed Orally every 4 hrs as needed Tylenol Extra Strength 500 MG Tablet 1 tablet as needed Orally every 6 hrs Not-Taking/PRN Ibuprofen 200 MG Tablet 1 tablet with food or milk as needed Orally Three times a day Not-Taking/PRN Augmentin 500-125 MG Tablet 1 tablet Orally every 12 hrs Not-Taking/PRN Januvia 100 mg Tablet TAKE 1 TABLET DAILY Orally Once a day Not-Taking/PRN guaiFENesin-Codeine 100-10 MG/5ML Solution 10 mL as needed Orally every 4 hrs as needed Not-Taking/PRN Tylenol Extra Strength 500 MG Tablet 1 tablet as needed Orally every 6 hrs DiscontinuedOseltamivir Phosphate 75 MG Capsule 1 capsule Orally Twice a day Medication List reviewed and reconciled with the patientDiscontinued Oseltamivir Phosphate 75 MG Capsule 1 capsule Orally Twice a day Medication List reviewed and reconciled with the patient * Allergies: N .K.D.A.yes[Allergies Verified] Objective: * Vitals: H t: 69, Wt: 195, BMI:28.79, BP:102/60, Wt-k.45. * P ast Orders: L ab:Microalbumin, Random (Order Date - 07/06/2024) (Collection Date & Time - 07/06/2024 10:02 AM) Value Reference Range Creatinine Urine 483.43 - mg/dL Microalbumin Urine 43.0 - mg/L Microalbum Creatinine Ratio Ur 8.8 <30 - ug/ mg cr L ab:UA ClnCatch+Micro w/rflx Cult (Order Date - 07/06/2024) (Collection Date & Time - 07/06/2024 10:02 AM) Value Reference Range Color Urine Dark Yellow - Appearance Urine Turbid - PH 5.0 5.0-9.0 - Glucose Urine UA Negative Negative - mg/dL Urine Blood Negative Negative - Specific [place] - Urine >= 1.030 H 1.005-1.025 - Urine Protein 30 (1+) A Neg-Trace - mg/dL Urine Ketones Trace Negative - mg/dL Nitrite Urine Negative Negative - Leukocyte Esterase Urine Negative Negative - RBC Urine 0-2 0-2 - /HPF WBC Urine 0-5 0-5 - /HPF Squamous Epithelial Cell Urine 0-2 0-2 - /HP F Bacteria Urine None Seen None Seen - Hyaline Casts Urine 3-5 0-2 - /LPF Other Crystals Urine Present - Calcium Oxalate Crystals Urine Present - Lab:Complete Blood Count Aut o Diff * Collection Date 07/06/2024 06/21/2024 Collection Time 10:02 AM 04:52 PM Order Date 07/06/2024 06/21/2024 White Blood Count 7.5 (Ref Range: 4.8-10.8 X10*3/uL) 9.7 (Ref Range: 4.8-10.8 X10*3/uL) Red Blood Count 4.74 (Ref Range: 4.60-5.80 X10*6/uL) 4.70 (Ref Range: 4.60-5.80 X10*6/uL) Hemoglobin 14.5 (Ref Range: 14.0-18.0 g/dl) 14.2 (Ref Range: 14.0-18.0 g/dl) Hematocrit 42.6 (Ref Range: 42.0-52.0 %) 40.4 L (Ref Range: 42.0-52.0 %) Mean Corpuscular Volume 89.9 (Ref Range: 80.0-98.0 fL) 86.0 (Ref Range: 80.0-98.0 fL) Mean Corpuscular Hemoglobin 30.6 (Ref Range: 27.0-33.0 pg) 30.2 (Ref Range: 27.0-33.0 pg) Mean Corpuscular HGB Conc 34.0 (Ref Range: 31.0-36.0 g/dl) 35.1 (Ref Range: 31.0-36.0 g/dl) Red Cell Distribution Width 12.9 (Ref Range: 11.0-16.0 %) 12.0 (Ref Range: 11.0-16.0 %) Platelet Count 318 (Ref Range: 160-400 X10*3/uL) 426 H (Ref Range: 160-400 X10*3/uL) Mean Platelet Volume 10.8 (Ref Range: 9.4-12.4 fL) 9.1 L (Ref Range: 9.4-12.4 fL) Neutrophils Percent Auto 57.7 (Ref Range: 45-73 %) 69.2 (Ref Range: 45-73 %) Imm Gran Pct Auto 0.3 (Ref Range: 0.0-0.4 %) 0.9 H (Ref Range: 0.0-0.4 %) Lymphocytes Percent Auto 32.1 (Ref Range: 20-40 %) 20.8 (Ref Range: 20-40 %) Monocytes Percent Auto 8.3 (Ref Range: 2-11 %) 8.5 (Ref Range: 2-11 %) Eosinophils Percent Auto 1.2 (Ref Range: 0-4 %) 0.4 (Ref Range: 0-4 %) Basophils Percent Auto 0.4 (Ref Range: 0-2 %) 0.2 (Ref Range: 0-2 %) NRBC Pct Auto 0.0 (Ref Range: 0.0-0.2 /100WBC) 0.0 (Ref Range: 0.0-0.2 /100WBC) Neutrophils Absolute Auto 4.3 (Ref Range: 2.0-8.3 x10*3/uL) 6.7 (Ref Range: 2.0-8.3 x10*3/uL) Imm Gran Abs Auto 0.02 (Ref Range: 0.00-0.03 X10*3/uL) 0.09 H (Ref Range: 0.00-0.03 X10*3/uL) Lymphocytes Absolute Auto 2.4 (Ref Range: 1.2-4.9 X10*3/uL) 2.0 (Ref Range: 1.2-4.9 X10*3/uL) Monocytes Absolute Auto 0.6 (Ref Range: 0.1-1.2 X10*3/uL) 0.8 (Ref Range: 0.1-1.2 X10*3/uL) Eosinophils Absolute Auto 0.1 (Ref Range: 0.0-0.4 X10*3/uL) 0.0 (Ref Range: 0.0-0.4 X10*3/uL) Basophils Absolute Auto 0.0 (Ref Range: 0.0-0.2 X10*3/uL) 0.0 (Ref Range: 0.0-0.2 X10*3/uL) NRBC Abs Auto 0.000 (Ref Range: 0.0-0.012 X10*3/uL) 0.000 (Ref Range: 0.0-0.012 X10*3/uL) ???Lab:Comprehensive [place]. Yeyo Lehman (Order Date - 07/06/2024) (Collection Date & Time - 07/06/2024 10:02 AM)?ValueReference Range?Fpwlfv216093- 145 - mmol/L?Bilirubin Total0.40.0-1.0 - mg/dL?Aspartate Amino Bmdrhukgiyj594-23 - U/L?Alanine Bakohjhtjbwztxdr88S7-60 - U/L ?Total Protein7.36.5-8.0 - g/dL?Albumin Level4.13.5-5.0 - g/dL ?Alkaline Bolcojwpdze2637-911 - U/L?Potassium4.23.3-5.1 - mmol/L ?Dggnobul41318-001 - mmol/L?Carbon Lqafxot4780-22 - mmol/L ?Anion Sdt3732-14 -?Blood Urea Xtnidzty37-50 - mg/dL ?Creatinine0.850.5-1.4 - mg/dL?Estimated Glomerular Filt Rate> 60- ?Glucose Zqtdteg942X69-38 - mg/dL?Calcium9.48.4-10.2 - mg/dL ???Lab:Lipid Panel (Order Date - 07/06/2024) (Collection Date & Time - 07/06/2024 10:02 AM)?ValueReference Range?Rfwjcppnkybyf562H<150 - mg/dL?Lbqluxmsigt532<200 - mg/dL?LDL Cholesterol Affsgbtnpt68<100 - mg/dL?HDL Onkcsahkiag42>40 - mg/dL ???Lab:PSA,Total (Free>4and<10) (Order Date - 07/06/2024) (Collection Date & Time - 07/06/2024 10:02 AM)?ValueReference Range?PSA,Total (Free>4and<10)0.940.00-4.00 - ng/mL * Examination: G eneral Examination: GENERAL APPEARANCE: a lert, well hydrated, in no distress.? HEAD: n ormocephalic. SKIN: g ood turgor. HEART: g rade 1/6 systolic murmur at left sternal border.? LUNGS: n o wheezes, rales, rhonchi, good air movement, clear to auscultation bilaterally. Assessment: * Assessment: 1. T ype 2 diabetes mellitus without complication - E11.9 (Primary) 2 . H eart murmur - R01.1 3 . P ure hypercholesterolemia - E78.00 Plan: * Treatment: Value Reference Range H emoglobin A1c 8.0 ?LAB: Glucose, finger stick (Collection Date & Time - 07/09/2024)* Value Reference Range V alue 130 Notes: running a little high will recheck in 3 months, will continue current regiment until recheck ?2.?Heart murmur?Imaging: ECHO* Priscila Crooks 2024 01:56:47 PM EST > ORDER FA[place] [facility] [place] [facility].?Pure hypercholesterolemia? Continue Atorvastatin Calcium Tablet, 40 mg, TAKE 1 TABLET DAILY, Orally, Once a day.?? Notes: stable, will contoinue current regiment?? * Procedure Codes: 8 2947 ASSAY, GLUCOSE, BLOOD QUANT, Modifiers: QW 08868 GLYCATED HEMOGLOBIN TEST, Modifiers: QW * Follow Up: 3 Months (Reason: dm) * * Sign off status: Completed true * Provider: Miko Avila MD Date: 0 07/09/2024 Generated for Wm grey/Karen/eTransmitting on: 1 04:53 PM EDT History and Physical Notes * HPI (History of Present Illness) Category Sub-Category Detail Notes Category Not es Symptom(s) Patient is a 59 yo male here for 6 month follow up visit, feeling well. had influenza type a. Examination Category Sub-Category Detail Notes Category Not es General Examination GENERAL APPEARANCE: alert, w ell hydrated, in no distress HEAD: normocephalic HEART: grade 1/6 systolic m urmur at left sternal border LUNGS: no wheezes, rales, r honchi, good air movement, clear to auscultation bilaterally SKIN: good turgor
--- OUTSIDE RECORDS SUMMARY | 2024-08-20 04:39 | XMS_ITS ---
Author Organization Ramon Avila MD Address [address] [place] [phone] Care Team Providers Care Injection Wax Molder Name Role Phone ZuleymayulianaRamon gregorio Primary Care Provider [phone] REASON FOR VISIT taking him to Urgent care Encounters Encounter Location Date Provider Diagnosis Ramon Avila MD [address] [place] [address] [address] [place] [phone] 08/20/2024 Ramon Avila Plan Of Treatment Next Appt Details Provider Name:Ramon Pink ier, 05/03/2025 11:00:00 AM, [address] [place] [address], [address], [phone], Provider Name:Ramon van, 07/18/2025 07:15:00 AM, [address] [place] [address], [address], [phone], Provider Name:Ramon van, 07/25/2025 01:30:00 PM, [address] [facility], [address], [place], [place], [phone], Provider Name:Ramon Pink ier, 01/20/2026 07:30:00 AM, [address] [facility], [address], [place], [place], [phone], Provider Name:Ramon Pink ier, 01/27/2026 01:00:00 PM, [address] [place] [address], [address], [place], [place], [phone], Progress Notes * Jakob AYALA RDOB:1965 (59 yo M)Acc No.[id number]:08/20/2024 Patient: Monster Jakob HANNAH :1965 A ge:59 Y S ex:Male Address:[address] [place] [phone] * true * Date: Generated for Wm grey/Karen/eTransmitting on: 04:53 PM EDT
--- OUTSIDE RECORDS SUMMARY | 2024-08-23 06:00 | XMS_ITS ---
Author Organization Ramon Avila MD Address [address] [place] [phone] Care Team Providers Care Commercial Floor Covering Installer Name Role Phone Ramon Avila Primary Care Provider REASON FOR VISIT ER Encounters Encounter Location Date Provider Diagnosis Ramon Avila MD [address] [facility] [address] [place] [phone] 08/23/2024 Ramon Avila Plan Of Treatment Next Appt Details Provider Name:Ramon Pink ier, 05/03/2025 11:00:00 AM, [address] [place] [address], [address], [phone], Provider Name:Ramon Pink iemeek, 07/18/2025 07:15:00 AM, [address] [place] [address], [address], [phone], Provider Name:Ramon van, 07/25/2025 01:30:00 PM, 10 [facility], [address], [place], [place], [phone], Provider Name:Ramon Pink carlota, 01/20/2026 07:30:00 AM, [address] [place] [address], Suite [facility], [place], [place], [phone], Provider Name:Ramon Pink jesusr, 01/27/2026 01:00:00 PM, [address] [place] [address], [address], [place], [place], [phone], Progress Notes * Jakob AYALA RDOB:1965 (59 yo M)Acc No.[id number]:08/23/2024 Patient: Jakob BARAHONA :1965 A ge:59 Y S ex:Male Address:[address] [place] [phone] * true * Date: Generated for Wm grey/Karen/eTsnowsmitting on: 04:54 PM EDT
--- OUTSIDE RECORDS SUMMARY | 2024-10-08 05:00 | XMS_ITS ---
Author Organization Ramon Avila MD Address [address] [place] [phone] Care Team Providers Care Coal Handler Name Role Phone Ramon Avila Primary Care [...] days 07/05/2022 Acti ve OneTouch Delica Plus Gxteqg83C - USE TO TEST BLOOD SUGAR ONCE DAILY Active FreeStyle Amrita 2 [place] - as directed 07/05/2022 Active FreeStyle Amrita 14 Day [place] - as directed 07/05/2022 Active Vital Signs Blood pressure systolic 118 mm Hg 10/09/19 25 Blood pressure diastolic 70 mm Hg 025 Height 69 in 10/08/2024 Weight 201 lbs 10/08/2024 BMI 29.68 kg/m2 10/08/2024 weight is up 6 pounds since 07-09-24 Encounters Encounter Location Date Provider Diagnosis Ramon Avila MD [address] [place] [address] [address] [place] [phone] 10/08/2024 Ramon Avila Type 2 diabetes mellitus [...] Up: 3 Months, Reason: Provider Name:Ramon van, 05/03/2025 11:00:00 AM, [address] [facility], [address], [place], [place], [phone], Provider Name:Ramon Pink ier, 07/18/2025 07:15:00 AM, [address] [facility], [address], [place], [phone], Provider Name:Rmaon Pink ier, 07/25/2025 01:30:00 PM, [address] [facility], Suite [facility], [place], [phone], Provider Name:Ramon Pink ier, 01/20/2026 07:30:00 AM, [address] [facility] [address], Suite [facility], [place], [phone], Provider Name:Ramon Pink ier, 01/27/2026 01:00:00 PM, [address] [place] [address], Suite [facility], [place], [phone], Progress Notes * Jakob AYALA RDOB:1965 (59 yo M)Acc No.[id number]:10/08/2024 Progress Notes Patient: Monster HANNAH Jakob Roberto Provider: Miko Avila MD :1965 A ge:59 Y S ex:Male Date:10/08/2024 Address:[address] [place] [phone] Subjective: * Chief Complaints: * 3 MO [...] Procedure: * Medications: T akingOneTouch Delica Plus Segrwq18B - Miscellaneous USE TO TEST BLOOD SUGAR ONCE DAILY FreeStyle Amrita 14 Day [place] - Device as directed FreeStyle Amrita 2 [place] - Device as directed FreeStyle Amrita 2 [...] 14 DAYS DIRECTED Taking OneTouch Delica Plus Uoendf92Z - Miscellaneous USE TO TEST BLOOD SUGAR ONCE DAILY Taking FreeStyle Amrita 14 Day [place] - Device as directed Taking FreeStyle Amrita 2 [place] - Device as directed Taking FreeStyle Amrita [...] 2947 ASSAY, GLUCOSE, BLOOD QUANT, Modifiers: QW [id number] GLYCATED HEMOGLOBIN TEST, Modifiers: QW * Follow Up: 3 Months * * Sign off status: Completed true * Provider: Miko Avila MD Date: 0 10/08/2024 Generated for Nellyi ng/Karen/eTransmitting on: 1 04:54 PM EDT History and Physical Notes * [...]
--- OUTSIDE RECORDS SUMMARY | 2025-01-04 03:30 | XMS_ITS ---
Author Organization Ramon Avila MD Address [address] [place] [phone] Care Team Providers Care Morphologist Name Role Phone Austin Ramon Primary Care Provider [phone] Results Component Value Reference Range Notes Complete Blood Count Auto Di ff Reviewed date:01/04/2025 04:48:14 PM Interpretation: Performing Lab:[facility], [address] [place] [phone] Notes/Report: White Blood Count 6.9 4.8-10.8 X10*3/uL Red Blood Count 4.70 4.60-5.80 X10*6/uL Hemoglobin 14.4 14.0-18.0 g/dl Hematocrit 41.5 42.0-52.0 % Mean Corpuscular Volume 88.3 80.0-98.0 fL Mean Corpuscular Hemoglobin 30.6 27.0-33.0 pg Mean Corpuscular HGB Conc 34.7 31.0-36.0 g/dl Red Cell Distribution Width 12.7 11.0-16.0 % Platelet Count 236 160-400 X10*3/uL Mean Platelet Volume 10.4 9.4-12.4 fL Neutrophils Percent Auto 56.9 45-73 % Imm Gran Pct Auto 0.4 0.0-0.4 % Lymphocytes Percent Auto 31.8 20-40 % Monocytes Percent Auto 8.3 2-11 % Eosinophils Percent Auto 2.3 0-4 % Basophils Percent Auto 0.3 0-2 % NRBC Pct Auto 0.0 0.0-0.2 /100WBC Neutrophils Absolute Auto 3.9 2.0-8.3 x10*3/u L Imm Gran Abs Auto 0.03 0.00-0.03 X10*3/uL Lymphocytes Absolute Auto 2.2 1.2-4.9 X10*3/u L Monocytes Absolute Auto 0.6 0.1-1.2 X10*3/uL Eosinophils Absolute Auto 0.2 0.0-0.4 X10*3/u L Basophils Absolute Auto 0.0 0.0-0.2 X10*3/uL NRBC Abs Auto 0.000 0.0-0.012 X10*3/uL Lipid Panel Reviewed date:01/04/2025 02:49:44 PM Interpretation: Performing Lab:[facility], [address] [place] [phone] Notes/Report: Triglycerides 207 <150 mg/dL Desirable Triglyceride: less than 150 mg/dL Borderline High Triglyceride 150-199 mg/dL High Triglyceride: 200-499 mg/dL Very High Triglyceride: greater than or equal to 5OO mg/dL Cholesterol 150 <200 mg/dL Desirable Cholesterol: less than 200 mg/dL Borderline High Cholesterol: 200-239 mg/dL High Cholesterol: greater than 239 mg/dL LDL Cholesterol Calculated 72 <100 mg/dL Desirable LDL: less than 100 mg/dL Near Optimal/Above Optimal LDL: 110-129 mg/dL Borderline High LDL: 130-159 mg/dL High LDL: 160-189 mg/dL Very High LDL: greater than or equal to 190 mg/dL HDL Cholesterol 37 >40 mg/dL Desirable HDL: greater than 40 mg/dL Note: This HDL assay may give artificially low results in patients with liver disease. PSA,Total (Free>4and<10) Reviewed date:01/04/2025 04:40:23 PM Interpretation: Performing Lab:[address] [phone] Notes/Report: PSA,Total (Free>4and<10) 0.73 0.00-4.00 ng/mL A Free PSA was not [...] Chemiluminescent Microparticle Immunoassay (CMIA) Microalbumin, Random Reviewed date:01/04/2025 04:40:45 PM Interpretation: Performing Lab:[address] [phone] Notes/Report: Creatinine Urine 169.99 Microalbumin Urine 9.0 Microalbum/Creatinine Ratio Ur 5.2 <30 ug/mg cr Albumin/Creatinine Ratio Reference Ranges: Normal: < 30 ug/mg creatinine Microalbuminuria: 30 - 300 ug/mg creatinine Clinical Albuminuria: > 300 ug/mg creatinine Hemoglobin A1c Reviewed date:01/04/2025 04:40:35 PM Interpretation: Performing Lab:[address] [phone] Notes/Report: Hemoglobin A1c % 8.2 <6.0 % Hemoglobin A1C Reference Range Adults: 4.8 - 6.0 % Non diabetic: < 6.0 % Goal: < 7.0 % Additional Action Suggested: > 8.0 % Note: Hemoglobin A1c results are invalid for patients with abnormal amounts of HbF. Blood transfusions may impact the HbA1c concentration in the patient sample. Estimated Average Glucose 189 eAG = Estimated average glucose which is %A1C expressed as average glucose, using the formula of the W2T-Fbmsqzj Average Glucose study (ADAG), Diabetes Care, Vol.31,#8, Dec. 2007 UA ClnCatch+Micro w/rflx Cul t Reviewed date:01/04/2025 04:48:33 PM Interpretation: Performing Lab:[facility], [address] [facility], [place] [address] Notes/Report: Urine, Clean Catch Color Urine Yellow Appearance Urine Cloudy PH 5.0 5.0-9.0 Glucose Urine UA Negative Negative mg/dL Urine Blood Negative Negative Specific [place] - Urine 1.025 1.005-1.025 Urine Protein Negative Neg-Trace mg/dL Urine Ketones Negative Negative mg/dL Nitrite Urine Negative Negative Leukocyte Esterase Urine Negative Negative RBC Urine 0-2 0-2 /HPF WBC Urine 0-5 0-5 /HPF Squamous Epithelial Cell Urine 0-2 0-2 /HPF Bacteria Urine None Seen None Seen Hyaline Casts Urine 0-2 0-2 /LPF REASON FOR VISIT FASTING LABS Encounters Encounter Location Date Provider Diagnosis Ramon Avila MD [address] [place] [address] [place] [phone] 01/04/2025 Ramon Avila Blood tests for rout ine general physical examination Z00.00 ; Type 2 diabetes mellitus without complication E11.9 ; Essential hypertension I10 and Pure hypercholesterolemia E78.00 Assessments Encounter Date Diagnosis (ICD Code) Assessment Notes Treatment Notes Treatment Clinical Notes Section Notes 01/04/2025 Blood tests for rout ine general physical examination (ICD-10 - Z00.00) 01/04/2025 Type 2 diabetes peggy itus without complication (ICD-10 - E11.9) 01/04/2025 Essential hypertensi on (ICD-10 - I10) 01/04/2025 Pure hypercholesterolemia (ICD-10 - E78.00) Plan Of Treatment Pending Test Test Name Order Date Comprehensive [place]. Panel Fast Next Appt Details Provider Name:Ramon van, 05/03/2025 11:00:00 AM, [address] [place] [address], Suite [facility], [place], [place], [phone], Provider Name:Ramon van, 07/18/2025 07:15:00 AM, [address] [place] [address], [address], [phone], Provider Name:Ramon van, 07/25/2025 01:30:00 PM, [address] [place] [address], [address], [place], [phone], Provider Name:Ramon Pink ier, 01/20/2026 07:30:00 AM, [address] [facility], [address], [place], [phone], Provider Name:Ramon Pink ier, 01/27/2026 01:00:00 PM, [address] [facility], [address], [place], [phone], Progress Notes * Jakob AYALA RDOB:1965 (59 yo M)Acc No.[id number]:01/04/2025 Progress Note Patient: Jakob BARAHONA Provider: Miko Avila MD :1965 A ge:59 Y S ex:Male Date:01/04/2025 Address:[address] [place], [place] [phone] Subjective: * Chief Complaints: * 1 . FASTING LABS. * Medical History: Objective: * Vitals: Assessment: * Assessment: 1. B lood tests for routine general physical examination - Z00.00 (Primary) 2 .?Type 2 diabetes mellitus without complication - E11.9 3 . E ssential hypertension - I10 4 . P ure hypercholesterolemia - E78.00 Plan: * Treatment: 2. T ype 2 diabetes mellitus without complication L AB: Comprehensive [place]. Panel Fast L AB: Complete Blood Count Auto Diff (Collection Date & Time - 01/04/2025 07:30 AM) L AB: Lipid Panel (Collection Date & Time - 01/04/2025 07:30 AM) L AB: PSA,Total (Free>4and<10) (Collection Date & Time - 01/04/2025 07:30 AM) L AB: Microalbumin, Random (Collection Date & Time - 01/04/2025 07:30 AM) L AB: Hemoglobin A1c (Collection Date & Time - 01/04/2025 07:30 AM) L AB: UA ClnCatch+Micro w/rflx Cult (Collection Date & Time - 01/04/2025 07:30 AM) 3. E ssential hypertension L AB: Comprehensive [place]. Panel Fast L AB: Complete Blood Count Auto Diff (Collection Date & Time - 01/04/2025 07:30 AM) L AB: Lipid Panel (Collection Date & Time - 01/04/2025 07:30 AM) L AB: PSA,Total (Free>4and<10) (Collection Date & Time - 01/04/2025 07:30 AM) L AB: Microalbumin, Random (Collection Date & Time - 01/04/2025 07:30 AM) L AB: Hemoglobin A1c (Collection Date & Time - 01/04/2025 07:30 AM) L AB: UA ClnCatch+Micro w/rflx Cult (Collection Date & Time - 01/04/2025 07:30 AM) 4. P ure hypercholesterolemia L AB: Comprehensive [place]. Panel Fast L AB: Complete Blood Count Auto Diff (Collection Date & Time - 01/04/2025 07:30 AM) L AB: Lipid Panel (Collection Date & Time - 01/04/2025 07:30 AM) L AB: PSA,Total (Free>4and<10) (Collection Date & Time - 01/04/2025 07:30 AM) L AB: Microalbumin, Random (Collection Date & Time - 01/04/2025 07:30 AM) L AB: Hemoglobin A1c (Collection Date & Time - 01/04/2025 07:30 AM) L AB: UA ClnCatch+Micro w/rflx Cult (Collection Date & Time - 01/04/2025 07:30 AM) * Procedure Codes: 3 6415 VENIPUNCT, ROUTINE* * * The named appointment provid er may or may not be the originator of this progress note, and it is not deemed complete until electronically signed by the appointment provider. Sign off status: Pending * Provider: Miko Avila MD Date: 0 01/04/2025 Generated for Wm grey/Karen/Eloinaitting on: 04:55 PM EDT
--- OUTSIDE RECORDS SUMMARY | 2025-01-25 09:00 | XMS_ITS ---
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 Name Role Phone Austin Ramon Primary Care Provider Allergies No Known Allergies Reason For Referral Reason DM Diagnosis 1 Controlled type 2 di abetes mellitus without complication, without long-term current use of insulin (E11.9) Referral Organization Ramon Avila MD Referring Provider First Name Ramon Referring Provider Last Name Austin Referring Provider Speciality Internal M edicine Referred Provider Abbie Mcgrath Referred Provider Specialty Endocrinolog y General Notes January Graff 0 01/25/2025 01:38:27 PM >referral info faxed, January Graff 01/28/2025 12:22:21 PM > PATIENT IS AWARE OF APPT Referral Priority Routine Referral Appointment Date 02/03/2025 REASON FOR VISIT ANNUAL EXAM, Accompanied by Medications Medication SIG (Take, Route, Frequency, Duration) Notes Start Date End Date Status FreeStyle Amrita 14 Day Sensor - CHANGE EVERY 14 DAYS DIRECTED for 84 Active Ibuprofen 200 MG 1 tablet with food o r milk as needed Orally Three times a day Not-Taking Atorvastatin Calcium 40 mg TAKE 1 TABLET DAILY Orally Once a day Active metFORMIN HCl ER 500 MG TAKE 2 TABLETS B Y MOUTH TWICE A DAY Active Augmentin 500-125 MG 1 tablet Orally melinda ry 12 hrs Not-Taking FreeStyle Amrita 2 Sensor - as directed for 90 days 07/05/2022 Acti ve Lisinopril-hydroCHLOROth iazide 10-12.5 MG TAKE 1 TABLET BY MOUTH EVERY DAY Orally Once a day for 90 days Active Mounjaro 2.5 MG/0.5ML as directed Subcut aneous weekly for 30 days 01/25/2025 Active FreeStyle Amrita 2 [place] - as directed 07/05/2022 Active FreeStyle Amrita 14 Day [place] - as directed 07/05/2022 Active OneTouch Delica Plus [id number] - USE TO TEST BLOOD SUGAR ONCE DAILY Active guaiFENesin-Codeine 100-10 MG/5ML 10 mL as needed Orally every 4 hrs as needed for 10 days 05/09/2022 Not-Taking Tylenol Extra Strength 500 MG 1 tablet as needed Orally every 6 hrs Not-Taking Januvia 100 mg TAKE 1 TABLET DAILY Orally Once a day for 90 days Not-Taking Social History Tobacco Use: Social History Observation [...] Problem Status W/U Status Risk Notes Problem Dysthymia (96253668) Dysthymia (F34.1) Active confirmed Vital Signs Blood pressure systolic 122 mm Hg 01/26/20 25 Blood pressure diastolic 60 mm Hg 025 Height 69 in 01/25/2025 Weight 196 lbs 01/25/2025 BMI 28.94 kg/m2 01/25/2025 weight is down 5 pounds [facility] e 10-08-24 Encounters Encounter Location Date Provider Diagnosis Ramon Avila MD [address] [facility] [address] [place], [place] [phone] 01/25/2025 Ramon Avila Annual physical exam Z00.00 ; Type 2 diabetes mellitus without complication E11.9 ; Dysthymia F34.1 ; Pure hypercholesterolemia E78.00 ; Essential hypertension I10 and Depression screening Z13.31 Assessments Encounter Date Diagnosis (ICD Code) Assessment Notes Treatment Notes Treatment Clinical Notes Section Notes 01/25/2025 Annual physical exam (ICD-10 - Z00.00) labs reviewed na discussed with patient 01/25/2025 Type 2 diabetes mellitus without complication (ICD-10 - E11.9) referral to the endocinologist, patient verbalized understanding of medication and directions for use 01/25/2025 Dysthymia (ICD-10 - F34.1) does not want meds. , will cntinue to monitor 01/25/2025 Pure hypercholesterolemia (ICD-10 - E78.00) stable, will contiue current regiment 01/25/2025 Essential hypertensi on (ICD-10 - I10) stable, will contnue current regiment 01/25/2025 Depression screening (ICD-10 - Z13.31) Plan Of Treatment Medication Medication Name Sig Start Date Stop Date Notes Mounjaro 2.5 MG/0.5ML as directed Subcut aneous weekly for 30 days 01/25/2025 Treatment Notes Assessment Notes Annual physical exam labs reviewed na di scussed with patient Type 2 diabetes mellitus without complic ation referral to the endocinologist, patient verbalized understanding of medication and directions for use Dysthymia does not want meds. , will cntinue to monitor Pure hypercholesterolemia stable, will c ontiue current regiment Essential hypertension stable, will cont nue current regiment Referrals Referral Date Details 01/25/2025 01/25/2025, DM, Sumi Mcgrath Next Appt Details Follow Up: 4 Weeks, Reason: Provider Name:Ramon Pink ier, 05/03/2025 11:00:00 AM, [address] [place] [address], Suite [facility], [place], [place], [phone], Provider Name:Ramon Pink ier, 07/18/2025 07:15:00 AM, [address] [place] [address], Suite [facility], [place], [phone], Provider Name:Ramon Pink ier, 07/25/2025 01:30:00 PM, [address] [place] [address], [place] [address], [place], [phone], Provider Name:Ramon Pink ier, 01/20/2026 07:30:00 AM, [address] [place] [address], [place] [address], [place], [place], [phone], Provider Name:Ramon Pink ier, 01/27/2026 01:00:00 PM, [address] [place] [address], [address], [phone], Progress Notes * Jakob AYALA RDOB:1965 (59 yo M)Acc No.[id number]:01/25/2025 Progress Notes Patient: Jakob BARAHONA Provider: Miko Avila MD :1965 A ge:59 Y S ex:Male Date:01/25/2025 Address:[address] [place] [id number] Subjective: * Chief Complaints: * A NNUAL EXAMAccompanied by * HPI: D epression Screening: PHQ-9 L ittle interest or pleasure in doing things S everal days, F eeling down, depressed, or hopeless S everal days, T rouble falling or staying asleep, or sleeping too much N ot at all, F eeling tired or having little energy S everal days, P oor appetite or overeating N ot at all, F eeling bad about yourself or that you are a failure, or have let yourself or your family down S everal days, T rouble concentrating on things, such as reading the newspaper or watching television N ot at all, M oving or speaking so slowly that other people could have noticed; or the opposite, being so fidgety or restless that you have been moving around a lot more than usual N ot at all, T houghts that you would be better off or of hurting yourself in some way S everal days (Consider Suicide Assessment Risk), T otal Score 5 , I nterpretation M ild Depression. I nterpretation and Intervention F ollow-Up for Depression : . C ommunication Needs: Communication Needs D oes the patient have a hearing impairment N o, D oes the patient have a vision impairment? Y es, I f yes, what is the vision impairment? G lasses, D oes the patient have a cognition impairment? N o. S AZUL Questions: SDOH Questions I n the past year have you been worried about losing housing? N o, I n the past year have you or any family members you live with been unable to get any of the following when it was really needed? Check all that apply: N one. S ymptom(s): patient is a 59 yo male here for annual visit with review of recent labs and follow up of chronic issues. * ROS: G eneral/Constitutional: Patient denies c hills, fatigue, fever, headache. C hange in appetite d enies. C hills d enies. F ever d enies. O phthalmologic: Blurred vision d enies. D ischarge d enies. P ain d enies. E NT: Patient denies d ecreased sense of smell, any loss of taste, sore throat. D ecreased hearing d enies. S ore throat d enies. S wollen glands?denies. E ndocrine: Cold intolerance d enies. E xcessive thirst d enies. H eat intolerance d enies. W eight loss d enies. R espiratory: Cough d enies. S hortness of breath at rest d enies. S hortness of breath with exertion d enies. W heezing d enies. C ardiovascular: Chest pain at rest d enies. C hest pain with exertion?denies. I rregular heartbeat d enies. S hortness of breath d enies. ? G astrointestinal: Abdominal pain d enies. C hange in bowel habits d enies. D iarrhea d enies. N ausea d enies. R ectal bleeding d enies. V omiting d enies . G enitourinary: Blood in urine d enies. D ifficulty urinating d enies. F requent urination d enies. M usculoskeletal: Patient denies m uscle aches. P ainful joints d enies. W eakness d enies. P eripheral Vascular: Patient denies r ed and blue toes. S kin: Dry skin d enies. I tching d enies. D enies?Mole(s), changes in moles, new moles or any lesions of concern. D enies P hotosensitivity. R verna d enies. N eurologic: Dizziness d enies. F ainting d enies. H eadache?denies. * Medical History: * Surgical History: * Hospitalization/Major Diagno stic Procedure: * Family History: F ather: 28 yrs, MVA. M other: alive 76 yrs, hypertension, diagnosed with Hypertension. 1 son(s) , 1 daughter(s) - healthy. . Denies mental health/substance abuse family history, Denies mental health/substance abuse family history, No pertinent family medical history, No pertinent family medical history, Denies mental health/substance abuse family history. * Social History: T obacco Use: T obacco Use/Smoking P atient is a n onsmoker, A dditional Findings: Tobacco Non-User C urrent non-smoker, currently using no form of tobacco. D rugs/Alcohol: A lcohol Screen D id you have a drink containing alcohol in the past year? Y es, H ow often did you have a drink containing alcohol in the past year? M onthly or less (1 point), H ow many drinks did you have on a typical day when you were drinking in the past year? 1 or 2 drinks (0 point), H ow often did you have 6 or more drinks on one occasion in the past year? N ever (0 point), P oints 1 , I nterpretation N egative. M iscellaneous: C affeine: yes, frequency:, 1-2 cups per day. Children: yes. Community involvements: no. Exercise: yes, walks 40 minutes 3 times a week. Home smoke detector use: yes. Living with: spouse. Marital status: . 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 Pets: none. * Medications: T akingOneTouch Delica Plus [id number] - Miscellaneous USE TO TEST BLOOD SUGAR ONCE DAILY FreeStyle Amrita 14 Day [place] - Device as directed FreeStyle Amrita 2 [place] - Device as directed FreeStyle Amrita 2 [...] 14 DAYS DIRECTED Taking OneTouch Delica Plus [id number] - Miscellaneous USE TO TEST BLOOD SUGAR ONCE DAILY Taking FreeStyle Amrita 14 Day [place] - Device as directed Taking FreeStyle Amrita 2 [place] - Device as directed Taking FreeStyle Amrita [...] Objective: * Vitals: H t: 69, Wt: 196, BMI:28.94, BP:122/60, Wt-k.91. weight is down 5 pounds since 10-08-24. * P ast Orders: L ab:PSA,Total (Free>4and<10) (Order Date - 01/04/2025) (Collection Date & Time - 01/04/2025 07:30 AM) Value Reference Range PSA,Total (Free>4and<10) 0.73 0.00-4.00 - ng/ mL L ab:Microalbumin, Random (Order Date - 01/04/2025) (Collection Date & Time - 01/04/2025 07:30 AM) Value Reference Range Creatinine Urine 169.99 - mg/dL Microalbumin Urine 9.0 - mg/L Microalbum Creatinine Ratio Ur 5.2 <30 - ug/ mg cr L ab:Hemoglobin A1c (Order Date - 01/04/2025) (Collection Date & Time - 01/04/2025 07:30 AM) Value Reference Range Hemoglobin A1c % 8.2 H <6.0 - % Estimated Average Glucose 189 - mg/dL L ab:UA ClnCatch+Micro w/rflx Cult (Order Date - 01/04/2025) (Collection Date & Time - 01/04/2025 07:30 AM) Value Reference Range Color Urine Yellow - Appearance Urine Cloudy - PH 5.0 5.0-9.0 - Glucose Urine UA Negative Negative - mg/dL Urine Blood Negative Negative - Specific [place] - Urine 1.025 1.005-1.025 - Urine Protein Negative Neg-Trace - mg/dL Urine Ketones Negative Negative - mg/dL Nitrite Urine Negative Negative - Leukocyte Esterase Urine Negative Negative - RBC Urine 0-2 0-2 - /HPF WBC Urine 0-5 0-5 - /HPF Squamous Epithelial Cell Urine 0-2 0-2 - /HP F Bacteria Urine None Seen None Seen - Hyaline Casts Urine 0-2 0-2 - /LPF L ab:Complete Blood Count Auto Diff (Order Date - 01/04/2025) (Collection Date & Time - 01/04/2025 07:30 AM) Value Reference Range White Blood Count 6.9 4.8-10.8 - X10*3/uL Red Blood Count 4.70 4.60-5.80 - X10*6/uL Hemoglobin 14.4 14.0-18.0 - g/dl Hematocrit 41.5 L 42.0-52.0 - % Mean Corpuscular Volume 88.3 80.0-98.0 - fL Mean Corpuscular Hemoglobin 30.6 27.0-33.0 - pg Mean Corpuscular HGB Conc 34.7 31.0-36.0 - g/ dl Red Cell Distribution Width 12.7 11.0-16.0 - % Platelet Count 236 160-400 - X10*3/uL Mean Platelet Volume 10.4 9.4-12.4 - fL Neutrophils Percent Auto 56.9 45-73 - % Imm Gran Pct Auto 0.4 0.0-0.4 - % Lymphocytes Percent Auto 31.8 20-40 - % Monocytes Percent Auto 8.3 2-11 - % Eosinophils Percent Auto 2.3 0-4 - % Basophils Percent Auto 0.3 0-2 - % NRBC Pct Auto 0.0 0.0-0.2 - /100WBC Neutrophils Absolute Auto 3.9 2.0-8.3 - x10* 3/uL Imm Gran Abs Auto 0.03 0.00-0.03 - X10*3/uL Lymphocytes Absolute Auto 2.2 1.2-4.9 - X10* 3/uL Monocytes Absolute Auto 0.6 0.1-1.2 - X10*3/ uL Eosinophils Absolute Auto 0.2 0.0-0.4 - X10* 3/uL Basophils Absolute Auto 0.0 0.0-0.2 - X10*3/ uL NRBC Abs Auto 0.000 0.0-0.012 - X10*3/uL L ab:Comprehensive Met. Panel (Order Date - 01/04/2025) (Collection Date & Time - 01/04/2025 07:30 AM) Value Reference Range Sodium 139 135-145 - mmol/L Bilirubin Total 0.7 0.0-1.0 - mg/dL Aspartate Amino Transferase 24 5-37 - U/L Alanine Aminotransferase 30 0-40 - U/L Total Protein 6.9 6.5-8.0 - g/dL Albumin Level 4.5 3.5-5.0 - g/dL Alkaline Phosphatase 46 39-117 - U/L Potassium 4.5 3.3-5.1 - mmol/L Chloride 104 96-108 - mmol/L Carbon Dioxide 26 22-29 - mmol/L Anion Gap 14 12-20 - Blood Urea Nitrogen 12 9-16 - mg/dL Creatinine 0.95 0.5-1.4 - mg/dL Estimated Glomerular Filt Rate > 60 - Glucose Random 161 H 60-115 - mg/dL Calcium 9.2 8.4-10.2 - mg/dL L ab:Lipid Panel (Order Date - 01/04/2025) (Collection Date & Time - 01/04/2025 07:30 AM) Value Reference Range Triglycerides 207 H <150 - mg/dL Cholesterol 150 <200 - mg/dL LDL Cholesterol Calculated 72 <100 - mg/dL HDL Cholesterol 37 L >40 - mg/dL * Examination: G eneral Examination: GENERAL APPEARANCE: w ell developed, well nourished, in no acute distress. HEAD: n ormocephalic, atraumatic. EYES: p upils equal, round, reactive to light and accommodation, sclera non-icteric. EARS: n ormal. ORAL CAVITY: m ucosa moist. THROAT: c lear. NECK/THYROID: n landon supple, full range of motion, no cervical lymphadenopathy, no bruits. SKIN: w arm and dry, no suspicious lesions. HEART: r egular rate and rhythm, S1, S2 normal, 2/6 ANTHONY.? LUNGS: c lear to auscultation bilaterally. ABDOMEN: s oft, nontender, nondistended, bowel sounds present, normal, no organomegaly , no masses palpable. RECTAL EXAM: d eclined. MALE GENITOURINARY: d eclined. EXTREMITIES: n o clubbing, cyanosis, or edema. NEUROLOGIC: n onfocal, motor strength normal upper and lower extremities, sensory exam intact. PODIATRIC: n ormal pinprick, normal pulse, normal light touch. FOOT EXAM: . Assessment: * Assessment: 1. A nnual physical exam - Z00.00 (Primary) 2 . T ype 2 diabetes mellitus without complication - E11.9 3 . D ysthymia - F34.1 4 . P ure hypercholesterolemia - E78.00 5 . E ssential hypertension - I10 ?6. D epression screening - Z13.31 Plan: * Treatment: 2. T ype 2 diabetes mellitus without complication Start Mounjaro Solution Auto-injector, 2.5 MG/0.5ML, as directed, Subcutaneous, weekly, 30 days, 4, Refills 3. Notes: referral to the endocinologist, patient verbalized understanding of medication and directions for use 3. D ysthymia Notes: does not want meds. , will cntinue to monitor 4. P ure hypercholesterolemia Notes: stable, will contiue current regiment 5. E ssential hypertension Notes: stable, will contnue current regiment 6. O thers Referral To:Abbie Mcgrath Endocrinology Reason:DM * Procedure Codes: * Preventive Medicine: Diabetes Care Plan: P atient Lifestyle Goals N eeds to maintain diet control.?Treatment Goals A 1C< 7. B arriers N eeds better diet control. S elf-Managment Plan I ncrease light exercise to 3 times a week for 30 minutes. E xpected Outcome m aintaining stable blood sugar levels within a target range. * Follow Up: 4 Weeks * * Sign off status: Completed true * Provider: Miko Avila MD Date: 0 01/25/2025 Generated for Wm grey/Karen/Audreysmciara on: 1 04:54 PM EDT History and Physical Notes * HPI (History of Present Illness) Category Sub-Category Detail Notes Category Not es Symptom(s) patient is a 59 yo male here for annual visit with review of recent labs and follow up of chronic issues Depression Screening PHQ-9 Little inte rest or pleasure in doing things: Several days Feeling down, depressed, or hopeless: Se veral days Trouble falling or staying asleep, or sl eeping too much: Not at all Feeling tired or having little energy: S everal days Poor appetite or overeating: Not at all Feeling bad about yourself o r that you are a failure, or have let yourself or your family down: Several days Trouble concentrating on thi ngs, such as reading the newspaper or watching television: Not at all Moving or speaking so slowly that other people could have noticed; or the opposite, being so fidgety or restless that you have been moving around a lot more than usual: Not at all Thoughts that you would be b norberto off or of hurting yourself in some way: Several days (Consider Suicide Assessment Risk) Total Score: 5 Interpretation: Mild Depression Interpretation and Intervention Follow-Up for De pression: : SDOH Questions SDOH Questions In the past year have you been worried about losing housing?: No In the past year have you or any family members you live with been unable to get any of the following when it was really needed? Check all that apply:: None Communication Needs Communication Needs Does the patient have a hearing impairment: No Does the patient have a vision impairmen t?: Yes If yes, what is the vision impairment?: Glasses Does the patient have a cognition impair ment?: No Examination Category Sub-Category Detail Notes Category Not es General Examination GENERAL APPEARANCE: well dev eloped, well nourished, in no acute distress HEAD: normocephalic, atrau matic EYES: pupils equal, round, reactive to light and accommodation, sclera non-icteric EARS: normal THROAT: clear NECK/THYROID: neck supple, full ra nge of motion, no cervical lymphadenopathy, no bruits HEART: regular rate and rhy thm, S1, S2 normal, 2/6 ANTHONY LUNGS: clear to auscultatio n bilaterally ABDOMEN: soft, nontender, non distended, bowel sounds present, normal, no organomegaly , no masses palpable NEUROLOGIC: nonfocal, motor stre ngth normal upper and lower extremities, sensory exam intact SKIN: warm and dry, no brittni picious lesions EXTREMITIES: no clubbing, cyanosi s, or edema MALE GENITOURINARY: declined RECTAL EXAM: declined ORAL CAVITY: mucosa moist FOOT EXAM: Date: 01/25/2025 normal pinprick . normal pulse. normal light touch. PODIATRIC: normal pinprick, nor mal pulse, normal light touch Consultation Request Notes Referral Date Referring Provider Referred Provider Not es 01/25/2025 Ramon Avila Aysha DM
--- OUTSIDE RECORDS SUMMARY | 2025-02-18 04:30 | XMS_ITS ---
Author Organization Ramon Avila MD Address [address] [place] [phone] Care Team Providers Care Take Away Man Name Role Phone Ramon Avila Primary Care Provider [phone] REASON FOR VISIT Flu vac Immunizations Vaccine Route Administration Date Status Comme nts Fluarix Quadrivalent - 150 IM Intramuscular 02/18/2025 Adm inistered Encounters Encounter Location Date Provider Diagnosis Ramon Avila MD [address] [place] [phone] 02/18/2025 Ramon Avila Encounter for administration of vaccine Z23 Assessments Encounter Date Diagnosis (ICD Code) Assessment Notes Treatment Notes Treatment Clinical Notes Section Notes 02/18/2025 Encounter for administration of vaccine (ICD-10 - Z23) Plan Of Treatment Next Appt Details Provider Name:Ramon van, 05/03/2025 11:00:00 AM, [address], [address] [place] [address], [phone], Provider Name:Ramon Pink ier, 07/18/2025 07:15:00 AM, [address] [facility], Suite [facility], [place], [place], [phone], Provider Name:Ramon Pink ier, 07/25/2025 01:30:00 PM, [address] [facility], Suite [facility], [place], [place], [phone], Provider Name:Ramon Pink ier, 01/20/2026 07:30:00 AM, [address] [facility], Suite [facility], [place], [place], [phone], Provider Name:Ramon Pink ier, 01/27/2026 01:00:00 PM, [address] [facility], Suite [facility], [place], [place], [phone], Progress Notes * Jakob AYALA RDOB:1965 (59 yo M)Acc No.[id number]:02/18/2025 Progress Note Patient: Jakob BARAHONA Provider: Miko Avila MD :1965 A ge:59 Y S ex:Male Date:02/18/2025 Address:[address] [place], [place] [id number] Subjective: * Chief Complaints: * 1 . Flu vac. * Medical History: Objective: * Vitals: Assessment: * Assessment: 1. E ncounter for administration of vaccine - Z23 (Primary) Plan: * Treatment: * Immunizations: Fluarix Quadrivalent - 150 : 0.5 mL (Dose No:1) (Route: Intramuscular) given by Kamryn Tesfaye , Office Staff on Left Deltoid * Procedure Codes: 9 0656 FLU VACCINE NO PRESERV 3 & >, 55164 IMMUNIZATION ADMIN * * The named appointment provid er may or may not be the originator of this progress note, and it is not deemed complete until electronically signed by the appointment provider. Sign off status: Pending * Provider: Miko Avila MD Date: Generated for Wm grey/Karen/eTransmitting on: 1 04:53 PM EDT
--- OUTSIDE RECORDS SUMMARY | 2025-02-25 09:30 | XMS_ITS ---
Author Organization Ramon Avila MD Address [address] [place] [phone] Care Team Providers Care Mobile Home Mechanic Name Role Phone Austin Ramon Primary Care Provider [phone] Allergies No Known Allergies REASON FOR VISIT 4 week Medications Medication SIG (Take, Route, Frequency, Duration) Notes Start Date End Date Status Mounjaro 5 MG/0.5ML as directed 5 mg Subcutaneous weekly for 30 days 02/25/2025 Active FreeStyle Amrita 14 Day Flushing - as directed 07/05/2022 Active OneTouch Delica Plus [id number] - USE TO TEST BLOOD SUGAR ONCE DAILY Active FreeStyle Amrita 2 Sensor - as directed for 90 days 07/05/2022 Acti ve FreeStyle Amrita 2 Flushing - as directed 07/05/2022 Active Augmentin 500-125 [...] as needed Orally every 6 hrs Not-Taking Lisinopril-hydroCHLOROth iazide 10-12.5 MG TAKE 1 TABLET BY MOUTH EVERY DAY for 90 Active Mounjaro 2.5 MG/0.5ML as directed Subcut aneous weekly for 30 days 01/25/2025 Active FreeStyle Amrita 14 Day Sensor - CHANGE EVERY 14 DAYS DIRECTED for 84 Active metFORMIN HCl ER 500 MG TAKE 2 TABLETS B Y MOUTH TWICE A DAY Active Atorvastatin Calcium 40 mg TAKE 1 TABLET DAILY Orally Once a day Active Vital Signs Blood pressure systolic 102 mm Hg 02/26/20 25 Blood pressure diastolic 66 mm Hg 025 Height 69 in 02/25/2025 Weight 196 lbs 02/25/2025 BMI 28.94 kg/m2 02/25/2025 Encounters Encounter Location Date Provider Diagnosis Ramon Avila MD [address] [place] [phone] 02/25/2025 Ramon Avila Type 2 diabetes mellitus without complication E11.9 Assessments Encounter Date Diagnosis (ICD Code) Assessment Notes Treatment Notes Treatment Clinical Notes Section Notes 02/25/2025 Type 2 diabetes mellitus without complication (ICD-10 - E11.9) patient verbalized understandingofmedicationand directions for use Plan Of Treatment Medication Medication Name Sig Start Date Stop Date Notes Mounjaro 5 MG/0.5ML as directed 5 mg Sub cutaneous weekly for 30 days 02/25/2025 Treatment Notes Assessment Notes Type 2 diabetes mellitus wit hout complication patient verbalized understandingofmedica tionand directions for use Next Appt Details Follow Up: 2 Months, Reason: Provider Name:Ramon van, 05/03/2025 11:00:00 AM, [address] [place] [address], [address], [phone], Provider Name:Ramon van, 07/18/2025 07:15:00 AM, [address] [place] [address], [place] [address], [place], [place], [phone], Provider Name:Ramon Pink ier, 07/25/2025 01:30:00 PM, [address] [facility], Suite [facility], [place], [place], [phone], Provider Name:Ramon Pink ier, 01/20/2026 07:30:00 AM, [address] [facility], [place] [address], [place], [place], [phone], Provider Name:Ramon Pink ier, 01/27/2026 01:00:00 PM, [address] [place] [address], Suite [facility], [place], [place], [phone], Progress Notes * Jakob AYALA RDOB:1965 (59 yo M)Acc No.[id number]:02/25/2025 Progress Notes Patient: Jakob BARAHONA Provider: Miko Avila MD :1965 A ge:59 Y S ex:Male Date:02/25/2025 Address:[address] [place] [id number] Subjective: * Chief Complaints: * 4 week * HPI: S ymptom(s): patientis a 59 yo male here for 4 week follow up visit. * ROS: G eneral/Constitutional: Denies C hills. D enies F atigue. D enies F ever. D enies H eadache. E NT: Denies S ore throat. R espiratory: Denies C ough. D enies S hortness of breath at rest. D enies S hortness of breath with exertion. G astrointestinal: Denies D iarrhea. D enies N ausea. * Medical History: * Surgical History: * Hospitalization/Major Diagno stic Procedure: * Medications: T akingOneTouch Delica Plus [id number] - Miscellaneous USE TO TEST BLOOD SUGAR ONCE DAILY FreeStyle Amrita 14 Day Flushing - Device as directed FreeStyle Amrita 2 Flushing - Device as directed FreeStyle Amrita 2 Sensor - Miscellaneous as directed Atorvastatin Calcium 40 mg Tablet TAKE 1 TABLET DAILY Orally Once a day metFORMIN HCl ER 500 MG Tablet Extended Release 24 Hour TAKE 2 TABLETS BY MOUTH TWICE A DAY FreeStyle Amrita 14 Day Sensor - Miscellaneous CHANGE EVERY 14 DAYS DIRECTED Mounjaro 2.5 MG/0.5ML Solution Auto-injector as directed Subcutaneous weekly Lisinopril- hydroCHLOROthiazide 10-12.5 MG Tablet TAKE 1 TABLET BY MOUTH EVERY DAY Taking OneTouch Delica Plus [id number] - Miscellaneous USE TO TEST BLOOD SUGAR ONCE DAILY Taking FreeStyle Amrita 14 Day Flushing - Device as directed Taking FreeStyle Amrita 2 Flushing - Device as directed Taking FreeStyle Amrita 2 Sensor - Miscellaneous as directed Taking Atorvastatin Calcium 40 mg Tablet TAKE 1 TABLET DAILY Orally Once a day Taking metFORMIN HCl ER 500 MG Tablet Extended Release 24 Hour TAKE 2 TABLETS BY MOUTH TWICE A DAY Taking FreeStyle Amrita 14 Day Sensor - Miscellaneous CHANGE EVERY 14 DAYS DIRECTED Taking Mounjaro 2.5 MG/0.5ML Solution Auto-injector as directed Subcutaneous weekly Taking Lisinopril-hydroCHLOROthiazide 10-12.5 MG Tablet TAKE 1 TABLET BY MOUTH EVERY DAY Not-Taking/PRNIbuprofen 200 MG Tablet 1 tablet [...] Vitals: H t: 69, Wt: 196, BMI:28.94, BP:102/66, Wt-k.91. * Examination: G eneral Examination: GENERAL APPEARANCE: a lert, well hydrated, in no distress.? SKIN: g ood turgor. HEART: r egular rate and rhythm, no murmurs, rubs, gallops.? LUNGS: g ood air movement, no wheezes, rales, rhonchi. ABDOMEN: s oft, nontender, nondistended, no rebound tenderness. Assessment: * Assessment: 1. T ype 2 diabetes mellitus without complication - E11.9 (Primary) Plan: * Treatment: * Procedure Codes: * Follow Up: 2 Months * * Sign off status: Completed true * Provider: Miko Avila MD Date: Generated for Wm grey/Karen/Eloinaitting on: 04:54 PM EDT History and Physical Notes * HPI (History of Present Illness) Category Sub-Category Detail Notes Category Not es Symptom(s) patientis a 59 yo male here for 4 week follow up visit Examination Category Sub-Category Detail Notes Category Not es General Examination GENERAL APPEARANCE: alert, w ell hydrated, in no distress HEART: regular rate and rhy thm, no murmurs, rubs, gallops LUNGS: good air movement, n o wheezes, rales, rhonchi ABDOMEN: soft, nontender, non distended, no rebound tenderness SKIN: good turgor
--- NOTE | 2025-03-10 13:59 | A.OFFVIS_ITS ---
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 Has not checked with traditional glucometer CGM Glucose Management Indicator (GMI): 6.4% High: 4 % Target Range: 96% Eye exam is up to date LDL 72-on statin therapy (-)alb/cr 12/2025 ROS CONSTITUTIONAL: Denies weight loss, fever and chills. HEENT: Denies changes in vision and hearing. RESPIRATORY: Denies SOB and cough. CV: Denies palpitations and CP GI: Denies abdominal pain, nausea, vomiting and diarrhea. : Denies dysuria and urinary frequency. MSK: Denies new myalgia and joint pain. SKIN: Denies rash and pruritus. NEUROLOGICAL: Denies headache PSYCHIATRIC: Denies recent changes in mood. PHYSICAL EXAM: GENERAL: Alert and oriented x 3. NAD EYES: EOMI. Anicteric. HENT: Moist mucous membranes. No scleral icterus. No cervical lymphadenopathy. LUNGS: Clear to auscultation bilaterally. CARDIOVASCULAR: Regular rate and rhythm. No murmur. No JVD. ABDOMEN: Soft, non-tender +bs EXTREMITIES: No edema. Non-tender. SKIN: No rashes or lesions. Warm. NEUROLOGIC: No focal neurological deficits. CN II-XII grossly intact PSYCHIATRIC: Cooperative. Appropriate mood and affect FORMERLY [facility], 1928–1983 Medical History Renal calculi Diabetes HTN (hypertension) Surgical History Hx of neck surgery Family History Father No problems noted. Mother Family history of heart disease Family history of diabetes mellitus Social History Alcohol intake: current Alcohol intake frequency: holidays/special occasions only Patient Tobacco Use Status: Never used Tobacco Physical Exam Vital Signs: Last Vital Signs Pulse 75 03/10/25 14:00 BP 124/80 03/10/25 14:00 Pulse Ox 97 03/10/25 14:00 Oxygen Delivery Method Room Air 03/10/25 14:00 BMI result Body Mass Index 25.9 Results Reviewed Results Reviewed: Laboratory Last Values Glucose (Clinic) 134 mg/dL (60-115) H 03/10/25 14:08 Assessment & Plan Assessment & Plan (1) Type 2 diabetes mellitus: Code(s): E11.9 - Type 2 diabetes mellitus without complications Category: Medical Qualifiers: Diabetes mellitus intermediate manager insulin use: without intermediate manager use Diabetes mellitus complication status: with hyperglycemia Qualified Code(s): E11.65 - Type 2 diabetes mellitus with hyperglycemia Plan Type 2 diabetes Recently very well controlled with the addition of mounjaro 2.5 weekly. Which he is tolerating well. He will continue on current doses of mounjaro and metformin. I also offered now or in the future decreasing the metformin and increasing mounjaro-we will wait. He has an upcoming vacation. Discussed that he could adjust out his weekly dose by 1-2 days to avoid packing the mounjaro Treat hypoglycemia by rules of 15s. He has an appt with pcp in Apr. A1C ordered. He can see me in July unless he needs to be seen sooner Orders: Orders Hemoglobin A1c 1 Month E11.65 - Type 2 diabetes mellitus with hyperglycemia Coding Level of Care Code Est Pt Level 4 (73717) Diagnoses Type 2 diabetes mellitus with hyperglycemia, without long-term current use of insulin E11.65 Diabetes mellitus intermediate manager insulin use: without detention use Diabetes mellitus complication status: with hyperglycemia
[2025-03-10 14:00] VITALS: BP 124/80; PULSE 75; O2SAT 97; BMI 25.9
[2025-03-10 14:13] LABS: Glucose, Whole Blood 134 mg/dL (60-115)
--- OUTSIDE RECORDS SUMMARY | 2025-03-10 16:54 | XMS_ITS | Patient Health Record ---
Author Organization Ramon Avila MD Address [address] [place] [phone] Care Team Providers Care Annealer Helper Name Role Phone Ramon Avila Primary Care Provider Allergies No Known Allergies Results Component Value Reference Range Notes Hemoglobin A1c Reviewed date:07/09/2024 01:36:04 PM Interpretation: Performing Lab: Notes/Report: Hemoglobin A1c 8.0 Hemoglobin A1c Reviewed date:10/08/2024 09:19:43 AM Interpretation: Performing Lab: Notes/Report: Hemoglobin A1c 8.1 Complete Blood Count Auto Di ff Reviewed date:07/06/2024 04:47:32 PM Interpretation: Performing Lab:[facility], [address] [place] [phone] Notes/Report: White Blood Count 7.5 4.8-10.8 X10*3/uL [...] NRBC Abs Auto 0.000 0.0-0.012 X10*3/uL Comprehensive [place]. Panel Fa st Reviewed date:07/06/2024 04:46:58 PM Interpretation: Performing Lab:[facility], [address] [place] [phone] Notes/Report: Sodium 140 135-145 mmol/L Potassium 4.2 [...] Panel Reviewed date:07/06/2024 12:36:17 PM Interpretation: Performing Lab:[facility], [address] [place] [phone] Notes/Report: Triglycerides 199 <150 mg/dL Desirable Triglyceride: [...] (Free>4and<10) Reviewed date:07/06/2024 12:30:36 PM Interpretation: Performing Lab:[facility], [address] [place] [phone] Notes/Report: PSA,Total (Free>4and<10) 0.94 0.00-4.00 ng/mL A [...] Random Reviewed date:07/06/2024 12:30:28 PM Interpretation: Performing Lab:[address] [address] Notes/Report: Creatinine Urine 483.43 Microalbumin Urine 43.0 Microalbum/Creatinine Ratio Ur 8.8 <30 ug/mg cr Albumin/Creatinine Ratio Reference Ranges: Normal: < 30 ug/mg creatinine Microalbuminuria: 30 - 300 ug/mg creatinine Clinical Albuminuria: > 300 ug/mg creatinine UA ClnCatch+Micro w/rflx Cul t Reviewed date:07/06/2024 12:29:35 PM Interpretation: Performing Lab:[address] [address] Notes/Report: Urine, Clean Catch Color Urine Dark Yellow Appearance Urine Turbid PH 5.0 5.0-9.0 Glucose Urine UA Negative Negative mg/dL Urine Blood Negative Negative Specific [place] - Urine >= 1.030 1.005-1.025 Urine Protein [...] ff Reviewed date:01/04/2025 04:48:14 PM Interpretation: Performing Lab:[address] [address] Notes/Report: White Blood Count 6.9 4.8-10.8 X10*3/uL [...] Panel Reviewed date:01/04/2025 02:49:44 PM Interpretation: Performing Lab:[facility], [address] [place] [phone] Notes/Report: Triglycerides 207 <150 mg/dL Desirable Triglyceride: [...] (Free>4and<10) Reviewed date:01/04/2025 04:40:23 PM Interpretation: Performing Lab:[address] [address] Notes/Report: PSA,Total (Free>4and<10) 0.73 0.00-4.00 ng/mL A [...] Random Reviewed date:01/04/2025 04:40:45 PM Interpretation: Performing Lab:[address] [address] Notes/Report: Creatinine Urine 169.99 Microalbumin Urine 9.0 Microalbum/Creatinine Ratio Ur 5.2 <30 ug/mg cr Albumin/Creatinine Ratio Reference Ranges: Normal: < 30 ug/mg creatinine Microalbuminuria: 30 - 300 ug/mg creatinine Clinical Albuminuria: > 300 ug/mg creatinine Hemoglobin A1c Reviewed date:01/04/2025 04:40:35 PM Interpretation: Performing Lab:[address] [address] Notes/Report: Hemoglobin A1c % 8.2 <6.0 % [...] average glucose, using the formula of the G7Q-Bvgfexh Average Glucose study (ADAG), Diabetes Care, Vol.31,#8, Dec. 2007 UA ClnCatch+Micro w/rflx Cul t Reviewed date:01/04/2025 04:48:33 PM Interpretation: Performing Lab:[facility], [address] [place] [phone] Notes/Report: Urine, Clean Catch Color Urine Yellow Appearance Urine Cloudy PH 5.0 5.0-9.0 Glucose Urine UA Negative Negative mg/dL Urine Blood Negative Negative Specific [place] - Urine 1.025 1.005-1.025 Urine Protein Negative Neg-Trace mg/dL Urine Ketones Negative Negative mg/dL Nitrite Urine Negative Negative Leukocyte Esterase Urine Negative Negative RBC Urine 0-2 0-2 /HPF WBC Urine 0-5 0-5 /HPF Squamous Epithelial Cell Urine 0-2 0-2 /HPF Bacteria Urine None Seen None Seen Hyaline Casts Urine 0-2 0-2 /LPF SARS-CoV2/FLU/RSV Reviewed date:06/17/2024 12:56:49 PM Interpretation: Performing Lab:[facility], [address] [place] [phone] Notes/Report: Influenza A PCR POSITIVE Negative Influenza [...] by authorized laboratories. Testing performed on the [employer] GeneXpert utilizing real-time RT-PCR. All SARS CoV2 and positive influenza A/B results are reported to [facility]. Glucose, finger stick Reviewed date:07/09/2024 01:35:47 PM Interpretation: Performing Lab: Notes/Report: Value 130 Glucose, finger stick Reviewed date:10/08/2024 09:13:16 AM Interpretation: Performing Lab: Notes/Report: Value 187 XR chest 2V Reviewed date:06/17/2024 12:57:14 PM Interpretation: Performing Lab: Notes/Report: [address] [address] XRay Report Signed Patient: Zhen,Jakob R MR#: [id number] 6 : 1965 Acct:[id number] Age/Sex: 59 / M ADM Date: 06/17/24 Loc: JOS Attending Dr: Ramon Avila MD Ordering Physician: Ramon Avila MD Date of Service: 06/17/24 Procedure(s): XR chest 2V Accession Number(s): [id number] cc: Ramon Avila MD EXAMINATION: XR CHEST [...] by: Checo Segal MD 06/17/2024 10:09 AM [facility] Dictated By: Checo Segal MD Signed By: <Electronically signed by Checo Segal MD in OV> 06/17/24 1009 DD/ 0936 TD/TT: 06/17/24 1005 Corrections Lieutenant: [address] [address] XRay Report Signed Patient: Jakob Fontaine MR#: [id number] 6 : 1965 Acct:[id number] Age/Sex: 59 / M ADM Date: 06/17/24 Loc: JOS Attending Dr: Ramon Avila MD Ordering Physician: Ramon Avila MD Date of Service: 06/17/24 Procedure(s): XR craig st 2V Accession Number(s): [id number] cc: Ramon Avila MD EXAMINATION: XR CHES [...] degenerative di sc disease of the spine. XR/XR chest 2V IMPRESSION: No acute cardiopulmonary abnormality. Electronically vijaya d by: Checo Segal MD 06/17/2024 10:09 AM [facility] Dictated By: Checo Segal MD Signed By: <Electronically signed by Checo Segal MD in OV> 06/17/24 1009 DD/ TD/TT: 06/17/24 100 Corrections Lieutenant: Complete Blood Count Auto Di ff Reviewed date:06/21/2024 05:10:22 PM Interpretation: Performing Lab:[facility], [address] [place] [phone] Notes/Report: White Blood Count 9.7 4.8-10.8 X10*3/uL [...] Panel Reviewed date:06/21/2024 05:15:43 PM Interpretation: Performing Lab:[facility], [address] [place] [phone] Notes/Report: Sodium 138 135-145 mmol/L Potassium 4.1 [...] Magnesium Reviewed date:06/21/2024 05:15:14 PM Interpretation: Performing Lab:[facility], [address] [place] [phone] Notes/Report: Magnesium 1.9 1.6-2.6 mg/dL Troponin-I High Sensitivity Reviewed date:06/22/2024 12:39:34 PM Interpretation: Performing Lab:[facility], [address] [place] [phone] Notes/Report: Troponin-I High Sensitivity < 2.7 <3.5-35.0 ng/L The Franks high sensitivity Troponin-I results should be used in conjunction with other diagnostic information such as ECG, clinical observations and information, and patient symptoms to aid in the diagnosis of AR. SARS-CoV2/FLU/RSV Reviewed date:06/22/2024 09:33:45 AM Interpretation: Performing Lab:[facility], [address] [place] [phone] Notes/Report: Influenza A PCR POSITIVE Negative Influenza [...] by authorized laboratories. Testing performed on the [employer] GeneXpert utilizing real-time RT-PCR. All SARS CoV2 and positive influenza A/B results are reported to [facility]. XR chest 2V Reviewed date:06/22/2024 09:34:03 AM Interpretation: Performing Lab: Notes/Report: [address] [address] XRay Report Signed Patient: Jakob Fontaine MR#: [id number] 6 : 1965 Acct:[id number] Age/Sex: 59 / M ADM Date: 06/21/24 Loc: HO.ED Attending Dr: Ordering Physician: Jaclyn Daily Date of Service: 06/21/24 Procedure(s): XR chest 2V Accession Number(s): [id number] cc: Ramon Avlia MD; Jaclyn Daily CLINICAL HISTORY: cough, SOB [...] in OV> 06/21/242015 DD/ 14 TD/TT: 06/21/242014 Corrections Lieutenant: [address] [address] XRay Report Signed Patient: Jakob Fontaine MR#: [id number] 6 : 1965 Acct:[id number] Age/Sex: 59 / M ADM Date: 06/21/24 Loc: HO.ED Attending Dr: Ordering Physician: Jaclyn Daily Date of Service: 06/21/24 Procedure(s): XR rcaig st 2V Accession Number(s): [id number] cc: Ramon Avila MD; Jaclyn Daily CLINICAL HISTORY: cough, SOB 2 view chest x-ray Comparison: 06/17/19 [...] in OV> 06/21/242015 DD/ 14 TD/TT: 06/21/242014 Corrections Lieutenant: Complete Blood Count Auto Di ff Reviewed date:08/20/2024 05:08:10 PM Interpretation: Performing Lab:[facility], [address] [place] [phone] Notes/Report: White Blood Count 9.7 4.8-10.8 X10*3/uL [...] Panel Reviewed date:08/20/2024 05:03:10 PM Interpretation: Performing Lab:[facility], [address] [place] [phone] Notes/Report: Sodium 140 135-145 mmol/L Potassium 5.0 [...] t Reviewed date:08/20/2024 05:14:40 PM Interpretation: Performing Lab:[facility], [address] [place] [phone] Notes/Report: [id number] Urine, Clean Catch Color Urine Yellow Appearance Urine Clear PH 5.5 5.0-9.0 Glucose Urine UA >=1000 Negative mg/dL Urine Blood Moderate (2+) Negative Specific [place] - Urine 1.025 1.005-1.025 Urine Protein Negative [...] date:08/20/2024 05:00:29 PM Interpretation: Performing Lab: Notes/Report: [address] [address] [address] Scan Report Signed Patient: Jakob Fontaine MR#: [id number] 6 : 1965 Acct:[id number] Age/Sex: 59 / M ADM Date: 08/20/24 Loc: .ED Attending Dr: Ordering Physician: Madhavi Crowley MD Date of Service: 08/20/24 Procedure(s): CT abdomen pelvis wo IV con Accession Number(s): [id number] cc: Ramon Avila MD; Madhavi Crowley MD Report Number: [id number]: Total DLP = 562.00 mGy-cm EXAMINATION: CT [...] 08/20/24 1353 DD/ 1312 TD/TT: 08/20/24 1323 Corrections Lieutenant: [address] [address] [address] Scan Report Signed Patient: Jakob Fontaine MR#: [id number] 6 : 1965 Acct:[id number] Age/Sex: 59 / M ADM Date: 08/20/24 Loc: HO.ED Attending Dr: Ordering Physician: Madhavi Crowley MD Date of Service: 08/20/24 Procedure(s): CT abdomen pelvis wo IV con Accession Number(s): [id number] cc: Ramon Avila MD; Madhavi Crowley MD Report Number: [id number]: Total DLP = 562.00 mGy-cm EXAMINATION: CT [...] unremarkable unenhanced appearance. ADRENAL GLANDS: Unremarkable. KIDNEYS/RETROPERITON EUM : There are multiple punctate nonobstructing calculi at [...] No suspicious bony or soft tissue abnormalities. ___ ____ CT/CT abdomen pelvis wo IV con IMPRESSION: [...] 08/20/24 1353 DD/ 1312 TD/TT: 08/20/24 1323 Corrections Lieutenant: renal BI Reviewed date:11/30/2024 02:45:54 PM Interpretation: Performing Lab: Notes/Report: [facility] [address] [place] [address] Ultrasound Report Signed Patient: Jakob Fontaine MR#: [id number] 6 : 1965 Acct:[id number] Age/Sex: 59 / M ADM Date: 11/30/24 Loc: HO.US Attending Dr: Jackelyn MORSE Ordering Physician: Jackelyn Luna Date of Service: 11/30/24 Procedure(s): US renal BI Accession Number(s): [id number] cc: Ramon Avila MD; Jackelyn Luna EXAMINATION: [...] 11/30/24 1342 DD/ 1308 TD/TT: 11/30/24 1318 Corrections Lieutenant: [address] [address] Ultrasound Report Signed Patient: Jakob Fontaine MR#: [id number] 6 : 1965 Acct:[id number] Age/Sex: 59 / M ADM Date: 11/30/24 Loc: HO.US Attending Dr: Jackelyn Luna [facility]ing Phys[facility] of Service: 11/30/24 Procedure(s): US femi sadler BI Accession Number(s): [id number] cc: Ramon Avila MD; Jackelyn Luna [facility] EXAMINATION: US TAZ EY BILATERAL HISTORY: N20.0 - Calculus of kidney [...] 11/30/24 1342 DD/ 1308 TD/TT: 11/30/24 1318 Corrections Lieutenant: Maricarmen Fields. Panel Reviewed date:01/04/2025 04:47:16 PM Interpretation: Performing Lab:[facility], [address] [place] [phone] Notes/Report: Sodium 139 135-145 mmol/L Potassium 4.5 [...] Blood Reviewed date:02/03/2025 04:18:31 PM Interpretation: Performing Lab:[facility], [address] [place] [phone] Notes/Report: Glucose, Whole Blood 173 60-115 mg/dL METER #: [id number] Testing performed in the [facility]in[facility] and [facility] , [address], [facility]. Glucose, Whole Blood (Not ye t reviewed by provider) Interpretation: Performing Lab:[facility], [address] [place] [phone] Notes/Report: Glucose, Whole Blood 134 60-115 mg/dL METER #: [id number] Testing performed in the [facility] , [address], [facility]. Reason For Referral Reason DM Diagnosis 1 [...] Duration) Notes Start Date End Date Status Lisinopril-hydroCHLOROth iazide 10-12.5 MG TAKE 1 TABLET BY MOUTH EVERY DAY for 90 Active Mounjaro 2.5 MG/0.5ML as directed Subcut aneous weekly for 30 days 01/25/2025 Active Mounjaro 5 MG/0.5ML as directed 5 mg Subcutaneous weekly for 30 days 02/25/2025 Active Augmentin 500-125 MG 1 tablet Orally melinda ry 12 hrs Not-Taking Ibuprofen 200 MG 1 tablet with food o r milk as needed Orally Three times a day Not-Taking FreeStyle Amrita 14 Day Sensor - CHANGE EVERY 14 DAYS DIRECTED for 84 Active metFORMIN HCl ER 500 MG TAKE 2 TABLETS B Y MOUTH TWICE A DAY Active Atorvastatin Calcium 40 mg TAKE 1 TABLET DAILY Orally Once a day Active FreeStyle Amrita 14 Day [place] - as directed 07/05/2022 Active guaiFENesin-Codeine 100-10 MG/5ML 10 mL as needed Orally every 4 hrs as needed for 10 days 05/09/2022 Not-Taking OneTouch Delica Plus [id number] - USE TO TEST BLOOD SUGAR ONCE DAILY Active Januvia 100 mg TAKE 1 TABLET DAILY Orally Once a day for 90 days Not-Taking FreeStyle Amrita 2 Sensor - as directed for 90 days 07/05/2022 Acti ve FreeStyle Amrita 2 [place] - as directed 07/05/2022 Active Tylenol Extra Strength 500 MG 1 tablet as needed Orally every 6 hrs Not-Taking Immunizations Vaccine Route Administration Date Status [...] red TDaP Unknown 05/05/2018 [facility] Fluarix Quadrivalent IM Intramuscular 06/22/2019 Administe [...] Quadrivalent - 150 IM Intramuscular 01/22/2024 Administered Fluarix Quadrivalent - 150 IM Intramuscular 02/18/2025 Administered Social History Tobacco Use: Social History [...] Status W/U Status Risk Notes Problem Hypertension (45669471) Hypertension (401.9) Active confirmed Problem Gout (73163119) Gout (M10.9) Active confirmed Problem 293834729 Hypertrophy of b reast (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) Active confirmed Problem Kidney stone (17969330) Kidney stone (N20.0) Active confirmed Problem 15679878 Essential hypert ension (I10) Active confirmed Problem 68946813 Type 2 diabetes mellitus without complication (E11.9) Active confirmed Problem 597505303 Low HDL (under 4 0) (E78.6) Active confirmed Problem 34233904 Memory loss (R41.3) Active confirmed Problem 470093274 Cervical disc di sease (M50.90) Active confirmed Problem Dysthymia (76955688) Dysthymia (F34.1) Active confirmed Problem 026700568 Pure hypercholesterolemia (E78.00) Active confirmed Problem 19183721 Pharyngoesophage al dysphagia (R13.14) Active confirmed Problem Type II diabetes mellitus without complication (196620017) Controlled type 2 diabetes mellitus without complication, without long-term current use of insulin (E11.9) Active confirmed Problem 382778679 Benign neoplasm breast, 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 Problem 612797353 Benign neoplasm breast, 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 Problem 849371962 Enlarged tonsils (J35.1) Active confirmed Problem 910860644 Anterolisthesis (M43.10) Active confirmed Vital Signs Temperature 102 degrees Fahrenheit 06/17/2024 weigh t is 187 BP not taken temp 102 Blood pressure diastolic 66 mm Hg 02/25/2025 Height 69 in 02/25/2025 Blood pressure systolic 102 mm Hg 02/25/2025 Weight 196 lbs 02/25/2025 BMI 28.94 kg/m2 02/25/2025 Encounters Encounter Location Date Provider Diagnosis Ramon Avila MD [address] [place] [id number] 07/06/2024 Ramon Avila Blood tests for rout ine general physical examination Z00.00 ; Type 2 diabetes mellitus without complication E11.9 ; Pure hypercholesterolemia E78.00 and Essential hypertension I10 Ramon Avila MD [address] [place] [id number] 01/04/2025 Ramon Avila Blood tests for rout ine general physical examination Z00.00 ; Type 2 diabetes mellitus without complication E11.9 ; Essential hypertension I10 and Pure hypercholesterolemia E78.00 Ramon Avila MD [address] [place] [id number] 02/18/2025 Ramon Avila Encounter for administration of vaccine Z23 Ramon Avila MD [address] [place] [id number] 06/17/2024 Ramon Avila Acute pneumonia J18. 9 and Influenza A J10.1 Ramon Avila MD [address] [place] [id number] 06/29/2024 Ramon Avila Influenza A J10.1 Ramon Avila MD [address] [place] [id number] 07/09/2024 Ramon Avila Type 2 diabetes peggy itus without complication E11.9 ; Heart murmur R01.1 and Pure hypercholesterolemia E78.00 Ramon Avila MD [address] [place] [id number] 10/08/2024 Ramon Avila Type 2 diabetes peggy itus without complication E11.9 Ramon Avila MD [address] [place] [id number] 01/25/2025 Ramon Avila Annual physical exam Z00.00 ; Type 2 diabetes mellitus without complication E11.9 ; Dysthymia F34.1 ; Pure hypercholesterolemia E78.00 ; Essential hypertension I10 and Depression screening Z13.31 Ramon Avila MD [address] [place] [id number] 02/25/2025 Ramon Avila Type 2 diabetes peggy itus without complication E11.9 Ramon Avila MD [address] [place] [id number] 04/15/2024 Ramon Avila Pure hypercholestero lemia E78.00 Ramon Avila MD [address] [place] [id number] 06/24/2024 Ramon Avila MD [address] [place] [id number] 08/20/2024 Ramon Avila MD [address] [place] [id number] 08/23/2024 Ramon Avila Assessments Encounter Date Diagnosis (ICD Code) Assessment Notes Treatment Notes Treatment Clinical Notes Section Notes 07/06/2024 Blood tests for routine general physical examination (ICD-10 - Z00.00) 01/04/2025 Blood tests for routine general physical examination (ICD-10 - Z00.00) 02/18/2025 Encounter for administration of vaccine (ICD-10 - Z23) 06/17/2024 Acute pneumonia (ICD-10 - J18.9) order for ChesT x-ray marked STAT. Both orders faxed to [facility] Patient Reg.PATIENT AWARE THAT HIS ORDERS ARE AT PATIENT REG [facility] 06/17/2024 Influenza A (ICD-10 - J10.1) 06/29/2024 [...] understanding of medication and directions for use 02/25/2025 Type 2 diabetes mellitus without complication (ICD-10 - E11.9) patient verbalized understandingofmedication and directions for use 04/15/2024 Pure hypercholesterolemia (ICD-10 - E78.00) 07/06/2024 Type 2 diabetes mellitus without complication (ICD-10 - E11.9) 01/04/2025 Type 2 diabetes mellitus without complication (ICD-10 - E11.9) 07/09/2024 Pure hypercholesterolemia (ICD-10 - E78.00) stable, will contoinue current regiment 01/25/2025 Dysthymia (ICD-10 - F34.1) does not want meds. , will cntinue to monitor 07/06/2024 Pure hypercholesterolemia (ICD-10 - E78.00) 01/04/2025 Essential hypertension (ICD-10 - I10) 01/25/2025 Pure hypercholesterolemia (ICD-10 - E78.00) stable, will contiue current regiment 07/06/2024 Essential hypertension (ICD-10 - I10) 01/04/2025 Pure hypercholesterolemia (ICD-10 - E78.00) 01/25/2025 Essential hypertension (ICD-10 - I10) stable, will contnue current regiment 01/25/2025 Depression screening (ICD-10 - Z13.31) Plan Of Treatment Pending Test Test Name Order Date Electrocardiogram (EKG) 10/26/2015 Electrocardiogram (EKG) 11/13/2017 Electrocardiogram (EKG) 06/26/2012 XR CHEST 2 VIEW PA & LAT 06/17/2024 ECHO 07/09/2024 Comprehensive [place]. Panel Fast Glucose, Whole Blood 03/10/2025 Hemoglobin A1c 07/06/2024 Next Appt Details Provider Name:Ramonkya Pink ier, 05/03/2025 11:00:00 AM, [address] [place] [address], [address], [phone], Provider Name:Ramonkya Pink ier, 07/18/2025 07:15:00 AM, [address] [place] [address], [address], [phone], Provider Name:Ramon Monster Joesph ier, 07/25/2025 01:30:00 PM, [address] [place] [address], [address], [phone], Provider Name:Ramon Pink ier, 01/20/2026 07:30:00 AM, [address] [place] [address], [address], [phone], Provider Name:Ramon Pink ier, 01/27/2026 01:00:00 PM, [address] [place] [address], [address], [phone], Insurance Providers Payer Name Payer Address Payer Phone Subscriber Number Group Number Insured Name Patient Relationship to Insured Coverage Start Date Coverage End Date [employer] [address] [place], [place] [id number] Jakob Fontaine Self - patient is the insured Medical (General) History Medical History History ICD Code Colonoscopy done 05/24/[address] Chanel/rony perplastic polyp due in 10
--- OUTSIDE RECORDS SUMMARY | 2025-03-10 16:55 | XMS_ITS | Patient Health Record ---
Author Organization [facility] Address [address] [place] [address] Care Team Providers Care Media Strategist Name Role Phone Ramon Avila MD Primary Care Provider Checo Davila Unavailable [phone] Reason For Referral No Information Medications Medication [...] Problem Status W/U Status Risk Notes Problem Screening for malignant neoplasm of colon (618407355) Encounter for screening for malignant neoplasm of colon (Z12.11) Active confirmed Problem Screening for malignant neoplasm of rectum (071304337) Encounter for screening for malignant neoplasm of rectum (Z12.12) Active confirmed Problem Preprocedural examination (460462345525369) Preprocedural examination (Z01.818) Active confirmed Problem Long-term current use of antiplatelet drug (701004277166108) Long-term use of aspirin therapy (Z79.82) Active confirmed Plan Of Treatment Pending Test Test Name Order Date GI BIOPSY 05/24/2016 Future Test Test Name Order Date COLONOSCOPY 02/27/2016 Insurance Providers Payer Name Payer Address Payer Phone Subscriber Number Group Number Insured Name Patient Relationship to Insured Coverage Start Date Coverage End Date [facility] [address] [place] [address] [id number] LOUISE FONTAINE Self - patient is the insured Medical (General) History Medical History History ICD Code Hypercholesterolemia Hypertension Denies [place],CVA,Lung disease,renal disease NIDDM Surgical History Surgery Date(Month/Year) Left knee surgery
== END 2025-03-10 14:41 | disposition home or self-care (01) ==
LOC: HO.ENCR 13:54
PROVIDERS: PCP Internal Medicine; Visit Provider Internal Medicine
DX: E11.65 Type 2 diabetes mellitus with hyperglycemia (principal)

== ENCOUNTER → 2025-03-10 13:54 | Outpatient (BNVA) | payer BC, SELFPAY | PROVIDERS: PCP Internal Medicine; Visit Provider Internal Medicine | DX: E11.65 Type 2 diabetes mellitus with hyperglycemia (principal); Z79.84 Long term (current) use of oral hypoglycemic drugs; Z79.85 Long-term (current) use of injectable non-insulin antidiabetic drugs | CPT/HCPCS: 82947 ==